=== PATIENT | male | born 1955 | race Caucasian/White ===

== ENCOUNTER 2017-05-19 08:15 | Emergency (ER) | payer MEDICARE, MEDICAID ==
[2017-05-19] MEDS ORDERED: KETOROLAC 60 MG/2 ML VIAL IVP STA (08:48)
--- NOTE | 2017-05-19 08:51 | ED Physician Documentation ---
PD HPI ABD PAIN - Stated complaint Stated Complaint: AB PX - Chief complaint Chief Complaint: Abd Pain - History obtained from History obtained from: Patient - History of Present Illness Timing - onset: How many months ago (4) Timing - duration: Months (4) Timing - details: Abrupt onset, Still present, Waxing and waning Quality: Sharp, Pain Location: LUQ Radiation: Left flank Improved by: Other (nothing) Worsened by: Other (nothing) Associated symptoms: Nausea. No: Fever, Vomiting, Diarrhea, Constipation, Chest pain, Dizzy, Weight loss Similar symptoms before: Has not had sx before Recently seen: Not recently seen - Additional information Additional information: 61-year-old homeless male has been having some pain in his left abdomen on and off for the past 4 months. This morning he awoke with severe pain and he has been unable to get comfortable from this he states the pain radiates down into his left testicle and is in the left side of his abdomen. Review of Systems Constitutional: denies: Fever, Chills, Myalgias Eyes: denies: Decreased vision Ears: denies: Ear pain Nose: denies: Rhinorrhea / runny nose, Congestion Throat: denies: Sore throat Cardiac: denies: Chest pain / pressure, Palpitations Respiratory: denies: Dyspnea, Cough GI: reports: Abdominal Pain, Nausea. denies: Vomiting, Constipation, Diarrhea : denies: Dysuria, Frequency, Hematuria Skin: denies: Rash Musculoskeletal: reports: Back pain. denies: Neck pain, Extremity pain Neurologic: denies: Generalized weakness, Focal weakness, Numbness PD PAST MEDICAL HISTORY - Past Medical History Past Medical History: No Cardiovascular: Hypertension, [place] Neuro: TIA Psych: Depression Musculoskeletal: Osteoporosis - Past Surgical History Past Surgical History: Yes General: Appendectomy HEENT: Tonsil/Adenoidectomy - Present Medications Home Medications: Ambulatory Orders Medication Instructions Recorded Confirmed Tamsulosin [Flomax] 0.4 mg PO DAILY #20 capsule 05/19/17 - Allergies Allergies/Adverse Reactions: Allergies Allergy/AdvReac Type Severity Reaction Status Date / Time No Known Drug Allergies Allergy Verified 04/29/15 11:02 - Social History Does the pt smoke?: Yes Smoking Status: Current every day smoker Does the pt drink ETOH?: No Substance Use and Type: Marijuana - Immunizations Immunizations are current?: No - POLST Patient has POLST: No PD ED PE NORMAL - Vitals Vital signs reviewed: Yes (Hypertensive and tachycardic) - General General: Alert and oriented X 3, Well developed/nourished, Other (61-year-old male writhing in pain clutching his left lower abdomen.) - HEENT HEENT: Atraumatic, PERRL, EOMI - Neck Neck: Supple, no meningeal sign, No bony TTP - Cardiac Cardiac: No murmur, Other (Tachycardic to 120) - Respiratory Respiratory: No respiratory distress, Clear bilaterally - Abdomen Abdomen: Soft, Other (clutching the left side and this area is " maybe" tender. He is not able to acknowledge tenderness) - Back Back: No CVA TTP, No spinal TTP - Derm Derm: Normal color, Warm and dry, No rash - Extremities Extremities: No deformity, No edema - Neuro Neuro: No motor deficit, No sensory deficit Eye Opening: Spontaneous Motor: Obeys Commands Verbal: Oriented GCS Score: 15 - Psych Psych: Normal mood, Normal affect Results - Vitals Vitals: Vital Signs - 24 hr 05/19/17 05/19/17 05/19/17 08:18 11:34 12:19 Temperature 36.2 C L 36.5 C Heart Rate 121 H 108 H 106 H Respiratory 22 18 16 Rate Blood Pressure 199/136 H 192/105 H 189/135 H O2 Saturation 95 94 96 Oxygen O2 Source Room air - Labs Labs: Laboratory Tests 05/19/17 05/19/17 05/19/17 08:26 08:26 10:19 WBC 12.5 H RBC 4.65 L Hgb 13.2 L Hct 40.1 L MCV 86.3 MCH 28.4 MCHC 33.0 RDW 14.8 Plt Count 311 MPV 8.2 Neut # 10.1 H Lymph # 1.1 L [place] # 0.9 Eos # 0.2 Baso # 0.1 Absolute Nucleated RBC 0.00 Nucleated RBC % 0.0 Sodium 136 Potassium 4.6 Chloride 101 Carbon Dioxide 26 Anion Gap 9.0 BUN 39 H Creatinine 2.3 H Estimated GFR (MDRD) 29 L Glucose 144 H Calcium 8.9 Total Bilirubin 0.6 AST 52 H ALT 43 Alkaline Phosphatase 88 Total Protein 7.2 Albumin 3.9 Globulin 3.3 Albumin/Globulin Ratio 1.2 Lipase 16 L Urine Color YELLOW Urine Clarity CLEAR Urine pH 7.0 Ur Specific [place] <=1.005 Urine Protein NEGATIVE Urine Glucose (UA) NEGATIVE Urine Ketones NEGATIVE Urine Occult Blood TRACE-LYSE Urine Nitrite NEGATIVE Urine Bilirubin NEGATIVE Urine Urobilinogen 0.2 (NORMAL) Ur Leukocyte Esterase NEGATIVE Ur Microscopic Review NOT INDICATED Urine Culture Comments NOT INDICATED - Rads (name of study) CT abdomen and pelvis without Radiology: Prelim report reviewed (Impression: 1. Bilateral moderate hydronephrosis with no distal stone, mass or stricture identified. The bladder is markedly distended. Question bladder outlet obstruction. No bowel obstruction or inflammatory process associated with the bowel. No free air or fluid in the abdomen or pelvis.), EMP read indepedently, See rad report Procedures - Bedside sono Bedside sono by EMP: With use of bedside ultrasound the left kidney is imaged and there is obvious hydronephrosis present the kidney is sonographically nontender. PD MEDICAL DECISION MAKING - ED course Complexity details: reviewed old records, reviewed results, re-evaluated patient , considered differential, d/w patient ED course: 61-year-old male with intermittent left-sided abdominal pain for 4 months has developed acute pain this morning comes into the emergency department writhing in pain and appears by exam to have some tenderness to his lower abdomen that is not reproducible. He has hydro-on bedside exam and kidney stone is the primary working diagnosis. CT scan of the abdomen and pelvis reveals a distended bladder and no evidence of renal lithiasis. He does have bilateral hydronephrosis. A zuñiga is placed. A total of over 2 L is drained. Zuñiga catheter is left in place the patient does have evidence of renal failure with his creatinine over 2.3. We expect this to resolve completely and we have referred him to urology for follow up and we will place him on some tamsulosin. Departure - Departure Disposition: 01 Home, Self Care Clinical Impression: Urinary retention Condition: Stable Instructions: ED Retention Urinary Male Follow-Up: Cherelle Cheney MD [Physician No Access] - Prescriptions: Tamsulosin [Flomax] 0.4 mg PO DAILY #20 capsule
[2017-05-19 08:56] LABS: BASOPHILS # (AUTO) 0.1 10^3/uL (0.0-0.1); BASOPHILS % (AUTO) 0.8 %; EOSINOPHILS # (AUTO) 0.2 10^3/uL (0.0-0.7); EOSINOPHILS % (AUTO) 1.8 %; HGB - HEMOGLOBIN 13.2 g/dL (14.0-18.0); LYMPHOCYTES # (AUTO) 1.1 10^3/uL (1.5-3.5); LYMPHOCYTES % (AUTO) 9.2 %; MEAN CORPUSCULAR HEMOGLOBIN 28.4 pg (27.0-31.0); MEAN CORPUSCULAR VOLUME 86.3 fL (80.0-94.0); MEAN PLATELET VOLUME 8.2 fL (7.4-11.4); MONOCYTES # (AUTO) 0.9 10^3/uL (0.0-1.0); MONOCYTES % (AUTO) 7.5 %; NEUTROPHILS # (AUTO) 10.1 10^3/uL (1.5-6.6); NEUTROPHILS % (AUTO) 80.7 %; PLT - PLATELET COUNT 311 10^3/uL (130-450); RED BLOOD COUNT 4.65 10^6/uL (4.70-6.10); RED CELL DISTRIBUTION WIDTH 14.8 % (12.0-15.0); WHITE BLOOD COUNT 12.5 x10^3/uL (4.8-10.8)
[2017-05-19] MEDS ORDERED: ONDANSETRON 4 MG/2 ML VIAL IVP STA (09:01)
[2017-05-19] MEDS ORDERED: HYDROmorphone 1 MG/ML CARPUJECT IVP STA (09:01)
[2017-05-19 09:06] LABS: ALBUMIN 3.9 g/dL (3.2-5.5); ALBUMIN/GLOBULIN RATIO 1.2 (1.0-2.2); BILIRUBIN,TOTAL 0.6 mg/dL (0.2-1.0); CALCIUM 8.9 mg/dL (8.5-10.3); CREATININE 2.3 mg/dL (0.6-1.2); TOTAL PROTEIN 7.2 g/dL (6.7-8.2)
--- NOTE | 2017-05-19 09:53 | CT Report ---
EXAM: CT ABDOMEN AND PELVIS EXAM DATE: 05/19/2017 09:24 AM. CLINICAL HISTORY: Left flank pain hydro on bedside. COMPARISONS: None. TECHNIQUE: Routine helical CT imaging was performed through the abdomen and pelvis. IV contrast: None . Enteric contrast: No. Reconstructions: Coronal and sagittal. In accordance with CT protocol optimization, one or more of the following dose reduction techniques w ere utilized for this exam: automated exposure control, adjustment of mA and/or KV based on patient s ize, or use of iterative reconstructive technique. FINDINGS: Lung Bases: Moderate emphysematous changes in the lung bases with no focal consolidation. Liver: Normal. No masses. Gallbladder/Bile Ducts: Unremarkable. Spleen: Normal. Pancreas: Normal. Adrenal Glands: Normal. Kidneys: Bilateral moderate hydronephrosis with no stone, mass or stricture identified. Peritoneal Cavity/Bowel: Normal. No free fluid, free air or adenopathy. No masses or acute inflammato ry process. The appendix is not visualized. Pelvic Organs: The bladder is distended. The bladder wall appears smooth and symmetric circumferentia lly. There are 2 bladder diverticula is generally measuring 4.0 x 5.1 cm and 3.0 x 3.2 cm the Vasculature: No aneurysms or other significant abnormality. Bones: No significant abnormality. Other: None. IMPRESSION: 1. Bilateral moderate hydronephrosis with no distal stone, mass or stricture identified. The bladder is markedly distended. Question bladder outlet obstruction. 2. No bowel obstruction or inflammatory process associated with the bowel. 3. No free air-fluid in the abdomen or pelvis. [facility] Referring Provider Line: [phone] SITE ID: [id number]
[2017-05-19 10:29] LABS: BILIRUBIN,URINE NEGATIVE (NEGATIVE); GLUCOSE, URINE (UA) NEGATIVE (NEGATIVE); KETONES,URINE (UA) NEGATIVE (NEGATIVE); LEUKOCYTE ESTERASE, URINE NEGATIVE (NEGATIVE); NITRITE,URINE NEGATIVE (NEGATIVE); OCCULT BLOOD,URINE TRACE-LYSE (NEGATIVE); PROTEIN,URINE NEGATIVE (NEGATIVE); UROBILINOGEN,URINE 0.2 (NORMAL) E.U./dL (NORMAL)
[2017-05-19 10:33] LABS: CLARITY,URINE CLEAR (CLEAR)
[2017-05-19] MEDS ORDERED: TAMSULOSIN 0.4 MG CAPSULE PO STA (12:18)
[2017-05-19 12:20] VITALS: BP 189/135
== END 2017-05-19 12:40 | disposition home or self-care (01) ==
LOC: ED 08:15
DX: R33.9 Retention of urine, unspecified (principal); I10 Essential (primary) hypertension; I25.2 Old myocardial infarction; Z86.73 Personal history of transient ischemic attack (TIA), and cerebral infarction without residual deficits; F17.200 Nicotine dependence, unspecified, uncomplicated
CPT/HCPCS: 36415; 51702; 74176; 80053; 81003; 83690; 85025; 96374; 96375; 99283; 99284; A9270; J1170; 81001; 87086

== ENCOUNTER 2017-05-26 08:00 | Inpatient (IN) | payer MEDICARE, MEDICAID ==
--- NOTE | 2017-05-26 08:17 | ED Physician Documentation ---
History of Present Illness - Stated complaint Stated Complaint: MALE - Chief complaint Chief Complaint: Abd Pain - Additonal information Additional information: hx from pt 61 male seen 05/19 for LLQ to pain had extensive wup including labs UA and CT AP which showed that he had urinary retention with subsequent bilaterl hydro but no stones were seen, no infection, renal insuff, had zuñiga placed and was referred to urology his zuñiga snagged and pulled partway out and was painful with bleeding so he pulled his zuñiga the rest of the out 30 hr ago and now cannot urinate again crampy abd pain nausea and a BLAIR no fever no back pain Review of Systems Constitutional: denies: Fever, Chills Cardiac: denies: Chest pain / pressure Respiratory: denies: Dyspnea GI: reports: Abdominal Pain, Nausea Musculoskeletal: denies: Back pain Endocrine: denies: Easy bruising / bleeding Immunocompromised: denies: Immunocompromised PD PAST MEDICAL HISTORY - Past Medical History Cardiovascular: Hypertension, [place] Neuro: TIA Psych: Depression Musculoskeletal: Osteoporosis - Past Surgical History Past Surgical History: Yes General: Appendectomy HEENT: Tonsil/Adenoidectomy - Present Medications Home Medications: Ambulatory Orders Medication Instructions Recorded Confirmed No Known Home Medications [No 05/26/17 05/26/17 Known Home Medications] - Allergies Allergies/Adverse Reactions: Allergies Allergy/AdvReac Type Severity Reaction Status Date / Time No Known Drug Allergies Allergy Verified 05/26/17 08:05 - Social History Does the pt smoke?: Yes Smoking Status: Current every day smoker Does the pt drink ETOH?: No - Immunizations Immunizations are current?: No - POLST Patient has POLST: No PD ED PE NORMAL - Vitals Vital signs reviewed: Yes - Neck Neck: Supple, no meningeal sign - Cardiac Cardiac: RRR - Respiratory Respiratory: No respiratory distress, Clear bilaterally - Abdomen Abdomen: Soft, Other (TTP lower abd with palpable distended bladder) - Back Back: No CVA TTP - Derm Derm: Normal color Results - Vitals Vitals: Vital Signs - 24 hr 05/26/17 05/26/17 05/26/17 08:01 09:40 11:26 Temperature 37.6 C H 37.2 C Heart Rate 127 H 122 H 117 H Respiratory 22 20 20 Rate Blood Pressure 191/111 H 183/116 H 161/117 H O2 Saturation 98 100 97 05/26/17 12:15 Temperature 37.1 C Heart Rate 118 H Respiratory 20 Rate Blood Pressure 171/112 H O2 Saturation 97 Oxygen O2 Source Room air - EKG (time done) 1019 Rate: Rate (enter#) (118) Rhythm: Sinus tachycardia [place]: Normal Intervals: Normal VT, Prolonged QT QRS: LVH Ischemia: Other (ST elev ant leads could be repol LVH or ischemia - added on trop - pts prsentation is not concerning for ACS) - Labs Labs: Laboratory Tests 05/26/17 05/26/17 05/26/17 08:34 10:10 10:10 WBC 21.9 H RBC 5.15 Hgb 14.7 Hct 43.9 MCV 85.2 MCH 28.6 MCHC 33.5 RDW 14.5 Plt Count 393 MPV 7.8 Neut # 19.3 H Lymph # 0.9 L [place] # 1.5 H Eos # 0.1 Baso # 0.0 Absolute Nucleated RBC 0.01 Nucleated RBC % 0.0 Manual Slide Review Indicated RBC Morph Micro Appear 2+ ANISOCYTOSIS Sodium 135 Potassium 4.8 Chloride 97 L Carbon Dioxide 28 Anion Gap 10.0 BUN 19 Creatinine 1.3 H Estimated GFR (MDRD) 56 L Glucose 113 H Lactic Acid Calcium 9.3 Troponin I Urine Color LIGHT YELLOW Urine Clarity HAZY Urine pH 6.0 Ur Specific [place] <=1.005 Urine Protein TRACE Urine Glucose (UA) NEGATIVE Urine Ketones NEGATIVE Urine Occult Blood LARGE H Urine Nitrite POSITIVE H Urine Bilirubin NEGATIVE Urine Urobilinogen 0.2 (NORMAL) Ur Leukocyte Esterase LARGE H Urine RBC 6-10 H Urine WBC >25 H Ur Squamous Epith Cells NONE SEEN Urine Bacteria Moderate H Ur Microscopic Review INDICATED Urine Culture Comments INDICATED 05/26/17 05/26/17 05/26/17 10:10 11:09 12:50 WBC RBC Hgb Hct MCV MCH MCHC RDW Plt Count MPV Neut # Lymph # [place] # Eos # Baso # Absolute Nucleated RBC Nucleated RBC % Manual Slide Review RBC Morph Micro Appear Sodium Potassium Chloride Carbon Dioxide Anion Gap BUN Creatinine Estimated GFR (MDRD) Glucose Lactic Acid 1.4 Calcium Troponin I 0.07 0.04 Urine Color Urine Clarity Urine pH Ur Specific [place] Urine Protein Urine Glucose (UA) Urine Ketones Urine Occult Blood Urine Nitrite Urine Bilirubin Urine Urobilinogen Ur Leukocyte Esterase Urine RBC Urine WBC Ur Squamous Epith Cells Urine Bacteria Ur Microscopic Review Urine Culture Comments PD MEDICAL DECISION MAKING - ED course ED course: zuñiga replaced large amt urine drained pt feels better no abd pain etc still has a BLAIR - no trauma no CO no numbness or weakness PERRL globes soft no TA TTP A&O X 3 nl motor and sensory - pt attributes to being up all night - gave apap pt now has a UTI likely cath related not prostate as he did not have it before the cath was placed so will give rocpehin IM and dc on keflex pending sensitivities pt has urology fup scheduled already planned to dc but at dc VS pt is still HTN and very tachy so cancelled dc and ordered labs lactate blood cx and IVF EKG was done per protocol by nursing - was not having CP etc - abn - so got trop X 2 which were neg still tachy after IVF and IM ab creat better after zuñiga already had CT s stones will admit spoke to hospitalist at 1330 and she rec obs Departure - Departure Disposition: 66 [facility] DC/Xfer Clinical Impression: Urinary retention, SIRS (systemic inflammatory response syndrome) Urinary tract infection Qualifiers: Urinary tract infection type: site unspecified Hematuria presence: with hematuria Qualified Code(s): N39.0 - Urinary tract infection, site not specified Condition: Good Discharge Date/Time: 05/26/17 14:34
[2017-05-26] MEDS ORDERED: LIDOCAINE 2% URO-JET 5 ML SYRINGE UR STA (08:20)
[2017-05-26 08:49] LABS: BILIRUBIN,URINE NEGATIVE (NEGATIVE); GLUCOSE, URINE (UA) NEGATIVE (NEGATIVE); KETONES,URINE (UA) NEGATIVE (NEGATIVE); LEUKOCYTE ESTERASE, URINE LARGE (NEGATIVE); NITRITE,URINE POSITIVE (NEGATIVE); OCCULT BLOOD,URINE LARGE (NEGATIVE); PROTEIN,URINE TRACE mg/dL (NEGATIVE); UROBILINOGEN,URINE 0.2 (NORMAL) E.U./dL (NORMAL)
[2017-05-26 08:50] LABS: CLARITY,URINE HAZY (CLEAR)
[2017-05-26 09:04] LABS: BACTERIA,URINE Moderate /HPF (None Seen); SQUAMOUS EPITHELIAL CELL,UR NONE SEEN (<= Few)
[2017-05-26] MEDS ORDERED: LIDOCAINE 1% 2 ML VIAL SUBQ ONE (09:08)
[2017-05-26] MEDS ORDERED: cefTRIAXone 1 GM VIAL IM STA (09:08)
[2017-05-26] MEDS ORDERED: ACETAMINOPHEN 500 MG TABLET PO STA (09:41)
[2017-05-26] MEDS ORDERED: SODIUM CHLORIDE 0.9% 1,000 ML IV ONE (09:52)
[2017-05-26 10:42] LABS: CALCIUM 9.3 mg/dL (8.5-10.3); CREATININE 1.3 mg/dL (0.6-1.2)
[2017-05-26 10:47] LABS: BASOPHILS % (AUTO) 0.1 %; EOSINOPHILS # (AUTO) 0.1 10^3/uL (0.0-0.7); EOSINOPHILS % (AUTO) 0.3 %; HGB - HEMOGLOBIN 14.7 g/dL (14.0-18.0); LYMPHOCYTES # (AUTO) 0.9 10^3/uL (1.5-3.5); LYMPHOCYTES % (AUTO) 4.2 %; MEAN CORPUSCULAR HEMOGLOBIN 28.6 pg (27.0-31.0); MEAN CORPUSCULAR HGB CONC 33.5 g/dL (32.0-36.0); MEAN CORPUSCULAR VOLUME 85.2 fL (80.0-94.0); MEAN PLATELET VOLUME 7.8 fL (7.4-11.4); MONOCYTES # (AUTO) 1.5 10^3/uL (0.0-1.0); NEUTROPHILS # (AUTO) 19.3 10^3/uL (1.5-6.6); NEUTROPHILS % (AUTO) 88.4 %; PLT - PLATELET COUNT 393 10^3/uL (130-450); RED BLOOD COUNT 5.15 10^6/uL (4.70-6.10); RED CELL DISTRIBUTION WIDTH 14.5 % (12.0-15.0); WHITE BLOOD COUNT 21.9 x10^3/uL (4.8-10.8)
[2017-05-26 11:12] LABS: RBC MORPHOLOGY (MULTIPLE) 2+ ANISOCYTOSIS (NORMAL)
[2017-05-26] MEDS ORDERED: MORPHINE 2 MG/ML SYRINGE IVP STA (11:36)
[2017-05-26] MEDS ORDERED: SODIUM CHLORIDE 0.9% 2,000 ML IV ONE (13:30)
[2017-05-26] MEDS ORDERED: ZOLPIDEM 5 MG TABLET PO PRN (14:05)
[2017-05-26] MEDS ORDERED: SODIUM CHLORIDE FLUSH 0.9% 10 ML SYRINGE IVP PRN (14:05)
[2017-05-26] MEDS ORDERED: ONDANSETRON 4 MG/2 ML VIAL IVP PRN (14:05)
--- NOTE | 2017-05-26 14:27 | HISTORY & PHYSICAL EXAMINATION ---
Chief Complaint - Chief Complaint Chief Complaint: urinary retention History of Present Illness - Admitted From Admitted From:: ER - History Obtained From History obtained from: pt - History of Present Illness HPI Comment/Other: Mr. Robb is a 61-year-old male with a PMH significant for HTN, PR, TIA, Depression, Osteoporosis, urinary retention for six months, who present ER for a chief complaints of urinary retention, unable to urinate after the urinary catheter was incident removed, and dysuria. Pt report since last night his Zuñiga was incident removed by himself, he can not urinate. He felt full in the bladder, can not urinate by himself and very painful when he tried to urinate. He denies fever, chill, hematouria. Pt report he had this difficulty urination issue for about 6 months. He had a urologist appointment on this month . pt had extensive workup including CT of abdomen on 05/19/17, which showed that he had urinary retention with bilateral moderate hydronephrosis with no distal stone, mass or stricture identified, Then pt had zuñiga placed and was referred to urology. Pt is homeless and is living at car. Pt also complaint of headache. he report he had a quit long time he did not have headache. pt denies neck stiffness, fever, focal neurological deficits. Pt denies chest pain, shortness of breathing, fever, chill, cough. In ER, pt is afbile, tachycardia with HR 118 , and HTN 171/112. Lab test reveals today WBC 21.9, creatinine 1.3, UA reveals UTI. History - Past Medical History Cardiovascular: reports: Hypertension, [place] Neuro: reports: TIA Psych: reports: Depression Musculoskeletal: reports: Osteoporosis MRSA Hx?: Yes - Past Surgical History General: reports: Appendectomy HEENT: reports: Tonsil/Adenoidectomy - Family & Social History Family History: Mother: (father from stroke. Mother from Lung cancer), Father: , Other family: Alive and Well (pt state he left his parents when he was very young. He did not know much about his sibles.) Family History Comment/Other: Pt state he is born at [place], and until he finished his high school. Then He moved to [place]. His at 1998 and from cancer. he had four children, but all his children were removed from his by government after his , then He became very depressioned. Social History Notes: pt denies cigarette smoking, alcohol and drug abuse - Substance History Use: Uses substance without health or social issues: NONE Abuse: Recurrent use of substance despite neg consequences: NONE Dependence: Experiences withdrawal or developed tolerances: NONE - POLST Patient has POLST: No POLST Status: DNR Meds/Allgy - Home Medications Home Medications: Ambulatory Orders Medication Instructions Recorded Confirmed No Known Home Medications [No 05/26/17 05/26/17 Known Home Medications] - Allergies Allergies/Adverse Reactions: Allergies Allergy/AdvReac Type Severity Reaction Status Date / Time No Known Drug Allergies Allergy Verified 05/26/17 08:05 Review of Systems - Constitutional Constitutional: denies: Fatigue, Fever, Chills, Malaise, Weakness, Poor appetite , Diaphoresis, Night sweats - Eyes Eyes: denies: Pain, Irritation, Amaurosis, Blurred vision, Spots in vision, Field loss, Vision loss, Dipolpia - Ears, Nose & Throat Ears, Nose & Throat: denies: Ear pain, Hearing loss, Hearing aids, Tinnitus, Vertigo, Nasal pain, Nasal discharge, Nosebleeds, Nasal congestion, Sore throat , Mouth lesions, Bleeding gums - Cardiovascular Cariovascular: denies: Irregular heart rate, Palpitations, Chest pain, Edema, Lightheadedness, Syncope, Exertional dyspnea, Decr. exercise tolerance - Respiratory Respiratory: denies: Cough, Sputum production, Wheezing, Snoring, Hemoptysis, Orthopnea, SOB at rest, SOB with exertion - Gastrointestinal Gastrointestinal: denies: Abdominal pain, Abdominal distention, Constipation, Diarrhea, Rectal bleeding, Black stools, Bloody stools, Nausea, Vomiting, Vargas blood emesis, Coffee grounds emesis, Reflux/heartburn - Genitourinary Genitourinary: reports: Dysuria, Urgency. denies: Frequency, Hematuria, Incontinence, Flank pain, Nocturia, Urethral discharge - Musculoskeletal Musculoskeletal: denies: Muscle pain, Back pain, Muscle aches, Stiffness, Limited range of motion, Muscle weakness, Gout, Joint pain - Integumentary Integumentary: denies: Rash, Pruritis, Lesions, Dryness, Lumps, Acne, Pigment changes, Nail changes - Neurological Neurological: denies: General weakness, Focal weakness, Headache, Dizziness, Numbness, Pre-existing deficit, Abnormal gait, Seizures, Incoordination, Slurred speech - Psychiatric Psychiatric: denies: Depression, Anxiety, Suicidal, Delusions, Hallucinations, Homicidal - Endocrine Endocrine: denies: Polyuria, Polydypsia, Polyphagia, Intolerance to cold - Hematologic/Lymphatic Hematologic/Lymphatic: denies: Anemia, Bruising, Petechiae, Blood clots, Lymphadenopathy, Bleeding tendencies Exam - Vital Signs Reviewed Vital Signs: Yes Vital Signs: Vital Signs x48h Temp Pulse Resp BP Pulse Ox 05/26/17 14:22 36.6 C 107 H 22 167/103 H 97 - Physical Exam General Appearance: positive: No acute distress, Alert. negative: Lethargic Eyes Bilateral: positive: Normal inspection, PERRL, No lid inflammation, Conjunctivae nml ENT: positive: ENT inspection nml, Pharynx nml, No signs of dehydration. negative: Purulent nasal drainage, Pharyngeal erythema, Oral lesions, Dry mucous membranes Neck: positive: Nml inspection, Thyroid nml, No JVD, Trachea midline. negative : Thyromegaly, Lymphadenopathy (R), Lymphadenopathy (L), Stiff neck, Carotid bruit, Swelling/bruising, Tracheal deviation Respiratory: positive: Chest non-tender, No respiratory distress, Breath sounds nml. negative: Wheezes, Rales, Rhonchi Cardiovascular: positive: Regular rate & rhythm, No murmur, No gallop. negative : Irregularly irregular, Extrasystoles, Tachycardia, Bradycardia, Systolic murmur, Diastolic murmur Peripheral Pulses: positive: 2+ Abdomen: positive: Non-tender, No organomegaly, Nml bowel sounds, No distention. negative: Tenderness, Guarding, Rebound Back: positive: Nml inspection. negative: CVA tenderness (R), CVA tenderness (L ) Skin: positive: Color nml, No rash, Warm, Dry. negative: Cyanosis, Diaphoresis , Pallor Extremities: positive: Non-tender, Full ROM, Nml appearance. negative: Calf tenderness, Joint swelling, Jasmine's sign/cords Neurologic/Psychiatric: positive: Oriented x3, Motor nml, Sensation nml. negative: Weakness, Sensory loss, Facial droop, Slurred/abnml speech, Depressed mood/affect Conclusion/Plan - Problem List (1) Urinary tract infection Conclusion/Plan: UA positive UTI, it appears from Zuñiga Cath treat with Rocephin follow up UA culture Qualifiers: Urinary tract infection type: site unspecified Hematuria presence: with hematuria Qualified Code(s): N39.0 - Urinary tract infection, site not specified; R31.9 - Hematuria, unspecified; R31.9 - Hematuria, unspecified (2) Urinary retention Conclusion/Plan: pt has this problem for about 6 months. Pt had appointment with Urologist in . recent CT of abdomen reveals unremarkable add Flomax insertion of new Zuñiga, follow Zuñiga protocol, pt may need Zuñiga on D/C follow up out-pt appointment with urologist. (3) HTN (hypertension) Conclusion/Plan: pt did not take his HTN meds. Pt is hx of HTN and PR Add Metoprolol, since pt had both tachycardia and HTN, without asthma hx add PRN Clonidine vital monitor (4) Tachycardia Conclusion/Plan: EKG reveals sinus tachycardia on ER. Metoprolol, vital/tele monitor (5) Chronic renal insufficiency Conclusion/Plan: Creatinine on last admission is 2.3, today his creatinine 1.3, is better mild hydration with NS IVF daily lab monitor (6) Illicit drug use Conclusion/Plan: pt denies illicit drug when I assessed pt. But UDS reveals pt is positive for Methamphetamine, then pt state his friend may give him something. advise pt quit. (7) Headache Conclusion/Plan: pt state he had severe headache, but denies focal neurological deficit. CT of head is unremarkable. It may drive from pt's illicit drug withdrawal. Tylenol PRN. neur check vital monitor IVF (8) Medical non-compliance Conclusion/Plan: pt did not take his BP meds. Pt is advised for medical compliance (9) Homelessness Conclusion/Plan: pt is with disability insurance, also homeless, currently he is living at a car consult with social work (10) DVT prophylaxis Conclusion/Plan: SCD and Lovenox (11) Do not intubate, cardiopulmonary resuscitation (CPR)-only code status Conclusion/Plan: pt clearly request DNR - Lab Results Fish Bones: 05/26/17 10:10 05/26/17 10:10 Core Measures - Anticipated LOS I expect patient to be DC'd or transferred within 96 hours.: Yes - DVT/VTE - Prophylaxis VTE/DVT Device ordered at admit?: Yes VTE/DVT Prophylaxis med ordered at admit?: Yes
--- NOTE | 2017-05-26 14:35 | CT Report ---
EXAM: CT HEAD EXAM DATE: 05/26/2017 02:21 PM. CLINICAL HISTORY: Headache, severe. COMPARISON: 09/16/2007. TECHNIQUE: Multiaxial CT images were obtained from the foramen magnum to the vertex. Reformats: Coron al. IV contrast: None. In accordance with CT protocol optimization, one or more of the following dose reduction techniques w ere utilized for this exam: automated exposure control, adjustment of mA and/or KV based on patient s ize, or use of iterative reconstructive technique. FINDINGS: Parenchyma: No intraparenchymal hemorrhage. No evidence of mass, midline shift, or CT findings of inf arction. Mackey-white differentiation is distinct. Extraaxial Spaces: Normal for age. No subdural or epidural collections identified. Ventricles: Normal in size and position. Sinuses and Orbits: Imaged paranasal sinuses, orbits, and mastoids show no significant abnormality. Bones: No evidence of fracture or calvarial defect. Other: None. IMPRESSION: No acute intracranial abnormality or mass. [facility] Referring Provider Line: [phone] SITE ID: [id number]
[2017-05-26] MEDS: METOPROLOL SUCCINATE 25 MG TABLET PO SCH (14:55)
[2017-05-26] MEDS: ACETAMINOPHEN 325 MG TABLET PO PRN (15:08)
[2017-05-26] MEDS ORDERED: SODIUM CHLORIDE 0.9% 1,000 ML IV SCH (15:30)
[2017-05-26 15:45] LABS: MUDS CUTOFF CONCENTRATIONS CUTOFF CONC BELOW:
[2017-05-26] MEDS: cloNIDine 0.1 MG TABLET PO PRN (15:56)
[2017-05-26] MEDS: HYDROcod/ACETAM 5/325 MG TABLET PO PRN (15:56)
[2017-05-26] MEDS: NICOTINE 14 MG PATCH TOP SCH (15:57)
[2017-05-26 15:59] LABS: AMPHETAMINE SCREEN,URINE NEGATIVE (NEGATIVE); BENZODIAZEPINES SCREEN, URINE NEGATIVE (NEGATIVE); COCAINE SCREEN URINE NEGATIVE (NEGATIVE); METHADONE SCREEN, URINE NEGATIVE (NEGATIVE); METHAMPHETAMINES SCREEN, URINE POSITIVE (NEGATIVE); OPIATE SCREEN, URINE POSITIVE (NEGATIVE); OXYCODONE SCREEN, URINE NEGATIVE (NEGATIVE); PROPOXYPHENE SCREEN, URINE NEGATIVE (NEGATIVE); TRICYCLIC ANTIDEPRESSANT,URINE NEGATIVE (NEGATIVE)
[2017-05-26] MEDS: SODIUM CHLORIDE FLUSH 0.9% 10 ML SYRINGE IVP SCH (15:59)
[2017-05-26] MEDS: TAMSULOSIN 0.4 MG CAPSULE PO SCH (17:49)
[2017-05-26] MEDS: SODIUM CHLORIDE 0.9% 1,000 ML IV SCH ×2 (20:02→23:00)
[2017-05-27] MEDS: ACETAMINOPHEN 325 MG TABLET PO PRN ×2 (00:17→07:34)
[2017-05-27] MEDS: SODIUM CHLORIDE FLUSH 0.9% 10 ML SYRINGE IVP SCH ×3 (02:27→18:09)
[2017-05-27] MEDS: HYDROcod/ACETAM 5/325 MG TABLET PO PRN ×2 (05:34→20:08)
[2017-05-27 05:44] LABS: BASOPHILS # (AUTO) 0.1 10^3/uL (0.0-0.1); EOSINOPHILS # (AUTO) 0.4 10^3/uL (0.0-0.7); EOSINOPHILS % (AUTO) 2.6 %; LYMPHOCYTES # (AUTO) 1.8 10^3/uL (1.5-3.5); LYMPHOCYTES % (AUTO) 12.2 %; MEAN CORPUSCULAR HEMOGLOBIN 27.6 pg (27.0-31.0); MEAN CORPUSCULAR VOLUME 86.3 fL (80.0-94.0); MEAN PLATELET VOLUME 7.5 fL (7.4-11.4); MONOCYTES # (AUTO) 1.1 10^3/uL (0.0-1.0); MONOCYTES % (AUTO) 7.4 %; NEUTROPHILS # (AUTO) 11.1 10^3/uL (1.5-6.6); NEUTROPHILS % (AUTO) 76.8 %; PLT - PLATELET COUNT 343 10^3/uL (130-450); RED BLOOD COUNT 4.73 10^6/uL (4.70-6.10); RED CELL DISTRIBUTION WIDTH 14.5 % (12.0-15.0); WHITE BLOOD COUNT 14.5 x10^3/uL (4.8-10.8)
[2017-05-27 05:53] LABS: ALBUMIN 2.9 g/dL (3.2-5.5); ALBUMIN/GLOBULIN RATIO 0.8 (1.0-2.2); BILIRUBIN,TOTAL 0.5 mg/dL (0.2-1.0); CALCIUM 8.7 mg/dL (8.5-10.3); CREATININE 1.2 mg/dL (0.6-1.2); MAGNESIUM 1.7 mg/dL (1.7-2.8); TOTAL PROTEIN 6.4 g/dL (6.7-8.2)
[2017-05-27] MEDS: cefTRIAXone 1 GM in SODIUM CHLORIDE 0.9% MINIBAG 100 ML IV SCH (08:27)
[2017-05-27] MEDS: ENOXAPARIN 40 MG/0.4 ML SYRINGE SUBQ SCH (08:27)
[2017-05-27] MEDS: NICOTINE 14 MG PATCH TOP SCH (08:28)
[2017-05-27] MEDS: METOPROLOL SUCCINATE 25 MG TABLET PO SCH (08:28)
[2017-05-27] MEDS: TAMSULOSIN 0.4 MG CAPSULE PO SCH (08:28)
[2017-05-27] MEDS: FAMOTIDINE 20 MG TABLET PO SCH (08:28)
[2017-05-27] MEDS: POLYETHYLENE GLYCOL 3350 17 GM PACKET PO SCH (08:31)
[2017-05-27] MEDS ORDERED: cefTRIAXone 1 GM VIAL IVP SCH (09:00)
--- NOTE | 2017-05-27 13:24 | PROVIDER PROGRESS NOTE ---
Subjective - Prog Note Date Prog Note Date: 05/27/17 - Subjective Pt reports feeling: Improved Subjective: pt report he feel much better. No complaints. Current Medications - Current Medications Current Medications: Active Medications Acetaminophen (Tylenol) 650 mg PO Q4HR PRN PRN Reason: Pain 1 to 4 Last Admin: 05/27/17 07:34 Dose: 650 mg Acetaminophen/Hydrocodone Bitart ([place] 5/325) 1 tab PO Q4HR PRN PRN Reason: PAIN Last Admin: 05/27/17 05:34 Dose: 1 tab Clonidine HCl (Catapres) 0.1 mg PO BID PRN PRN Reason: Hypertensive Emergency Last Admin: 05/26/17 15:56 Dose: 0.1 mg Enoxaparin Sodium (Lovenox) 40 mg SUBQ DAILY [facility] Last Admin: 05/27/17 08:27 Dose: 40 mg Famotidine (Pepcid) 20 mg PO DAILY [facility] Last Admin: 05/27/17 08:28 Dose: 20 mg Ceftriaxone Sodium 1 gm/ (Sodium Chloride) 100 mls @ 200 mls/hr IV DAILY [facility] Last Infusion: 05/27/17 09:59 Dose: Infused Metoprolol Succinate (Toprol Xl) 25 mg PO DAILY [facility] Last Admin: 05/27/17 08:28 Dose: 25 mg Nicotine (Nicoderm) 1 patch TOP DAILY [facility] Last Admin: 05/27/17 08:28 Dose: 1 patch Ondansetron HCl (Zofran Inj) 4 mg IVP Q6HR PRN PRN Reason: Nausea / Vomiting Polyethylene Glycol (Miralax) 17 gm PO DAILY [facility] Last Admin: 05/27/17 08:31 Dose: Not Given Sodium Chloride (Normal Saline Flush 0.9%) 10 ml IVP PRN PRN PRN Reason: NEEDED PER PROVIDER ORDERS Sodium Chloride (Normal Saline Flush 0.9%) 10 ml IVP 0100,0900,1700 [facility] Last Admin: 05/27/17 08:28 Dose: 10 ml Tamsulosin HCl (Flomax) 0.4 mg PO DAILY [facility] Last Admin: 05/27/17 08:28 Dose: 0.4 mg Zolpidem Tartrate (Ambien) 5 mg PO QPM PRN PRN Reason: Insomnia No Known Home Medications [No Known Home Medications] 04/07/18 Objective - Vital Signs/Intake & Output Reviewed Vital Signs: Yes Vital Signs: Vital Signs x48h Temp Pulse Resp BP Pulse Ox 05/27/17 12:50 36.4 C L 92 98 H 156/95 H 05/27/17 08:00 36.3 C L 97 16 144/95 H 98 05/27/17 05:32 36.6 C 91 16 152/108 H 97 Intake & Output: Intake & Output 05/24/17 05/25/17 05/26/17 05/27/17 23:59 23:59 23:59 23:59 Intake Total 2600 2172.50 Output Total 2800 1400 Balance -200 772.50 - Objective General Appearance: positive: No acute distress, Alert. negative: Lethargic Eyes Bilateral: positive: Normal inspection, PERRL, No lid inflammation, Conjunctivae nml ENT: positive: ENT inspection nml, Pharynx nml, No signs of dehydration. negative: Purulent nasal drainage, Pharyngeal erythema, Oral lesions Neck: positive: Nml inspection, Thyroid nml, No JVD, Trachea midline. negative : Thyromegaly, Lymphadenopathy (R), Lymphadenopathy (L), Stiff neck, Carotid bruit, Swelling/bruising, Tracheal deviation Respiratory: positive: Chest non-tender, No respiratory distress, Breath sounds nml. negative: Wheezes, Rales, Rhonchi Cardiovascular: positive: Regular rate & rhythm, No murmur, No gallop. negative : Irregularly irregular, Extrasystoles, Tachycardia, Bradycardia, Systolic murmur, Diastolic murmur Peripheral Pulses: 2+ Radial (R), 2+ Radial (L), 2+ Dorsalis pedis (R), 2+ Dorsalis pedis (L) Abdomen: positive: Non-tender, No organomegaly, Nml bowel sounds, No distention. negative: Tenderness, Guarding, Rebound, Abnml bowel sounds Back: positive: Nml inspection. negative: CVA tenderness (R), CVA tenderness (L ) Skin: positive: Color nml, No rash, Warm, Dry. negative: Cyanosis, Diaphoresis , Pallor Extremities: positive: Non-tender, Full ROM, Nml appearance. negative: Calf tenderness, Joint swelling, Jasmine's sign/cords Neurologic/Psychiatric: positive: Oriented x3, Sensation nml. negative: Weakness, Sensory loss, Facial droop, Slurred/abnml speech, Depressed mood/ affect - Lab Results Fish Bones: 05/27/17 05:25 05/27/17 05:25 Other Labs: Lab Results x24hrs 05/27/17 05/27/17 05/26/17 Range/Units 05:25 05:25 15:25 WBC 14.5 H (4.8-10.8) x10^3/uL RBC 4.73 (4.70-6.10) 10^6/uL Hgb 13.0 L (14.0-18.0) g/dL Hct 40.8 L (42.0-52.0) % MCV 86.3 (80.0-94.0) fL MCH 27.6 (27.0-31.0) pg MCHC 32.0 (32.0-36.0) g/dL RDW 14.5 (12.0-15.0) % Plt Count 343 (130-450) 10^3/uL MPV 7.5 (7.4-11.4) fL Neut # 11.1 H (1.5-6.6) 10^3/uL Lymph # 1.8 (1.5-3.5) 10^3/uL [place] # 1.1 H (0.0-1.0) 10^3/uL Eos # 0.4 (0.0-0.7) 10^3/uL Baso # 0.1 (0.0-0.1) 10^3/uL Absolute Nucleated RBC 0.01 x10^3/uL Nucleated RBC % 0.1 /100WBC Sodium 138 (135-145) mmol/L Potassium 4.3 (3.5-5.0) mmol/L Chloride 104 (101-111) mmol/L Carbon Dioxide 28 (21-32) mmol/L Anion Gap 6.0 (6-13) BUN 16 (6-20) mg/dL Creatinine 1.2 (0.6-1.2) mg/dL Estimated GFR (MDRD) 62 L (>89) Glucose 110 H (70-100) mg/dL Calcium 8.7 (8.5-10.3) mg/dL Magnesium 1.7 (1.7-2.8) mg/dL Total Bilirubin 0.5 (0.2-1.0) mg/dL AST 21 (10-42) IU/L ALT 25 (10-60) IU/L Alkaline Phosphatase 70 (42-121) IU/L Total Protein 6.4 L (6.7-8.2) g/dL Albumin 2.9 L (3.2-5.5) g/dL Globulin 3.5 (2.1-4.2) g/dL Albumin/Globulin Ratio 0.8 L (1.0-2.2) Urine Opiates Screen POSITIVE H (NEGATIVE) Ur Oxycodone Screen NEGATIVE (NEGATIVE) Urine Methadone Screen NEGATIVE (NEGATIVE) Ur Propoxyphene Screen NEGATIVE (NEGATIVE) Ur Barbiturates Screen NEGATIVE (NEGATIVE) Ur Tricyclics Screen NEGATIVE (NEGATIVE) Ur Phencyclidine Scrn NEGATIVE (NEGATIVE) Ur Amphetamine Screen NEGATIVE (NEGATIVE) U Methamphetamines Scrn POSITIVE H (NEGATIVE) U Benzodiazepines Scrn NEGATIVE (NEGATIVE) Urine Cocaine Screen NEGATIVE (NEGATIVE) U Cannabinoids Screen NEGATIVE (NEGATIVE) Assessment/Plan - Problem List (1) Urinary tract infection Impression: (1) Urinary tract infection Conclusion/Plan: pt report he feel much better, denies any pain. WBC 14.5 from previous 21.9 continue antibiotics, preliminary blood culture is negative follow UA culture and sensitivity study UA positive UTI, it appears from [place] Cath treat with Rocephin follow up UA culture (2) Urinary retention Conclusion/Plan: most likely pt with [place] in discharge. education pt for the [place] care. follow up out-pt appointment with urologist on 06/14/17 pt has this problem for about 6 months. Pt had appointment with Urologist in . recent CT of abdomen reveals unremarkable add Flomax insertion of new [place], follow Marin protocol, pt may need Marin on D/C follow up out-pt appointment with urologist. (3) HTN (hypertension) Conclusion/Plan: stable, continue meds pt did not take his HTN meds. Pt is hx of HTN and [place] Add Metoprolol, since pt had both tachycardia and HTN, without asthma hx add PRN Clonidine vital monitor (4) Tachycardia Conclusion/Plan: controlled around 90 EKG reveals sinus tachycardia on ER. Metoprolol, vital/tele monitor (5) Chronic renal insufficiency Conclusion/Plan: improved with creatinine 1.2, GFR 62. continue hydration hold nephrotoxical agents Creatinine on last admission is 2.3, today his creatinine 1.3, is better mild hydration with NS IVF daily lab monitor (6) Illicit drug use Conclusion/Plan: pt denies illicit drug when I assessed pt. But UDS reveals pt is positive for Methamphetamine, then pt state his friend may give him something. advise pt quit. (7) Headache Conclusion/Plan: resolved, no more complaints pt state he had severe headache, but denies focal neurological deficit. CT of head is unremarkable. It may drive from pt's illicit drug withdrawal. Tylenol PRN. neur check vital monitor IVF (8) Medical non-compliance Conclusion/Plan: pt did not take his BP meds. Pt is advised for medical compliance (9) Homelessness Conclusion/Plan: planning d/c pt on tomorrow if continue stable, with [place] and leg bag to pt. pt is with disability insurance, also homeless, currently he is living at a car consult with social work Qualifiers: Urinary tract infection type: site unspecified Hematuria presence: with hematuria Qualified Code(s): N39.0 - Urinary tract infection, site not specified; R31.9 - Hematuria, unspecified; R31.9 - Hematuria, unspecified
[2017-05-27] MEDS: cloNIDine 0.1 MG TABLET PO PRN (20:08)
[2017-05-28] MEDS: SODIUM CHLORIDE FLUSH 0.9% 10 ML SYRINGE IVP SCH ×3 (00:11→23:23)
[2017-05-28 05:02] LABS: BASOPHILS % (AUTO) 0.3 %; EOSINOPHILS # (AUTO) 0.5 10^3/uL (0.0-0.7); EOSINOPHILS % (AUTO) 3.7 %; LYMPHOCYTES # (AUTO) 1.9 10^3/uL (1.5-3.5); LYMPHOCYTES % (AUTO) 14.7 %; MEAN CORPUSCULAR HEMOGLOBIN 27.5 pg (27.0-31.0); MEAN CORPUSCULAR HGB CONC 32.2 g/dL (32.0-36.0); MEAN CORPUSCULAR VOLUME 85.4 fL (80.0-94.0); MEAN PLATELET VOLUME 7.5 fL (7.4-11.4); NEUTROPHILS # (AUTO) 9.4 10^3/uL (1.5-6.6); NEUTROPHILS % (AUTO) 73.3 %; PLT - PLATELET COUNT 387 10^3/uL (130-450); RED CELL DISTRIBUTION WIDTH 14.2 % (12.0-15.0); WHITE BLOOD COUNT 12.9 x10^3/uL (4.8-10.8)
[2017-05-28 05:14] LABS: ALBUMIN 2.8 g/dL (3.2-5.5); ALBUMIN/GLOBULIN RATIO 0.8 (1.0-2.2); BILIRUBIN,TOTAL 0.3 mg/dL (0.2-1.0); CALCIUM 8.6 mg/dL (8.5-10.3); CREATININE 1.3 mg/dL (0.6-1.2); TOTAL PROTEIN 6.5 g/dL (6.7-8.2)
[2017-05-28] MEDS: NICOTINE 14 MG PATCH TOP SCH (08:12)
[2017-05-28] MEDS: cefTRIAXone 1 GM in SODIUM CHLORIDE 0.9% MINIBAG 100 ML IV SCH (08:12)
[2017-05-28] MEDS: ENOXAPARIN 40 MG/0.4 ML SYRINGE SUBQ SCH (08:12)
[2017-05-28] MEDS: cloNIDine 0.1 MG TABLET PO PRN (08:13)
[2017-05-28] MEDS: FAMOTIDINE 20 MG TABLET PO SCH (08:13)
[2017-05-28] MEDS: METOPROLOL SUCCINATE 50 MG TABLET PO SCH (08:13)
[2017-05-28] MEDS: POLYETHYLENE GLYCOL 3350 17 GM PACKET PO SCH (08:13)
[2017-05-28] MEDS: TAMSULOSIN 0.4 MG CAPSULE PO SCH (08:13)
[2017-05-28] MEDS: ACETAMINOPHEN 325 MG TABLET PO PRN (08:13)
[2017-05-28] MEDS: SODIUM CHLORIDE 0.9% 1,000 ML IV SCH ×2 (08:17→19:36)
--- NOTE | 2017-05-28 08:49 | PROVIDER PROGRESS NOTE ---
Subjective - Prog Note Date Prog Note Date: 05/28/17 - Subjective Pt reports feeling: No change Subjective: pt report some headache but better than his previous headache. Pt's CT of brain is unremarkable. pt is positive for methamphetamine. Pt denies CP, SOB. No seizure. Current Medications - Current Medications Current Medications: Active Medications Acetaminophen (Tylenol) 650 mg PO Q4HR PRN PRN Reason: Pain 1 to 4 Last Admin: 05/28/17 08:13 Dose: 650 mg Acetaminophen/Hydrocodone Bitart ([place] 5/325) 1 tab PO Q4HR PRN PRN Reason: PAIN Last Admin: 05/27/17 20:08 Dose: 1 tab Clonidine HCl (Catapres) 0.1 mg PO BID PRN PRN Reason: Hypertensive Emergency Last Admin: 05/28/17 08:13 Dose: 0.1 mg Enoxaparin Sodium (Lovenox) 40 mg SUBQ DAILY [facility] Last Admin: 05/28/17 08:12 Dose: 40 mg Famotidine (Pepcid) 20 mg PO DAILY [facility] Last Admin: 05/28/17 08:13 Dose: 20 mg Ceftriaxone Sodium 1 gm/ (Sodium Chloride) 100 mls @ 200 mls/hr IV DAILY [facility] Last Admin: 05/28/17 08:12 Dose: 200 mls/hr Sodium Chloride (Normal Saline 0.9%) 1,000 mls @ 83.333 mls/hr IV .Q12H [facility] Last Admin: 05/28/17 08:17 Dose: 83.333 mls/hr Metoprolol Succinate (Toprol Xl) 50 mg PO DAILY [facility] Last Admin: 05/28/17 08:13 Dose: 50 mg Nicotine (Nicoderm) 1 patch TOP DAILY [facility] Last Admin: 05/28/17 08:12 Dose: 1 patch Ondansetron HCl (Zofran Inj) 4 mg IVP Q6HR PRN PRN Reason: Nausea / Vomiting Polyethylene Glycol (Miralax) 17 gm PO DAILY [facility] Last Admin: 05/28/17 08:13 Dose: 17 gm Sodium Chloride (Normal Saline Flush 0.9%) 10 ml IVP PRN PRN PRN Reason: NEEDED PER PROVIDER ORDERS Sodium Chloride (Normal Saline Flush 0.9%) 10 ml IVP 0100,0900,1700 [facility] Last Admin: 05/28/17 08:14 Dose: Not Given Tamsulosin HCl (Flomax) 0.4 mg PO DAILY [facility] Last Admin: 05/28/17 08:13 Dose: 0.4 mg Zolpidem Tartrate (Ambien) 5 mg PO QPM PRN PRN Reason: Insomnia No Known Home Medications [No Known Home Medications] 05/26/17 Objective - Vital Signs/Intake & Output Reviewed Vital Signs: Yes Vital Signs: Vital Signs x48h Temp Pulse Resp BP Pulse Ox 05/28/17 08:00 36.9 C 99 20 171/121 H 97 Intake & Output: Intake & Output 05/25/17 05/26/17 05/27/17 05/28/17 23:59 23:59 23:59 23:59 Intake Total 2600 2752.50 Output Total 2800 3950 2175 Balance -200 -1197.50 -2175 - Objective General Appearance: positive: No acute distress, Alert. negative: Lethargic Eyes Bilateral: positive: Normal inspection, PERRL, No lid inflammation, Conjunctivae nml ENT: positive: ENT inspection nml, Pharynx nml, No signs of dehydration. negative: Purulent nasal drainage, Pharyngeal erythema, Oral lesions Neck: positive: Nml inspection, Thyroid nml, No JVD, Trachea midline. negative : Thyromegaly, Lymphadenopathy (R), Lymphadenopathy (L), Stiff neck, Carotid bruit, Swelling/bruising, Tracheal deviation Respiratory: positive: Chest non-tender, No respiratory distress, Breath sounds nml. negative: Wheezes, Rales, Rhonchi Cardiovascular: positive: Regular rate & rhythm, No murmur, No gallop. negative : Irregularly irregular, Extrasystoles, Tachycardia, Bradycardia, Systolic murmur, Diastolic murmur Peripheral Pulses: 2+ Radial (R), 2+ Radial (L), 2+ Dorsalis pedis (R), 2+ Dorsalis pedis (L) Abdomen: positive: Non-tender, No organomegaly, Nml bowel sounds, No distention. negative: Tenderness, Guarding, Rebound Back: positive: Nml inspection. negative: CVA tenderness (R), CVA tenderness (L ) Skin: positive: Color nml, No rash, Warm, Dry. negative: Cyanosis, Diaphoresis , Pallor Extremities: positive: Non-tender, Full ROM, Nml appearance. negative: Calf tenderness, Joint swelling, Jasmine's sign/cords Neurologic/Psychiatric: positive: Oriented x3, Sensation nml. negative: Weakness, Sensory loss, Facial droop, Slurred/abnml speech, Depressed mood/ affect - Lab Results Fish Bones: 05/28/17 04:21 05/28/17 04:21 Other Labs: Lab Results x24hrs 05/28/17 05/28/17 Range/Units 04:21 04:21 WBC 12.9 H (4.8-10.8) x10^3/uL RBC 4.70 (4.70-6.10) 10^6/uL Hgb 13.0 L (14.0-18.0) g/dL Hct 40.2 L (42.0-52.0) % MCV 85.4 (80.0-94.0) fL MCH 27.5 (27.0-31.0) pg MCHC 32.2 (32.0-36.0) g/dL RDW 14.2 (12.0-15.0) % Plt Count 387 (130-450) 10^3/uL MPV 7.5 (7.4-11.4) fL Neut # 9.4 H (1.5-6.6) 10^3/uL Lymph # 1.9 (1.5-3.5) 10^3/uL [place] # 1.0 (0.0-1.0) 10^3/uL Eos # 0.5 (0.0-0.7) 10^3/uL Baso # 0.0 (0.0-0.1) 10^3/uL Absolute Nucleated RBC 0.00 x10^3/uL Nucleated RBC % 0.0 /100WBC Sodium 132 L (135-145) mmol/L Potassium 3.7 (3.5-5.0) mmol/L Chloride 100 L (101-111) mmol/L Carbon Dioxide 24 (21-32) mmol/L Anion Gap 8.0 (6-13) BUN 22 H (6-20) mg/dL Creatinine 1.3 H (0.6-1.2) mg/dL Estimated GFR (MDRD) 56 L (>89) Glucose 108 H (70-100) mg/dL Calcium 8.6 (8.5-10.3) mg/dL Total Bilirubin 0.3 (0.2-1.0) mg/dL AST 24 (10-42) IU/L ALT 27 (10-60) IU/L Alkaline Phosphatase 75 (42-121) IU/L Total Protein 6.5 L (6.7-8.2) g/dL Albumin 2.8 L (3.2-5.5) g/dL Globulin 3.7 (2.1-4.2) g/dL Albumin/Globulin Ratio 0.8 L (1.0-2.2) Assessment/Plan - Problem List (1) Urinary tract infection Impression: Impression: (1) Urinary tract infection Conclusion/Plan: WBC 12.5, down from 21.9 to 14.5, plan d/c tomorrow with zuñiga and leg bag pt report he feel much better, denies any pain. WBC 14.5 from previous 21.9 continue antibiotics, preliminary blood culture is negative follow UA culture and sensitivity study UA positive UTI, it appears from [place] Cath treat with Rocephin follow up UA culture (2) Urinary retention Conclusion/Plan: most likely pt with Z[place] in discharge. education pt for the Zuñiga care. follow up out-pt appointment with urologist on 06/14/17 pt has this problem for about 6 months. Pt had appointment with Urologist in . recent CT of abdomen reveals unremarkable add Flomax insertion of new [place], follow Zuñiga protocol, pt may need Zuñ[place] on D/C follow up out-pt appointment with urologist. (3) HTN (hypertension) Conclusion/Plan: dosage to 50 mg daily of Metoprolol vital monitor stable, continue meds pt did not take his HTN meds. Pt is hx of HTN and [place] Add Metoprolol, since pt had both tachycardia and HTN, without asthma hx add PRN Clonidine vital monitor (4) Tachycardia Conclusion/Plan: controlled around 90 EKG reveals sinus tachycardia on ER. Metoprolol, vital/tele monitor (5) Chronic renal insufficiency Conclusion/Plan: little worse than yesterday. nurse request NS lock. pt need more hydration continue IVF daily lab monitor improved with creatinine 1.2, GFR 62. continue hydration hold nephrotoxical agents Creatinine on last admission is 2.3, today his creatinine 1.3, is better mild hydration with NS IVF daily lab monitor (6) Illicit drug use Conclusion/Plan: advise pt quit, it may cause his headache and withdrawal pt denies illicit drug when I assessed pt. But UDS reveals pt is positive for Methamphetamine, then pt state his friend may give him something. advise pt quit. (7) Headache Conclusion/Plan: headache again, but not severe as before, may be caused by methamphetamine withdrawal. No seizure. CT of brain unremarkable Tylenol PRN resolved, no more complaints pt state he had severe headache, but denies focal neurological deficit. CT of head is unremarkable. It may drive from pt's illicit drug withdrawal. Tylenol PRN. neur check vital monitor IVF (8) Medical non-compliance Conclusion/Plan: advise pt medical compliance pt did not take his BP meds. Pt is advised for medical compliance (9) Homelessness Conclusion/Plan: discuss with social work associate, plan d/c tomorrow planning d/c pt on tomorrow if continue stable, with Zuñiga and leg bag to pt. pt is with disability insurance, also homeless, currently he is living at a car consult with social work Qualifiers: Urinary tract infection type: site unspecified Hematuria presence: with hematuria Qualified Code(s): N39.0 - Urinary tract infection, site not specified; R31.9 - Hematuria, unspecified; R31.9 - Hematuria, unspecified
[2017-05-28] MEDS: HYDROcod/ACETAM 5/325 MG TABLET PO PRN (15:52)
[2017-05-29] MEDS: SODIUM CHLORIDE FLUSH 0.9% 10 ML SYRINGE IVP SCH ×2 (03:10→08:19)
[2017-05-29 04:32] LABS: BASOPHILS # (AUTO) 0.1 10^3/uL (0.0-0.1); BASOPHILS % (AUTO) 1.2 %; EOSINOPHILS # (AUTO) 0.5 10^3/uL (0.0-0.7); EOSINOPHILS % (AUTO) 4.7 %; HGB - HEMOGLOBIN 12.9 g/dL (14.0-18.0); LYMPHOCYTES # (AUTO) 1.7 10^3/uL (1.5-3.5); LYMPHOCYTES % (AUTO) 15.8 %; MEAN CORPUSCULAR HEMOGLOBIN 27.7 pg (27.0-31.0); MEAN CORPUSCULAR HGB CONC 32.7 g/dL (32.0-36.0); MEAN CORPUSCULAR VOLUME 84.7 fL (80.0-94.0); MONOCYTES # (AUTO) 0.9 10^3/uL (0.0-1.0); MONOCYTES % (AUTO) 8.5 %; NEUTROPHILS # (AUTO) 7.5 10^3/uL (1.5-6.6); NEUTROPHILS % (AUTO) 69.8 %; PLT - PLATELET COUNT 399 10^3/uL (130-450); RED BLOOD COUNT 4.68 10^6/uL (4.70-6.10); RED CELL DISTRIBUTION WIDTH 14.3 % (12.0-15.0); WHITE BLOOD COUNT 10.7 x10^3/uL (4.8-10.8)
[2017-05-29 04:44] LABS: ALBUMIN 2.9 g/dL (3.2-5.5); ALBUMIN/GLOBULIN RATIO 0.8 (1.0-2.2); BILIRUBIN,TOTAL 0.5 mg/dL (0.2-1.0); CALCIUM 8.3 mg/dL (8.5-10.3); TOTAL PROTEIN 6.4 g/dL (6.7-8.2)
[2017-05-29] MEDS: cloNIDine 0.1 MG TABLET PO PRN (06:44)
[2017-05-29] MEDS: ACETAMINOPHEN 325 MG TABLET PO PRN (06:45)
[2017-05-29] MEDS: SODIUM CHLORIDE 0.9% 1,000 ML IV SCH (06:55)
[2017-05-29] MEDS ORDERED: CIPROFLOXACIN 400 MG/200 ML 200 ML IV SCH (07:00)
[2017-05-29 07:57] VITALS: BP 160/98
[2017-05-29] MEDS: NICOTINE 14 MG PATCH TOP SCH (08:17)
[2017-05-29] MEDS: TAMSULOSIN 0.4 MG CAPSULE PO SCH (08:18)
[2017-05-29] MEDS: POLYETHYLENE GLYCOL 3350 17 GM PACKET PO SCH (08:18)
[2017-05-29] MEDS: HYDROcod/ACETAM 5/325 MG TABLET PO PRN (08:18)
[2017-05-29] MEDS: ENOXAPARIN 40 MG/0.4 ML SYRINGE SUBQ SCH (08:19)
[2017-05-29] MEDS: METOPROLOL SUCCINATE 50 MG TABLET PO SCH (08:19)
[2017-05-29] MEDS: FAMOTIDINE 20 MG TABLET PO SCH (08:19)
[2017-05-29] MEDS ORDERED: METOPROLOL SUCCINATE 50 MG TABLET PO ONE (09:00)
--- NOTE | 2017-05-29 11:32 | Discharge Plan ---
Discharge Plan Disposition: Home, Self Care Condition: Good Prescriptions: Catheter Accessories,External [Cath-Secure Tube [place]] 1 each QID #120 each Metoprolol Succinate 100 mg PO DAILY #30 tab.er.24h Nicotine 14 mg Patch [Nicoderm] 1 patch TOP DAILY #14 patch Sulfamethox/Trimeth 800/160 [Bactrim Ds] 1 each PO BID 14 Days #28 tablet Tamsulosin [Flomax] 0.4 mg PO DAILY #30 capsule Diet: Regular Activity Restrictions: Activity as Tolerated Shower Restrictions: No Driving Restrictions: No Weight Bearing: Full Weight Instruction Topics: ED Catheter Care Zuñiga, ED Retention Urinary Male, ED UTI Cystitis Male Additional Instructions or Follow Up instructions: You were found to have a urinary tract infection. You were given antibiotics and the catheter was re-inserted due to your urinary retention. You should set up a primary care provider and attend your upcoming Urology appointment. You were found to have high blood pressure and a fast heart rate, so please take a medication called metoprolol. I have sent nicotine patches to the pharmacy to help with your tobacco use. Please take all medications as prescribed. Eat well and get enough rest. Your nurse will kindly send a few urinary leg bags and zuñiga collection devices. No Smoking: If you smoke, Please STOP! Call for help.
--- NOTE | 2017-05-29 13:01 | DISCHARGE SUMMARY ---
Discharge Summary Admit Date: 05/26/17 Discharge Date: 05/29/17 Discharging Provider: GANGA Henley Primary Care Provider: none Code Status: Do Not Attempt Resuscitation Condition at Discharge: Good Discharge Disposition: 01 Home, Self Care - DIAGNOSES Admission Diagnoses: UTI (urinary tract infection) (N39.0) Urinary retention (R33.9) HTN (hypertension) (I10) Tachycardia (R00.0) Chronic renal insufficiency (N18.9) Illicit drug use (F19.90) Headache (R51) Discharge Diagnoses with Status of Each Condition: UTI (urinary tract infection) (N39.0) -new on this admission, treatment to continue. Urinary retention (R33.9)- chronic, patient plans to follow up with Urology. HTN (hypertension) (I10)- chronic, stable. Tachycardia (R00.0)- resolved. Chronic renal insufficiency (N18.9)- chronic, stable. Illicit drug use (F19.90)- chronic, continues to deny use and refused community resources. Headache (R51)- resolved. - HPI History of Present Illness: Clarence Robb is a 61-year-old male with a past medical history of HTN, NH, TIA , Depression, Osteoporosis, and urinary retention for the past six months. He presented to the ER with a chief complaint of urinary retention. He has been unable to urinate since taking out his urinary catheter at home due to profound pain after it was accidentally tugged on. Patient reports that since last night he has not been able urinate. He complains of bladder fullness, an inability to urinate by himself and noted it to be very painful when he tried to urinate. He denies fevers, chills, or hematouria. Patient reports that he has had urinary problems that began ~6 months ago. pt had extensive workup including CT of abdomen on 05/19/17, which showed that he had urinary retention with bilateral moderate hydronephrosis with no distal stone, mass or stricture identified, Then pt had zuñiga placed and was referred to urology. Pt is homeless and is living at car. Pt also complaint of headache. he report he had a quit long time he did not have headache. pt denies neck stiffness, fever, focal neurological deficits. Pt denies chest pain, shortness of breathing, fever , chill, cough. In ER, pt is afbile, tachycardia with HR 118, and HTN 171/112. Lab test reveals today WBC 21.9, creatinine 1.3, UA reveals UTI. - HOSPITAL COURSE Hospital Course: The following diagnoses were prevalent during this hospital stay: (1) Urinary tract infection- Upon presentation to the ED the patient was found to have an acute UTI based on a urine sample collected. This was initially treated with Rocephin for broad coverage, that was changed to TMP sulfa based on urine culture & blood culture results with sensitivities. WBC counts were improved from 21.9 on admit to 10.7 on the day of discharge home. The patient continues to require an indwelling zuñiga catheter, so supplies were arranged by nursing and social work. The patient's condition slowly improved throughout his stay. (2) Urinary retention- The patient states that this has been a problem for greater than 1 year, but it has become worse in the last few months. He had seen urology, and they recommended a chronic indwelling zuñiga as the medications take some time to become therapeutic. The patient states that his zuñiga tube accidentally got pulled on. He noticed bloody urine in the tubing, and it was very painful since that time. He somehow figured out how to deflate the balloon and remove it the night before presenting to the ED. He was not able to urinate since pulling it out, so a new zuñiga was placed at the time of admission. He is now motivated to be more compliant with medications, and follow up with a uologist on 06/14/17. He has been able to appropriately demonstrate self-care techniques on the day of discharge and was continued on Flomax while in the hospital. (3) HTN (hypertension)- The patient has a known history of this, in addition to suffering a NH, and admits to non-compliance in taking prescribed medications. The patient was put back on his metoprolol at 50 mg daily, monitored and this dose was changed to a long acting for and the dose was doubled due to continued HTN. Clonidine was added as needed, but not prescribed at the time of discharged due to B/P being stable and the indication to keep things simple due to patient's non-compliance. The patient complained of headaches upon admission that resolved by the time of discharge, but he denies blurred vision as possible side-effects of HTN. (4) Tachycardia- The patient was monitored on telemetry which revealed sinus tachycardia with heart rates from 80-110, so the patient was put on Metoprolol immediate release that was increased and changed to long acting succinate. The patient's vital signs were monitored and his pain was managed. (5) Chronic renal insufficiency- liThe patient likely had this condition as a consequence of post renal obstruction d/t urinary retention. Creatinine upon admission was elevated at 1.3, previous admission 2.3 and GFR was 56. On the day of discharge labs are improved with a creatinine that is now normal at 1.0 with a GFR of 76. The patient was given IVFs, labs were monitored and nephrotoxins were avoided. (6) Illicit drug use- The patient tested + for Methamphetamine as per drug tox screen that was completed at the time of admission. He, at one time, gave an explanation of "his friend may given him something". The patient was counseled regarding drug use and the potential skilled nursing consequences. He was offered drug rehab resources at the time of discharge, but refused. (7) Headache- A brain CT was obtained at the time of admission due to complaints of sever headache and results show no acute intracranial abnormalities or mass. The patient's symptoms steadily improved and the patient was comfortable at the time of discharge. The possible cause of the headache may have been from methamphetamine withdrawal or acute infection. He was offered tylenol as needed, given IVFs and monitored throughout his stay. The patient denied focal neurological deficits. (8) Medical non-compliance- The patient has a known history of this and has, in the past, been known to be non-compliant with medical advise. The patient admits to not taking his antihypertensive medications and states "I have trouble remembering and sometimes I forget". (9) Homelessness- The patient's living situation was discussed with our social service coordinator to assist with discharge plans and to ensure medical compliance given the most complicating factor of the patient needed a chronic indwelling Zuñiga catheter and leg bag/zuñiga supplies. Disposition: The patient was in stable condition at the time of discharge and was agreeable to staying with a friend who allows him to park his camper in the driveway and take the patient to necessary appointment, including follow ups and to obtain medications from the pharmacy. - ALLERGIES Allergies/Adverse Reactions: Allergies Allergy/AdvReac Type Severity Reaction Status Date / Time No Known Drug Allergies Allergy Verified 05/26/17 08:05 - MEDICATIONS Home Medications: Ambulatory Orders Medication Instructions Recorded Confirmed Catheter Accessories,External 1 each MC QID #120 each 05/29/17 [Cath-Secure Tube Aldridge] Metoprolol Succinate 100 mg PO DAILY #30 tab.er.24h 05/29/17 Nicotine 14 mg Patch [Nicoderm] 1 patch TOP DAILY #14 patch 05/29/17 Sulfamethox/Trimeth 800/160 1 each PO BID 14 Days #28 tablet 05/29/17 [Bactrim Ds] Tamsulosin [Flomax] 0.4 mg PO DAILY #30 capsule 05/29/17 - PHYSICAL EXAM AT DISCHARGE General Appearance: positive: No acute distress, Alert Eyes Bilateral: positive: Normal inspection, PERRL ENT: positive: ENT inspection nml, Pharynx nml, No signs of dehydration Neck: positive: Nml inspection, Thyroid nml, No JVD, Trachea midline Respiratory: positive: Chest non-tender, No respiratory distress, Breath sounds nml Cardiovascular: positive: Regular rate & rhythm, No gallop Peripheral Pulses: positive: 2+ Abdomen: positive: Non-tender, No organomegaly, Nml bowel sounds Back: positive: Nml inspection Skin: positive: Color nml, No rash, Warm, Dry Extremities: positive: Non-tender, Full ROM, Nml appearance, No pedal edema Neurologic/Psychiatric: positive: Oriented x3, CN's nml (2-12), Motor nml, Sensation nml, Depressed mood/affect Reflexes: Bicep (R): 4+, Bicep (L): 4+, Ankle (R): 4+, Ankle (L): 4+ - LABS Result Diagrams: 05/29/17 04:20 05/29/17 04:20 - DIAGNOSTIC IMAGING Diagnostic Imaging Results: Final report reviewed Diagnostic Imaging Results Comments: EXAM: CT HEAD EXAM DATE: 05/26/2017 02:21 PM. CLINICAL HISTORY: Headache, severe. COMPARISON: 09/16/2007. TECHNIQUE: Multiaxial CT images were obtained from the foramen magnum to the vertex. Reformats: Coronal. IV contrast: None. In accordance with CT protocol optimization, one or more of the following dose reduction techniques were utilized for this exam: automated exposure control, adjustment of mA and/or KV based on patient size, or use of iterative reconstructive technique. FINDINGS: Parenchyma: No intraparenchymal hemorrhage. No evidence of mass, midline shift, or CT findings of infarction. Mackey-white differentiation is distinct. Extraaxial Spaces: Normal for age. No subdural or epidural collections identified. Ventricles: Normal in size and position. Sinuses and Orbits: Imaged paranasal sinuses, orbits, and mastoids show no significant abnormality. Bones: No evidence of fracture or calvarial defect. Other: None. IMPRESSION: No acute intracranial abnormality or mass. - FOLLOW UP Follow Up: Disposition: Home, Self Care Condition: Good Prescriptions: Catheter Accessories,External [Cath-Secure Tube Aldridge] 1 each MC QID #120 each Metoprolol Succinate 100 mg PO DAILY #30 tab.er.24h Nicotine 14 mg Patch [Nicoderm] 1 patch TOP DAILY #14 patch Sulfamethox/Trimeth 800/160 [Bactrim Ds] 1 each PO BID 14 Days #28 tablet Tamsulosin [Flomax] 0.4 mg PO DAILY #30 capsule Diet: Regular Activity Restrictions: Activity as Tolerated Shower Restrictions: No Driving Restrictions: No Weight Bearing: Full Weight Instruction Topics: ED Catheter Care Zuñiga, ED Retention Urinary Male, ED UTI Cystitis Male Additional Instructions or Follow Up instructions: You were found to have a urinary tract infection. You were given antibiotics and the catheter was re-inserted due to your urinary retention. You should set up a primary care provider and attend your upcoming Urology appointment. You were found to have high blood pressure and a fast heart rate, so please take a medication called metoprolol. I have sent nicotine patches to the pharmacy to help with your tobacco use. Please take all medications as prescribed. Eat well and get enough rest. Your nurse will kindly send a few urinary leg bags and zuñiga collection devices. - TIME SPENT Time Spent in Discharge (Minutes): 45
[2017-05-30] MEDS ORDERED: METOPROLOL SUCCINATE 50 MG TABLET PO SCH (09:00)
== END 2017-05-29 12:34 | disposition home or self-care (01) | DRG 699 ==
LOC: ED 08:00 → MS2 14:05 → ICU 05-29 09:10 → MS2 05-29 09:10
PROVIDERS: ADMIT Nurse Practitioner Gerontology; ATTEND Nurse Practitioner
DX: T83.511A Infection and inflammatory reaction due to indwelling urethral catheter, initial encounter (principal); N13.30 Unspecified hydronephrosis; Y84.6 Urinary catheterization as the cause of abnormal reaction of the patient, or of later complication, without mention of misadventure at the time of the procedure; Y92.810 Car as the place of occurrence of the external cause; N28.9 Disorder of kidney and ureter, unspecified; I10 Essential (primary) hypertension; F17.200 Nicotine dependence, unspecified, uncomplicated; N39.0 Urinary tract infection, site not specified; R33.9 Retention of urine, unspecified; R31.0 Gross hematuria; I12.9 Hypertensive chronic kidney disease with stage 1 through stage 4 chronic kidney disease, or unspecified chronic kidney disease; N18.9 Chronic kidney disease, unspecified; T44.7X6A Underdosing of beta-adrenoreceptor antagonists, initial encounter; R51 Headache; I25.2 Old myocardial infarction; Z66 Do not resuscitate; Z91.138 Patient's unintentional underdosing of medication regimen for other reason; Z86.73 Personal history of transient ischemic attack (TIA), and cerebral infarction without residual deficits; Z59.0 Homelessness; Z86.14 Personal history of Methicillin resistant Staphylococcus aureus infection
CPT/HCPCS: 36415; 51702; 70450; 80048; 80053; 80306; 81001; 81003; 83605; 83735; 84484; 85025; 87040; 87086; 87640; 93005; 96361; 96372; 96374; 99283; 99284; 99406

== ENCOUNTER 2017-06-05 23:13 | Outpatient (CLI) | payer MEDICARE, MEDICAID | END 2017-06-05 23:14 | disposition EMS.NT | LOC: EMS 23:13 | PROVIDERS: ATTEND Surgery | DX: Z03.89 Encounter for observation for other suspected diseases and conditions ruled out (principal) ==

== ENCOUNTER 2021-01-06 22:44 | Outpatient (CLI) | payer MEDICARE, MEDICAID | END 2021-01-06 22:45 | disposition critical access hospital (66) | LOC: EMS 22:44 | DX: R06.02 Shortness of breath (principal); F41.9 Anxiety disorder, unspecified | CPT/HCPCS: A0425; A0427 ==

== ENCOUNTER 2021-01-06 22:57 | Emergency (ER) | payer MEDICARE, MEDICAID ==
[2021-01-06] MEDS ORDERED: IPRATROPIUM/ALBUTEROL 3 ML NEB INH STA (23:06)
[2021-01-06] MEDS ORDERED: DEXAMETHASONE 10 MG/ML VIAL IV STA (23:06)
[2021-01-06] MEDS ORDERED: LORazepam 2 MG/ML VIAL IVP STA (23:06)
--- NOTE | 2021-01-06 23:13 | ED Physician Documentation ---
PD HPI DYSPNEA - Stated complaint Stated Complaint: SOA - Chief complaint Chief Complaint: Resp - History obtained from History obtained from: Patient, EMS - Additional information Additional information: Patient is brought to the emergency department by EMS for chief complaint of shortness of breath. The medics state they picked the patient up in an abandoned house where they found him crawling around in the mud. The patient does not admit to any drug use. He states he smokes "once in a while". He denies any chest pain. He states he cannot take a deep breath. Medics state when they picked him up they got an O2 saturation of 70%, though the patient's fingers were quite cold and muddy, so they are not sure if this was really accurate. They state by the end of the ambulance ride, after nebulizer treatment, they were getting an oxygen saturation of 95% with a nonrebreather mask on. The patient states that he has a history of dysrhythmia and that he also has had CHF previously. Review of his records reveals he has a history of hypertension and [place] as well, in addition to methamphetamine abuse. Patient reports he has not seen a doctor in several years and that he has had a number of these episodes previously. He does have an inhaler but denies any formal diagnosis of asthma or COPD. The patient states he has been short of breath "all day". He is not aware of any triggers. No other complaints at this time. Review of Systems Ten Systems: 10 systems reviewed and negative Constitutional: reports: Reviewed and negative Eyes: reports: Reviewed and negative Ears: reports: Reviewed and negative Nose: reports: Reviewed and negative Throat: reports: Reviewed and negative Cardiac: reports: Reviewed and negative Respiratory: reports: Dyspnea GI: reports: Reviewed and negative : reports: Reviewed and negative Skin: reports: Reviewed and negative Musculoskeletal: reports: Reviewed and negative Neurologic: reports: Reviewed and negative Psychiatric: reports: Reviewed and negative Endocrine: reports: Reviewed and negative Immunocompromised: reports: Reviewed and negative PD PAST MEDICAL HISTORY - Past Medical History Cardiovascular: Hypertension, [place] Respiratory: None Endocrine/Autoimmune: None GI: None : Other HEENT: Other Psych: Depression Musculoskeletal: Osteoporosis Derm: Psoriasis - Past Surgical History Past Surgical History: Yes General: Appendectomy HEENT: Tonsil/Adenoidectomy - Present Medications Home Medications: Ambulatory Orders Medication Instructions Recorded Confirmed Catheter Accessories,External 1 each QID #120 each 05/29/17 [Cath-Secure Tube Aldridge] Metoprolol Succinate 100 mg PO DAILY #30 tab.er.24h 05/29/17 Nicotine 14 mg Patch [Nicoderm] 1 patch TOP DAILY #14 patch 05/29/17 Sulfamethox/Trimeth 800/160 1 each PO BID 14 Days #28 tablet 05/29/17 [Bactrim Ds] Tamsulosin [Flomax] 0.4 mg PO DAILY #30 capsule 05/29/17 Azithromycin [Zithromax] 0 mg PO DAILY #6 tablet 01/07/21 Furosemide [Lasix] 20 mg PO DAILY #30 tablet 01/07/21 Nitroglycerin [Nitrostat] 0.4 mg SL Q5MIN PRN #21 tablet 01/07/21 - Allergies Allergies/Adverse Reactions: Allergies Allergy/AdvReac Type Severity Reaction Status Date / Time No Known Drug Allergies Allergy Verified 01/06/21 23:08 - Social History Does the pt smoke?: Yes Smoking Status: Current every day smoker Does the pt drink ETOH?: No - Immunizations Immunizations are current?: No - POLST Patient has POLST: No POLST Status: DNR PD ED PE NORMAL - Vitals Vital signs reviewed: Yes - General General: Alert and oriented X 3, Well developed/nourished, Other (The patient is extremely anxious, but speaking in full sentences. He is disheveled and quite dirty.) - HEENT HEENT: Atraumatic, PERRL, EOMI, Moist mucous membranes - Neck Neck: Supple, no meningeal sign - Cardiac Cardiac: No murmur, Other (Tachycardic rate, regular rhythm) - Respiratory Respiratory: Clear bilaterally, Other (Patient is hyperventilating and appears extremely anxious, but talking continuously without difficulty. He has mildly tight sounding respirations with fine wheezes, but with nearly full air movement throughout lung donald.) - Abdomen Abdomen: Soft, Non tender, Non distended - Derm Derm: Warm and dry, Other (No gross abnormalities. Patient skin is quite dirty.) - Extremities Extremities: No deformity, Other (Trace pitting edema bilateral ankles and feet. Fingers are cold.) - Neuro Neuro: Alert and oriented X 3, Other (Grossly intact.) - Psych Psych: Normal affect, Other (Anxious, hyper animated.) Results - Vitals Vitals: Vital Signs - 24 hr 01/06/21 01/06/21 01/06/21 23:08 23:22 23:48 Temperature 35.9 C L Heart Rate 123 H 96 111 H Respiratory 27 H 18 23 Rate Blood Pressure 205/132 H 165/121 H O2 Saturation 99 98 01/07/21 01/07/21 00:30 01:29 Temperature Heart Rate 100 89 Respiratory 20 18 Rate Blood Pressure 142/87 H 128/87 H O2 Saturation 94 98 Oxygen O2 Source Room air Oxygen Flow Rate 2 - Labs Labs: Laboratory Tests 01/06/21 01/06/21 01/06/21 23:10 23:10 23:10 WBC 15.3 H RBC 5.58 Hgb 15.5 Hct 48.8 MCV 87.5 MCH 27.8 MCHC 31.8 L RDW 14.6 Plt Count 358 MPV 10.6 Neut # (Auto) 12.6 H Lymph # (Auto) 1.0 L Crisp # (Auto) 1.4 H Eos # (Auto) 0.2 Baso # (Auto) 0.1 Absolute Nucleated RBC 0.00 Nucleated RBC % 0.0 Sodium 135 Potassium 4.2 Chloride 99 L Carbon Dioxide 27 Anion Gap 9.0 BUN 30 H Creatinine 1.1 Estimated GFR (MDRD) 67 L Glucose 151 H Calcium 9.1 Total Bilirubin 1.0 AST 33 ALT 30 Alkaline Phosphatase 95 B-Natriuretic Peptide 1456 H Total Protein 8.0 Albumin 4.0 Globulin 4.0 Albumin/Globulin Ratio 1.0 Lipase 27 Urine Opiates Screen Ur Oxycodone Screen Urine Methadone Screen Ur Propoxyphene Screen Ur Barbiturates Screen Ur Tricyclics Screen Ur Phencyclidine Scrn Ur Amphetamine Screen U Methamphetamines Scrn U Benzodiazepines Scrn Urine Cocaine Screen U Cannabinoids Screen 01/07/21 00:26 WBC RBC Hgb Hct MCV MCH MCHC RDW Plt Count MPV Neut # (Auto) Lymph # (Auto) Crisp # (Auto) Eos # (Auto) Baso # (Auto) Absolute Nucleated RBC Nucleated RBC % Sodium Potassium Chloride Carbon Dioxide Anion Gap BUN Creatinine Estimated GFR (MDRD) Glucose Calcium Total Bilirubin AST ALT Alkaline Phosphatase B-Natriuretic Peptide Total Protein Albumin Globulin Albumin/Globulin Ratio Lipase Urine Opiates Screen NEGATIVE Ur Oxycodone Screen NEGATIVE Urine Methadone Screen NEGATIVE Ur Propoxyphene Screen NEGATIVE Ur Barbiturates Screen NEGATIVE Ur Tricyclics Screen NEGATIVE Ur Phencyclidine Scrn NEGATIVE Ur Amphetamine Screen POSITIVE H U Methamphetamines Scrn POSITIVE H U Benzodiazepines Scrn NEGATIVE Urine Cocaine Screen NEGATIVE U Cannabinoids Screen NEGATIVE - Rads (name of study) chest XR Radiology: Final report received, EMP read indepedently, See rad report (bilat. LL infiltrates, likely pulmonary edema, but can't r/o pneumonia. Bilat. effusions suspected.) PD MEDICAL DECISION MAKING - ED course Complexity details: reviewed results, re-evaluated patient, considered differential, d/w patient ED course: The patient was extremely anxious on arrival, and between this and his cold, dirty fingers, it was initially hard to get a good reading, saturation matias, on the patient. I did ask respiratory to come to the emergency department and ordered a DuoNeb and IV steroids, as well as a dose of Ativan. In the meantime, patient was placed on oxygen 2 L per nasal cannula until we could get a more reliable oxygen saturation, based on his level of anxiety and sense of dyspnea. We were finally able to get a reasonably good reading from a forehead probe, though it took much redirecting to get the patient to sit still and take calm breaths, so as to avoid excessive artifact. With a good waveform, patient was found to be ranging between 98 to 100%. IV was placed and chest x-ray and EKG were obtained. Chest x-ray showed what appeared to be some pulmonary edema versus infiltrates symmetrically on both lower lung donald, superimposed upon pleural effusions. The patient's BNP was 1456 and his blood pressure was quite high on arrival. The patient's drug screen was found to be positive for methamphetamines. The patient still would not admit to taking methamphetamines. He had previously been known to have CHF, though I suspected that he had an acute exacerbation, likely secondary to his elevated blood pressure. An inch and a half of nitroglycerin plate paste was placed on the patient's chest wall. He had already had an improvement in blood pressure with the Ativan and the Nitropaste got him down into the 140s over 80s. The DuoNeb Prior to the chest x-ray had helped somewhat, and on reevaluation, patient was found to be resting comfortably in bed with oxygen saturations between 98 and 100 on room air. Patient was given Lasix 40 mg IV, and did urinate a few times after this. Given that his white blood cell count was 15.3 and radiologist had read the Chest x- ray as being unable to rule out infiltrates, and also based on the patient's questionable lifestyle in home situation, I felt he should have a initial doses of antibiotics here. Rocephin and Zithromax were administered. After observation in the emergency department, it became clear that patient was stable and without further respiratory complaints. As such, I felt he was stable for discharge home. I have given him a prescription for Lasix and Zithromax, as well as nitroglycerin tablets. We have discussed the usual indications for return and the importance of follow-up. Departure - Departure Disposition: Home, Self Care Clinical Impression: Methamphetamine abuse, Anxiety CHF (congestive heart failure) Qualifiers: Heart failure type: unspecified Heart failure chronicity: acute on chronic Qualified Code(s): I50.9 - Heart failure, unspecified HTN (hypertension) Qualifiers: Hypertension type: unspecified Qualified Code(s): I10 - Essential (primary) hypertension Condition: Stable Instructions: Abuse Meth Abuse and Addiction, ED CHF General Prescriptions: Nitroglycerin [Nitrostat] 0.4 mg SL Q5MIN PRN #21 tablet PRN Reason: Dyspnea Furosemide [Lasix] 20 mg PO DAILY #30 tablet Azithromycin [Zithromax] 0 mg PO DAILY #6 tablet Discharge Date/Time: 01/07/21 01:41
[2021-01-06] MEDS ORDERED: NITROGLYCERIN 2% PASTE TOP STA (23:34)
[2021-01-06] MEDS ORDERED: FUROSEMIDE 40 MG/4 ML VIAL IVP STA (23:35)
[2021-01-06 23:39] LABS: BASOPHILS # (AUTO) 0.1 10^3/uL (0.0-0.1); BASOPHILS % (AUTO) 0.4 %; EOSINOPHILS # (AUTO) 0.2 10^3/uL (0.0-0.7); EOSINOPHILS % (AUTO) 1.5 %; HCT - HEMATOCRIT 48.8 % (42.0-52.0); HGB - HEMOGLOBIN 15.5 g/dL (14.0-18.0); LYMPHOCYTES % (AUTO) 6.3 %; MEAN CORPUSCULAR HEMOGLOBIN 27.8 pg (27.0-31.0); MEAN CORPUSCULAR HGB CONC 31.8 g/dL (32.0-36.0); MEAN CORPUSCULAR VOLUME 87.5 fL (80.0-94.0); MEAN PLATELET VOLUME 10.6 fL (7.4-11.4); MONOCYTES # (AUTO) 1.4 10^3/uL (0.0-1.0); MONOCYTES % (AUTO) 9.1 %; NEUTROPHILS # (AUTO) 12.6 10^3/uL (1.5-6.6); NEUTROPHILS % (AUTO) 82.3 %; PLT - PLATELET COUNT 358 10^3/uL (130-450); RED BLOOD COUNT 5.58 10^6/uL (4.70-6.10); RED CELL DISTRIBUTION WIDTH 14.6 % (12.0-15.0); WHITE BLOOD COUNT 15.3 x10^3/uL (4.8-10.8)
[2021-01-06 23:50] LABS: CALCIUM 9.1 mg/dL (8.5-10.3); CREATININE 1.1 mg/dL (0.6-1.2); POTASSIUM 4.2 mmol/L (3.5-5.0)
--- NOTE | 2021-01-06 23:53 | XRAY Report ---
PROCEDURE: Chest 1 View X-Ray INDICATIONS: chest pain TECHNIQUE: One view of the chest was acquired. COMPARISON: Not available. FINDINGS: Surgical changes and devices: None. Lungs and pleura: Bilateral interstitial and airspace infiltrates. Small pleural effusions are likel y present. No pneumothorax. Mediastinum: Mediastinal contours appear normal. Heart size is moderately increased. Bones and chest wall: No suspicious bony lesions. Overlying soft tissues appear unremarkable. IMPRESSION: 1. Bilateral interstitial and airspace infiltrates may be secondary to pulmonary edema. Superimposed pneumonia cannot be excluded. 2. Mild cardiomegaly. Reviewed by: Maribell Tenorio MD on 01/06/2021 11:52 PM PST Approved by: Maribell Tenorio MD on 01/06/2021 11:52 PM [facility] Station ID: [id number]
[2021-01-07 00:32] LABS: MUDS CUTOFF CONCENTRATIONS CUTOFF CONC BELOW:
[2021-01-07 00:41] LABS: AMPHETAMINE SCREEN,URINE POSITIVE (NEGATIVE); BARBITURATE SCREEN,UR NEGATIVE (NEGATIVE); BENZODIAZEPINES SCREEN, URINE NEGATIVE (NEGATIVE); COCAINE SCREEN URINE NEGATIVE (NEGATIVE); METHADONE SCREEN, URINE NEGATIVE (NEGATIVE); METHAMPHETAMINES SCREEN, URINE POSITIVE (NEGATIVE); OPIATE SCREEN, URINE NEGATIVE (NEGATIVE); OXYCODONE SCREEN, URINE NEGATIVE (NEGATIVE); PROPOXYPHENE SCREEN, URINE NEGATIVE (NEGATIVE); THC CANNABINOID SCREEN, URINE NEGATIVE (NEGATIVE); TRICYCLIC ANTIDEPRESSANT,URINE NEGATIVE (NEGATIVE)
[2021-01-07] MEDS ORDERED: cefTRIAXone 1 GM VIAL IM STA (00:49)
[2021-01-07] MEDS ORDERED: AZITHROMYCIN 250 MG TABLET PO STA (00:50)
[2021-01-07 01:29] VITALS: BP 128/87
== END 2021-01-07 01:41 | disposition home or self-care (01) ==
LOC: EDUNIT# → ED 22:57
DX: F15.10 Other stimulant abuse, uncomplicated (principal); F41.9 Anxiety disorder, unspecified; I50.9 Heart failure, unspecified; I11.0 Hypertensive heart disease with heart failure; F17.200 Nicotine dependence, unspecified, uncomplicated; Z66 Do not resuscitate
CPT/HCPCS: 36415; 71045; 80053; 80306; 83690; 83880; 85025; 94640; 96372; 96374; 96375; 99283; 99284; A9270; J2060

== ENCOUNTER 2021-01-10 08:29 | Inpatient (IN) | payer MEDICARE, MEDICAID ==
[2021-01-10] MEDS ORDERED: NITROGLYCERIN 2% PASTE TOP STA (08:42)
--- NOTE | 2021-01-10 08:45 | ED Physician Documentation ---
PD HPI DYSPNEA - Stated complaint Stated Complaint: SOA - Chief complaint Chief Complaint: Resp - History obtained from History obtained from: Patient - Additional information Additional information: Is a 65-year-old male presenting to the emergency department with shortness of breath. Reports progressively worsening shortness of breath since yesterday evening. Lives in his car. Reports was seen here previously approximately 1 week ago and diagnosed with congestive heart failure. Reports taking nitroglycerin without relief and states that he is compliant with his other "2 prescriptions" but is unable to tell me what they are. Does endorse for some intermittent episodes of chest pain and left-sided arm pain. Reports a history of smoking and a history of polysubstance abuse including methamphetamine use however states that it has been 3 or 4 days since his last use. Review of Systems Ten Systems: 10 systems reviewed and negative Constitutional: denies: Fever, Chills Eyes: denies: Loss of vision Ears: denies: Loss of hearing Nose: denies: Rhinorrhea / runny nose Cardiac: reports: Chest pain / pressure Respiratory: reports: Dyspnea GI: denies: Abdominal Pain, Nausea, Vomiting : denies: Dysuria Skin: denies: Rash PD PAST MEDICAL HISTORY - Past Medical History Cardiovascular: Hypertension, [place] Respiratory: None Endocrine/Autoimmune: None GI: None : Other HEENT: Other Psych: Depression Musculoskeletal: Osteoporosis Derm: Psoriasis - Past Surgical History Past Surgical History: Yes General: Appendectomy HEENT: Tonsil/Adenoidectomy - Present Medications Home Medications: Ambulatory Orders Medication Instructions Recorded Confirmed Catheter Accessories,External 1 each QID #120 each 05/29/17 [Cath-Secure Tube [place]] Metoprolol Succinate 100 mg PO DAILY #30 tab.er.24h 05/29/17 Nicotine 14 mg Patch [Nicoderm] 1 patch TOP DAILY #14 patch 05/29/17 Sulfamethox/Trimeth 800/160 1 each PO BID 14 Days #28 tablet 05/29/17 [Bactrim Ds] Tamsulosin [Flomax] 0.4 mg PO DAILY #30 capsule 05/29/17 Azithromycin [Zithromax] 0 mg PO DAILY #6 tablet 01/07/21 Furosemide [Lasix] 20 mg PO DAILY #30 tablet 01/07/21 Nitroglycerin [Nitrostat] 0.4 mg SL Q5MIN PRN #21 tablet 01/07/21 - Allergies Allergies/Adverse Reactions: Allergies Allergy/AdvReac Type Severity Reaction Status Date / Time No Known Drug Allergies Allergy Verified 01/06/21 23:08 - Social History Does the pt smoke?: Yes Smoking Status: Current every day smoker Does the pt drink ETOH?: No - Immunizations Immunizations are current?: No - POLST Patient has POLST: No POLST Status: DNR PD ED PE NORMAL - Vitals Vital signs reviewed: Yes (Patient hypoxic on arrival) - General General: Alert and oriented X 3 - HEENT HEENT: Atraumatic - Neck Neck: Supple, no meningeal sign - Abdomen Abdomen: Normal bowel sounds, Soft - Male Male : Deferred - Rectal Rectal: Deferred PD ED PE EXPANDED - Cardiac Cardiac: Regular Rate, Normal pulses - Respiratory Respiratory: Distress, Labored, Accessory mm use. No: Stridor, Gasping, Retractions, Wheezing, Rhonchi, Rales, Decreased breath sounds, Absent Breath Sounds Results - Vitals Vitals: Vital Signs - 24 hr 01/10/21 01/10/21 01/10/21 08:37 08:48 09:11 Temperature 35.9 C L 36.8 C Heart Rate 117 H 101 H 99 Respiratory 28 H 26 H 24 Rate Blood Pressure 190/138 H 190/138 H 172/117 H O2 Saturation 98 99 98 01/10/21 01/10/21 01/10/21 09:30 10:00 10:30 Temperature Heart Rate 99 97 102 H Respiratory 22 24 24 Rate Blood Pressure 171/135 H 165/119 H 186/128 H O2 Saturation 96 98 96 Oxygen O2 Source Nasal cannula Oxygen Flow Rate 4 - EKG (time done) 0842 Rate: Rate (enter#) (100), Tachy Rhythm: NSR [place]: Normal Intervals: Normal GA, QRS normal QRS: Normal, LVH (Sinus rhythm with rate 100 bpm. Normal axis. Normal GA, QRS, QTc intervals. No ST segment elevations. Nonspecific ST and T wave abnormali ties dominantly throughout the precordial leads. This is a new finding in comparison to previous 05/26/2017.) Ischemia: Normal ST segments, T wave inversion Compare to prior EKG: Changed from prior EKG - Labs Labs: Laboratory Tests 01/10/21 01/10/21 01/10/21 08:54 08:54 08:54 WBC 10.2 RBC 5.55 Hgb 15.7 Hct 48.6 MCV 87.6 MCH 28.3 MCHC 32.3 RDW 14.3 Plt Count 379 MPV 9.9 Neut # (Auto) 8.1 H Lymph # (Auto) 0.8 L Porter # (Auto) 1.0 Eos # (Auto) 0.2 Baso # (Auto) 0.1 Absolute Nucleated RBC 0.00 Nucleated RBC % 0.0 PT 12.3 INR 1.1 D-Dimer 434.6 H VBG pH VBG pCO2 VBG pO2 VBG HCO3 VBG Total CO2 VBG O2 Saturation VBG Base Excess Sodium 134 L Potassium 4.6 Chloride 96 L Carbon Dioxide 30 Anion Gap 8.0 BUN 24 H Creatinine 1.0 Estimated GFR (MDRD) 75 L Glucose 106 H Lactic Acid Calcium 9.0 Magnesium 2.3 Total Bilirubin 0.4 AST 43 H ALT 51 Alkaline Phosphatase 84 Troponin I High Sens B-Natriuretic Peptide Total Protein 7.2 Albumin 3.6 Globulin 3.6 Albumin/Globulin Ratio 1.0 Lipase 31 Urine Color Urine Clarity Urine pH Ur Specific [place] Urine Protein Urine Glucose (UA) Urine Ketones Urine Occult Blood Urine Nitrite Urine Bilirubin Urine Urobilinogen Ur Leukocyte Esterase Ur Microscopic Review Urine Culture Comments Nasal Adenovirus (PCR) Nasal B. parapertussis DNA (PCR) Nasal Coronavir 229E PCR Nasal Coronavir HKU1 PCR Nasal Coronavir NL63 PCR Nasal Coronavir OC43 PCR Nasal Enterovir/Rhinovir PCR Nasal Influenza B PCR Nasal Influenza A PCR Nasal Parainfluen 1 PCR Nasal Parainfluen 2 PCR Nasal Parainfluen 3 PCR Nasal Parainfluen 4 PCR Nasal RSV (PCR) Nasal B.pertussis DNA PCR Nasal C.pneumoniae (PCR) Luis Human Metapneumo PCR Nasal M.pneumoniae (PCR) Nasal SARS-CoV-2 (PCR) Ethyl Alcohol < 5.0 01/10/21 01/10/21 01/10/21 08:54 08:54 08:54 WBC RBC Hgb Hct MCV MCH MCHC RDW Plt Count MPV Neut # (Auto) Lymph # (Auto) Porter # (Auto) Eos # (Auto) Baso # (Auto) Absolute Nucleated RBC Nucleated RBC % PT INR D-Dimer VBG pH VBG pCO2 VBG pO2 VBG HCO3 VBG Total CO2 VBG O2 Saturation VBG Base Excess Sodium Potassium Chloride Carbon Dioxide Anion Gap BUN Creatinine Estimated GFR (MDRD) Glucose Lactic Acid 1.3 Calcium Magnesium Total Bilirubin AST ALT Alkaline Phosphatase Troponin I High Sens 42.2 H* B-Natriuretic Peptide 1082 H Total Protein Albumin Globulin Albumin/Globulin Ratio Lipase Urine Color Urine Clarity Urine pH Ur Specific [place] Urine Protein Urine Glucose (UA) Urine Ketones Urine Occult Blood Urine Nitrite Urine Bilirubin Urine Urobilinogen Ur Leukocyte Esterase Ur Microscopic Review Urine Culture Comments Nasal Adenovirus (PCR) Nasal B. parapertussis DNA (PCR) Nasal Coronavir 229E PCR Nasal Coronavir HKU1 PCR Nasal Coronavir NL63 PCR Nasal Coronavir OC43 PCR Nasal Enterovir/Rhinovir PCR Nasal Influenza B PCR Nasal Influenza A PCR Nasal Parainfluen 1 PCR Nasal Parainfluen 2 PCR Nasal Parainfluen 3 PCR Nasal Parainfluen 4 PCR Nasal RSV (PCR) Nasal B.pertussis DNA PCR Nasal C.pneumoniae (PCR) Luis Human Metapneumo PCR Nasal M.pneumoniae (PCR) Nasal SARS-CoV-2 (PCR) Ethyl Alcohol 01/10/21 01/10/21 01/10/21 08:54 08:54 10:46 WBC RBC Hgb Hct MCV MCH MCHC RDW Plt Count MPV Neut # (Auto) Lymph # (Auto) Porter # (Auto) Eos # (Auto) Baso # (Auto) Absolute Nucleated RBC Nucleated RBC % PT INR D-Dimer VBG pH 7.367 VBG pCO2 56.0 H VBG pO2 20.6 L VBG HCO3 31.4 H VBG Total CO2 33.1 H VBG O2 Saturation 32.8 L VBG Base Excess 4.3 H Sodium Potassium Chloride Carbon Dioxide Anion Gap BUN Creatinine Estimated GFR (MDRD) Glucose Lactic Acid Calcium Magnesium Total Bilirubin AST ALT Alkaline Phosphatase Troponin I High Sens B-Natriuretic Peptide Total Protein Albumin Globulin Albumin/Globulin Ratio Lipase Urine Color YELLOW Urine Clarity CLEAR Urine pH 7.0 Ur Specific [place] 1.010 Urine Protein NEGATIVE Urine Glucose (UA) NEGATIVE Urine Ketones NEGATIVE Urine Occult Blood NEGATIVE Urine Nitrite NEGATIVE Urine Bilirubin NEGATIVE Urine Urobilinogen 0.2 (NORMAL) Ur Leukocyte Esterase NEGATIVE Ur Microscopic Review NOT INDICATED Urine Culture Comments NOT INDICATED Nasal Adenovirus (PCR) NOT DETECTED Nasal B. parapertussis DNA (PCR) NOT DETECTED Nasal Coronavir 229E PCR NOT DETECTED Nasal Coronavir HKU1 PCR NOT DETECTED Nasal Coronavir NL63 PCR NOT DETECTED Nasal Coronavir OC43 PCR NOT DETECTED Nasal Enterovir/Rhinovir PCR NOT DETECTED Nasal Influenza B PCR NOT DETECTED Nasal Influenza A PCR NOT DETECTED Nasal Parainfluen 1 PCR NOT DETECTED Nasal Parainfluen 2 PCR NOT DETECTED Nasal Parainfluen 3 PCR NOT DETECTED Nasal Parainfluen 4 PCR NOT DETECTED Nasal RSV (PCR) NOT DETECTED Nasal B.pertussis DNA PCR NOT DETECTED Nasal C.pneumoniae (PCR) NOT DETECTED Luis Human Metapneumo PCR NOT DETECTED Nasal M.pneumoniae (PCR) NOT DETECTED Nasal SARS-CoV-2 (PCR) NOT DETECTED Ethyl Alcohol Departure - Departure Disposition: 66 [facility] DC/Xfer Clinical Impression: CHF (congestive heart failure), NSTEMI (non-ST elevated myocardial infarction), Asthma, Homeless, Methamphetamine abuse, Moderate COPD (chronic obstructive pulmonary disease)
[2021-01-10 09:02] LABS: VBG BASE EXCESS 4.3 mmol/L (-2 - +2); VBG HCO3 31.4 mmol/L (23-28); VBG OXYGEN SATURATION 32.8 % (60-80); VBG PH 7.367 (7.31-7.41); VBG PO2 20.6 mmHg (25-47); VBG TOTAL CO2 33.1 mmol/L (24-29)
--- NOTE | 2021-01-10 09:04 | XRAY Report ---
PROCEDURE: Chest 1 View X-Ray INDICATIONS: chest pain COMMENTS: CHEST PAIN/ PT STATES SOA PRIORS: 01/06/21 TECHNIQUE: One view of the chest was acquired. COMPARISON: 01/07/2020 FINDINGS: Surgical changes and devices: None. Lungs and pleura: No pleural effusions or pneumothorax. Increased airspace opacities in the lung bases bilaterally are similar to the prior x-ray of 01/06/2021. Mediastinum: Mediastinal contours appear normal. Heart size is mildly enlarged. Bones and chest wall: No suspicious bony lesions. Overlying soft tissues appear unremarkable. IMPRESSION: 1. Bilateral interstitial and airspace infiltrates appear similar to the prior x-ray on 01/06/2021 co nsistent with pulmonary edema or bilateral lower lobe pneumonia/atelectasis. 2. Mild cardiomegaly. Reviewed by: Jesús May on 01/10/2021 9:03 AM PST Approved by: Jesús May on 01/10/2021 9:03 AM [facility] Station ID: [id number]
[2021-01-10 09:05] LABS: BASOPHILS # (AUTO) 0.1 10^3/uL (0.0-0.1); BASOPHILS % (AUTO) 0.6 %; EOSINOPHILS # (AUTO) 0.2 10^3/uL (0.0-0.7); EOSINOPHILS % (AUTO) 2.3 %; HCT - HEMATOCRIT 48.6 % (42.0-52.0); HGB - HEMOGLOBIN 15.7 g/dL (14.0-18.0); LYMPHOCYTES # (AUTO) 0.8 10^3/uL (1.5-3.5); LYMPHOCYTES % (AUTO) 7.4 %; MEAN CORPUSCULAR HEMOGLOBIN 28.3 pg (27.0-31.0); MEAN CORPUSCULAR HGB CONC 32.3 g/dL (32.0-36.0); MEAN CORPUSCULAR VOLUME 87.6 fL (80.0-94.0); MEAN PLATELET VOLUME 9.9 fL (7.4-11.4); MONOCYTES % (AUTO) 9.5 %; NEUTROPHILS # (AUTO) 8.1 10^3/uL (1.5-6.6); NEUTROPHILS % (AUTO) 79.9 %; PLT - PLATELET COUNT 379 10^3/uL (130-450); RED BLOOD COUNT 5.55 10^6/uL (4.70-6.10); RED CELL DISTRIBUTION WIDTH 14.3 % (12.0-15.0); WHITE BLOOD COUNT 10.2 x10^3/uL (4.8-10.8)
[2021-01-10 09:13] LABS: INR 1.1 (0.8-1.2); PT - PROTHROMBIN TIME 12.3 secs (9.9-12.6)
[2021-01-10 09:18] LABS: ALBUMIN 3.6 g/dL (3.2-5.5); ALKALINE PHOSPHATASE 84 IU/L (42-121); ALT ALANINE AMINOTRANSFERASE 51 IU/L (10-60); AST ASPARTATE AMINOTRANSFERASE 43 IU/L (10-42); BILIRUBIN,TOTAL 0.4 mg/dL (0.2-1.0); BUN - BLOOD UREA NITROGEN 24 mg/dL (6-20); CARBON DIOXIDE - CO2 30 mmol/L (21-32); CHLORIDE 96 mmol/L (101-111); ETOH - ETHANOL < 5.0 mg/dL; GFR - MDRD 75 (>89); GLUCOSE 106 mg/dL (70-100); LIPASE 31 U/L (22-51); MAGNESIUM 2.3 mg/dL (1.7-2.8); POTASSIUM 4.6 mmol/L (3.5-5.0); SODIUM 134 mmol/L (135-145); TOTAL PROTEIN 7.2 g/dL (6.7-8.2)
[2021-01-10 09:40] LABS: D-DIMER 434.6 ng/mL (200.0-255.0)
[2021-01-10] MEDS ORDERED: IOVERSOL 320 100 ML VIAL IVP ONE ×2 (10:10→21:37)
[2021-01-10 10:35] LABS: B. PARAPERTUSSIS- RESP PCR PAN NOT DETECTED; B. PERTUSSIS- RESP PCR PANEL NOT DETECTED; C. PNEUMONIAE- RESP PCR PANEL NOT DETECTED; CORONAVIRUS 229E-RESP PCR NOT DETECTED; CORONAVIRUS HKU1-RESP PCR NOT DETECTED; CORONAVIRUS NL63-RESP PCR NOT DETECTED; CORONAVIRUS OC43-RESP PCR NOT DETECTED; HUMAN METAPNEUMOVIRUS NOT DETECTED; INFLUENZA A- RESP PCR PANEL NOT DETECTED; INFLUENZA B - RESP PCR PANEL NOT DETECTED; M. PNEUMONIAE- RESP PCR PANEL NOT DETECTED; PARAINFLUENZA VIRUS 1 NOT DETECTED; PARAINFLUENZA VIRUS 2 NOT DETECTED; PARAINFLUENZA VIRUS 3 NOT DETECTED; PARAINFLUENZA VIRUS 4 NOT DETECTED; RHINOVIRUS/ENTEROVIRUS NOT DETECTED; RSV- RESP PCR PANEL NOT DETECTED; SARS-CoV-2 -RESP PCR PANEL NOT DETECTED
--- NOTE | 2021-01-10 10:47 | CT Report ---
PROCEDURE: ANGIO CHEST W/WO INDICATIONS: Rule out PE CONTRAST: IV CONTRAST: Optiray 320 ml: 80 PO CONTRAST: *NO PO CONTRAST TECHNIQUE: After the administration of intravenous contrast, 5 mm thick sections acquired from the pulmonary api ivan to the posterior costophrenic angles. 7 mm thick coronal MIP reformats were acquired. For radia tion dose reduction, the following was used: automated exposure control, adjustment of mA and/or kV according to patient size. COMPARISON: Chest radiograph dated same day FINDINGS: CHEST: Lungs: Severe diffuse upper lobe predominant centrilobular emphysema is present. Diffuse peribronchia l cuffing suggestive of nonspecific bronchitis and/or reactive airways disease. Bilateral dependent c onsolidations and groundglass opacities are present. Patchy subpleural reticular opacities also noted suggestive of interlobular septal thickening. Pleura: No pneumothorax. Small bilateral pleural effusions. Heart: Mildly enlarged. No pericardial effusion. Lymph nodes: Prominent right hilar lymph node seen on image 74, mildly enlarged measuring 1.4 cm. The re is also mildly enlarged subcarinal lymphadenopathy measuring 1.3 cm short axis. Thyroid: Unremarkable Aorta: Normal in size. Scattered atheromatous calcifications seen in the aorta. Pulmonary arteries: No intraluminal filling defects are identified. Esophagus: Normal. Bones: Diffuse spondolytic changes and facet arthropathy. No compression fracture. Upper abdomen: Normal. IMPRESSION: No evidence of pulmonary embolism. No aortic dissection. Small bilateral pleural effusions with adjacent atelectasis. Ill-defined bibasilar patchy groundglass and reticular opacities suggestive of pulmonary edema. Additional areas of focal consolidation in freddie th lung bases are suspicious for superimposed pneumonia. Please correlate clinically. If there is per sistent clinical diagnostic uncertainty, recommend short interval radiographic follow-up after treatm ent for further assessment. Borderline enlarged right hilar and subcarinal lymph nodes, technically nonspecific finding. Severe diffuse peribronchial cuffing suggestive of nonspecific bronchitis and/or reactive airways di sease. CLINICAL RECOMMENDATION STATEMENTS: In patients <35 years with an ITN detected on CT, MRI, or extrathyroidal ultrasound, the Committee re commends further evaluation with dedicated thyroid ultrasound if the nodule is "e1 cm and has no susp icious imaging features, and if the patient has normal life expectancy. In patients "e35 years with an ITN detected on CT, MRI, or extrathyroidal ultrasound, the Committee r ecommends further evaluation with dedicated thyroid ultrasound if the nodule is "e1.5 cm and has no s uspicious imaging features, and if the patient has normal life expectancy. (ACR, 2014) Reviewed by: Raymundo Dewitt MD on 01/10/2021 10:46 AM PST Approved by: Raymundo Dewitt MD on 01/10/2021 10:46 AM PST Station ID: [id number]
[2021-01-10] MEDS ORDERED: FUROSEMIDE 20 MG/2 ML VIAL IVP STA ×2 (10:50→10:57)
[2021-01-10] MEDS ORDERED: AZITHROMYCIN INJ 500 MG in SODIUM CHLORIDE 0.9% 250 ML IV STA (10:50)
[2021-01-10 10:52] LABS: MUDS CUTOFF CONCENTRATIONS CUTOFF CONC BELOW:
[2021-01-10 10:56] LABS: BILIRUBIN,URINE NEGATIVE (NEGATIVE); GLUCOSE, URINE (UA) NEGATIVE (NEGATIVE); KETONES,URINE (UA) NEGATIVE (NEGATIVE); LEUKOCYTE ESTERASE, URINE NEGATIVE (NEGATIVE); NITRITE,URINE NEGATIVE (NEGATIVE); OCCULT BLOOD,URINE NEGATIVE (NEGATIVE); PROTEIN,URINE NEGATIVE (NEGATIVE); UROBILINOGEN,URINE 0.2 (NORMAL) E.U./dL (NORMAL)
[2021-01-10 10:57] LABS: CLARITY,URINE CLEAR (CLEAR)
[2021-01-10] MEDS ORDERED: ONDANSETRON 4 MG/2 ML VIAL IVP PRN (10:57)
[2021-01-10 11:05] LABS: AMPHETAMINE SCREEN,URINE NEGATIVE (NEGATIVE); BARBITURATE SCREEN,UR NEGATIVE (NEGATIVE); BENZODIAZEPINES SCREEN, URINE NEGATIVE (NEGATIVE); COCAINE SCREEN URINE NEGATIVE (NEGATIVE); METHADONE SCREEN, URINE NEGATIVE (NEGATIVE); METHAMPHETAMINES SCREEN, URINE NEGATIVE (NEGATIVE); OPIATE SCREEN, URINE NEGATIVE (NEGATIVE); OXYCODONE SCREEN, URINE NEGATIVE (NEGATIVE); PROPOXYPHENE SCREEN, URINE NEGATIVE (NEGATIVE); THC CANNABINOID SCREEN, URINE POSITIVE (NEGATIVE); TRICYCLIC ANTIDEPRESSANT,URINE NEGATIVE (NEGATIVE)
[2021-01-10] MEDS ORDERED: hydrALAZINE INJ 20 MG/ML VIAL IVP PRN (11:08)
--- NOTE | 2021-01-10 11:09 | HISTORY & PHYSICAL EXAMINATION ---
Chief Complaint - Chief Complaint Chief Complaint: dyspnea and hypoxia History of Present Illness - Admitted From Admitted From:: [facility] ED - History Obtained From Records Reviewed: yes History obtained from: patient - History of Present Illness HPI Comment/Other: Patient is a 65-year-old male with previous history of hypertension, coronary disease, TIA, depression and osteoporosis who presented to the ED with dyspnea and hypoxia. It was reported that his oxygen saturation was in the 80s when EMS picked him up. He was using accessory muscles for respiration at the time. His dyspnea was about a week ago. However it has progressively worsened over the past few days. Currently he denies chest pain but reported having left-sided no nradiating pain before. It is intermittent and sharp in nature. He denied nausea, vomiting, fever or chills. He denied abdominal pain. He has not seen a physician in a long time. He is homeless and lives out of his van in [place]. In the ED he was tachycardic with heart rate as high as 117. His systolic blood pressure was in the 190s. He was on 4L of Oxygen with oxygen saturation in the 90s. BNP was 1082. Troponin was 42.2. The chest was negative for pulmonary embolism or aortic dissection. It showed patchy groundglass and reticular opacities suggestive of pulmonary edema. History - Past Medical History Cardiovascular: reports: Hypertension, Coronary artery disease, CT Respiratory: reports: None Neuro: reports: TIA Endocrine/Autoimmune: reports: None GI: reports: None : reports: Other HEENT: reports: Other Psych: reports: Depression Musculoskeletal: reports: Osteoporosis Derm: reports: Psoriasis MRSA Hx?: Yes - Past Surgical History General: reports: Appendectomy HEENT: reports: Tonsil/Adenoidectomy - Family & Social History Family History: Mother: (father from stroke. Mother from Lung cancer), Father: , Other family: Alive and Well (pt state he left his parents when he was very young. He did not know much about his sibles.) Family History Comment/Other: Pt state he is born at [place], and until he finished his high school. Then He moved to [place]. His at 1998 and from cancer. he had four children, but all his children were removed from him by government after his , then he became very depressed. Social History Notes: He reports occasional cigarette smoking, denies alcohol. He reports trying various drugs in the past. - POLST Patient has POLST: No POLST Status: DNR Meds/Allgy - Home Medications Home Medications: Ambulatory Orders Medication Instructions Recorded Confirmed Furosemide [Lasix] 20 mg PO DAILY #30 tablet 01/07/21 01/10/21 Nitroglycerin [Nitrostat] 0.4 mg SL Q5MIN PRN #21 tablet 01/07/21 01/10/21 Azithromycin [Zithromax] 250 mg PO DAILY 01/10/21 01/10/21 Metoprolol Succinate 50 mg PO DAILY 01/10/21 01/10/21 - Allergies Allergies/Adverse Reactions: Allergies Allergy/AdvReac Type Severity Reaction Status Date / Time No Known Drug Allergies Allergy Verified 01/06/21 23:08 Review of Systems - Constitutional Constitutional: denies: Fatigue, Fever, Chills - Eyes Eyes: denies: Pain - Ears, Nose & Throat Ears, Nose & Throat: denies: Ear pain - Cardiovascular Cariovascular: reports: Chest pain. denies: Irregular heart rate - Respiratory Respiratory: reports: SOB at rest, SOB with exertion. denies: Cough, Sputum production, Wheezing - Gastrointestinal Gastrointestinal: denies: Abdominal pain, Abdominal distention, Constipation, Nausea, Vomiting - Genitourinary Genitourinary: denies: Dysuria, Frequency, Urgency - Musculoskeletal Musculoskeletal: denies: Muscle pain, Back pain, Muscle aches, Stiffness - Integumentary Integumentary: denies: Rash, Pruritis, Lesions - Neurological Neurological: denies: General weakness, Focal weakness, Headache, Dizziness - Psychiatric Psychiatric: reports: Depression. denies: Anxiety - Endocrine Endocrine: denies: Polyuria, Polydypsia - Hematologic/Lymphatic Hematologic/Lymphatic: denies: Anemia, Bruising Prior Level of Functionality: Of activities of daily living. He is homeless and lives in his van in [facility] Exam - Vital Signs Vital Signs: Vital Signs x48h Temp Pulse Resp BP Pulse Ox 01/10/21 11:02 100 23 168/123 H 100 01/10/21 10:30 102 H 24 186/128 H 96 01/10/21 10:00 97 24 165/119 H 98 01/10/21 09:30 99 22 171/135 H 96 01/10/21 09:11 99 24 172/117 H 98 11/22/21 08:48 36.8 C 101 H 26 H 190/138 H 99 01/10/21 08:37 35.9 C L 117 H 28 H 190/138 H 98 - Physical Exam General Appearance: positive: No acute distress, Alert Eyes Bilateral: positive: PERRL, EOMI ENT: positive: No signs of dehydration Neck: positive: No JVD, Trachea midline Respiratory: positive: Chest non-tender, No respiratory distress, Breath sounds nml, Wheezes (mild) Cardiovascular: positive: Regular rate & rhythm, No murmur Abdomen: positive: Non-tender, No organomegaly, Nml bowel sounds. negative: Guarding, Rebound Back: positive: Nml inspection Skin: positive: Color nml, No rash, Warm, Dry Extremities: positive: Non-tender, Full ROM, Nml appearance, No pedal edema Neurologic/Psychiatric: positive: Oriented x3, Mood/affect nml Conclusion/Plan - Problem List (1) CHF exacerbation Conclusion/Plan: Patient given Lasix 40 mg IV in the ED. We will continue Lasix 40 mg IV twice daily. Nitropaste was applied to patient's chest. Will discontinue. Metoprolol succinate 50 mg p.o. twice daily ordered. 2D echocardiogram ordered for the morning. (2) Acute respiratory failure with hypoxia Conclusion/Plan: 102 CHF exacerbation. Patient is being actively diuresed. Supplemental oxygen via nasal cannula applied. (3) History of coronary artery disease Conclusion/Plan: Metoprolol succinate 50 mg p.o. twice daily ordered. Baby aspirin daily. Troponin trend has been 42 and 41. 2D echocardiogram pending. Has not seen primary care physician in a long time. (4) HTN (hypertension) Conclusion/Plan: Metoprolol succinate 50 mg p.o. bid Hydralazine 10 mg IV every 4 hours as needed. Qualifiers: Hypertension type: unspecified Qualified Code(s): I10 - Essential (primary) hypertension - Lab Results Fish Bones: 01/10/21 08:54 01/10/21 08:54 Core Measures - Anticipated LOS I expect patient to be DC'd or transferred within 96 hours.: Yes - DVT/VTE - Prophylaxis VTE/DVT Device ordered at admit?: Yes VTE/DVT Prophylaxis med ordered at admit?: Yes
[2021-01-10] MEDS: HEPARIN 5,000 UNIT/ML VIAL SUBQ SCH ×2 (12:31→20:33)
[2021-01-10] MEDS: METOPROLOL SUCCINATE 50 MG TABLET PO SCH ×2 (12:33→20:33)
[2021-01-10] MEDS: SODIUM CHLORIDE FLUSH 0.9% 10 ML SYRINGE IVP PRN (12:35)
--- NOTE | 2021-01-10 12:40 | PHARMACY PROGRESS NOTE ---
- Best Possible Medication History Admit Date and Time: 01/10/21 1057 Processed by: Pharmacy Medication History completed: Yes Patient Interview: Completed As the person ultimately responsible for medication therapy, providers are able to order a medication from an existing home medication list in [facility] via the "Reconcile Routine" prior to Confirmation of that medication by legal support specialist. Such practice is discouraged except when the physician, in their clinical jamshid gment, deems that a medical need exists for a medication without regard to previous use.
[2021-01-10] MEDS: ethyl alcohoL 62% SWAB AMPULE NAS SCH ×2 (14:59→20:33)
[2021-01-10] MEDS: ACETAMINOPHEN 325 MG TABLET PO PRN ×2 (14:59→20:32)
[2021-01-10] MEDS ORDERED: FUROSEMIDE 40 MG/4 ML VIAL IVP SCH (18:00)
[2021-01-10] MEDS: SODIUM CHLORIDE FLUSH 0.9% 10 ML SYRINGE IVP SCH (18:56)
[2021-01-11] MEDS: SODIUM CHLORIDE FLUSH 0.9% 10 ML SYRINGE IVP SCH ×3 (01:15→20:22)
[2021-01-11] MEDS ORDERED: FUROSEMIDE 40 MG/4 ML VIAL IVP SCH (06:00)
[2021-01-11 06:04] LABS: BASOPHILS # (AUTO) 0.1 10^3/uL (0.0-0.1); BASOPHILS % (AUTO) 0.6 %; EOSINOPHILS # (AUTO) 0.5 10^3/uL (0.0-0.7); EOSINOPHILS % (AUTO) 5.9 %; HCT - HEMATOCRIT 47.9 % (42.0-52.0); HGB - HEMOGLOBIN 15.4 g/dL (14.0-18.0); LYMPHOCYTES # (AUTO) 1.1 10^3/uL (1.5-3.5); LYMPHOCYTES % (AUTO) 13.3 %; MEAN CORPUSCULAR HEMOGLOBIN 27.9 pg (27.0-31.0); MEAN CORPUSCULAR HGB CONC 32.2 g/dL (32.0-36.0); MEAN CORPUSCULAR VOLUME 86.8 fL (80.0-94.0); MEAN PLATELET VOLUME 9.5 fL (7.4-11.4); MONOCYTES # (AUTO) 0.7 10^3/uL (0.0-1.0); MONOCYTES % (AUTO) 8.2 %; NEUTROPHILS # (AUTO) 5.9 10^3/uL (1.5-6.6); NEUTROPHILS % (AUTO) 71.8 %; PLT - PLATELET COUNT 340 10^3/uL (130-450); RED BLOOD COUNT 5.52 10^6/uL (4.70-6.10); RED CELL DISTRIBUTION WIDTH 14.3 % (12.0-15.0); WHITE BLOOD COUNT 8.3 x10^3/uL (4.8-10.8)
[2021-01-11 06:14] LABS: CALCIUM 8.3 mg/dL (8.5-10.3); CREATININE 1.2 mg/dL (0.6-1.2); POTASSIUM 3.9 mmol/L (3.5-5.0)
[2021-01-11] MEDS ORDERED: NITROGLYCERIN SL 0.4 MG TABLET SL PRN (07:51)
--- NOTE | 2021-01-11 09:15 | PROVIDER PROGRESS NOTE ---
Assessment/Plan - Problem List (1) Acute respiratory failure with hypoxia Assessment/Plan: improved. pt had 91% sats on 2 liter of O2 without acute respiratory distress. it It is likely caused by significant pulmonary edema from acute CHF exacerbation and bronchitis, new ECHO reveal pt has 25-30% of EF. We will continue with intravenous Lasix, fluid restriction, daily weight, Continue home azithromycin for his bronchitis. Continue supplemental oxygen as needed. (2)systolic heart failure NYHA class3/4 new ECHO reveal pt has 25-30% of EF. he report he feel shortness of breath as regular basis for couple of years. he did not see color mixer. we will continue home Metoprolol, add low dosage of lisinopril, check lipid panel, add lower dosage of lipitor, continue baby aspirin. unfortunately he is homeless situation. he know his heart problem for couple years. he had SOB as his baseline. pt report he hope to focus comfortable, keep current treatment to see if improve, no further referral or treatment to him, "let it natural happen, even ." he want to keep DNR (3)nonsustained ventricular tachycardia nurse report pt had nonsustained VT 13 beats. pt denies chest pain, but he do feel shortness of breath as his baseline. he report he did not have good sleep on last night. order new EKG, check troponin and Electrolytes. continue tele and vital monitor, continue metoprolol (4) CHF exacerbation Conclusion/Plan: slightly improved, 91% on 2 liter of O2. will continue intravenous Lasix, Continue home medication metoprolol, Continue tele and laboratory and vital signs monitor, fluid restriction, and daily weight, I&Os. (5) History of coronary artery disease Conclusion/Plan: stable, pt denies chest pain. Troponin trend has been 42 and 41. continue Meto prolol succinate 50 mg p.o. twice daily ordered, and Baby aspirin daily. consult social organization professor for primary care physician setting. (6) HTN (hypertension) Conclusion/Plan: stable, continue Metoprolol succinate 50 mg p.o. bid, add low dosage of Lisinopril Hydralazine 10 mg IV every 4 hours as needed. - Current Meds Current Meds: Current Medications Generic Name Dose Route Start Last Admin Trade Name Freq PRN Reason Stop Dose Admin Acetaminophen 650 mg 01/10/21 10:57 01/10/21 20:32 Acetaminophen 325 Mg Tablet PO 650 mg Q4HR PRN Administration Pain 1 to 4 Alcohol 1 amp 01/10/21 14:00 01/10/21 20:33 Ethyl Alcohol 62% Swab Ampule KAMRYN 1 amp BID GEORGES Administration Furosemide 40 mg 01/11/21 06:00 01/11/21 05:49 Furosemide 40 Mg/4 Ml Vial IVP 40 mg BIDDIURETIC GEORGES Administration Heparin Sodium (Porcine) 5,000 unit 01/10/21 11:00 01/10/21 20:33 Heparin 5,000 Unit/Ml Vial SUBQ 5,000 unit BID GEORGES Administration Metoprolol Succinate 50 mg 01/10/21 12:00 01/10/21 20:33 Metoprolol Succinate 50 Mg Tablet PO 50 mg BID GEORGES Administration Sodium Chloride 10 ml 01/10/21 10:57 01/10/21 12:35 Sodium Chloride Flush 0.9% 10 Ml Syringe IVP 10 ml PRN PRN Administration NEEDED PER PROVIDER ORDERS Sodium Chloride 10 ml 01/10/21 17:00 01/11/21 05:49 Sodium Chloride Flush 0.9% 10 Ml Syringe IVP 10 ml 0100,0900,1700 GEORGES Administration - Lab Result Fish Bone Diagrams: 01/11/21 05:56 01/11/21 05:56 - Additional Planning My Orders: My Active Orders 01/11/21 07:51 Nitroglycerin [Nitrostat] 0.4 mg SL Q5MIN PRN 01/11/21 09:00 Azithromycin [Zithromax] 250 mg PO DAILY Subjective - Subjective Patient Reports: Feeling Better, Resting Comfortably Objective Vital Signs: Vital Signs - 24 hr 01/10/21 01/10/21 01/10/21 09:30 10:00 10:30 Temperature Heart Rate 99 97 102 H Heart Rate [ Brachial] Heart Rate [ Monitoring electrodes] Respiratory 22 24 24 Rate Blood Pressure 171/135 H 165/119 H 186/128 H Blood Pressure [Left Brachial artery] Blood Pressure [RIGHT ARM] O2 Saturation 96 98 96 01/10/21 01/10/21 01/10/21 11:02 11:30 11:49 Temperature 37.1 C Heart Rate 100 99 Heart Rate [ Brachial] Heart Rate [ 98 Monitoring electrodes] Respiratory 23 22 22 Rate Blood Pressure 168/123 H 155/116 H Blood Pressure 149/119 H [Left Brachial artery] Blood Pressure [RIGHT ARM] O2 Saturation 100 98 98 01/10/21 01/10/21 01/10/21 15:06 16:00 19:06 Temperature 36.4 C L Heart Rate Heart Rate [ 90 Brachial] Heart Rate [ 90 85 Monitoring electrodes] Respiratory 17 Rate Blood Pressure Blood Pressure 141/87 H 142/89 H 137/90 H [Left Brachial artery] Blood Pressure [RIGHT ARM] O2 Saturation 98 97 01/10/21 01/11/21 01/11/21 20:38 01:15 06:17 Temperature 36.9 C 36.5 C 36.8 C Heart Rate Heart Rate [ 87 79 76 Brachial] Heart Rate [ Monitoring electrodes] Respiratory 20 16 17 Rate Blood Pressure Blood Pressure 127/89 H 125/98 H [Left Brachial artery] Blood Pressure 133/90 H [RIGHT ARM] O2 Saturation 95 97 91 L 01/11/21 08:24 Temperature 37.0 C Heart Rate Heart Rate [ 84 Brachial] Heart Rate [ Monitoring electrodes] Respiratory 16 Rate Blood Pressure Blood Pressure [Left Brachial artery] Blood Pressure 109/75 [RIGHT ARM] O2 Saturation 91 L Oxygen O2 Source Nasal cannula Oxygen Flow Rate 4 I&O (Last 24 Hrs): Intake and Output Totals x24h 01/09/21 01/10/21 01/11/21 23:59 23:59 23:59 Intake Total 1210 50 Output Total 2575 1025 Balance -1365 -975 General: Alert, Oriented x3, Cooperative, No acute distress HEENT: Atraumatic Neck: Supple Lymphatic: no adenopathy Neuro: Alert, Non Focal, Oriented Times 3 Cardiovascular: Regular rate, Normal S1, Normal S2 Respiratory: Chest non-tender, No respiratory distress Abdomen: Normal bowel sounds, Soft, No tenderness Extremities: Normal pulses - Results Results: Laboratory Results WBC 8.3 x10^3/uL (4.8-10.8) 01/11/21 05:56 RBC 5.52 10^6/uL (4.70-6.10) 01/11/21 05:56 Hgb 15.4 g/dL (14.0-18.0) 01/11/21 05:56 Hct 47.9 % (42.0-52.0) 01/11/21 05:56 MCV 86.8 fL (80.0-94.0) 01/11/21 05:56 MCH 27.9 pg (27.0-31.0) 01/11/21 05:56 MCHC 32.2 g/dL (32.0-36.0) 01/11/21 05:56 RDW 14.3 % (12.0-15.0) 01/11/21 05:56 Plt Count 340 10^3/uL (130-450) 01/11/21 05:56 MPV 9.5 fL (7.4-11.4) 01/11/21 05:56 Neut # (Auto) 5.9 10^3/uL (1.5-6.6) 01/11/21 05:56 Lymph # (Auto) 1.1 10^3/uL (1.5-3.5) L 01/11/21 05:56 Preble # (Auto) 0.7 10^3/uL (0.0-1.0) 01/11/21 05:56 Eos # (Auto) 0.5 10^3/uL (0.0-0.7) 01/11/21 05:56 Baso # (Auto) 0.1 10^3/uL (0.0-0.1) 01/11/21 05:56 Absolute Nucleated RBC 0.00 x10^3/uL 01/11/21 05:56 Nucleated RBC % 0.0 /100WBC 01/11/21 05:56 PT 12.3 secs (9.9-12.6) 01/10/21 08:54 INR 1.1 (0.8-1.2) 01/10/21 08:54 D-Dimer 434.6 ng/mL (200.0-255.0) H 01/10/21 08:54 VBG pH 7.367 (7.31-7.41) 01/10/21 08:54 VBG pCO2 56.0 mmHg (41-51) H 01/10/21 08:54 VBG pO2 20.6 mmHg (25-47) L 01/10/21 08:54 VBG HCO3 31.4 mmol/L (23-28) H 01/10/21 08:54 VBG Total CO2 33.1 mmol/L (24-29) H 01/10/21 08:54 VBG O2 Saturation 32.8 % (60-80) L 01/10/21 08:54 VBG Base Excess 4.3 mmol/L (-2 - +2) H 01/10/21 08:54 Sodium 137 mmol/L (135-145) 01/11/21 05:56 Potassium 3.9 mmol/L (3.5-5.0) 01/11/21 05:56 Chloride 97 mmol/L (101-111) L 01/11/21 05:56 Carbon Dioxide 31 mmol/L (21-32) 01/11/21 05:56 Anion Gap 9.0 (6-13) 01/11/21 05:56 BUN 25 mg/dL (6-20) H 01/11/21 05:56 Creatinine 1.2 mg/dL (0.6-1.2) 01/11/21 05:56 Estimated GFR (MDRD) 61 (>89) L 01/11/21 05:56 Glucose 161 mg/dL (70-100) H 01/11/21 05:56 Lactic Acid 1.3 mmol/L (0.5-2.2) 01/10/21 08:54 Calcium 8.3 mg/dL (8.5-10.3) L 01/11/21 05:56 Magnesium 2.3 mg/dL (1.7-2.8) 01/10/21 08:54 Total Bilirubin 0.4 mg/dL (0.2-1.0) 01/10/21 08:54 AST 43 IU/L (10-42) H 01/10/21 08:54 ALT 51 IU/L (10-60) 01/10/21 08:54 Alkaline Phosphatase 84 IU/L (42-121) 01/10/21 08:54 Troponin I High Sens 47.0 ng/L (2.3-19.7) H* 01/10/21 21:02 B-Natriuretic Peptide 941 pg/mL (5-100) H 01/11/21 05:56 Total Protein 7.2 g/dL (6.7-8.2) 01/10/21 08:54 Albumin 3.6 g/dL (3.2-5.5) 01/10/21 08:54 Globulin 3.6 g/dL (2.1-4.2) 01/10/21 08:54 Albumin/Globulin Ratio 1.0 (1.0-2.2) 01/10/21 08:54 Lipase 31 U/L (22-51) 01/10/21 08:54 Urine Color YELLOW 01/10/21 10:46 Urine Clarity CLEAR (CLEAR) 01/10/21 10:46 Urine pH 7.0 PH (5.0-7.5) 01/10/21 10:46 Ur Specific [place] 1.010 (1.002-1.030) 01/10/21 10:46 Urine Protein NEGATIVE mg/dL (NEGATIVE) 01/10/21 10:46 Urine Glucose (UA) NEGATIVE mg/dL (NEGATIVE) 01/10/21 10:46 Urine Ketones NEGATIVE mg/dL (NEGATIVE) 01/10/21 10:46 Urine Occult Blood NEGATIVE (NEGATIVE) 01/10/21 10:46 Urine Nitrite NEGATIVE (NEGATIVE) 01/10/21 10:46 Urine Bilirubin NEGATIVE (NEGATIVE) 01/10/21 10:46 Urine Urobilinogen 0.2 (NORMAL) E.U./dL (NORMAL) 01/10/21 10:46 Ur Leukocyte Esterase NEGATIVE (NEGATIVE) 01/10/21 10:46 Ur Microscopic Review NOT INDICATED 01/10/21 10:46 Urine Culture Comments NOT INDICATED 01/10/21 10:46 Nasal Adenovirus (PCR) NOT DETECTED 01/10/21 08:54 Nasal B. parapertussis DNA (PCR) NOT DETECTED 01/10/21 08:54 Nasal Coronavir 229E PCR NOT DETECTED 01/10/21 08:54 Nasal Coronavir HKU1 PCR NOT DETECTED 01/10/21 08:54 Nasal Coronavir NL63 PCR NOT DETECTED 01/10/21 08:54 Nasal Coronavir OC43 PCR NOT DETECTED 01/10/21 08:54 Nasal Enterovir/Rhinovir PCR NOT DETECTED 01/10/21 08:54 Nasal Influenza B PCR NOT DETECTED 01/10/21 08:54 Nasal Influenza A PCR NOT DETECTED 01/10/21 08:54 Nasal Parainfluen 1 PCR NOT DETECTED 01/10/21 08:54 Nasal Parainfluen 2 PCR NOT DETECTED 01/10/21 08:54 Nasal Parainfluen 3 PCR NOT DETECTED 01/10/21 08:54 Nasal Parainfluen 4 PCR NOT DETECTED 01/10/21 08:54 Nasal RSV (PCR) NOT DETECTED 01/10/21 08:54 Nasal B.pertussis DNA PCR NOT DETECTED 01/10/21 08:54 Nasal C.pneumoniae (PCR) NOT DETECTED 01/10/21 08:54 Kamryn Human Metapneumo PCR NOT DETECTED 01/10/21 08:54 Nasal M.pneumoniae (PCR) NOT DETECTED 01/10/21 08:54 Nasal SARS-CoV-2 (PCR) NOT DETECTED 01/10/21 08:54 Urine Opiates Screen NEGATIVE (NEGATIVE) 01/10/21 10:46 Ur Oxycodone Screen NEGATIVE (NEGATIVE) 01/10/21 10:46 Urine Methadone Screen NEGATIVE (NEGATIVE) 01/10/21 10:46 Ur Propoxyphene Screen NEGATIVE (NEGATIVE) 01/10/21 10:46 Ur Barbiturates Screen NEGATIVE (NEGATIVE) 01/10/21 10:46 Ur Tricyclics Screen NEGATIVE (NEGATIVE) 01/10/21 10:46 Ur Phencyclidine Scrn NEGATIVE (NEGATIVE) 01/10/21 10:46 Ur Amphetamine Screen NEGATIVE (NEGATIVE) 01/10/21 10:46 U Methamphetamines Scrn NEGATIVE (NEGATIVE) 01/10/21 10:46 U Benzodiazepines Scrn NEGATIVE (NEGATIVE) 01/10/21 10:46 Urine Cocaine Screen NEGATIVE (NEGATIVE) 01/10/21 10:46 U Cannabinoids Screen POSITIVE (NEGATIVE) H 01/10/21 10:46 Ethyl Alcohol < 5.0 mg/dL 01/10/21 08:54 ABX Reporting Has patient been on IV antibiotics over the past 48 hours?: No Current Medications - Current Medications Current Medications: Active Medications Acetaminophen (Acetaminophen 325 Mg Tablet) 650 mg PO Q4HR PRN PRN Reason: Pain 1 to 4 Last Admin: 01/10/21 20:32 Dose: 650 mg Documented by: Alcohol (Ethyl Alcohol 62% Swab Ampule) 1 amp KAMRYN BID GEORGES Last Admin: 01/10/21 20:33 Dose: 1 amp Documented by: Aspirin (Aspirin Chew 81 Mg Tablet) 81 mg PO DAILY GEORGES Azithromycin (Azithromycin 250 Mg Tablet) 250 mg PO DAILY GEORGES Furosemide (Furosemide 40 Mg/4 Ml Vial) 40 mg IVP BIDDIURETIC GEORGES Last Admin: 01/11/21 05:49 Dose: 40 mg Documented by: Heparin Sodium (Porcine) (Heparin 5,000 Unit/Ml Vial) 5,000 unit SUBQ BID GEORGES Last Admin: 01/10/21 20:33 Dose: 5,000 unit Documented by: Hydralazine HCl (Hydralazine Inj 20 Mg/Ml Vial) 10 mg IVP Q6H PRN PRN Reason: PER PHYSICIAN ORDER Metoprolol Succinate (Metoprolol Succinate 50 Mg Tablet) 50 mg PO BID [facility] Last Admin: 01/10/21 20:33 Dose: 50 mg Documented by: Nitroglycerin (Nitroglycerin Sl 0.4 Mg Tablet) 0.4 mg SL Q5MIN PRN PRN Reason: Dyspnea Ondansetron HCl (Ondansetron 4 Mg/2 Ml Vial) 4 mg IVP Q6HR PRN PRN Reason: Nausea / Vomiting Sodium Chloride (Sodium Chloride Flush 0.9% 10 Ml Syringe) 10 ml IVP PRN PRN PRN Reason: NEEDED PER PROVIDER ORDERS Last Admin: 01/10/21 12:35 Dose: 10 ml Documented by: Sodium Chloride (Sodium Chloride Flush 0.9% 10 Ml Syringe) 10 ml IVP 0100,0900,1700 [facility] Last Admin: 01/11/21 05:49 Dose: 10 ml Documented by: Azithromycin [Zithromax] 250 mg PO DAILY 01/10/21 Metoprolol Succinate 50 mg PO DAILY 01/10/21
[2021-01-11] MEDS: ASPIRIN CHEW 81 MG TABLET PO SCH (09:30)
[2021-01-11] MEDS: METOPROLOL SUCCINATE 50 MG TABLET PO SCH ×2 (09:31→20:21)
[2021-01-11] MEDS: ethyl alcohoL 62% SWAB AMPULE NAS SCH ×2 (09:31→20:23)
[2021-01-11] MEDS: AZITHROMYCIN 250 MG TABLET PO SCH (09:32)
[2021-01-11] MEDS: SODIUM CHLORIDE FLUSH 0.9% 10 ML SYRINGE IVP PRN ×3 (09:34→14:56)
[2021-01-11] MEDS: HEPARIN 5,000 UNIT/ML VIAL SUBQ SCH ×2 (09:38→20:24)
[2021-01-11 10:58] LABS: MAGNESIUM 2.3 mg/dL (1.7-2.8); PHOSPHORUS 3.3 mg/dL (2.5-4.6)
[2021-01-11] MEDS ORDERED: MORPHINE 2 MG/ML CARPUJECT IVP PRN (11:30)
[2021-01-11] MEDS: ACETAMINOPHEN 325 MG TABLET PO PRN ×2 (11:55→19:13)
[2021-01-11] MEDS: FUROSEMIDE 40 MG/4 ML VIAL IVP SCH (14:55)
[2021-01-11] MEDS: ATORVASTATIN 40 MG TABLET PO SCH (20:21)
[2021-01-12] MEDS: SODIUM CHLORIDE FLUSH 0.9% 10 ML SYRINGE IVP SCH ×3 (01:44→16:53)
[2021-01-12] MEDS: FUROSEMIDE 40 MG/4 ML VIAL IVP SCH ×2 (06:23→13:52)
[2021-01-12 06:27] LABS: BASOPHILS # (AUTO) 0.1 10^3/uL (0.0-0.1); BASOPHILS % (AUTO) 0.5 %; EOSINOPHILS # (AUTO) 0.7 10^3/uL (0.0-0.7); EOSINOPHILS % (AUTO) 6.8 %; HCT - HEMATOCRIT 49.4 % (42.0-52.0); HGB - HEMOGLOBIN 15.9 g/dL (14.0-18.0); LYMPHOCYTES # (AUTO) 1.3 10^3/uL (1.5-3.5); LYMPHOCYTES % (AUTO) 12.2 %; MEAN CORPUSCULAR HEMOGLOBIN 27.7 pg (27.0-31.0); MEAN CORPUSCULAR HGB CONC 32.2 g/dL (32.0-36.0); MEAN CORPUSCULAR VOLUME 85.9 fL (80.0-94.0); MEAN PLATELET VOLUME 10.6 fL (7.4-11.4); MONOCYTES # (AUTO) 0.9 10^3/uL (0.0-1.0); MONOCYTES % (AUTO) 8.4 %; NEUTROPHILS # (AUTO) 7.5 10^3/uL (1.5-6.6); NEUTROPHILS % (AUTO) 71.7 %; PLT - PLATELET COUNT 362 10^3/uL (130-450); RED BLOOD COUNT 5.75 10^6/uL (4.70-6.10); RED CELL DISTRIBUTION WIDTH 14.4 % (12.0-15.0); WHITE BLOOD COUNT 10.4 x10^3/uL (4.8-10.8)
[2021-01-12 06:37] LABS: CALCIUM 8.4 mg/dL (8.5-10.3); CREATININE 1.1 mg/dL (0.6-1.2); POTASSIUM 3.9 mmol/L (3.5-5.0)
[2021-01-12 06:44] LABS: CHOL/HDL RATIO 4.3 (<5.0); CHOLESTEROL 192 mg/dL; HDL CHOLESTEROL 45 mg/dL; LDL CHOLESTEROL,CALCULATED 116 mg/dL; LDL/HDL RATIO 2.6 (<3.6); TRIGLYCERIDES 157 mg/dL; VLDL CHOLESTEROL 31 mg/dL
[2021-01-12] MEDS: ethyl alcohoL 62% SWAB AMPULE NAS SCH ×2 (08:47→21:08)
[2021-01-12] MEDS: AZITHROMYCIN 250 MG TABLET PO SCH (08:47)
[2021-01-12] MEDS: METOPROLOL SUCCINATE 50 MG TABLET PO SCH (08:47)
[2021-01-12] MEDS: ASPIRIN CHEW 81 MG TABLET PO SCH (08:47)
[2021-01-12] MEDS: HEPARIN 5,000 UNIT/ML VIAL SUBQ SCH ×2 (08:56→21:08)
[2021-01-12] MEDS ORDERED: lisinopriL 5 MG TABLET PO SCH ×2 (09:00)
--- NOTE | 2021-01-12 12:06 | PROVIDER PROGRESS NOTE ---
Assessment/Plan - Problem List (1) Acute respiratory failure with hypoxia Assessment/Plan: 01/12 Patient report he feel better, patient has no acute respiratory distress On room air. We will continue intravenous Lasix on today, we may switch to p.o. Lasix on tomorrow. improved. pt had 91% sats on 2 liter of O2 without acute respiratory distress. it It is likely caused by significant pulmonary edema from acute CHF exacerbation and bronchitis, new ECHO reveal pt has 25-30% of EF. We will continue with intravenous Lasix, fluid restriction, daily weight, Continue home azithromycin for his bronchitis. Continue supplemental oxygen as needed. (2)systolic heart failure NYHA class3/4 1124, BNP treated down to 459 from 940 On yesterday, Patient feels better, patient has no acute respiratory distress on room air. We will continue intravenous Lasix on today, continue metoprolol, and lisinopril, Baby aspirin and Lipitor new ECHO reveal pt has 25-30% of EF. he report he feel shortness of breath as regular basis for couple of years. he did not see sheet catcher. we will continue home Metoprolol, add low dosage of lisinopril, check lipid panel, add lower dosage of lipitor, continue baby aspirin. unfortunately he is homeless situation. he know his heart problem for couple years. he had SOB as his baseline. pt report he hope to focus comfortable, keep current treatment to see if improve, no further referral or treatment to him, "let it natural happen, even ." he want to keep DNR (3)nonsustained ventricular tachycardia 1124, resolved, Continue nuclear monitoring technician nurse report pt had nonsustained VT 13 beats. pt denies chest pain, but he do feel shortness of breath as his baseline. he report he did not have good sleep on last night. order new EKG, check troponin and Electrolytes. continue tele and vital monitor, continue metoprolol (4) CHF exacerbation Conclusion/Plan: 1124, significantly improved. Patient has no acute respiratory distress on room air, BNP continue to be treaded down, pt feel better. continue intravenous Lasix, Continue home medication metoprolol, Continue tele and laboratory and vital signs monitor, fluid restriction, and daily weight, I&Os. slightly improved, 91% on 2 liter of O2. will continue intravenous Lasix, Continue home medication metoprolol, Continue tele and laboratory and vital signs monitor, fluid restriction, and daily weight, I&Os. (5) History of coronary artery disease Conclusion/Plan: stable, pt denies chest pain. Troponin trend has been 42 and 41. continue Metoprolol succinate 50 mg p.o. twice daily ordered, and Baby aspirin daily. consult social media strategist for primary care physician setting. (6) HTN (hypertension) Conclusion/Plan: stable, continue Metoprolol succinate 50 mg p.o. bid, add low dosage of Lisinopril Hydralazine 10 mg IV every 4 hours as needed. - Current Meds Current Meds: Current Medications Generic Name Dose Route Start Last Admin Trade Name Freq PRN Reason Stop Dose Admin Acetaminophen 650 mg 01/10/21 10:57 01/11/21 19:13 Acetaminophen 325 Mg Tablet PO 650 mg Q4HR PRN Administration Pain 1 to 4 Alcohol 1 amp 01/10/21 14:00 01/12/21 08:47 Ethyl Alcohol 62% Swab Ampule KAMRYN 1 amp BID GEORGES Administration Aspirin 81 mg 01/11/21 09:00 01/12/21 08:47 Aspirin Chew 81 Mg Tablet PO 81 mg DAILY GEORGES Administration Atorvastatin Calcium 20 mg 01/11/21 21:00 01/11/21 20:21 Atorvastatin 40 Mg Tablet PO 20 mg QPM GEORGES Administration Azithromycin 250 mg 01/11/21 09:00 01/12/21 08:47 Azithromycin 250 Mg Tablet PO 250 mg DAILY GEORGES Administration Furosemide 40 mg 01/11/21 10:47 01/12/21 06:23 Furosemide 40 Mg/4 Ml Vial IVP 40 mg BIDDIURETIC GEORGES Administration Heparin Sodium (Porcine) 5,000 unit 01/10/21 11:00 01/12/21 08:56 Heparin 5,000 Unit/Ml Vial SUBQ 5,000 unit BID GEORGES Administration Lisinopril 5 mg 01/12/21 09:00 01/12/21 08:47 Lisinopril 5 Mg Tablet PO 5 mg DAILY GEORGES Administration Metoprolol Succinate 50 mg 01/10/21 12:00 01/12/21 08:47 Metoprolol Succinate 50 Mg Tablet PO 50 mg BID GEORGES Administration Morphine Sulfate 1 mg 01/11/21 11:30 01/11/21 12:04 Morphine 2 Mg/Ml Carpuject IVP 1 mg Q3HR PRN Administration PAIN Sodium Chloride 10 ml 01/10/21 10:57 01/11/21 14:56 Sodium Chloride Flush 0.9% 10 Ml Syringe IVP 10 ml PRN PRN Administration NEEDED PER PROVIDER ORDERS Sodium Chloride 10 ml 01/10/21 17:00 01/12/21 06:23 Sodium Chloride Flush 0.9% 10 Ml Syringe IVP 10 ml 0100,0900,1700 GEORGES Administration - Lab Result Fish Bone Diagrams: 01/12/21 05:20 01/12/21 05:20 - Additional Planning My Orders: My Active Orders 01/11/21 11:30 Morphine Inj (Carpuject) [Morphine (Carpuject)] 1 mg IVP Q3HR PRN 01/11/21 21:00 Atorvastatin [Lipitor] 20 mg PO QPM 01/12/21 09:00 lisinopriL [Zestril] 5 mg PO DAILY 01/13/21 05:00 BNP - B-NATRIURETIC PEPTIDE [IAI] DAILYLAB 01/14/21 05:00 BNP - B-NATRIURETIC PEPTIDE [IAI] DAILYLAB 01/15/21 05:00 BNP - B-NATRIURETIC PEPTIDE [IAI] DAILYLAB 01/16/21 05:00 BNP - B-NATRIURETIC PEPTIDE [IAI] DAILYLAB 01/17/21 05:00 BNP - B-NATRIURETIC PEPTIDE [IAI] DAILYLAB Subjective - Subjective Patient Reports: Feeling Better, Resting Comfortably Objective Vital Signs: Vital Signs - 24 hr 01/11/21 01/11/21 01/11/21 12:05 13:32 16:54 Temperature 36.9 C Heart Rate [ 81 Brachial] Respiratory 20 Rate Blood Pressure 113/89 H [Left Brachial artery] Blood Pressure [Right Brachial artery] O2 Saturation 95 97 97 01/11/21 01/12/21 01/12/21 20:17 02:39 05:49 Temperature 36.5 C 36.6 C 36.9 C Heart Rate [ 84 77 82 Brachial] Respiratory 18 19 20 Rate Blood Pressure 130/76 137/71 H 136/96 H [Left Brachial artery] Blood Pressure [Right Brachial artery] O2 Saturation 97 95 99 01/12/21 01/12/21 01/12/21 07:49 08:45 11:40 Temperature 36.5 C 36.7 C Heart Rate [ 84 88 80 Brachial] Respiratory 22 20 Rate Blood Pressure 138/82 H [Left Brachial artery] Blood Pressure 152/109 H 127/87 H [Right Brachial artery] O2 Saturation 97 99 Oxygen O2 Source Nasal cannula Oxygen Flow Rate 4 I&O (Last 24 Hrs): Intake and Output Totals x24h 01/10/21 01/11/21 01/12/21 23:59 23:59 23:59 Intake Total 1210 1680 620 Output Total 2578 5560 1800 Balance -1365 -2020 -1180 General: Alert, Oriented x3, Cooperative, No acute distress HEENT: Atraumatic Neck: Supple Lymphatic: no adenopathy Neuro: Alert, Non Focal, Oriented Times 3 Cardiovascular: Regular rate, Normal S1, Normal S2 Respiratory: Chest non-tender, No respiratory distress Abdomen: Normal bowel sounds, Soft Extremities: Normal pulses - Results Results: Laboratory Results WBC 10.4 x10^3/uL (4.8-10.8) 01/12/21 05:20 RBC 5.75 10^6/uL (4.70-6.10) 01/12/21 05:20 Hgb 15.9 g/dL (14.0-18.0) 01/12/21 05:20 Hct 49.4 % (42.0-52.0) 01/12/21 05:20 MCV 85.9 fL (80.0-94.0) 01/12/21 05:20 MCH 27.7 pg (27.0-31.0) 01/12/21 05:20 MCHC 32.2 g/dL (32.0-36.0) 01/12/21 05:20 RDW 14.4 % (12.0-15.0) 01/12/21 05:20 Plt Count 362 10^3/uL (130-450) 01/12/21 05:20 MPV 10.6 fL (7.4-11.4) 01/12/21 05:20 Neut # (Auto) 7.5 10^3/uL (1.5-6.6) H 01/12/21 05:20 Lymph # (Auto) 1.3 10^3/uL (1.5-3.5) L 01/12/21 05:20 Cloud # (Auto) 0.9 10^3/uL (0.0-1.0) 01/12/21 05:20 Eos # (Auto) 0.7 10^3/uL (0.0-0.7) 01/12/21 05:20 Baso # (Auto) 0.1 10^3/uL (0.0-0.1) 01/12/21 05:20 Absolute Nucleated RBC 0.00 x10^3/uL 01/12/21 05:20 Nucleated RBC % 0.0 /100WBC 01/12/21 05:20 PT 12.3 secs (9.9-12.6) 01/10/21 08:54 INR 1.1 (0.8-1.2) 01/10/21 08:54 D-Dimer 434.6 ng/mL (200.0-255.0) H 01/10/21 08:54 VBG pH 7.367 (7.31-7.41) 01/10/21 08:54 VBG pCO2 56.0 mmHg (41-51) H 01/10/21 08:54 VBG pO2 20.6 mmHg (25-47) L 01/10/21 08:54 VBG HCO3 31.4 mmol/L (23-28) H 01/10/21 08:54 VBG Total CO2 33.1 mmol/L (24-29) H 01/10/21 08:54 VBG O2 Saturation 32.8 % (60-80) L 01/10/21 08:54 VBG Base Excess 4.3 mmol/L (-2 - +2) H 01/10/21 08:54 Sodium 137 mmol/L (135-145) 01/12/21 05:20 Potassium 3.9 mmol/L (3.5-5.0) 01/12/21 05:20 Chloride 98 mmol/L (101-111) L 01/12/21 05:20 Carbon Dioxide 28 mmol/L (21-32) 01/12/21 05:20 Anion Gap 11.0 (6-13) 01/12/21 05:20 BUN 34 mg/dL (6-20) H 01/12/21 05:20 Creatinine 1.1 mg/dL (0.6-1.2) 01/12/21 05:20 Estimated GFR (MDRD) 67 (>89) L 01/12/21 05:20 Glucose 90 mg/dL (70-100) 01/12/21 05:20 Lactic Acid 1.3 mmol/L (0.5-2.2) 01/10/21 08:54 Calcium 8.4 mg/dL (8.5-10.3) L 01/12/21 05:20 Phosphorus 3.3 mg/dL (2.5-4.6) 01/11/21 05:56 Magnesium 2.3 mg/dL (1.7-2.8) 01/11/21 05:56 Total Bilirubin 0.4 mg/dL (0.2-1.0) 01/10/21 08:54 AST 43 IU/L (10-42) H 01/10/21 08:54 ALT 51 IU/L (10-60) 01/10/21 08:54 Alkaline Phosphatase 84 IU/L (42-121) 01/10/21 08:54 Troponin I High Sens 35.1 ng/L (2.3-19.7) H* 01/11/21 10:53 B-Natriuretic Peptide 559 pg/mL (5-100) H 01/12/21 05:20 Total Protein 7.2 g/dL (6.7-8.2) 01/10/21 08:54 Albumin 3.6 g/dL (3.2-5.5) 01/10/21 08:54 Globulin 3.6 g/dL (2.1-4.2) 01/10/21 08:54 Albumin/Globulin Ratio 1.0 (1.0-2.2) 01/10/21 08:54 Triglycerides 157 mg/dL (-149) H 01/12/21 05:20 Cholesterol 192 mg/dL (-199) 01/12/21 05:20 LDL Cholesterol, Calc 116 mg/dL (-129) 01/12/21 05:20 VLDL Cholesterol 31 mg/dL 01/12/21 05:20 HDL Cholesterol 45 mg/dL (60-) L 01/12/21 05:20 LDL/HDL Ratio 2.6 (<3.6) 01/12/21 05:20 Cholesterol/HDL Ratio 4.3 (<5.0) 01/12/21 05:20 Lipase 31 U/L (22-51) 01/10/21 08:54 Urine Color YELLOW 01/10/21 10:46 Urine Clarity CLEAR (CLEAR) 01/10/21 10:46 Urine pH 7.0 PH (5.0-7.5) 01/10/21 10:46 Ur Specific [place] 1.010 (1.002-1.030) 01/10/21 10:46 Urine Protein NEGATIVE mg/dL (NEGATIVE) 01/10/21 10:46 Urine Glucose (UA) NEGATIVE mg/dL (NEGATIVE) 01/10/21 10:46 Urine Ketones NEGATIVE mg/dL (NEGATIVE) 01/10/21 10:46 Urine Occult Blood NEGATIVE (NEGATIVE) 01/10/21 10:46 Urine Nitrite NEGATIVE (NEGATIVE) 01/10/21 10:46 Urine Bilirubin NEGATIVE (NEGATIVE) 01/10/21 10:46 Urine Urobilinogen 0.2 (NORMAL) E.U./dL (NORMAL) 01/10/21 10:46 Ur Leukocyte Esterase NEGATIVE (NEGATIVE) 01/10/21 10:46 Ur Microscopic Review NOT INDICATED 01/10/21 10:46 Urine Culture Comments NOT INDICATED 01/10/21 10:46 Nasal Adenovirus (PCR) NOT DETECTED 01/10/21 08:54 Nasal B. parapertussis DNA (PCR) NOT DETECTED 01/10/21 08:54 Nasal Coronavir 229E PCR NOT DETECTED 01/10/21 08:54 Nasal Coronavir HKU1 PCR NOT DETECTED 01/10/21 08:54 Nasal Coronavir NL63 PCR NOT DETECTED 01/10/21 08:54 Nasal Coronavir OC43 PCR NOT DETECTED 01/10/21 08:54 Nasal Enterovir/Rhinovir PCR NOT DETECTED 01/10/21 08:54 Nasal Influenza B PCR NOT DETECTED 01/10/21 08:54 Nasal Influenza A PCR NOT DETECTED 01/10/21 08:54 Nasal Parainfluen 1 PCR NOT DETECTED 01/10/21 08:54 Nasal Parainfluen 2 PCR NOT DETECTED 01/10/21 08:54 Nasal Parainfluen 3 PCR NOT DETECTED 01/10/21 08:54 Nasal Parainfluen 4 PCR NOT DETECTED 01/10/21 08:54 Nasal RSV (PCR) NOT DETECTED 01/10/21 08:54 Nasal B.pertussis DNA PCR NOT DETECTED 01/10/21 08:54 Nasal C.pneumoniae (PCR) NOT DETECTED 01/10/21 08:54 [place] Human Metapneumo PCR NOT DETECTED 01/10/21 08:54 Nasal M.pneumoniae (PCR) NOT DETECTED 01/10/21 08:54 Nasal SARS-CoV-2 (PCR) NOT DETECTED 01/10/21 08:54 Urine Opiates Screen NEGATIVE (NEGATIVE) 01/10/21 10:46 Ur Oxycodone Screen NEGATIVE (NEGATIVE) 01/10/21 10:46 Urine Methadone Screen NEGATIVE (NEGATIVE) 01/10/21 10:46 Ur Propoxyphene Screen NEGATIVE (NEGATIVE) 01/10/21 10:46 Ur Barbiturates Screen NEGATIVE (NEGATIVE) 01/10/21 10:46 Ur Tricyclics Screen NEGATIVE (NEGATIVE) 01/10/21 10:46 Ur Phencyclidine Scrn NEGATIVE (NEGATIVE) 01/10/21 10:46 Ur Amphetamine Screen NEGATIVE (NEGATIVE) 01/10/21 10:46 U Methamphetamines Scrn NEGATIVE (NEGATIVE) 01/10/21 10:46 U Benzodiazepines Scrn NEGATIVE (NEGATIVE) 01/10/21 10:46 Urine Cocaine Screen NEGATIVE (NEGATIVE) 01/10/21 10:46 U Cannabinoids Screen POSITIVE (NEGATIVE) H 01/10/21 10:46 Ethyl Alcohol < 5.0 mg/dL 01/10/21 08:54 ABX Reporting Has patient been on IV antibiotics over the past 48 hours?: No Current Medications - Current Medications Current Medications: Active Medications Acetaminophen (Acetaminophen 325 Mg Tablet) 650 mg PO Q4HR PRN PRN Reason: Pain 1 to 4 Last Admin: 01/11/21 19:13 Dose: 650 mg Documented by: Alcohol (Ethyl Alcohol 62% Swab Ampule) 1 amp KAMRYN BID [facility] Last Admin: 01/12/21 08:47 Dose: 1 amp Documented by: Aspirin (Aspirin Chew 81 Mg Tablet) 81 mg PO DAILY [facility] Last Admin: 01/12/21 08:47 Dose: 81 mg Documented by: Atorvastatin Calcium (Atorvastatin 40 Mg Tablet) 20 mg PO QPM [facility] Last Admin: 01/11/21 20:21 Dose: 20 mg Documented by: Azithromycin (Azithromycin 250 Mg Tablet) 250 mg PO DAILY [facility] Last Admin: 01/12/21 08:47 Dose: 250 mg Documented by: Furosemide (Furosemide 40 Mg/4 Ml Vial) 40 mg IVP BIDDIURETIC [facility] Last Admin: 01/12/21 06:23 Dose: 40 mg Documented by: Heparin Sodium (Porcine) (Heparin 5,000 Unit/Ml Vial) 5,000 unit SUBQ BID [facility] Last Admin: 01/12/21 08:56 Dose: 5,000 unit Documented by: Hydralazine HCl (Hydralazine Inj 20 Mg/Ml Vial) 10 mg IVP Q6H PRN PRN Reason: PER PHYSICIAN ORDER Lisinopril (Lisinopril 5 Mg Tablet) 5 mg PO DAILY [facility] Last Admin: 01/12/21 08:47 Dose: 5 mg Documented by: Metoprolol Succinate (Metoprolol Succinate 50 Mg Tablet) 50 mg PO BID [facility] Last Admin: 01/12/21 08:47 Dose: 50 mg Documented by: Morphine Sulfate (Morphine 2 Mg/Ml Carpuject) 1 mg IVP Q3HR PRN PRN Reason: PAIN Last Admin: 01/11/21 12:04 Dose: 1 mg Documented by: Nitroglycerin (Nitroglycerin Sl 0.4 Mg Tablet) 0.4 mg SL Q5MIN PRN PRN Reason: Dyspnea Ondansetron HCl (Ondansetron 4 Mg/2 Ml Vial) 4 mg IVP Q6HR PRN PRN Reason: Nausea / Vomiting Sodium Chloride (Sodium Chloride Flush 0.9% 10 Ml Syringe) 10 ml IVP PRN PRN PRN Reason: NEEDED PER PROVIDER ORDERS Last Admin: 01/11/21 14:56 Dose: 10 ml Documented by: Sodium Chloride (Sodium Chloride Flush 0.9% 10 Ml Syringe) 10 ml IVP 0100,0900,1700 [facility] Last Admin: 01/12/21 06:23 Dose: 10 ml Documented by: Azithromycin [Zithromax] 250 mg PO DAILY 01/10/21 Metoprolol Succinate 50 mg PO DAILY 01/10/21
[2021-01-12] MEDS: SODIUM CHLORIDE FLUSH 0.9% 10 ML SYRINGE IVP PRN (13:52)
[2021-01-12] MEDS: ATORVASTATIN 40 MG TABLET PO SCH (21:04)
[2021-01-12] MEDS: ACETAMINOPHEN 325 MG TABLET PO PRN (21:08)
[2021-01-13] MEDS: SODIUM CHLORIDE FLUSH 0.9% 10 ML SYRINGE IVP SCH ×2 (00:01→08:59)
[2021-01-13] MEDS: ACETAMINOPHEN 325 MG TABLET PO PRN (04:57)
[2021-01-13] MEDS: FUROSEMIDE 40 MG TABLET PO SCH ×2 (05:00→13:35)
[2021-01-13 05:31] LABS: BASOPHILS # (AUTO) 0.1 10^3/uL (0.0-0.1); BASOPHILS % (AUTO) 0.6 %; EOSINOPHILS # (AUTO) 0.6 10^3/uL (0.0-0.7); EOSINOPHILS % (AUTO) 5.8 %; HCT - HEMATOCRIT 50.8 % (42.0-52.0); HGB - HEMOGLOBIN 16.5 g/dL (14.0-18.0); LYMPHOCYTES # (AUTO) 1.3 10^3/uL (1.5-3.5); LYMPHOCYTES % (AUTO) 12.3 %; MEAN CORPUSCULAR HEMOGLOBIN 28.1 pg (27.0-31.0); MEAN CORPUSCULAR HGB CONC 32.5 g/dL (32.0-36.0); MEAN CORPUSCULAR VOLUME 86.4 fL (80.0-94.0); MEAN PLATELET VOLUME 9.9 fL (7.4-11.4); MONOCYTES % (AUTO) 9.6 %; NEUTROPHILS # (AUTO) 7.4 10^3/uL (1.5-6.6); NEUTROPHILS % (AUTO) 71.4 %; PLT - PLATELET COUNT 375 10^3/uL (130-450); RED BLOOD COUNT 5.88 10^6/uL (4.70-6.10); RED CELL DISTRIBUTION WIDTH 14.2 % (12.0-15.0); WHITE BLOOD COUNT 10.4 x10^3/uL (4.8-10.8)
[2021-01-13] MEDS ORDERED: FUROSEMIDE 40 MG TABLET PO SCH (06:00)
[2021-01-13 06:01] LABS: CALCIUM 8.7 mg/dL (8.5-10.3); CREATININE 1.2 mg/dL (0.6-1.2); POTASSIUM 3.9 mmol/L (3.5-5.0)
[2021-01-13] MEDS: ASPIRIN CHEW 81 MG TABLET PO SCH (08:54)
[2021-01-13] MEDS: HEPARIN 5,000 UNIT/ML VIAL SUBQ SCH (08:55)
[2021-01-13] MEDS: AZITHROMYCIN 250 MG TABLET PO SCH (08:55)
[2021-01-13] MEDS: ethyl alcohoL 62% SWAB AMPULE NAS SCH (08:55)
[2021-01-13] MEDS ORDERED: lisinopriL 5 MG TABLET PO SCH (09:00)
[2021-01-13] MEDS ORDERED: METOPROLOL SUCCINATE 50 MG TABLET PO SCH (09:00)
[2021-01-13 13:21] VITALS: BP 104/72
--- NOTE | 2021-01-13 13:30 | Discharge Plan ---
Discharge Plan Problem Reviewed?: Yes Disposition: Home, Self Care Condition: Stable Prescriptions: Furosemide [Lasix] 20 mg PO BID #60 tablet Atorvastatin [Lipitor] 20 mg PO QPM #30 tablet lisinopriL [Zestril] 2.5 mg PO DAILY #30 tablet Diet: Cardiac Activity Restrictions: Activity as Tolerated Shower Restrictions: No (fall precaution) Instruction Topics: Heart Failure, Heart Failure Meds Control, Heart Failure Being Active, Heart Failure Coping, Heart Failure Diet Changes, Atorvastatin tablets Health Concerns: systolic heart failure Plan of Treatment: you are found to have significant heart failure. After treatment, your breathing has much improved. You have 95% O2 sats on room air without respiratory di stress. you can walk without distress as well. you are prescribed new medication Lisinopril And Lipitor, your home Lasix dosage increased to twice daily, resume your home medications as well. You may followup with your PCP in one week, and followup with intern brand in 2 weeks or early possible to manage your heart failure. You may reduce your salt and fluid intake, and prevention of fluid overloaded. You may followup with cardiac wellbeing program at [facility] to help management of your heart failure as well. Care Goals: Stabilization and improvement of your heart failure Assessment: Discussed the care plan with you, answered your question, you understood and agreed. Additional Instructions or Follow Up instructions: You may follow-up with your PCP in 1 week, follow-up with intern brand to manage your heart failure as outpatient. Should your symptoms return or worse, you may present to ER or call 911 for help Follow-Up Care: [facility], [facility] No Smoking: If you smoke, Please STOP! Call for help.
--- NOTE | 2021-01-13 13:49 | DISCHARGE SUMMARY ---
Discharge Summary Admit Date: 01/10/21 Discharge Date: 01/13/21 Discharging Provider: Thiago Roberto Condition at Discharge: Stable Discharge Disposition: 01 Home, Self Care Discharge Facility Name: home - DIAGNOSES Discharge Diagnoses with Status of Each Condition: (1) Acute respiratory failure with hypoxia resolved. pt Has 95% to 96% on room air without respiratory distress at rest and exertion. I saw pt walk without respiratory distress. pt has good appetite as well, and he is happy to be discharge on today. (2)systolic heart failure significantly improved. his BNP is down to 250 from 1100 at the admission. pt had no more respiratory distress at rest and exertion. pt is prescribed new meds Lisinopril, increased his home Lasix dosage, Aspirin and lipitor, resume home meds including Metoprolol. In his ECHO, He was found to have 25% to 30% of EF, no Aortic stenosis. Advised patient follow-up with director e learning closely to m anage his heart failure, possible ICD implant, Reduce salt intake, prevention of fluid overloaded, Follow-up [facility] cardiac wellness program, pt verbally state he understood. (3)nonsustained ventricular tachycardia resolved. Repeat EKG reveal sinus rhythm. Advised patient to reduce caffeine intake. pt continue to ask caffeine at hospital. educate pt taking large amounts of caffeine can lead to dangerous arrhythmia at his current heart conditions. pt verbally understood. (4) CHF exacerbation resolved of his acute CHF exacerbation. pt Has 95% to 96% on room air without respiratory distress at rest and exertion. his BNP is down to 250 from 1100 at the admission. pt's home Lasix dosage is increased to 20 bid. advised pt Reduce salt intake, prevention of fluid overloaded, Follow-up [facility] cardiac wellness program, and followup with director e learning closely for management his heart failure. (5) History of coronary artery disease stable, pt denies chest pain. Troponin trend has been 42 and 41, 47, then 35. c ontinue home Metoprolol succinate, nitrostate PRN, and prescribed new medications: Baby aspirin, Lisinopril and Lipitor. consulted social services designee for primary care physician setting, follow-up with card iologist closely to manage his heart failure (6) HTN (hypertension) stable. - HPI History of Present Illness: refer from Dr. Wallace's HPI on 01/10/21 Patient is a 65-year-old male with previous history of hypertension, coronary disease, TIA, depression and osteoporosis who presented to the ED with dyspnea and hypoxia. It was reported that his oxygen saturation was in the 80s when EMS picked him up. He was using accessory muscles for respiration at the time. His dyspnea was about a week ago. However it has progressively worsened over the past few days. Currently he denies chest pain but reported having left-sided nonradiating pain before. It is intermittent and sharp in nature. He denied nausea, vomiting, fever or chills. He denied abdominal pain. He has not seen a physician in a long time. He is homeless and lives out of his van in [place]. In the ED he was tachycardic with heart rate as high as 117. His systolic blood pressure was in the 190s. He was on 4L of Oxygen with oxygen saturation in the 90s. BNP was 1082. Troponin was 42.2. The chest was negative for pulmonary embolism or aortic dissection. It showed patchy groundglass and reticular opacities suggestive of pulmonary edema. - ALLERGIES Allergies/Adverse Reactions: Allergies Allergy/AdvReac Type Severity Reaction Status Date / Time No Known Drug Allergies Allergy Verified 01/06/21 23:08 - MEDICATIONS Home Medications: Ambulatory Orders Medication Instructions Recorded Confirmed Nitroglycerin [Nitrostat] 0.4 mg SL Q5MIN PRN #21 tablet 01/07/21 01/10/21 Azithromycin [Zithromax] 250 mg PO DAILY 01/10/21 01/10/21 Metoprolol Succinate 50 mg PO DAILY 01/10/21 01/10/21 Aspirin Chewable [[facility] [place] 81 mg PO DAILY #30 tablet 01/13/21 Aspirin] Atorvastatin [Lipitor] 20 mg PO QPM #30 tablet 01/13/21 Furosemide [Lasix] 20 mg PO BID #60 tablet 01/13/21 lisinopriL [Zestril] 2.5 mg PO DAILY #30 tablet 01/13/21 - PHYSICAL EXAM AT DISCHARGE General Appearance: positive: No acute distress, Alert. negative: Lethargic Eyes Bilateral: positive: Normal inspection, PERRL, No lid inflammation ENT: positive: ENT inspection nml, No signs of dehydration. negative: Purulent nasal drainage Neck: positive: Nml inspection, Trachea midline. negative: Tracheal deviation Respiratory: positive: Chest non-tender, No respiratory distress. negative: Wheezes, Rales Cardiovascular: positive: Regular rate & rhythm. negative: Tachycardia, Bradycardia, Systolic murmur Peripheral Pulses: positive: 2+ Abdomen: positive: Non-tender, Nml bowel sounds, No distention. negative: Tenderness Back: positive: Nml inspection Skin: positive: Color nml, Warm, Dry. negative: Cyanosis Extremities: positive: Non-tender, Full ROM, Nml appearance. negative: Calf tenderness Neurologic/Psychiatric: positive: Oriented x3, Motor nml, Sensation nml, Mood/affect nml. negative: Weakness, Sensory loss, Facial droop, Slurred/abnml speech, Depressed mood/affect - LABS Result Diagrams: 01/13/21 04:53 01/13/21 04:53 - FOLLOW UP Follow Up: you are found to have significant heart failure with EF 25-30%. After treatment, your breathing has much improved. You have 95% O2 sats on room air without respiratory distress. you can walk without distress as well. you are prescribed new medication Lisinopril, aspirin And Lipitor, your home Lasix dosage increased to twice daily, resume your home medications as well. You may followup with your PCP in one week, and followup with director e learning in 2 weeks or early possible to manage your heart failure. You may reduce your salt and fluid intake and caffeine intake, and prevention of fluid overloaded. You may followup with cardiac wellbeing program at [facility] to help management of your heart failure as well. You may follow-up with your PCP in 1 week, follow-up with director e learning to manage your heart failure. Should your symptoms return or worse, you may present to ER or call 911 for help - TIME SPENT Time Spent in Discharge (Minutes): 30
== END 2021-01-13 15:06 | disposition home or self-care (01) | DRG 291 ==
LOC: ED 08:29 → MS2 10:57
PROVIDERS: ADMIT Internal Medicine; ATTEND Nurse Practitioner Gerontology
DX: I11.0 Hypertensive heart disease with heart failure (principal); I50.9 Heart failure, unspecified; I21.4 Non-ST elevation (NSTEMI) myocardial infarction; F15.10 Other stimulant abuse, uncomplicated; J44.9 Chronic obstructive pulmonary disease, unspecified; F17.200 Nicotine dependence, unspecified, uncomplicated; J96.01 Acute respiratory failure with hypoxia; Z20.822 Contact with and (suspected) exposure to COVID-19; Z66 Do not resuscitate; I25.2 Old myocardial infarction; I50.23 Acute on chronic systolic (congestive) heart failure; I47.2 Ventricular tachycardia; M81.0 Age-related osteoporosis without current pathological fracture; Z59.02 Unsheltered homelessness; I25.10 Atherosclerotic heart disease of native coronary artery without angina pectoris; Z79.899 Other long term (current) drug therapy; Z86.73 Personal history of transient ischemic attack (TIA), and cerebral infarction without residual deficits
CPT/HCPCS: 36415; 71045; 71275; 80048; 80053; 80061; 80306; 81003; 82803; 83605; 83690; 83735; 83880; 84100; 84484; 85025; 85379; 85610; 87631; 93005; 93306; 99284; 99285; A9270; G0480; Q9967; 0202U; 80320; 81001; 83721; 87086

== ENCOUNTER 2021-04-05 13:03 | Emergency (ER) | payer MEDICARE, MEDICAID ==
[2021-04-05] MEDS ORDERED: LIDOCAINE 2% URO-JET 5 ML SYRINGE UR STA (13:13)
--- NOTE | 2021-04-05 13:33 | ED Physician Documentation ---
PD HPI MALE - Stated complaint Stated Complaint: MALE - Chief complaint Chief Complaint: Abd Pain - History obtained from History obtained from: Patient - Additional information Additional information: 65 yo with complicated medical hx with increasing urgency and frequency x 2 weeks and now unable to urinate since last night. With suprapubic pain. Had similar episode in 2019 and had zuñiga which he self-discontinued. Review of Systems Ten Systems: 10 systems reviewed and negative Constitutional: denies: Fever, Chills Cardiac: reports: Reviewed and negative Respiratory: reports: Reviewed and negative : reports: Dysuria, Frequency, Hesitancy PD PAST MEDICAL HISTORY - Past Medical History Cardiovascular: Hypertension, Coronary artery disease, [place] Respiratory: None Neuro: TIA Endocrine/Autoimmune: None GI: None : Other HEENT: Other Psych: Depression Musculoskeletal: Osteoporosis Derm: Psoriasis - Past Surgical History Past Surgical History: Yes General: Appendectomy HEENT: Tonsil/Adenoidectomy - Present Medications Home Medications: Ambulatory Orders Medication Instructions Recorded Confirmed Nitroglycerin [Nitrostat] 0.4 mg SL Q5MIN PRN #21 tablet 01/07/21 01/10/21 Azithromycin [Zithromax] 250 mg PO DAILY 01/10/21 01/10/21 Metoprolol Succinate 50 mg PO DAILY 01/10/21 01/10/21 Aspirin Chewable [[place] 81 mg PO DAILY #30 tablet 01/13/21 Aspirin] Atorvastatin [Lipitor] 20 mg PO QPM #30 tablet 01/13/21 Furosemide [Lasix] 20 mg PO BID #60 tablet 01/13/21 lisinopriL [Zestril] 2.5 mg PO DAILY #30 tablet 01/13/21 Ciprofloxacin HCl [Cipro] 500 mg PO BID #20 tablet 04/05/21 Phenazopyridine HCl [Pyridium] 200 mg PO TID PRN #6 tablet 04/05/21 - Allergies Allergies/Adverse Reactions: Allergies Allergy/AdvReac Type Severity Reaction Status Date / Time No Known Drug Allergies Allergy Verified 04/05/21 13:09 - Social History Does the pt smoke?: Yes Smoking Status: Current some day smoker Does the pt drink ETOH?: No - Immunizations Immunizations are current?: No - POLST Patient has POLST: No POLST Status: DNR PD ED PE NORMAL - Vitals Vital signs reviewed: Yes - General General: Alert and oriented X 3, Other (uncomfortable) - Abdomen Abdomen: Normal bowel sounds, Soft, Non tender - Back Back: No CVA TTP, No spinal TTP - Derm Derm: Normal color, Warm and dry - Extremities Extremities: No edema, No calf tenderness / cord - Neuro Neuro: Alert and oriented X 3, Normal speech - Psych Psych: Normal mood, Normal affect Results - Vitals Vitals: Vital Signs - 24 hr 04/05/21 04/05/21 13:06 15:17 Temperature 35.9 C L Heart Rate 120 H 107 H Respiratory 40 H 20 Rate Blood Pressure 168/93 H 166/119 H O2 Saturation 96 98 Oxygen O2 Source Room air - Labs Labs: Laboratory Tests 04/05/21 04/05/21 04/05/21 13:36 13:43 13:43 WBC 11.4 H RBC 5.13 Hgb 14.2 Hct 44.7 MCV 87.1 MCH 27.7 MCHC 31.8 L RDW 16.5 H Plt Count 347 MPV 9.5 Neut # (Auto) 9.0 H Lymph # (Auto) 0.9 L [place] # (Auto) 1.1 H Eos # (Auto) 0.3 Baso # (Auto) 0.1 Absolute Nucleated RBC 0.00 Nucleated RBC % 0.0 Sodium 134 L Potassium 5.3 H Chloride 98 L Carbon Dioxide 29 Anion Gap 7.0 BUN 28 H Creatinine 1.1 Estimated GFR (MDRD) 67 L Glucose 92 Calcium 8.8 Urine Color YELLOW Urine Clarity CLOUDY Urine pH 7.5 Ur Specific [place] 1.020 Urine Protein 100 H Urine Glucose (UA) NEGATIVE Urine Ketones NEGATIVE Urine Occult Blood LARGE H Urine Nitrite NEGATIVE Urine Bilirubin NEGATIVE Urine Urobilinogen 0.2 (NORMAL) Ur Leukocyte Esterase LARGE H Urine RBC TNTC H Urine WBC >25 H Ur Squamous Epith Cells FEW Squamous Urine Bacteria Few Ur Microscopic Review INDICATED Urine Culture Comments INDICATED - Rads (name of study) CT KUB Radiology: EMP read contemporaneously PD MEDICAL DECISION MAKING - ED course ED course: History most consistent with urinary retention, but on the time of my evaluation a Zuñiga had been placed with only about 200 mL of purulent urine out. As such a CT was done showing no evidence of obstruction, thickened urinary bladder and pulmonary nodule which she was so counseled about. He wanted to keep the Zuñiga in, felt more comfortable with it in. He was given IV Cipro and fluids here. Departure - Departure Disposition: 01 Home, Self Care Clinical Impression: Pyelonephritis, Pulmonary nodule 1 cm or greater in diameter Condition: Good Record reviewed to determine appropriate education?: Yes Instructions: Pyelonephritis Dc Prescriptions: Ciprofloxacin HCl [Cipro] 500 mg PO BID #20 tablet Phenazopyridine HCl [Pyridium] 200 mg PO TID PRN #6 tablet PRN Reason: dysuria Comments: Follow-up with your primary care physician in 2 to 3 days for Zuñiga removal. Return for new or worsening symptoms. Your prescription was sent electronically to [facility] in [place]. You do have a pulmonary nodule, this needs a repeat CT, preferably a PET CT within 3 months to be scheduled by your physician, talk with your physician about this and follow-up. There is a possibility that this could represent lung cancer.
[2021-04-05] MEDS ORDERED: KETOROLAC 15 MG/ML VIAL IVP STA (13:42)
[2021-04-05 13:49] LABS: BILIRUBIN,URINE NEGATIVE (NEGATIVE); GLUCOSE, URINE (UA) NEGATIVE (NEGATIVE); KETONES,URINE (UA) NEGATIVE (NEGATIVE); LEUKOCYTE ESTERASE, URINE LARGE (NEGATIVE); NITRITE,URINE NEGATIVE (NEGATIVE); OCCULT BLOOD,URINE LARGE (NEGATIVE); PH,URINE 7.5 PH (5.0-7.5); PROTEIN,URINE 100 mg/dL (NEGATIVE); UROBILINOGEN,URINE 0.2 (NORMAL) E.U./dL (NORMAL)
[2021-04-05 13:50] LABS: BASOPHILS # (AUTO) 0.1 10^3/uL (0.0-0.1); BASOPHILS % (AUTO) 0.6 %; EOSINOPHILS # (AUTO) 0.3 10^3/uL (0.0-0.7); EOSINOPHILS % (AUTO) 2.6 %; HCT - HEMATOCRIT 44.7 % (42.0-52.0); HGB - HEMOGLOBIN 14.2 g/dL (14.0-18.0); LYMPHOCYTES # (AUTO) 0.9 10^3/uL (1.5-3.5); LYMPHOCYTES % (AUTO) 7.6 %; MEAN CORPUSCULAR HEMOGLOBIN 27.7 pg (27.0-31.0); MEAN CORPUSCULAR HGB CONC 31.8 g/dL (32.0-36.0); MEAN CORPUSCULAR VOLUME 87.1 fL (80.0-94.0); MEAN PLATELET VOLUME 9.5 fL (7.4-11.4); MONOCYTES # (AUTO) 1.1 10^3/uL (0.0-1.0); MONOCYTES % (AUTO) 9.5 %; NEUTROPHILS % (AUTO) 79.3 %; PLT - PLATELET COUNT 347 10^3/uL (130-450); RED BLOOD COUNT 5.13 10^6/uL (4.70-6.10); RED CELL DISTRIBUTION WIDTH 16.5 % (12.0-15.0); WHITE BLOOD COUNT 11.4 x10^3/uL (4.8-10.8)
[2021-04-05 13:59] LABS: CALCIUM 8.8 mg/dL (8.5-10.3); CREATININE 1.1 mg/dL (0.6-1.2); POTASSIUM 5.3 mmol/L (3.5-5.0)
[2021-04-05 14:04] LABS: CLARITY,URINE CLOUDY (CLEAR)
[2021-04-05 14:06] LABS: BACTERIA,URINE Few /HPF (None Seen); RBC,URINE TNTC /HPF (0-5); SQUAMOUS EPITHELIAL CELL,UR FEW Squamous (<= Few); WBC,URINE >25 /HPF (0-3)
[2021-04-05] MEDS ORDERED: SODIUM CHLORIDE 0.9% 1,000 ML IV STA (14:27)
[2021-04-05] MEDS ORDERED: CIPROFLOXACIN 400 MG/200 ML 400 MG/200 ML BAG IV STA (14:28)
--- NOTE | 2021-04-05 15:06 | CT Report ---
PROCEDURE: CT abdomen and pelvis without contrast INDICATIONS: Flank pain TECHNIQUE: Noncontrast 5 mm thick sections acquired from the diaphragms to the symphysis. 5 mm coronal and sagi ttal reformats were then performed. For radiation dose reduction, the following was used: automated exposure control, adjustment of mA and/or kV according to patient size. COMPARISON: CT abdomen pelvis 05/19/2017 FINDINGS: Image quality: Excellent. ABDOMEN: Lung bases: There is a rounded lingular pulmonary nodule measuring 1.2 cm, previously 0.7 cm. Heart s ize within normal limits. Moderate pulmonary emphysema is present with chronic interstitial changes a s well. Solid organs: Liver and spleen are normal in size. Gallbladder unremarkable. Pancreas is normal in contours. No adrenal nodules. Kidneys are normal in size, without hydronephrosis or nephrolithiasi s. Peritoneum and bowel: Unenhanced bowel loops demonstrate normal wall thickness and caliber. No free fluid or air. Multiple diverticula arise from the sigmoid colon without evidence of diverticulitis. Moderate to fecal debris present in the right colon. Nodes and vessels: No retroperitoneal or mesenteric adenopathy by size criteria. Aorta and inferior vena cava are normal in caliber. Miscellaneous: No ventral hernias. PELVIS: Genitourinary: Bladder is decompressed with a Mairn catheter, there is probably underlying bladder wa ll thickening as well. There are bladder diverticuli however are only partially decompressed now jose manuel uring 5.3 cm. Miscellaneous: No inguinal hernias or adenopathy. Bones: No suspicious bony lesions. No vertebral body compression fractures. Lower lumbar spine deg enerative disc disease and arthropathy. IMPRESSION: 1. No evidence of renal calculi or obstructive uropathy. 2. Marin catheter decompresses the urinary bladder. Persistent urinary diverticula are similar the pr ior exam. Probable diffuse bladder wall thickening noted. 3. Incidental 1.2 cm left lower lobe pulmonary nodule background of pulmonary emphysema and small ple ural effusion. Consider 3 month follow-up and/or PET CT. Reviewed by: Ed Smith MD on 04/05/2021 2:05 PM AKST Approved by: Ed Smith MD on 04/05/2021 2:05 PM [place] Station ID: [id number]
[2021-04-05 16:18] VITALS: BP 148/107
== END 2021-04-05 16:44 | disposition home or self-care (01) ==
LOC: ED 13:03
DX: N12 Tubulo-interstitial nephritis, not specified as acute or chronic (principal); R91.1 Solitary pulmonary nodule; I10 Essential (primary) hypertension; F17.200 Nicotine dependence, unspecified, uncomplicated
CPT/HCPCS: 36415; 51702; 80048; 81001; 81003; 85025; 87086; 99282

== ENCOUNTER 2021-04-21 13:01 | Emergency (ER) | payer MEDICARE, MEDICAID ==
[2021-04-21 14:33] LABS: BASOPHILS # (AUTO) 0.1 10^3/uL (0.0-0.1); BASOPHILS % (AUTO) 0.6 %; EOSINOPHILS # (AUTO) 0.3 10^3/uL (0.0-0.7); EOSINOPHILS % (AUTO) 2.8 %; HCT - HEMATOCRIT 42.7 % (42.0-52.0); HGB - HEMOGLOBIN 13.6 g/dL (14.0-18.0); LYMPHOCYTES # (AUTO) 1.1 10^3/uL (1.5-3.5); LYMPHOCYTES % (AUTO) 10.4 %; MEAN CORPUSCULAR HEMOGLOBIN 27.9 pg (27.0-31.0); MEAN CORPUSCULAR HGB CONC 31.9 g/dL (32.0-36.0); MEAN CORPUSCULAR VOLUME 87.7 fL (80.0-94.0); MEAN PLATELET VOLUME 10.2 fL (7.4-11.4); MONOCYTES # (AUTO) 1.1 10^3/uL (0.0-1.0); MONOCYTES % (AUTO) 10.6 %; NEUTROPHILS # (AUTO) 7.7 10^3/uL (1.5-6.6); NEUTROPHILS % (AUTO) 75.3 %; PLT - PLATELET COUNT 331 10^3/uL (130-450); RED BLOOD COUNT 4.87 10^6/uL (4.70-6.10); RED CELL DISTRIBUTION WIDTH 16.8 % (12.0-15.0); WHITE BLOOD COUNT 10.2 x10^3/uL (4.8-10.8)
[2021-04-21] MEDS ORDERED: oxyCODONE 5 MG TABLET PO STA (14:35)
[2021-04-21 14:42] LABS: ALBUMIN 3.6 g/dL (3.2-5.5); ALBUMIN/GLOBULIN RATIO 1.1 (1.0-2.2); BILIRUBIN,TOTAL 0.8 mg/dL (0.2-1.0); CALCIUM 8.8 mg/dL (8.5-10.3); CREATININE 1.2 mg/dL (0.6-1.2); POTASSIUM 4.4 mmol/L (3.5-5.0); TOTAL PROTEIN 6.9 g/dL (6.7-8.2)
--- NOTE | 2021-04-21 14:49 | ED Physician Documentation ---
History of Present Illness - Stated complaint Stated Complaint: FEET PX/SWELLING/SOA - Chief complaint Chief Complaint: General - History obtained from History obtained from: Patient - History of Present Illness Timing: How many weeks ago Pain level max: 8 Pain level now: 7 - Additonal information Additional information: Patient is a 65-year-old male who presents to the emergency department complaining of bilateral foot pain. This been ongoing for the past several weeks. Nothing makes it better or worse. He states that his feet itch as well as hurt. He states that they are more swollen than usual. Also feels mildly short of breath at times. He is out of all of his medications at home. No fevers. No chills. No coughing. No myalgias. Worse with palpation and movement, worse with walking. Better with rest Review of Systems Constitutional: denies: Fever, Chills GI: denies: Nausea, Vomiting, Diarrhea Skin: denies: Rash Musculoskeletal: denies: Neck pain, Back pain Neurologic: denies: Headache PD PAST MEDICAL HISTORY - Past Medical History Past Medical History: Yes Cardiovascular: Hypertension, Coronary artery disease, [place] Respiratory: None Neuro: TIA Endocrine/Autoimmune: None GI: None : Other HEENT: Other Psych: Depression Musculoskeletal: Osteoporosis Derm: Psoriasis - Past Surgical History Past Surgical History: Yes General: Appendectomy HEENT: Tonsil/Adenoidectomy - Present Medications Home Medications: Ambulatory Orders Medication Instructions Recorded Confirmed Nitroglycerin [Nitrostat] 0.4 mg SL Q5MIN PRN #21 tablet 01/07/21 01/10/21 Azithromycin [Zithromax] 250 mg PO DAILY 01/10/21 01/10/21 Metoprolol Succinate 50 mg PO DAILY 01/10/21 01/10/21 Aspirin Chewable [St Isaiah 81 mg PO DAILY #30 tablet 01/13/21 Aspirin] Atorvastatin [Lipitor] 20 mg PO QPM #30 tablet 01/13/21 Furosemide [Lasix] 20 mg PO BID #60 tablet 01/13/21 lisinopriL [Zestril] 2.5 mg PO DAILY #30 tablet 01/13/21 Ciprofloxacin HCl [Cipro] 500 mg PO BID #20 tablet 04/05/21 Phenazopyridine HCl [Pyridium] 200 mg PO TID PRN #6 tablet 04/05/21 Furosemide [Lasix] 20 mg PO BID #30 tablet 04/21/21 HYDROcod/ACETAM 5/325 [[place] 5/325] 1 - 2 ea PO Q6H PRN #14 tablet 04/21/21 Terbinafine [Lamisil] 250 mg PO DAILY #14 tablet 04/21/21 - Allergies Allergies/Adverse Reactions: Allergies Allergy/AdvReac Type Severity Reaction Status Date / Time No Known Drug Allergies Allergy Verified 04/21/21 13:07 - Social History Does the pt smoke?: Yes Smoking Status: Current some day smoker Does the pt drink ETOH?: No - Immunizations Immunizations are current?: No - POLST Patient has POLST: No POLST Status: DNR PD ED PE NORMAL - Vitals Vital signs reviewed: Yes - General General: Alert and oriented X 3, No acute distress, Well developed/nourished - HEENT HEENT: Moist mucous membranes - Neck Neck: Supple, no meningeal sign - Cardiac Cardiac: RRR, Strong equal pulses - Respiratory Respiratory: No respiratory distress, Clear bilaterally - Abdomen Abdomen: Soft, Non tender, Non distended - Derm Derm: Warm and dry - Extremities Extremities: Other (Bilateral feet are erythematous, not warm. There are small satellite lesions going up of the anterior aspects of the olvera. Mild skin breakdown in between the toes. NVI) - Neuro Neuro: Alert and oriented X 3 - Psych Psych: Normal mood, Normal affect Results - Vitals Vitals: Vital Signs - 24 hr 04/21/21 04/21/21 13:07 16:54 Temperature 36.5 C Heart Rate 100 74 Respiratory 16 18 Rate Blood Pressure 160/100 H 163/100 H O2 Saturation 94 100 Oxygen O2 Source Room air - Labs Labs: Laboratory Tests 04/21/21 04/21/21 04/21/21 14:20 14:20 14:20 WBC 10.2 RBC 4.87 Hgb 13.6 L Hct 42.7 MCV 87.7 MCH 27.9 MCHC 31.9 L RDW 16.8 H Plt Count 331 MPV 10.2 Neut # (Auto) 7.7 H Lymph # (Auto) 1.1 L [place] # (Auto) 1.1 H Eos # (Auto) 0.3 Baso # (Auto) 0.1 Absolute Nucleated RBC 0.00 Nucleated RBC % 0.0 ESR Sodium 136 Potassium 4.4 Chloride 102 Carbon Dioxide 25 Anion Gap 9.0 BUN 37 H Creatinine 1.2 Estimated GFR (MDRD) 61 L Glucose 97 Calcium 8.8 Magnesium 2.0 Total Bilirubin 0.8 AST 32 ALT 30 Alkaline Phosphatase 85 C-Reactive Protein B-Natriuretic Peptide 2055 H Total Protein 6.9 Albumin 3.6 Globulin 3.3 Albumin/Globulin Ratio 1.1 Lipase 29 04/21/21 04/21/21 14:20 14:20 WBC RBC Hgb Hct MCV MCH MCHC RDW Plt Count MPV Neut # (Auto) Lymph # (Auto) [place] # (Auto) Eos # (Auto) Baso # (Auto) Absolute Nucleated RBC Nucleated RBC % ESR 13 Sodium Potassium Chloride Carbon Dioxide Anion Gap BUN Creatinine Estimated GFR (MDRD) Glucose Calcium Magnesium Total Bilirubin AST ALT Alkaline Phosphatase C-Reactive Protein 1.5 H B-Natriuretic Peptide Total Protein Albumin Globulin Albumin/Globulin Ratio Lipase - Rads (name of study) Chest x-ray Radiology: Final report received, EMP read contemporaneously, See rad report Bilateral foot x-ray Radiology: Final report received, EMP read contemporaneously, See rad report PD MEDICAL DECISION MAKING - ED course Complexity details: reviewed results, re-evaluated patient, considered differential, d/w patient ED course: Patient is a 65-year-old male with what appears to be tinea pedis bilaterally. Will place on oral terbinafine. He also has an elevated BNP. He has not been taking any Lasix. Will prescribe Lasix for him to help diurese him. No hypoxia or respiratory distress here. Pain well controlled. He will follow-up closely with his PCP for further care. Patient counseled regarding signs and symptoms for which I believe and urgent re-evaluation would be necessary. Patient with good understanding of and agreement to plan and is comfortable going home at this time This document was made in part using voice recognition software. While efforts are made to proofread this document, sound alike and grammatical errors may occur. No cellulitis. No evidence of osteomyelitis. No evidence of sepsis. IMPRESSION: Subtle ill-defined opacities in bilateral lung donald less pronounced compared to prior study and may represent small bilateral patchy infiltrates. No pleural effusion or pneumothorax. Departure - Departure Disposition: 01 Home, Self Care Clinical Impression: Foot pain, bilateral Heart failure Qualifiers: Heart failure type: unspecified Heart failure chronicity: chronic Qualified Code(s): I50.9 - Heart failure, unspecified Tinea pedis Qualifiers: Laterality: bilateral Qualified Code(s): B35.3 - Tinea pedis Condition: Good Instructions: ED CHF General, ED Fungal Infec Athlete Foot Follow-Up: your,doctor in 1 week [Other] Prescriptions: Terbinafine [Lamisil] 250 mg PO DAILY #14 tablet Furosemide [Lasix] 20 mg PO BID #30 tablet HYDROcod/ACETAM 5/325 [[place] 5/325] 1 - 2 ea PO Q6H PRN #14 tablet PRN Reason: Pain Comments: Please follow-up with your doctor for further care. [facility] [place]. Take all medication as prescribed. Return if you worsen. I am prescribing a short course of narcotic pain medication for you. These are potentially dangerous and addictive medications that should be used carefully. These medications may constipate you. Take an [id number] stool softener (docusate) twice daily with plenty of water while taking these medications. If you go 24 hours without a bowel movement, take [id number] miralax, per package instructions. Do not drink or drive while taking these medications. If you received narcotic or sedating medications while in the emergency department, do not drive for 24 hours. Store this medication in a safe, secure place and out of reach of children. It is a violation of federal law to give or sell this medication to another person or to use in a manner other than prescribed. The ED will not refill narcotic prescriptions, including prescriptions lost or stolen. To dispose of unwanted medications: 1. The [facility] at [address] in [place] has a medication drop box. They accept prescription medications (in pill form) Sunday through Sunday 9:00 a.m. to 5:00 p.m. 2. The [facility] [employer] accepts prescription medications (in pill form only) for disposal year round. Call for more information. 3. Contact the [facility] for the next [facility] sponsored prescription drug collection event. , [phone], or [phone]; Discharge Date/Time: 04/21/21 16:56
--- NOTE | 2021-04-21 15:12 | XRAY Report ---
PROCEDURE: Chest 1 View X-Ray INDICATIONS: dyspnea TECHNIQUE: One view of the chest was acquired. COMPARISON: 01/10/2021 FINDINGS: Surgical changes and devices: None. Lungs and pleura: No pleural effusions or pneumothorax. Ill-defined airspace opacities are again see n scattered in bilateral lung donald improved compared to 01/10/2021 study suggestive of small bilate ral patchy infiltrates. Mediastinum: Mediastinal contours appear normal. Heart size is normal. Bones and chest wall: No suspicious bony lesions. Overlying soft tissues appear unremarkable. IMPRESSION: Subtle ill-defined opacities in bilateral lung donald less pronounced compared to prior study and may represent small bilateral patchy infiltrates. No pleural effusion or pneumothorax. Reviewed by: Rangel Gonzales MD on 04/21/2021 3:11 PM PST Approved by: Rangel Gonzales MD on 04/21/2021 3:11 PM PST Station ID: [id number]
--- NOTE | 2021-04-21 15:13 | XRAY Report ---
PROCEDURE: Foot 3 View BILAT INDICATIONS: B foot pain, no known injury TECHNIQUE: 3 views of the bilateral feet were acquired. COMPARISON: None. FINDINGS: FINDINGS: RIGHT: No acute, displaced fracture or dislocation. Mild to moderate degeneration of the first metata rsophalangeal joint with joint space loss and osteophytosis. LEFT: No acute, displaced fracture or dislocation. Moderate to advanced degeneration of the first met atarsophalangeal joint with joint space loss and osteophytosis. IMPRESSION: 1.No acute osseous abnormality. Reviewed by: Marco Hi MD on 04/21/2021 3:11 PM [facility] Approved by: Marco Hi MD on 04/21/2021 3:11 PM PST Station ID: [id number]
[2021-04-21] MEDS ORDERED: FUROSEMIDE 20 MG TABLET PO STA (15:26)
[2021-04-21] MEDS ORDERED: TERBINAFINE 250 MG TABLET PO STA (15:26)
[2021-04-21 16:56] VITALS: BP 163/100
== END 2021-04-21 16:56 | disposition home or self-care (01) ==
LOC: ED 13:01
DX: M79.672 Pain in left foot (principal); M79.671 Pain in right foot; I11.0 Hypertensive heart disease with heart failure; I50.9 Heart failure, unspecified; F17.200 Nicotine dependence, unspecified, uncomplicated; B35.3 Tinea pedis
CPT/HCPCS: 36415; 71045; 73630; 80053; 83690; 83735; 83880; 85025; 85651; 86140; 99282; 99284; A9270

== ENCOUNTER 2021-05-05 12:04 | Inpatient (IN) | payer MEDICARE, MEDICAID ==
[2021-05-05] MEDS ORDERED: HYDROmorphone 1 MG/ML CARPUJECT IVP STA ×2 (12:17→13:02)
--- NOTE | 2021-05-05 12:21 | ED Physician Documentation ---
History of Present Illness - Stated complaint Stated Complaint: SOA - Additonal information Additional information: 65-year-old male presents the emergency department for evaluation of worsening left foot pain as well as reported shortness of air. Seen at this ER on 21 April. Diagnosed with tinea started on terbinafine. Also noted to have a markedly elevated BNP and was started on furosemide. He reports compliance with both of these medications but the left foot pain has become increasingly worse over the last few days. In addition he feels increasingly SOA with exertion. He now has a shallow ulcer that is formed on the top of the left second index toe. He has some generalized erythema extending from this with some serous drainage. Because of the pain he is having difficulty breathing. This gentleman is homeless. He has very poor hygiene. He smokes cigarettes daily. He denies any illicit drug use. Denies alcohol use. Currently resides in his van. Review of Systems Constitutional: denies: Fever, Chills Ears: reports: Reviewed and negative Nose: reports: Reviewed and negative Throat: reports: Reviewed and negative Cardiac: reports: Palpitations. denies: Chest pain / pressure Respiratory: reports: Dyspnea. denies: Cough, Hemoptysis, Wheezing GI: denies: Abdominal Pain, Nausea, Vomiting : reports: Reviewed and negative Skin: reports: Lesions Musculoskeletal: reports: Extremity pain (Left foot) Neurologic: reports: Reviewed and negative PD PAST MEDICAL HISTORY - Past Medical History Cardiovascular: Hypertension, Coronary artery disease, [place] Respiratory: None Neuro: TIA Endocrine/Autoimmune: None GI: None : Other HEENT: Other Psych: Depression Musculoskeletal: Osteoporosis Derm: Psoriasis - Past Surgical History Past Surgical History: Yes General: Appendectomy HEENT: Tonsil/Adenoidectomy - Present Medications Home Medications: Ambulatory Orders Medication Instructions Recorded Confirmed Furosemide [Lasix] 20 mg PO BID #30 tablet 04/21/21 05/05/21 Terbinafine [Lamisil] 250 mg PO DAILY #14 tablet 04/21/21 05/05/21 - Allergies Allergies/Adverse Reactions: Allergies Allergy/AdvReac Type Severity Reaction Status Date / Time No Known Drug Allergies Allergy Verified 05/05/21 12:19 - Social History Does the pt smoke?: Yes Smoking Status: Current some day smoker Does the pt drink ETOH?: No - Immunizations Immunizations are current?: No - POLST Patient has POLST: No POLST Status: DNR PD ED PE EXPANDED - General General: Alert, In Pain, In distress - Cardiac Cardiac: Regular Rate, Radial strong equal, Pedal strong equal, Cap refill < 2 sec. No: Murmur Present - Respiratory Respiratory: Clear to ausultation [place]. No: Distress, Labored - Abdomen Abdomen: Normal Bowel sounds. No: Tender to palpation - Derm Derm: Other (0.2 cm shallow ulceration on the dorsum of the left second toe. Left toe is erythematous. This extends to the dorsum of the foot. Very tender to touch.) - Extremities Extremities: Swelling, Left toe(s) (Swelling, erythema, ecchymosis dorsum of left foot as well as left great toe. Brisk cap refill. 0.2 cm shallow ulceration on the dorsum of the left toe with serous drainage.), Pedal Pulses Present, Cold foot - Neuro Neuro: Alert and Oriented X 3, Confused, CNII-XII intact - GCS Eye Opening: Spontaneous Motor: Obeys Commands Verbal: Oriented Total: 15 Results - Vitals Vitals: Vital Signs - 24 hr 05/05/21 05/05/21 05/05/21 12:15 12:39 13:11 Temperature 36.2 C L Heart Rate 109 H 114 H 106 H Respiratory 16 22 23 Rate Blood Pressure 169/126 H 162/152 H 174/107 H O2 Saturation 97 91 L 84 L Oxygen O2 Source Room air - EKG (time done) 1225 Rate: Rate (enter#) (101) Rhythm: Sinus tachycardia [place]: Other Intervals: Normal MA, Prolonged QT QRS: LVH Ischemia: ST elevation c/w repol - Labs Labs: Laboratory Tests 05/05/21 05/05/21 05/05/21 12:28 12:28 12:28 WBC 10.3 RBC 5.37 Hgb 14.7 Hct 46.0 MCV 85.7 MCH 27.4 MCHC 32.0 RDW 15.9 H Plt Count 272 MPV 9.7 Neut # (Auto) 8.2 H Lymph # (Auto) 1.0 L [place] # (Auto) 0.9 Eos # (Auto) 0.1 Baso # (Auto) 0.1 Absolute Nucleated RBC 0.00 Nucleated RBC % 0.0 ESR Sodium 138 Potassium 4.1 Chloride 99 L Carbon Dioxide 26 Anion Gap 13.0 BUN 35 H Creatinine 1.2 Estimated GFR (MDRD) 61 L Glucose 106 H Calcium 8.8 Total Bilirubin 1.1 H AST 36 ALT 28 Alkaline Phosphatase 75 Troponin I High Sens 74.6 H* C-Reactive Protein 2.4 H B-Natriuretic Peptide Total Protein 7.1 Albumin 3.6 Globulin 3.5 Albumin/Globulin Ratio 1.0 Lipase 25 Nasal Adenovirus (PCR) Nasal B. parapertussis DNA (PCR) Nasal Coronavir 229E PCR Nasal Coronavir HKU1 PCR Nasal Coronavir NL63 PCR Nasal Coronavir OC43 PCR Nasal Enterovir/Rhinovir PCR Nasal Influenza B PCR Nasal Influenza A PCR Nasal Parainfluen 1 PCR Nasal Parainfluen 2 PCR Nasal Parainfluen 3 PCR Nasal Parainfluen 4 PCR Nasal RSV (PCR) Nasal B.pertussis DNA PCR Nasal C.pneumoniae (PCR) Luis Human Metapneumo PCR Nasal M.pneumoniae (PCR) Nasal SARS-CoV-2 (PCR) 05/05/21 05/05/21 05/05/21 12:28 12:28 13:25 WBC RBC Hgb Hct MCV MCH MCHC RDW Plt Count MPV Neut # (Auto) Lymph # (Auto) [place] # (Auto) Eos # (Auto) Baso # (Auto) Absolute Nucleated RBC Nucleated RBC % ESR 6 Sodium Potassium Chloride Carbon Dioxide Anion Gap BUN Creatinine Estimated GFR (MDRD) Glucose Calcium Total Bilirubin AST ALT Alkaline Phosphatase Troponin I High Sens C-Reactive Protein B-Natriuretic Peptide 3683 H Total Protein Albumin Globulin Albumin/Globulin Ratio Lipase Nasal Adenovirus (PCR) NOT DETECTED Nasal B. parapertussis DNA (PCR) NOT DETECTED Nasal Coronavir 229E PCR NOT DETECTED Nasal Coronavir HKU1 PCR NOT DETECTED Nasal Coronavir NL63 PCR NOT DETECTED Nasal Coronavir OC43 PCR NOT DETECTED Nasal Enterovir/Rhinovir PCR NOT DETECTED Nasal Influenza B PCR NOT DETECTED Nasal Influenza A PCR NOT DETECTED Nasal Parainfluen 1 PCR NOT DETECTED Nasal Parainfluen 2 PCR NOT DETECTED Nasal Parainfluen 3 PCR NOT DETECTED Nasal Parainfluen 4 PCR NOT DETECTED Nasal RSV (PCR) NOT DETECTED Nasal B.pertussis DNA PCR NOT DETECTED Nasal C.pneumoniae (PCR) NOT DETECTED Luis Human Metapneumo PCR NOT DETECTED Nasal M.pneumoniae (PCR) NOT DETECTED Nasal SARS-CoV-2 (PCR) NOT DETECTED 05/05/21 14:25 WBC RBC Hgb Hct MCV MCH MCHC RDW Plt Count MPV Neut # (Auto) Lymph # (Auto) [place] # (Auto) Eos # (Auto) Baso # (Auto) Absolute Nucleated RBC Nucleated RBC % ESR Sodium Potassium Chloride Carbon Dioxide Anion Gap BUN Creatinine Estimated GFR (MDRD) Glucose Calcium Total Bilirubin AST ALT Alkaline Phosphatase Troponin I High Sens 75.3 H* C-Reactive Protein B-Natriuretic Peptide Total Protein Albumin Globulin Albumin/Globulin Ratio Lipase Nasal Adenovirus (PCR) Nasal B. parapertussis DNA (PCR) Nasal Coronavir 229E PCR Nasal Coronavir HKU1 PCR Nasal Coronavir NL63 PCR Nasal Coronavir OC43 PCR Nasal Enterovir/Rhinovir PCR Nasal Influenza B PCR Nasal Influenza A PCR Nasal Parainfluen 1 PCR Nasal Parainfluen 2 PCR Nasal Parainfluen 3 PCR Nasal Parainfluen 4 PCR Nasal RSV (PCR) Nasal B.pertussis DNA PCR Nasal C.pneumoniae (PCR) Luis Human Metapneumo PCR Nasal M.pneumoniae (PCR) Nasal SARS-CoV-2 (PCR) - Rads (name of study) cxr Radiology: Final report received (Ill-defined bilateral airspace opacity is unchanged. Could present pneumonia and/or atelectasis.) left foot Radiology: Final report received (No interval changes appreciated. No osseous erosion is identified.) PD MEDICAL DECISION MAKING - ED course Complexity details: reviewed results, re-evaluated patient, considered differential, d/w patient, d/w car sales consultant ED course: 65-year-old male who is homeless presents the emergency department for evaluation of worsening left foot pain as well as worsening dyspnea on exertion. Seen recently for similar. At that time had a BNP of just over 1000. He was started on terbinafine orally for suspicion of tinea pedis. He was also started on Lasix. He reports compliance with both of these medications but states that over the last few days his dyspnea has worsened. Last had an echo in December 2020 that showed an ejection fraction of 20 to 30%. He is homeless. He did report worsening left foot pain. There is a shallow ulceration on the dorsum of the left foot x-ray does not reveal any findings of osteomyelitis. He does not have an elevated white count or sed rate. His CRP today is 2.5. Antibiotics deferred as clinically I do not suspect that he has cellulitis. Dr. Mccabe has evaluated his feet and does not feel that they are markedly different from his evaluation on 21 April with the most recent ER visit. Today screening labs show an unchanged chest x-ray but his BNP is now over 3000. He was given IV Lasix here in the ER. While here he was noted to have oxygen levels of 72 to 76% on room air and was placed on 4 L nasal cannula with resultant rise in his oxygen level to 96%. Given worsening heart failure with hypoxia patient was presented for admission to Dr. Vazquez. Admission was delayed somewhat as he requested a repeat troponin to ensure that it was flat and static. Initial troponin was 74 and on repeat is 75. Patient is comfortable with plan for admission for further evaluation and treatment of his hypoxic respiratory failure Departure - Departure Disposition: 67 [facility] DC/Xfer Clinical Impression: CHF (congestive heart failure) Qualifiers: Heart failure type: unspecified Heart failure chronicity: acute on chronic Qualified Code(s): I50.9 - Heart failure, unspecified Respiratory failure with hypoxia Qualifiers: Chronicity: acute Qualified Code(s): J96.01 - Acute respiratory failure with hypoxia
[2021-05-05 12:35] LABS: BASOPHILS # (AUTO) 0.1 10^3/uL (0.0-0.1); BASOPHILS % (AUTO) 0.6 %; EOSINOPHILS # (AUTO) 0.1 10^3/uL (0.0-0.7); HGB - HEMOGLOBIN 14.7 g/dL (14.0-18.0); LYMPHOCYTES % (AUTO) 9.6 %; MEAN CORPUSCULAR HEMOGLOBIN 27.4 pg (27.0-31.0); MEAN CORPUSCULAR VOLUME 85.7 fL (80.0-94.0); MEAN PLATELET VOLUME 9.7 fL (7.4-11.4); MONOCYTES # (AUTO) 0.9 10^3/uL (0.0-1.0); MONOCYTES % (AUTO) 8.8 %; NEUTROPHILS # (AUTO) 8.2 10^3/uL (1.5-6.6); NEUTROPHILS % (AUTO) 79.7 %; PLT - PLATELET COUNT 272 10^3/uL (130-450); RED BLOOD COUNT 5.37 10^6/uL (4.70-6.10); RED CELL DISTRIBUTION WIDTH 15.9 % (12.0-15.0); WHITE BLOOD COUNT 10.3 x10^3/uL (4.8-10.8)
--- NOTE | 2021-05-05 12:43 | XRAY Report ---
PROCEDURE: Chest 1 View X-Ray INDICATIONS: Chest Pain TECHNIQUE: One view of the chest was acquired. COMPARISON: CXR 04/21/2021. CT pulmonary angiogram 01/10/2021. FINDINGS: Surgical changes and devices: None. Lungs and pleura: No interval change is appreciated. No pleural effusion is seen. There is ill-define d airspace opacity bilaterally. Severe emphysematous change on the prior CT. Mediastinum: Mediastinal contours appear unchanged. Heart size is normal. Bones and chest wall: No suspicious bony lesions. Overlying soft tissues appear unremarkable. IMPRESSION: Ill-defined bilateral airspace opacity is unchanged. This could represent pneumonia and/or atelectasi s. Reviewed by: Neville Lee MD on 05/05/2021 11:41 AM VEENA Approved by: Neville Lee MD on 05/05/2021 11:41 AM VEENA Station ID: [id number]
--- NOTE | 2021-05-05 12:46 | XRAY Report ---
PROCEDURE: Foot 3 View LT INDICATIONS: ulcer second toe TECHNIQUE: 3 views of the foot were acquired. COMPARISON: Bilateral foot radiographs 04/21/2021. FINDINGS: Bones: No fractures or dislocations. No periosteal reaction or erosion is identified. No change is a ppreciated in the short-term interval. There is moderate degenerative change most pronounced at the f irst MTP joint. No suspicious bony lesions. Soft tissues: No tibiotalar joint effusion. Achilles tendon appears normal. IMPRESSION: No interval change is appreciated. No osseous erosion is identified. If high suspicion for occult osteomyelitis consider MRI or three-phase bone scan. Reviewed by: Neville Lee MD on 05/05/2021 11:44 AM VEENA Approved by: Neville Lee MD on 05/05/2021 11:44 AM VEENA Station ID: [id number]
[2021-05-05] MEDS ORDERED: FUROSEMIDE 40 MG/4 ML VIAL IVP STA (13:17)
[2021-05-05 13:22] LABS: ALBUMIN 3.6 g/dL (3.2-5.5); BILIRUBIN,TOTAL 1.1 mg/dL (0.2-1.0); CALCIUM 8.8 mg/dL (8.5-10.3); CREATININE 1.2 mg/dL (0.6-1.2); CRP - C-REACTIVE PROTEIN 2.4 mg/dL (0-1.0); POTASSIUM 4.1 mmol/L (3.5-5.0); TOTAL PROTEIN 7.1 g/dL (6.7-8.2)
[2021-05-05 14:55] LABS: B. PARAPERTUSSIS- RESP PCR PAN NOT DETECTED; B. PERTUSSIS- RESP PCR PANEL NOT DETECTED; C. PNEUMONIAE- RESP PCR PANEL NOT DETECTED; CORONAVIRUS 229E-RESP PCR NOT DETECTED; CORONAVIRUS HKU1-RESP PCR NOT DETECTED; CORONAVIRUS NL63-RESP PCR NOT DETECTED; CORONAVIRUS OC43-RESP PCR NOT DETECTED; HUMAN METAPNEUMOVIRUS NOT DETECTED; INFLUENZA A- RESP PCR PANEL NOT DETECTED; INFLUENZA B - RESP PCR PANEL NOT DETECTED; M. PNEUMONIAE- RESP PCR PANEL NOT DETECTED; PARAINFLUENZA VIRUS 1 NOT DETECTED; PARAINFLUENZA VIRUS 2 NOT DETECTED; PARAINFLUENZA VIRUS 3 NOT DETECTED; PARAINFLUENZA VIRUS 4 NOT DETECTED; RHINOVIRUS/ENTEROVIRUS NOT DETECTED; RSV- RESP PCR PANEL NOT DETECTED; SARS-CoV-2 -RESP PCR PANEL NOT DETECTED
[2021-05-05] MEDS ORDERED: ACETAMINOPHEN 325 MG TABLET PO PRN (15:03)
--- NOTE | 2021-05-05 15:14 | HISTORY & PHYSICAL EXAMINATION ---
Chief Complaint - Chief Complaint Chief Complaint: left foot pain and SOB History of Present Illness - Admitted From Admitted From:: medical floor - History Obtained From Records Reviewed: [facility], ER notes History obtained from: pt Exam Limitations: no - History of Present Illness HPI Comment/Other: Mr. Robb is a 65-year-old male with a PMH significant for systolic heart failure, HTN, PR, TIA, Depression, Osteoporosis, urinary retention, who present ER for a chief complaints of left foot pain and shortness of breath. unfortunately pt is homeless living status, and he Currently resides in his van. Pt was seen at this ER two weeks ago. pt was found to have tinea and he started with terbinafine. Also pt was found to have significantly elevated BNP. Pt was prescribed with PO furosemide. Pt was seen at hospital around 4 months ago. Pt was found to have EF 25% at his ECHO study. pt was prescribed metoprolol, Lis inopril, Lasix, aspirin, Lipitor, And social work to help him to set up a PCP. But now these meds does show on his home medication list. Pt reports he take both terbinafine and Lasix after he was seen at ER, but his left foot pain has become increasingly over the last few days, and he feels increasingly shortness of breath special with exertion. Pt report he can not walk a few steps because his left foot's pain and he feel very shortness of breath. He denies chest pain, fever. chill. Chest x-ray show ill-defined bilateral airspace opacity is unchanged. Xray of left foot show no interval change is appreciated, no osseous erosion is identified. Route lab in ER show pt had significant elevated BNP 3700, elevated troponin and repeated troponin show flat. In ER, Patient is afebrile, patient had 84% oxygen saturation on room air, mild tachycardia and elevated blood pressure. Given above medical conditions, medical team was consulted for admission. Discussed the care goal with patient, patient clearly hope to have DNR. He state if his time come in, let him naturally pass away. History - Past Medical History Cardiovascular: reports: Hypertension, Coronary artery disease, PR Respiratory: reports: None Neuro: reports: TIA Endocrine/Autoimmune: reports: None GI: reports: None : reports: Other HEENT: reports: Other Psych: reports: Depression Musculoskeletal: reports: Osteoporosis Derm: reports: Psoriasis MRSA Hx?: Yes - Past Surgical History General: reports: Appendectomy HEENT: reports: Tonsil/Adenoidectomy - Family & Social History Family History: Mother: (father from stroke. Mother from Lung cancer), Father: , Other family: Alive and Well (pt state he left his parents when he was very young. He did not know much about his sibles.) Family History Comment/Other: Pt state he is born at [place], and until he finished his high school. Then He moved to [place]. His at 1998 and from cancer. he had four children, but all his children were removed from him by government after his , then he became very depressed. Social History Notes: He reports occasional cigarette smoking, denies alcohol. He reports trying various drugs in the past. - Substance History Use: Uses substance without health or social issues: NONE - POLST Patient has POLST: No POLST Status: DNR Meds/Allgy - Home Medications Home Medications: Ambulatory Orders Medication Instructions Recorded Confirmed Furosemide [Lasix] 20 mg PO BID #30 tablet 04/21/21 05/05/21 Terbinafine [Lamisil] 250 mg PO DAILY #14 tablet 04/21/21 05/05/21 - Allergies Allergies/Adverse Reactions: Allergies Allergy/AdvReac Type Severity Reaction Status Date / Time No Known Drug Allergies Allergy Verified 05/05/21 12:19 Review of Systems - Constitutional Constitutional: denies: Fever, Chills - Eyes Eyes: denies: Pain - Ears, Nose & Throat Ears, Nose & Throat: denies: Ear pain - Cardiovascular Cariovascular: reports: Exertional dyspnea, Decr. exercise tolerance. denies: Chest pain, Syncope - Respiratory Respiratory: reports: SOB with exertion. denies: Cough, Sputum production - Gastrointestinal Gastrointestinal: denies: Abdominal pain, Diarrhea, Nausea, Vomiting - Neurological Neurological: denies: Focal weakness, Dizziness, Numbness, Abnormal gait, Seizures, Incoordination, Slurred speech Exam - Vital Signs Vital Signs: Vital Signs x48h Temp Pulse Resp BP Pulse Ox 05/05/21 13:11 106 H 23 174/107 H 84 L 05/05/21 12:39 114 H 22 162/152 H 91 L 05/05/21 12:15 36.2 C L 109 H 16 169/126 H 97 - Physical Exam General Appearance: positive: No acute distress, Alert. negative: Lethargic Eyes Bilateral: positive: Normal inspection, No lid inflammation ENT: positive: ENT inspection nml, No signs of dehydration. negative: Dry mucous membranes Neck: positive: Nml inspection, Trachea midline. negative: Tracheal deviation Respiratory: positive: Chest non-tender, No respiratory distress. negative: Wheezes Cardiovascular: positive: Regular rate & rhythm, Tachycardia. negative: Bradycardia, Systolic murmur Peripheral Pulses: positive: 2+ Abdomen: positive: Non-tender, Nml bowel sounds, No distention. negative: Tenderness Back: positive: Nml inspection Skin: positive: Color nml, Warm, Dry. negative: Cyanosis Extremities: positive: Non-tender, Full ROM, Other (swelling, warmth, and erythema at dosrum of left foot and five toes. there is a ulcer at second toe without drainage.). negative: Pedal edema Neurologic/Psychiatric: positive: Oriented x3, Motor nml, Sensation nml. negative: Weakness, Sensory loss, Facial droop, Slurred/abnml speech, Depressed mood/affect Sepsis Event Note (H) - Evaluation Current Stage of Sepsis: Ruled out Conclusion/Plan - Problem List (1) Respiratory failure with hypoxia Conclusion/Plan: Patient had 84% oxygen saturation on room air with mild tachycardia. Patient has history of systolic heart failure, COPD, current smoker. Patient had BNP over 3600, Significantly elevated comparing with the previous. Patient report he can only ambulate few steps and he feel very shortness of breathing.Chest x-ray show ill-defined bilateral airspace opacity is unchanged. Patient had echo study report 4 months ago which show EF 25%. ER already started with Lasix, we will continue intravenous Lasix, supplemental oxygen as needed, albuterol and DuoNeb treated PRN. Qualifiers: Chronicity: acute Qualified Code(s): J96.01 - Acute respiratory failure with hypoxia (2) CHF exacerbation Conclusion/Plan: Patient report he can only ambulate few steps and he feel very shortness of breathing.Chest x-ray show ill-defined bilateral airspace opacity is unchanged. Patient had echo study report 4 months ago which show EF 25%. pt had significant elevated BNP. pt had 84% O2 sat on room air. ER already started with Lasix, we will continue intravenous Lasix, supplemental oxygen as needed. order ECHO study. (3) Cellulitis of left foot Conclusion/Plan: pt has swelling, warmth, and erythema at dosrum of left foot and five toes. there is a ulcer at second toe without drainage. pt report very painful when he ambulate. Xray of left foot show no interval change is appreciated, no osseous erosion is identified. There is a ulcer at second tor which likely cause pt's cellulitis infection. ER did blood culture. we will start with IV antibiotics. pt is homeless status. continue pain control. add probiotics as well. (4) COPD (chronic obstructive pulmonary disease) Conclusion/Plan: Patient has a history of COPD, currently smoke. It is unlikely COPD exacerbation at this time. We will add albuterol and DuoNeb as needed, supplemental oxygen as needed (5) History of coronary artery disease Conclusion/Plan: Patient has history of CAD. pt Was prescribed aspirin, Lipitor, metoprolol, lisinopril and Lasix in the previous admission and discharge. Patient is medical non compliant. Patient did not continue all his medications. We will start aspirin, Lipitor, metoprolol, lisinopril, Lasix for patient. Consult with social work help patient for his home medications (6) HTN (hypertension) Conclusion/Plan: Patient had elevated blood pressure, we will add metoprolol, lisinopril, Continue vital signs monitor (7) Homelessness Conclusion/Plan: Unfortunately patient is homeless status, pt has severe medical history, and pt is medical non compliance. we will consult with social work try to help pt. (8) Medical non-compliance Conclusion/Plan: Patient did not continue medications which was prescribed on the last discharge. pt has severe medical history. Discussed the importance for medical compliance for patient, Consult with social work for pt as well - Lab Results Fish Bones: 05/05/21 12:28 05/05/21 12:28 Core Measures - Anticipated LOS I expect patient to be DC'd or transferred within 96 hours.: Yes - DVT/VTE - Prophylaxis VTE/DVT Device ordered at admit?: Yes VTE/DVT Prophylaxis med ordered at admit?: Yes
[2021-05-05] MEDS ORDERED: IPRATROPIUM/ALBUTEROL 3 ML NEB INH PRN (15:34)
[2021-05-05] MEDS ORDERED: ALBUTEROL NEB 2.5 MG/3 ML INH PRN (15:34)
[2021-05-05] MEDS ORDERED: cefTRIAXone 1 GM in SODIUM CHLORIDE 0.9% MINIBAG 100 ML IV SCH (16:31)
[2021-05-05] MEDS: METOPROLOL TARTRATE 25 MG TABLET PO SCH ×2 (16:45→21:42)
[2021-05-05] MEDS: lisinopriL 5 MG TABLET PO SCH (16:45)
[2021-05-05] MEDS: ASPIRIN CHEW 81 MG TABLET PO SCH (16:55)
[2021-05-05 17:13] LABS: MUDS CUTOFF CONCENTRATIONS CUTOFF CONC BELOW:
[2021-05-05] MEDS: ceFAZolin 1 GM in SODIUM CHLORIDE 0.9% MINIBAG 100 ML IV SCH ×2 (17:15→21:42)
[2021-05-05] MEDS: SODIUM CHLORIDE FLUSH 0.9% 10 ML SYRINGE IVP SCH (17:32)
[2021-05-05] MEDS: SACCHAROMYCES BOULARDII 250 MG CAPSULE PO SCH (17:32)
[2021-05-05 17:34] LABS: COCAINE SCREEN URINE NEGATIVE (NEGATIVE); THC CANNABINOID SCREEN, URINE NEGATIVE (NEGATIVE)
[2021-05-05 17:35] LABS: AMPHETAMINE SCREEN,URINE NEGATIVE (NEGATIVE); BARBITURATE SCREEN,UR NEGATIVE (NEGATIVE); BENZODIAZEPINES SCREEN, URINE NEGATIVE (NEGATIVE); METHADONE SCREEN, URINE NEGATIVE (NEGATIVE); METHAMPHETAMINES SCREEN, URINE POSITIVE (NEGATIVE); OPIATE SCREEN, URINE POSITIVE (NEGATIVE); OXYCODONE SCREEN, URINE NEGATIVE (NEGATIVE); PROPOXYPHENE SCREEN, URINE NEGATIVE (NEGATIVE); TRICYCLIC ANTIDEPRESSANT,URINE NEGATIVE (NEGATIVE)
[2021-05-05] MEDS: ONDANSETRON 4 MG/2 ML VIAL IVP PRN (17:37)
[2021-05-05] MEDS ORDERED: hydrALAZINE INJ 20 MG/ML VIAL IVP PRN (18:13)
[2021-05-05] MEDS: HYDROcod/ACETAM 5/325 MG TABLET PO PRN (18:29)
[2021-05-05] MEDS: HYDROmorphone 1 MG/ML CARPUJECT IVP PRN (21:38)
[2021-05-05] MEDS: ATORVASTATIN 40 MG TABLET PO SCH (21:42)
[2021-05-06] MEDS: SODIUM CHLORIDE FLUSH 0.9% 10 ML SYRINGE IVP SCH ×3 (00:29→16:31)
[2021-05-06] MEDS: HYDROmorphone 1 MG/ML CARPUJECT IVP PRN ×2 (00:40→08:15)
[2021-05-06] MEDS: FUROSEMIDE 40 MG/4 ML VIAL IVP SCH ×2 (05:28→13:32)
[2021-05-06] MEDS: SODIUM CHLORIDE FLUSH 0.9% 10 ML SYRINGE IVP PRN ×2 (05:28→13:32)
[2021-05-06] MEDS: ceFAZolin 1 GM in SODIUM CHLORIDE 0.9% MINIBAG 100 ML IV SCH ×2 (05:31→13:31)
[2021-05-06 06:27] LABS: BASOPHILS # (AUTO) 0.1 10^3/uL (0.0-0.1); EOSINOPHILS # (AUTO) 0.5 10^3/uL (0.0-0.7); EOSINOPHILS % (AUTO) 6.4 %; HCT - HEMATOCRIT 44.6 % (42.0-52.0); HGB - HEMOGLOBIN 13.8 g/dL (14.0-18.0); LYMPHOCYTES # (AUTO) 1.5 10^3/uL (1.5-3.5); LYMPHOCYTES % (AUTO) 17.5 %; MEAN CORPUSCULAR HEMOGLOBIN 27.4 pg (27.0-31.0); MEAN CORPUSCULAR HGB CONC 30.9 g/dL (32.0-36.0); MEAN CORPUSCULAR VOLUME 88.7 fL (80.0-94.0); MEAN PLATELET VOLUME 10.2 fL (7.4-11.4); MONOCYTES # (AUTO) 1.1 10^3/uL (0.0-1.0); MONOCYTES % (AUTO) 12.9 %; NEUTROPHILS # (AUTO) 5.1 10^3/uL (1.5-6.6); PLT - PLATELET COUNT 228 10^3/uL (130-450); RED BLOOD COUNT 5.03 10^6/uL (4.70-6.10); RED CELL DISTRIBUTION WIDTH 15.9 % (12.0-15.0); WHITE BLOOD COUNT 8.3 x10^3/uL (4.8-10.8)
[2021-05-06 06:38] LABS: CALCIUM 8.1 mg/dL (8.5-10.3); CREATININE 1.7 mg/dL (0.6-1.2)
[2021-05-06 06:47] LABS: CHOL/HDL RATIO 5.3 (<5.0); CHOLESTEROL 174 mg/dL; HDL CHOLESTEROL 33 mg/dL; LDL CHOLESTEROL,CALCULATED 120 mg/dL; LDL/HDL RATIO 3.6 (<3.6); TRIGLYCERIDES 104 mg/dL; VLDL CHOLESTEROL 21 mg/dL
[2021-05-06] MEDS: SACCHAROMYCES BOULARDII 250 MG CAPSULE PO SCH ×2 (08:14→16:31)
[2021-05-06] MEDS: ASPIRIN CHEW 81 MG TABLET PO SCH (08:14)
[2021-05-06] MEDS: lisinopriL 5 MG TABLET PO SCH (08:14)
[2021-05-06] MEDS: METOPROLOL TARTRATE 25 MG TABLET PO SCH ×2 (08:14→20:35)
[2021-05-06] MEDS: ENOXAPARIN 40 MG/0.4 ML SYRINGE SUBQ SCH (08:15)
[2021-05-06] MEDS: TERBINAFINE 250 MG TABLET PO SCH (10:03)
--- NOTE | 2021-05-06 10:12 | PROVIDER PROGRESS NOTE ---
Assessment/Plan - Problem List (1) Respiratory failure with hypoxia Qualifiers: Chronicity: acute Qualified Code(s): J96.01 - Acute respiratory failure with hypoxia Assessment/Plan: 05/06 improved. Patient had 96% oxygen saturation on 1 L oxygen. Patient's shortness of breathing is better. BNP is reduced. Continue diuretics intravenous, continue oxygen supplement as needed. Patient had 84% oxygen saturation on room air with mild tachycardia. Patient has history of systolic heart failure, COPD, current smoker. Patient had BNP over 3600, Significantly elevated comparing with the previous. Patient report he can only ambulate few steps and he feel very shortness of breathing.Chest x-ray show ill-defined bilateral airspace opacity is unchanged. Patient had echo study report 4 months ago which show EF 25%. ER already started with Lasix, we will continue intravenous Lasix, supplemental oxygen as needed, albuterol and DuoNeb treated PRN. (2) CHF exacerbation Conclusion/Plan: 05/06, Improved, BNP is reduced, Patient's respiratory status is improved. We will continue metoprolol, lisinopril, aspirin, Lipitor. Continue intravenous diuretics Lasix. Continue vital signs, telemetry, laboratory scientist. Patient report he can only ambulate few steps and he feel very shortness of breathing.Chest x-ray show ill-defined bilateral airspace opacity is unchanged. Patient had echo study report 4 months ago which show EF 25%. pt had significant elevated BNP. pt had 84% O2 sat on room air. ER already started with Lasix, we will continue intravenous Lasix, supplemental oxygen as needed. order ECHO study . (3) Cellulitis of left foot Conclusion/Plan: 05/06 Slightly improved, slightly reduced swelling but still erythema and warmth. pt report he is still cigarette smoker, he complain of toe pain but skin is warm. Add gabapentin, continue pain control with pain medications, continue antibiotic ancef, and probiotics pt has swelling, warmth, and erythema at dosrum of left foot and five toes. there is a ulcer at second toe without drainage. pt report very painful when he ambulate. Xray of left foot show no interval change is appreciated, no osseous erosion is identified. There is a ulcer at second tor which likely cause pt's cellulitis infection. ER did blood culture. we will start with IV antibiotics. pt is homeless status. continue pain control. add probiotics as well. (4) COPD (chronic obstructive pulmonary disease) Conclusion/Plan: Patient has a history of COPD, currently smoke. It is unlikely COPD exacerbation at this time. We will add albuterol and DuoNeb as needed, supplemental oxygen as needed (5) History of coronary artery disease Conclusion/Plan: Patient has history of CAD. pt Was prescribed aspirin, Lipitor, metoprolol, lisinopril and Lasix in the previous admission and discharge. Patient is medical non compliant. Patient did not continue all his medications. We will start aspirin, Lipitor, metoprolol, lisinopril, Lasix for patient. Consult with social work help patient for his home medications (6) HTN (hypertension) Conclusion/Plan: Patient had elevated blood pressure, we will add metoprolol, lisinopril, Continue vital signs monitor (7) Homelessness Conclusion/Plan: Unfortunately patient is homeless status, pt has severe medical history, and pt is medical non compliance. we will consult with social work try to help pt. (8) Medical non-compliance Conclusion/Plan: Patient did not continue medications which was prescribed on the last discharge. pt has severe medical history. Discussed the importance for medical compliance for patient, Consult with social work for pt as well (9)LÓPEZ creatinine is increased to 1.7. Patient is on diuretics for patient's fluid overloaded from her CHF exacerbation. we will hold fluid restrict but continue Lasix dosage on today for fluid overloaded from her CHF exacerbation, avoid nephrotoxic agents, Continue laboratory scientist - Current Meds Current Meds: Current Medications Generic Name Dose Route Start Last Admin Trade Name Freq PRN Reason Stop Dose Admin Hydrocodone Bitart/Acetaminophen 1 tab 05/05/21 15:03 05/05/21 18:29 Hydrocod/Acetam 5/325 Mg Tablet PO 1 tab Q4HR PRN Administration Pain 5 to 7 Aspirin 81 mg 05/05/21 15:22 05/06/21 08:14 Aspirin Chew 81 Mg Tablet PO 81 mg DAILY GEORGES Administration Atorvastatin Calcium 20 mg 05/05/21 21:00 05/05/21 21:42 Atorvastatin 40 Mg Tablet PO 20 mg QPM GEORGES Administration Enoxaparin Sodium 40 mg 05/06/21 09:00 05/06/21 08:15 Enoxaparin 40 Mg/0.4 Ml Syringe SUBQ 40 mg DAILY GEORGES Administration Furosemide 40 mg 05/06/21 06:00 05/06/21 05:28 Furosemide 40 Mg/4 Ml Vial IVP 40 mg BIDDIURETIC GEORGES Administration Hydromorphone HCl 1 mg 05/05/21 16:32 05/06/21 08:15 Hydromorphone 1 Mg/Ml Carpuject IVP 1 mg Q2HR PRN Administration PAIN Cefazolin Sodium 1 gm/ Sodium 100 mls @ 200 mls/hr 05/05/21 06:00 05/06/21 0 6:03 Chloride IV Infused Q8H GEORGES Infusion Lisinopril 5 mg 05/05/21 15:11 05/06/21 08:14 Lisinopril 5 Mg Tablet PO 5 mg DAILY GEORGES Administration Metoprolol Tartrate 25 mg 05/05/21 15:10 05/06/21 08:14 Metoprolol Tartrate 25 Mg Tablet PO 25 mg BID GE[facility]GES Administration Ondansetron HCl 4 mg 05/05/21 15:03 05/05/21 17:37 Ondansetron 4 Mg/2 Ml Vial IVP 4 mg Q6HR PRN Administration Nausea / Vomiting Saccharomyces Boulardii 250 mg 05/05/21 17:00 05/06/21 08:14 Saccharomyces Boulardii 250 Mg Capsule PO 250 mg BIDWM GEORGES Administration Sodium Chloride 10 ml 05/05/21 15:03 05/06/21 05:28 Sodium Chloride Flush 0.9% 10 Ml Syringe IVP 10 ml PRN PRN Administration NEEDED PER PROVIDER ORDERS Sodium Chloride 10 ml 05/05/21 17:00 05/06/21 08:15 Sodium Chloride Flush 0.9% 10 Ml Syringe IVP 10 ml 0100,0900,1700 GEORGES Administration Terbinafine HCl 250 mg 05/06/21 09:00 05/06/21 10:03 Terbinafine 250 Mg Tablet PO 250 mg DAILY GEORGES Administration - Lab Result Fish Bone Diagrams: 05/06/21 06:10 05/06/21 06:10 - Additional Planning My Orders: My Active Orders 05/05/21 15:03 Activity Orders [RC] Q2HR IO [RC] IOSHIFT Initiate Bowel Care Protocol [RC] .protocol Initiate Line Care Protocol [RC] QSHIFT Initiate Personal Care Protoco [RC] .protocol Telemetry- [RC] Q4HR Vital Signs [RC] 0800,1600,0000 Acetaminophen [Tylenol] 650 mg PO Q4HR PRN HYDROcod/ACETAM 5/325 [[place] 5/325] 1 tab PO Q4HR PRN Ondansetron Inj [Zofran Inj] 4 mg IVP Q6HR PRN Sodium Chloride Flush 0.9% [Normal Saline Flush 0.9%] 10 ml IVP PRN PRN Code Status [OTHERS] Routine Condition of Patient [OTHERS] Routine DVT Prophylaxis [OTHERS] Routine 05/05/21 15:04 IV Insert [RC] .ONCE 05/05/21 15:06 Social Work Consult [CONS] Routine 05/05/21 15:07 Echo Transthoracic Complete [ECHO] Stat 05/05/21 15:10 Metoprolol Tartrate [Lopressor] 25 mg PO BID 05/05/21 15:11 lisinopriL [Zestril] 5 mg PO DAILY 05/05/21 15:12 Daily Weight [RC] 0600 05/05/21 15:13 Fluid Restriction [RC] ONCE 05/05/21 15:22 Aspirin Chewable [[place] Aspirin] 81 mg PO DAILY 05/05/21 15:34 Albuterol 2.5 mg INH RTQ4H PRN Ipratropium/Albuterol [Duoneb] 3 ml INH RTQID PRN 05/05/21 Dinner Cardiac Diet [DIET] 05/05/21 16:30 Code Status [OTHERS] Routine 05/05/21 16:32 HYDROmorphone 1MG CARP [Dilaudid 1Mg Carp] 1 mg IVP Q2HR PRN 05/05/21 17:00 Saccharomyces Boulardii [Florastor] 250 mg PO BIDWM Sodium Chloride Flush 0.9% [Normal Saline Flush 0.9%] 10 ml IVP 0100,0900,1700 05/05/21 18:13 hydrALAZINE INJ [Apresoline Inj] 10 mg IVP QID PRN 05/05/21 20:23 RT [Oxygen Therapy] [RC] .PRN 05/05/21 21:00 Atorvastatin [Lipitor] 20 mg PO QPM 05/06/21 06:00 FUROSEMIDE INJ 40mg VIAL [LASIX INJ 40 mg VIAL] 40 mg IVP BIDDIURETIC 05/06/21 07:38 Fluid Restriction Discontinuat [RC] .ONCE 05/06/21 09:00 Enoxaparin [Lovenox] 40 mg SUBQ DAILY Terbinafine [LamISIL] 250 mg PO DAILY 05/06/21 10:09 Gabapentin [Neurontin] 100 mg PO TID 05/07/21 05:00 BMP - BASIC METABOLIC PANEL [CHEM] DAILYLAB BNP - B-NATRIURETIC PEPTIDE [IAI] DAILYLAB CBC - COMP BLD CT W/AUTO DIFF [HEME] DAILYLAB 05/08/21 05:00 BMP - BASIC METABOLIC PANEL [CHEM] DAILYLAB BNP - B-NATRIURETIC PEPTIDE [IAI] DAILYLAB CBC - COMP BLD CT W/AUTO DIFF [HEME] DAILYLAB 05/09/21 05:00 BMP - BASIC METABOLIC PANEL [CHEM] DAILYLAB CBC - COMP BLD CT W/AUTO DIFF [HEME] DAILYLAB 05/10/21 05:00 BMP - BASIC METABOLIC PANEL [CHEM] DAILYLAB CBC - COMP BLD CT W/AUTO DIFF [HEME] DAILYLAB Subjective - Subjective Patient Reports: Resting Comfortably Objective Vital Signs: Vital Signs - 24 hr 05/05/21 05/05/21 05/05/21 12:15 12:39 13:11 Temperature 36.2 C L Heart Rate 109 H 114 H 106 H Heart Rate [ Brachial] Heart Rate [ Monitoring electrodes] Respiratory 16 22 23 Rate Blood Pressure 169/126 H 162/152 H 174/107 H Blood Pressure [Left Brachial artery] Blood Pressure [Right Brachial artery] O2 Saturation 97 91 L 84 L 05/05/21 05/05/21 05/05/21 15:30 16:00 16:45 Temperature 36.6 C Heart Rate 108 H Heart Rate [ Brachial] Heart Rate [ 123 H Monitoring electrodes] Respiratory 19 20 Rate Blood Pressure 153/111 H 162/113 H Blood Pressure 162/113 H [Left Brachial artery] Blood Pressure [Right Brachial artery] O2 Saturation 97 98 05/05/21 05/06/21 05/06/21 21:33 00:34 05:31 Temperature 36.8 C 36.9 C 36.3 C L Heart Rate Heart Rate [ 84 70 Brachial] Heart Rate [ 82 Monitoring electrodes] Respiratory 20 16 16 Rate Blood Pressure Blood Pressure 109/76 122/73 [Left Brachial artery] Blood Pressure 128/85 H [Right Brachial artery] O2 Saturation 99 98 95 05/06/21 05/06/21 05/06/21 06:39 07:24 08:14 Temperature 36.5 C Heart Rate Heart Rate [ 71 Brachial] Heart Rate [ Monitoring electrodes] Respiratory 18 Rate Blood Pressure 123/90 H Blood Pressure [Left Brachial artery] Blood Pressure 126/89 H [Right Brachial artery] O2 Saturation 97 96 05/06/21 05/06/21 05/06/21 09:00 09:01 09:20 Temperature Heart Rate Heart Rate [ Brachial] Heart Rate [ Monitoring electrodes] Respiratory Rate Blood Pressure Blood Pressure [Left Brachial artery] Blood Pressure [Right Brachial artery] O2 Saturation 86 L 86 L 100 05/06/21 05/06/21 05/06/21 09:21 10:06 10:07 Temperature Heart Rate Heart Rate [ Brachial] Heart Rate [ Monitoring electrodes] Respiratory Rate Blood Pressure Blood Pressure [Left Brachial artery] Blood Pressure [Right Brachial artery] O2 Saturation 95 96 95 Oxygen O2 Source Nasal cannula I&O (Last 24 Hrs): Intake and Output Totals x24h 05/04/21 05/05/21 05/06/21 23:59 23:59 23:59 Intake Total 790 460 Output Total 1500 600 Balance -710 -140 General: Alert, Oriented x3, No acute distress HEENT: Atraumatic Neck: Supple Lymphatic: no adenopathy Neuro: Alert, Non Focal, Oriented Times 3 Cardiovascular: Regular rate, Normal S1, Normal S2 Respiratory: Chest non-tender, No respiratory distress Abdomen: Normal bowel sounds, Soft, No tenderness Extremities: Normal pulses, Other (warmth, Swelling and erythema at left feet and five toes.) - Results Results: Laboratory Results WBC 8.3 x10^3/uL (4.8-10.8) 05/06/21 06:10 RBC 5.03 10^6/uL (4.70-6.10) 05/06/21 06:10 Hgb 13.8 g/dL (14.0-18.0) L 05/06/21 06:10 Hct 44.6 % (42.0-52.0) 05/06/21 06:10 MCV 88.7 fL (80.0-94.0) 05/06/21 06:10 MCH 27.4 pg (27.0-31.0) 05/06/21 06:10 MCHC 30.9 g/dL (32.0-36.0) L 05/06/21 06:10 RDW 15.9 % (12.0-15.0) H 05/06/21 06:10 Plt Count 228 10^3/uL (130-450) 05/06/21 06:10 MPV 10.2 fL (7.4-11.4) 05/06/21 06:10 Neut # (Auto) 5.1 10^3/uL (1.5-6.6) 05/06/21 06:10 Lymph # (Auto) 1.5 10^3/uL (1.5-3.5) 05/06/21 06:10 [place] # (Auto) 1.1 10^3/uL (0.0-1.0) H 05/06/21 06:10 Eos # (Auto) 0.5 10^3/uL (0.0-0.7) 05/06/21 06:10 Baso # (Auto) 0.1 10^3/uL (0.0-0.1) 05/06/21 06:10 Absolute Nucleated RBC 0.00 x10^3/uL 05/06/21 06:10 Nucleated RBC % 0.0 /100WBC 05/06/21 06:10 ESR 6 mm/Hr (0-20) 05/05/21 12:28 D-Dimer 357.4 ng/mL (200.0-255.0) H 05/05/21 17:06 Sodium 136 mmol/L (135-145) 05/06/21 06:10 Potassium 4.0 mmol/L (3.5-5.0) 05/06/21 06:10 Chloride 96 mmol/L (101-111) L 05/06/21 06:10 Carbon Dioxide 30 mmol/L (21-32) 05/06/21 06:10 Anion Gap 10.0 (6-13) 05/06/21 06:10 BUN 42 mg/dL (6-20) H 05/06/21 06:10 Creatinine 1.7 mg/dL (0.6-1.2) H 05/06/21 06:10 Estimated GFR (MDRD) 41 (>89) L 05/06/21 06:10 Glucose 98 mg/dL (70-100) 05/06/21 06:10 Calcium 8.1 mg/dL (8.5-10.3) L 05/06/21 06:10 Total Bilirubin 1.1 mg/dL (0.2-1.0) H 05/05/21 12:28 AST 36 IU/L (10-42) 05/05/21 12:28 ALT 28 IU/L (10-60) 05/05/21 12:28 Alkaline Phosphatase 75 IU/L (42-121) 05/05/21 12:28 Troponin I High Sens 75.3 ng/L (2.3-19.7) H* 05/05/21 14:25 C-Reactive Protein 2.4 mg/dL (0-1.0) H 05/05/21 12:28 B-Natriuretic Peptide 3025 pg/mL (5-100) H 05/06/21 06:10 Total Protein 7.1 g/dL (6.7-8.2) 05/05/21 12:28 Albumin 3.6 g/dL (3.2-5.5) 05/05/21 12:28 Globulin 3.5 g/dL (2.1-4.2) 05/05/21 12:28 Albumin/Globulin Ratio 1.0 (1.0-2.2) 05/05/21 12:28 Triglycerides 104 mg/dL (-149) 05/06/21 06:10 Cholesterol 174 mg/dL (-199) 05/06/21 06:10 LDL Cholesterol, Calc 120 mg/dL (-129) 05/06/21 06:10 VLDL Cholesterol 21 mg/dL 05/06/21 06:10 HDL Cholesterol 33 mg/dL (60-) L 05/06/21 06:10 LDL/HDL Ratio 3.6 (<3.6) 05/06/21 06:10 Cholesterol/HDL Ratio 5.3 (<5.0) 05/06/21 06:10 Lipase 25 U/L (22-51) 05/05/21 12:28 Nasal Adenovirus (PCR) NOT DETECTED 05/05/21 13:25 Nasal B. parapertussis DNA (PCR) NOT DETECTED 05/05/21 13:25 Nasal Coronavir 229E PCR NOT DETECTED 05/05/21 13:25 Nasal Coronavir HKU1 PCR NOT DETECTED 05/05/21 13:25 Nasal Coronavir NL63 PCR NOT DETECTED 05/05/21 13:25 Nasal Coronavir OC43 PCR NOT DETECTED 05/05/21 13:25 Nasal Enterovir/Rhinovir PCR NOT DETECTED 05/05/21 13:25 Nasal Influenza B PCR NOT DETECTED 05/05/21 13:25 Nasal Influenza A PCR NOT DETECTED 05/05/21 13:25 Nasal Parainfluen 1 PCR NOT DETECTED 05/05/21 13:25 Nasal Parainfluen 2 PCR NOT DETECTED 05/05/21 13:25 Nasal Parainfluen 3 PCR NOT DETECTED 05/05/21 13:25 Nasal Parainfluen 4 PCR NOT DETECTED 05/05/21 13:25 Nasal RSV (PCR) NOT DETECTED 05/05/21 13:25 Nasal B.pertussis DNA PCR NOT DETECTED 05/05/21 13:25 Nasal C.pneumoniae (PCR) NOT DETECTED 05/05/21 13:25 Luis Human Metapneumo PCR NOT DETECTED 05/05/21 13:25 Nasal M.pneumoniae (PCR) NOT DETECTED 05/05/21 13:25 Nasal SARS-CoV-2 (PCR) NOT DETECTED 05/05/21 13:25 Urine Opiates Screen POSITIVE (NEGATIVE) H 05/05/21 17:00 Ur Oxycodone Screen NEGATIVE (NEGATIVE) 05/05/21 17:00 Urine Methadone Screen NEGATIVE (NEGATIVE) 05/05/21 17:00 Ur Propoxyphene Screen NEGATIVE (NEGATIVE) 05/05/21 17:00 Ur Barbiturates Screen NEGATIVE (NEGATIVE) 05/05/21 17:00 Ur Tricyclics Screen NEGATIVE (NEGATIVE) 05/05/21 17:00 Ur Phencyclidine Scrn NEGATIVE (NEGATIVE) 05/05/21 17:00 Ur Amphetamine Screen NEGATIVE (NEGATIVE) 05/05/21 17:00 U Methamphetamines Scrn POSITIVE (NEGATIVE) H 05/05/21 17:00 U Benzodiazepines Scrn NEGATIVE (NEGATIVE) 05/05/21 17:00 Urine Cocaine Screen NEGATIVE (NEGATIVE) 05/05/21 17:00 U Cannabinoids Screen NEGATIVE (NEGATIVE) 05/05/21 17:00 Sepsis Event Note (H) - Evaluation Current Stage of Sepsis: Ruled out ABX Reporting Has patient been on IV antibiotics over the past 48 hours?: Yes Current Medications - Current Medications Current Medications: Active Medications Acetaminophen (Acetaminophen 325 Mg Tablet) 650 mg PO Q4HR PRN PRN Reason: Pain 1 to 4 Hydrocodone Bitart/Acetaminophen (Hydrocod/Acetam 5/325 Mg Tablet) 1 tab PO Q4HR PRN PRN Reason: Pain 5 to 7 Last Admin: 05/05/21 18:29 Dose: 1 tab Albuterol (Albuterol Neb 2.5 Mg/3 Ml) 2.5 mg INH RTQ4H PRN PRN Reason: Wheezing Albuterol/Ipratropium (Ipratropium/Albuterol 3 Ml Neb) 3 ml INH RTQID PRN PRN Reason: Shortness of Air/Wheezing Aspirin (Aspirin Chew 81 Mg Tablet) 81 mg PO DAILY [facility] Last Admin: 05/06/21 08:14 Dose: 81 mg Atorvastatin Calcium (Atorvastatin 40 Mg Tablet) 20 mg PO QPM [facility] Last Admin: 05/05/21 21:42 Dose: 20 mg Enoxaparin Sodium (Enoxaparin 40 Mg/0.4 Ml Syringe) 40 mg SUBQ DAILY [facility] Last Admin: 05/06/21 08:15 Dose: 40 mg Furosemide (Furosemide 40 Mg/4 Ml Vial) 40 mg IVP BIDDIURETIC [facility] Last Admin: 05/06/21 05:28 Dose: 40 mg Gabapentin (Gabapentin 100 Mg Capsule) 100 mg PO TID [facility] Hydralazine HCl (Hydralazine Inj 20 Mg/Ml Vial) 10 mg IVP QID PRN PRN Reason: Hypertensive Emergency Hydromorphone HCl (Hydromorphone 1 Mg/Ml Carpuject) 1 mg IVP Q2HR PRN PRN Reason: PAIN Last Admin: 05/06/21 08:15 Dose: 1 mg Cefazolin Sodium 1 gm/ Sodium (Chloride) 100 mls @ 200 mls/hr IV Q8H [facility] Last Infusion: 05/06/21 06:03 Dose: Infused Lisinopril (Lisinopril 5 Mg Tablet) 5 mg PO DAILY [facility] Last Admin: 05/06/21 08:14 Dose: 5 mg Metoprolol Tartrate (Metoprolol Tartrate 25 Mg Tablet) 25 mg PO BID [facility] Last Admin: 05/06/21 08:14 Dose: 25 mg Ondansetron HCl (Ondansetron 4 Mg/2 Ml Vial) 4 mg IVP Q6HR PRN PRN Reason: Nausea / Vomiting Last Admin: 05/05/21 17:37 Dose: 4 mg Saccharomyces Boulardii (Saccharomyces Boulardii 250 Mg Capsule) 250 mg PO BIDWM [facility] Last Admin: 05/06/21 08:14 Dose: 250 mg Sodium Chloride (Sodium Chloride Flush 0.9% 10 Ml Syringe) 10 ml IVP PRN PRN PRN Reason: NEEDED PER PROVIDER ORDERS Last Admin: 05/06/21 05:28 Dose: 10 ml Sodium Chloride (Sodium Chloride Flush 0.9% 10 Ml Syringe) 10 ml IVP 0100,0900,1700 [facility] Last Admin: 05/06/21 08:15 Dose: 10 ml Terbinafine HCl (Terbinafine 250 Mg Tablet) 250 mg PO DAILY [facility] Last Admin: 05/06/21 10:03 Dose: 250 mg
[2021-05-06] MEDS: GABAPENTIN 100 MG CAPSULE PO SCH ×2 (11:25→14:06)
[2021-05-06] MEDS: HYDROcod/ACETAM 5/325 MG TABLET PO PRN (11:35)
[2021-05-06] MEDS: ATORVASTATIN 40 MG TABLET PO SCH (20:35)
[2021-05-07] MEDS: ceFAZolin 1 GM in SODIUM CHLORIDE 0.9% MINIBAG 100 ML IV SCH ×3 (02:21→13:27)
[2021-05-07] MEDS: SODIUM CHLORIDE FLUSH 0.9% 10 ML SYRINGE IVP SCH ×3 (02:22→15:41)
[2021-05-07] MEDS: GABAPENTIN 100 MG CAPSULE PO SCH ×4 (02:22→20:05)
[2021-05-07 05:01] LABS: BASOPHILS # (AUTO) 0.1 10^3/uL (0.0-0.1); EOSINOPHILS # (AUTO) 0.3 10^3/uL (0.0-0.7); EOSINOPHILS % (AUTO) 3.3 %; HCT - HEMATOCRIT 43.5 % (42.0-52.0); HGB - HEMOGLOBIN 13.6 g/dL (14.0-18.0); LYMPHOCYTES # (AUTO) 1.4 10^3/uL (1.5-3.5); LYMPHOCYTES % (AUTO) 16.7 %; MEAN CORPUSCULAR HEMOGLOBIN 27.3 pg (27.0-31.0); MEAN CORPUSCULAR HGB CONC 31.3 g/dL (32.0-36.0); MEAN CORPUSCULAR VOLUME 87.3 fL (80.0-94.0); MEAN PLATELET VOLUME 10.2 fL (7.4-11.4); MONOCYTES # (AUTO) 0.8 10^3/uL (0.0-1.0); MONOCYTES % (AUTO) 10.2 %; NEUTROPHILS # (AUTO) 5.6 10^3/uL (1.5-6.6); NEUTROPHILS % (AUTO) 68.6 %; PLT - PLATELET COUNT 250 10^3/uL (130-450); RED BLOOD COUNT 4.98 10^6/uL (4.70-6.10); RED CELL DISTRIBUTION WIDTH 15.9 % (12.0-15.0); WHITE BLOOD COUNT 8.2 x10^3/uL (4.8-10.8)
[2021-05-07 05:13] LABS: CALCIUM 8.2 mg/dL (8.5-10.3); CREATININE 1.5 mg/dL (0.6-1.2); POTASSIUM 3.9 mmol/L (3.5-5.0)
[2021-05-07] MEDS: FUROSEMIDE 40 MG/4 ML VIAL IVP SCH ×2 (05:20→13:27)
[2021-05-07] MEDS: HYDROcod/ACETAM 5/325 MG TABLET PO PRN ×3 (05:20→21:59)
--- NOTE | 2021-05-07 07:28 | PROVIDER PROGRESS NOTE ---
Subjective - Prog Note Date Prog Note Date: 05/07/21 - Subjective Subjective: He still feels short of breath and feel that he cannot lay flat. Still has discomfort in his feet due to the swelling. Current Medications - Current Medications Current Medications: Active Medications Acetaminophen (Acetaminophen 325 Mg Tablet) 650 mg PO Q4HR PRN PRN Reason: Pain 1 to 4 Last Admin: 05/07/21 05:20 Dose: 650 mg Hydrocodone Bitart/Acetaminophen (Hydrocod/Acetam 5/325 Mg Tablet) 1 tab PO Q4HR PRN PRN Reason: Pain 5 to 7 Last Admin: 05/07/21 05:20 Dose: 1 tab Albuterol (Albuterol Neb 2.5 Mg/3 Ml) 2.5 mg INH RTQ4H PRN PRN Reason: Wheezing Albuterol/Ipratropium (Ipratropium/Albuterol 3 Ml Neb) 3 ml INH RTQID PRN PRN Reason: Shortness of Air/Wheezing Aspirin (Aspirin Chew 81 Mg Tablet) 81 mg PO DAILY [facility] Last Admin: 05/06/21 08:14 Dose: 81 mg Atorvastatin Calcium (Atorvastatin 40 Mg Tablet) 20 mg PO QPM [facility] Last Admin: 05/06/21 20:35 Dose: 20 mg Enoxaparin Sodium (Enoxaparin 40 Mg/0.4 Ml Syringe) 40 mg SUBQ DAILY [facility] Last Admin: 05/06/21 08:15 Dose: 40 mg Furosemide (Furosemide 40 Mg/4 Ml Vial) 40 mg IVP BIDDIURETIC [facility] Last Admin: 05/07/21 05:20 Dose: 40 mg Gabapentin (Gabapentin 100 Mg Capsule) 100 mg PO TID [facility] Last Admin: 05/07/21 05:20 Dose: 100 mg Hydralazine HCl (Hydralazine Inj 20 Mg/Ml Vial) 10 mg IVP QID PRN PRN Reason: Hypertensive Emergency Hydromorphone HCl (Hydromorphone 1 Mg/Ml Carpuject) 1 mg IVP Q2HR PRN PRN Reason: PAIN Last Admin: 05/06/21 08:15 Dose: 1 mg Cefazolin Sodium 1 gm/ Sodium (Chloride) 100 mls @ 200 mls/hr IV Q8H [facility] Last Infusion: 05/07/21 07:36 Dose: Infused Lisinopril (Lisinopril 5 Mg Tablet) 5 mg PO DAILY [facility] Last Admin: 05/06/21 08:14 Dose: 5 mg Metoprolol Tartrate (Metoprolol Tartrate 25 Mg Tablet) 25 mg PO BID [facility] Last Admin: 05/06/21 20:35 Dose: 25 mg Ondansetron HCl (Ondansetron 4 Mg/2 Ml Vial) 4 mg IVP Q6HR PRN PRN Reason: Nausea / Vomiting Last Admin: 05/05/21 17:37 Dose: 4 mg Saccharomyces Boulardii (Saccharomyces Boulardii 250 Mg Capsule) 250 mg PO BIDW M [facility] Last Admin: 05/06/21 16:31 Dose: 250 mg Sodium Chloride (Sodium Chloride Flush 0.9% 10 Ml Syringe) 10 ml IVP PRN PRN PRN Reason: NEEDED PER PROVIDER ORDERS Last Admin: 05/06/21 13:32 Dose: 10 ml Sodium Chloride (Sodium Chloride Flush 0.9% 10 Ml Syringe) 10 ml IVP 0100,0900,1700 [facility] Last Admin: 05/07/21 02:22 Dose: 10 ml Terbinafine HCl (Terbinafine 250 Mg Tablet) 250 mg PO DAILY [facility] Last Admin: 05/06/21 10:03 Dose: 250 mg Objective - Vital Signs/Intake & Output Reviewed Vital Signs: Yes Vital Signs: Vital Signs x48h Temp Pulse Resp BP BP Pulse Ox 05/07/21 06:54 36.4 C L 72 18 124/79 98 05/07/21 04:55 36.4 C L 67 20 135/94 H 100 05/07/21 00:30 36.4 C L 72 18 136/88 H 100 Intake & Output: Intake & Output 05/04/21 05/05/21 05/06/21 05/07/21 23:59 23:59 23:59 23:59 Intake Total 790 2090 340 Output Total 1500 2550 500 Balance -710 -460 -160 - Objective General Appearance: positive: No acute distress, Alert Eyes Bilateral: positive: Normal inspection, Conjunctivae nml ENT: positive: ENT inspection nml Respiratory: positive: No respiratory distress, Rales. negative: Wheezes Cardiovascular: positive: Regular rate & rhythm. negative: Tachycardia Skin: positive: Warm, Dry, Other (There is now near resolution of the erythema of the left lower extremity. There is still a 1 similar ulceration over the third toe but no surrounding erythema. Onychomycosis noted of the bilateral feet.) Extremities: positive: Pedal edema (+1 edema in bilateral lower extremities.) - Lab Results Fish Bones: 05/07/21 04:54 05/07/21 04:54 Other Labs: Lab Results x24hrs 05/07/21 05/07/21 05/07/21 Range/Units 04:54 04:54 04:54 WBC 8.2 (4.8-10.8) x10^3/uL RBC 4.98 (4.70-6.10) 10^6/uL Hgb 13.6 L (14.0-18.0) g/dL Hct 43.5 (42.0-52.0) % MCV 87.3 (80.0-94.0) fL MCH 27.3 (27.0-31.0) pg MCHC 31.3 L (32.0-36.0) g/dL RDW 15.9 H (12.0-15.0) % Plt Count 250 (130-450) 10^3/uL MPV 10.2 (7.4-11.4) fL Neut # (Auto) 5.6 (1.5-6.6) 10^3/uL Lymph # (Auto) 1.4 L (1.5-3.5) 10^3/uL [place] # (Auto) 0.8 (0.0-1.0) 10^3/uL Eos # (Auto) 0.3 (0.0-0.7) 10^3/uL Baso # (Auto) 0.1 (0.0-0.1) 10^3/uL Absolute Nucleated RBC 0.00 x10^3/uL Nucleated RBC % 0.0 /100WBC Sodium 135 (135-145) mmol/L Potassium 3.9 (3.5-5.0) mmol/L Chloride 98 L (101-111) mmol/L Carbon Dioxide 27 (21-32) mmol/L Anion Gap 10.0 (6-13) BUN 50 H (6-20) mg/dL Creatinine 1.5 H (0.6-1.2) mg/dL Estimated GFR (MDRD) 47 L (>89) Glucose 145 H (70-100) mg/dL Calcium 8.2 L (8.5-10.3) mg/dL B-Natriuretic Peptide 2242 H (5-100) pg/mL Sepsis Event Note (H) - Evaluation Current Stage of Sepsis: Ruled out Assessment/Plan - Problem List (1) Acute on chronic HFrEF (heart failure with reduced ejection fraction) Impression: He is no longer hypoxic but is still quite dyspneic. His BNP is trending down. Prior echocardiogram revealed an ejection fraction of about 25%. We unfortunately do not have echocardiogram available so we will be unable to repea t this. Given he is still quite dyspneic and edematous, we will continue IV diuresis with Lasix 40 mg IV twice daily. Continue fluid restriction and low- sodium diet. Daily weights and strict I's/O's. We will continue metoprolol and lisinopril. He ultimately will need to be compliant with medical therapy and have close outpatient follow-up as he was only previously taking just the Lasix which alone will not be of benefit for his heart failure. (2) Cellulitis of left foot Impression: The erythema is now resolved. We will switch him to oral doxycycline and discontinue the cefazolin. He does have a small ulceration over the third toe but this does not appear to be infected. X-rays showed no evidence of osseous involvement. (3) LÓPEZ (acute kidney injury) Impression: His creatinine increased on hospital day 2 but today it is improved. It peaked at 1.7 his baseline is around 1.1. Today is 1.5 and we suspect the acute kidney injury may be related to cardiorenal syndrome as well as the initiation of lis inopril. Given the improvement in his creatinine today, we will continue lisinopril and IV diuresis. If his creatinine continues to climb then we will discontinue the lisinopril. Continue to monitor his renal function and urine output closely. (4) COPD (chronic obstructive pulmonary disease) Impression: He does have a history of COPD but not on inhaler therapy. We will use duo nebs as needed and he will need appropriate inhaler therapy on discharge. This is not an exacerbation. (5) Tinea pedis Impression: We will continue terbinafine. He will need at least 12 weeks of therapy and he has already completed 2 weeks. Qualifiers: Laterality: bilateral Qualified Code(s): B35.3 - Tinea pedis (6) History of coronary artery disease Impression: Stable. His troponins were mildly elevated on admission but this is felt to be demand ischemia secondary to the heart failure. His EKG did not suggest ischemia. We have started him on aspirin and statin given his history of coronary artery disease. Continue metoprolol. (7) Homelessness Impression: He is homeless and has had issues with medical noncompliance. We have consulted social work to help assist with this.
[2021-05-07] MEDS: lisinopriL 5 MG TABLET PO SCH (09:07)
[2021-05-07] MEDS: ASPIRIN CHEW 81 MG TABLET PO SCH (09:07)
[2021-05-07] MEDS: SACCHAROMYCES BOULARDII 250 MG CAPSULE PO SCH ×2 (09:08→16:56)
[2021-05-07] MEDS: ENOXAPARIN 40 MG/0.4 ML SYRINGE SUBQ SCH (09:08)
[2021-05-07] MEDS: METOPROLOL TARTRATE 25 MG TABLET PO SCH ×2 (09:08→20:05)
[2021-05-07] MEDS: SODIUM CHLORIDE FLUSH 0.9% 10 ML SYRINGE IVP PRN (13:27)
[2021-05-07] MEDS: TERBINAFINE 250 MG TABLET PO SCH (14:22)
[2021-05-07] MEDS: DOXYCYCLINE 100 MG TABLET PO SCH (20:05)
[2021-05-07] MEDS: ATORVASTATIN 40 MG TABLET PO SCH (20:05)
[2021-05-08] MEDS: SODIUM CHLORIDE FLUSH 0.9% 10 ML SYRINGE IVP SCH ×3 (00:14→16:10)
[2021-05-08] MEDS: FUROSEMIDE 40 MG/4 ML VIAL IVP SCH ×2 (05:29→13:57)
[2021-05-08] MEDS: HYDROcod/ACETAM 5/325 MG TABLET PO PRN ×4 (05:29→20:07)
[2021-05-08] MEDS: GABAPENTIN 100 MG CAPSULE PO SCH ×3 (05:29→20:05)
[2021-05-08 05:42] LABS: BASOPHILS # (AUTO) 0.1 10^3/uL (0.0-0.1); BASOPHILS % (AUTO) 0.9 %; EOSINOPHILS # (AUTO) 0.4 10^3/uL (0.0-0.7); HCT - HEMATOCRIT 45.8 % (42.0-52.0); HGB - HEMOGLOBIN 14.4 g/dL (14.0-18.0); LYMPHOCYTES # (AUTO) 1.4 10^3/uL (1.5-3.5); LYMPHOCYTES % (AUTO) 16.5 %; MEAN CORPUSCULAR HEMOGLOBIN 27.4 pg (27.0-31.0); MEAN CORPUSCULAR HGB CONC 31.4 g/dL (32.0-36.0); MEAN CORPUSCULAR VOLUME 87.2 fL (80.0-94.0); MEAN PLATELET VOLUME 10.9 fL (7.4-11.4); MONOCYTES % (AUTO) 12.2 %; NEUTROPHILS # (AUTO) 5.4 10^3/uL (1.5-6.6); NEUTROPHILS % (AUTO) 65.2 %; PLT - PLATELET COUNT 286 10^3/uL (130-450); RED BLOOD COUNT 5.25 10^6/uL (4.70-6.10); RED CELL DISTRIBUTION WIDTH 15.9 % (12.0-15.0); WHITE BLOOD COUNT 8.2 x10^3/uL (4.8-10.8)
[2021-05-08 05:48] LABS: CALCIUM 8.1 mg/dL (8.5-10.3); CREATININE 1.2 mg/dL (0.6-1.2); POTASSIUM 3.6 mmol/L (3.5-5.0)
--- NOTE | 2021-05-08 07:25 | PROVIDER PROGRESS NOTE ---
Subjective - Prog Note Date Prog Note Date: 05/08/21 - Subjective Subjective: He still feels short of breath. Feels it is slightly improved compared to yesterday but still dyspneic with minimal activity. Feels like his lower extremity edema slightly improved. Current Medications - Current Medications Current Medications: Active Medications Acetaminophen (Acetaminophen 325 Mg Tablet) 650 mg PO Q4HR PRN PRN Reason: Pain 1 to 4 Last Admin: 05/07/21 05:20 Dose: 650 mg Hydrocodone Bitart/Acetaminophen (Hydrocod/Acetam 5/325 Mg Tablet) 1 tab PO Q4HR PRN PRN Reason: Pain 5 to 7 Last Admin: 05/08/21 16:10 Dose: 1 tab Albuterol (Albuterol Neb 2.5 Mg/3 Ml) 2.5 mg INH RTQ4H PRN PRN Reason: Wheezing Albuterol/Ipratropium (Ipratropium/Albuterol 3 Ml Neb) 3 ml INH RTQID PRN PRN Reason: Shortness of Air/Wheezing Aspirin (Aspirin Chew 81 Mg Tablet) 81 mg PO DAILY [facility] Last Admin: 05/08/21 08:16 Dose: 81 mg Atorvastatin Calcium (Atorvastatin 40 Mg Tablet) 20 mg PO QPM [facility] Last Admin: 05/07/21 20:05 Dose: 20 mg Doxycycline Hyclate (Doxycycline 100 Mg Tablet) 100 mg PO BID [facility] Last Admin: 05/08/21 08:16 Dose: 100 mg Enoxaparin Sodium (Enoxaparin 40 Mg/0.4 Ml Syringe) 40 mg SUBQ DAILY [facility] Last Admin: 05/08/21 08:16 Dose: 40 mg Furosemide (Furosemide 40 Mg/4 Ml Vial) 60 mg IVP BIDDIURETIC [facility] Last Admin: 05/08/21 13:57 Dose: 60 mg Gabapentin (Gabapentin 100 Mg Capsule) 100 mg PO TID [facility] Last Admin: 05/08/21 13:56 Dose: 100 mg Hydralazine HCl (Hydralazine Inj 20 Mg/Ml Vial) 10 mg IVP QID PRN PRN Reason: Hypertensive Emergency Lisinopril (Lisinopril 5 Mg Tablet) 5 mg PO DAILY [facility] Last Admin: 05/08/21 08:16 Dose: 5 mg Metoprolol Tartrate (Metoprolol Tartrate 25 Mg Tablet) 25 mg PO BID [facility] Last Admin: 05/08/21 08:16 Dose: 25 mg Ondansetron HCl (Ondansetron 4 Mg/2 Ml Vial) 4 mg IVP Q6HR PRN PRN Reason: Nausea / Vomiting Last Admin: 05/05/21 17:37 Dose: 4 mg Polyethylene Glycol (Polyethylene Glycol 3350 17 Gm Packet) 17 gm PO DAILY [facility] Last Admin: 05/08/21 08:17 Dose: 17 gm Saccharomyces Boulardii (Saccharomyces Boulardii 250 Mg Capsule) 250 mg PO BIDWM [facility] Last Admin: 05/08/21 16:09 Dose: 250 mg Sodium Chloride (Sodium Chloride Flush 0.9% 10 Ml Syringe) 10 ml IVP PRN PRN PRN Reason: NEEDED PER PROVIDER ORDERS Last Admin: 05/07/21 13:27 Dose: 10 ml Sodium Chloride (Sodium Chloride Flush 0.9% 10 Ml Syringe) 10 ml IVP 0100,0900,1700 [facility] Last Admin: 05/08/21 16:10 Dose: 10 ml Terbinafine HCl (Terbinafine 250 Mg Tablet) 250 mg PO DAILY [facility] Last Admin: 05/08/21 10:53 Dose: 250 mg Objective - Vital Signs/Intake & Output Reviewed Vital Signs: Yes Vital Signs: Vital Signs x48h Temp Pulse Resp BP Pulse Ox 05/08/21 04:40 36.4 C L 69 18 145/96 H 94 Intake & Output: Intake & Output 05/05/21 05/06/21 05/07/21 05/08/21 23:59 23:59 23:59 23:59 Intake Total 790 2090 2040 500 Output Total 1500 2550 3575 1225 [employer] [facility] [employer] [facility] -[phone] - Objective General Appearance: positive: No acute distress, Alert Eyes Bilateral: positive: Normal inspection, Conjunctivae nml ENT: positive: ENT inspection nml Neck: positive: Nml inspection Respiratory: positive: No respiratory distress, Rales. negative: Wheezes Cardiovascular: positive: Regular rate & rhythm. negative: Tachycardia Skin: positive: Warm, Dry, Other (Erythema over the left foot is resolved. There is a small 1 cm ulceration of the left toe without surrounding erythema. Onychomycosis noted.) Extremities: positive: Pedal edema (+1 edema in bilateral lower extremities predominantly feet. This is improved.) - Lab Results Fish Bones: 05/08/21 04:42 05/08/21 04:42 Other Labs: Lab Results x24hrs 05/08/21 05/08/21 05/08/21 Range/Units 04:42 04:42 04:42 WBC 8.2 (4.8-10.8) x10^3/uL RBC 5.25 (4.70-6.10) 10^6/uL Hgb 14.4 (14.0-18.0) g/dL Hct 45.8 (42.0-52.0) % MCV 87.2 (80.0-94.0) fL MCH 27.4 (27.0-31.0) pg MCHC 31.4 L (32.0-36.0) g/dL RDW 15.9 H (12.0-15.0) % Plt Count 286 (130-450) 10^3/uL MPV 10.9 (7.4-11.4) fL Neut # (Auto) 5.4 (1.5-6.6) 10^3/uL Lymph # (Auto) 1.4 L (1.5-3.5) 10^3/uL [place] # (Auto) 1.0 (0.0-1.0) 10^3/uL Eos # (Auto) 0.4 (0.0-0.7) 10^3/uL Baso # (Auto) 0.1 (0.0-0.1) 10^3/uL Absolute Nucleated RBC 0.00 x10^3/uL Nucleated RBC % 0.0 /100WBC Sodium 138 (135-145) mmol/L Potassium 3.6 (3.5-5.0) mmol/L Chloride 97 L (101-111) mmol/L Carbon Dioxide 30 (21-32) mmol/L Anion Gap 11.0 (6-13) BUN 45 H (6-20) mg/dL Creatinine 1.2 (0.6-1.2) mg/dL Estimated GFR (MDRD) 61 L (>89) Glucose 99 (70-100) mg/dL Calcium 8.1 L (8.5-10.3) mg/dL B-Natriuretic Peptide 2296 H (5-100) pg/mL Sepsis Event Note (H) - Evaluation Current Stage of Sepsis: Ruled out Assessment/Plan - Problem List (1) Acute on chronic HFrEF (heart failure with reduced ejection fraction) Impression: He has improved since admission but he still desaturates to the low 90s and high 80s. He still feels dyspneic. BNP initially decreased but has been stable since yesterday. He has had a negative fluid balance each day. Given he still appears an acute on chronic heart failure, we will keep him hospitalized. We will increase his Lasix to 60 mg IV twice daily. We will continue the metoprolol and lisinopril.. Continue with low-sodium diet and strict I's and O's. Daily weights. (2) Cellulitis of left foot Impression: This is improved. We switched him to oral doxycycline yesterday and we will treat him for a total of 5 days. He does have a small ulceration over the third toe but does not appear to be infected and x-ray shows no evidence of osseous involvement. (3) LÓPEZ (acute kidney injury) Impression: His creatinine is back to his baseline of 1.2. Suspect initial acute kidney injury was likely due to cardiorenal syndrome. We will continue to diurese him and will increase Lasix as mentioned above. We will continue to monitor his renal function closely. We will look to add spironolactone prior to discharge. (4) COPD (chronic obstructive pulmonary disease) Impression: This does not appear to be in exacerbation. We will continue duo nebs as needed and he will need appropriate inhaler therapy on discharge. (5) Tinea pedis Impression: We will continue terbinafine for a total of 12 weeks. He has already completed a little over 2 weeks of therapy. Qualifiers: Laterality: bilateral Qualified Code(s): B35.3 - Tinea pedis (6) History of coronary artery disease Impression: Stable. His troponins were mildly elevated on admission but this is felt to be demand ischemia secondary to the heart failure. His EKG did not suggest ischemia. We have started him on aspirin and statin given his history of coronary artery disease. Continue metoprolol. (7) Homelessness Impression: He is homeless and has had issues with medical noncompliance. We have consulted social work to help assist with this.
[2021-05-08] MEDS: METOPROLOL TARTRATE 25 MG TABLET PO SCH ×2 (08:16→20:06)
[2021-05-08] MEDS: SACCHAROMYCES BOULARDII 250 MG CAPSULE PO SCH ×2 (08:16→16:09)
[2021-05-08] MEDS: ASPIRIN CHEW 81 MG TABLET PO SCH (08:16)
[2021-05-08] MEDS: lisinopriL 5 MG TABLET PO SCH (08:16)
[2021-05-08] MEDS: DOXYCYCLINE 100 MG TABLET PO SCH ×2 (08:16→20:05)
[2021-05-08] MEDS: ENOXAPARIN 40 MG/0.4 ML SYRINGE SUBQ SCH (08:16)
[2021-05-08] MEDS: polyethylene glycoL 3350 17 GM PACKET PO SCH (08:17)
[2021-05-08] MEDS: TERBINAFINE 250 MG TABLET PO SCH (10:53)
[2021-05-08] MEDS ORDERED: POTASSIUM CHLORIDE 20 MEQ TABLET PO ONE (17:03)
[2021-05-08] MEDS: ATORVASTATIN 40 MG TABLET PO SCH (20:05)
[2021-05-08] MEDS: ONDANSETRON 4 MG/2 ML VIAL IVP PRN (21:40)
[2021-05-08] MEDS: SODIUM CHLORIDE FLUSH 0.9% 10 ML SYRINGE IVP PRN (21:40)
[2021-05-09] MEDS: HYDROcod/ACETAM 5/325 MG TABLET PO PRN ×5 (00:06→21:16)
[2021-05-09] MEDS: SODIUM CHLORIDE FLUSH 0.9% 10 ML SYRINGE IVP SCH ×3 (00:06→16:42)
[2021-05-09] MEDS: GABAPENTIN 100 MG CAPSULE PO SCH ×3 (04:46→21:16)
[2021-05-09 05:10] LABS: BASOPHILS # (AUTO) 0.1 10^3/uL (0.0-0.1); BASOPHILS % (AUTO) 0.8 %; EOSINOPHILS # (AUTO) 0.4 10^3/uL (0.0-0.7); EOSINOPHILS % (AUTO) 4.2 %; HCT - HEMATOCRIT 47.2 % (42.0-52.0); HGB - HEMOGLOBIN 14.7 g/dL (14.0-18.0); LYMPHOCYTES # (AUTO) 1.6 10^3/uL (1.5-3.5); LYMPHOCYTES % (AUTO) 16.1 %; MEAN CORPUSCULAR HEMOGLOBIN 27.4 pg (27.0-31.0); MEAN CORPUSCULAR HGB CONC 31.1 g/dL (32.0-36.0); MEAN CORPUSCULAR VOLUME 87.9 fL (80.0-94.0); MEAN PLATELET VOLUME 10.9 fL (7.4-11.4); MONOCYTES # (AUTO) 1.3 10^3/uL (0.0-1.0); NEUTROPHILS # (AUTO) 6.5 10^3/uL (1.5-6.6); NEUTROPHILS % (AUTO) 65.7 %; PLT - PLATELET COUNT 312 10^3/uL (130-450); RED BLOOD COUNT 5.37 10^6/uL (4.70-6.10); RED CELL DISTRIBUTION WIDTH 15.7 % (12.0-15.0); WHITE BLOOD COUNT 9.9 x10^3/uL (4.8-10.8)
[2021-05-09 05:20] LABS: CALCIUM 8.4 mg/dL (8.5-10.3); CREATININE 1.5 mg/dL (0.6-1.2); POTASSIUM 4.1 mmol/L (3.5-5.0)
[2021-05-09] MEDS: FUROSEMIDE 40 MG/4 ML VIAL IVP SCH (06:36)
[2021-05-09] MEDS: TERBINAFINE 250 MG TABLET PO SCH (09:16)
[2021-05-09] MEDS: SACCHAROMYCES BOULARDII 250 MG CAPSULE PO SCH ×2 (09:16→16:41)
[2021-05-09] MEDS: ASPIRIN CHEW 81 MG TABLET PO SCH (09:18)
[2021-05-09] MEDS: ENOXAPARIN 40 MG/0.4 ML SYRINGE SUBQ SCH (09:18)
[2021-05-09] MEDS: lisinopriL 5 MG TABLET PO SCH (09:18)
[2021-05-09] MEDS: DOXYCYCLINE 100 MG TABLET PO SCH ×2 (09:18→20:06)
[2021-05-09] MEDS: METOPROLOL TARTRATE 25 MG TABLET PO SCH ×2 (09:18→20:06)
[2021-05-09] MEDS: polyethylene glycoL 3350 17 GM PACKET PO SCH (09:19)
--- NOTE | 2021-05-09 10:57 | PROVIDER PROGRESS NOTE ---
Subjective - Prog Note Date Prog Note Date: 05/09/21 - Subjective Subjective: He feels much better today. Feels less short of breath and his lower extremity edema is much improved. He is able to have better sensation in his toes and the pain is resolved. Current Medications - Current Medications Current Medications: Active Medications Acetaminophen (Acetaminophen 325 Mg Tablet) 650 mg PO Q4HR PRN PRN Reason: Pain 1 to 4 Last Admin: 05/07/21 05:20 Dose: 650 mg Hydrocodone Bitart/Acetaminophen (Hydrocod/Acetam 5/325 Mg Tablet) 1 tab PO Q4HR PRN PRN Reason: Pain 5 to 7 Last Admin: 05/09/21 09:32 Dose: 1 tab Albuterol (Albuterol Neb 2.5 Mg/3 Ml) 2.5 mg INH RTQ4H PRN PRN Reason: Wheezing Albuterol/Ipratropium (Ipratropium/Albuterol 3 Ml Neb) 3 ml INH RTQID PRN PRN Reason: Shortness of Air/Wheezing Aspirin (Aspirin Chew 81 Mg Tablet) 81 mg PO DAILY [facility] Last Admin: 05/09/21 09:18 Dose: 81 mg Atorvastatin Calcium (Atorvastatin 40 Mg Tablet) 20 mg PO QPM [facility] Last Admin: 05/08/21 20:05 Dose: 20 mg Doxycycline Hyclate (Doxycycline 100 Mg Tablet) 100 mg PO BID [facility] Last Admin: 05/09/21 09:18 Dose: 100 mg Enoxaparin Sodium (Enoxaparin 40 Mg/0.4 Ml Syringe) 40 mg SUBQ DAILY [facility] Last Admin: 05/09/21 09:18 Dose: 40 mg Furosemide (Furosemide 40 Mg/4 Ml Vial) 60 mg IVP BIDDIURETIC [facility] Last Admin: 05/09/21 06:36 Dose: 60 mg Gabapentin (Gabapentin 100 Mg Capsule) 100 mg PO TID [facility] Last Admin: 05/09/21 04:46 Dose: 100 mg Hydralazine HCl (Hydralazine Inj 20 Mg/Ml Vial) 10 mg IVP QID PRN PRN Reason: Hypertensive Emergency Lisinopril (Lisinopril 5 Mg Tablet) 5 mg PO DAILY [facility] Last Admin: 05/09/21 09:18 Dose: 5 mg Metoprolol Tartrate (Metoprolol Tartrate 25 Mg Tablet) 25 mg PO BID [facility] Last Admin: 05/09/21 09:18 Dose: 25 mg Ondansetron HCl (Ondansetron 4 Mg/2 Ml Vial) 4 mg IVP Q6HR PRN PRN Reason: Nausea / Vomiting Last Admin: 05/08/21 21:40 Dose: 4 mg Polyethylene Glycol (Polyethylene Glycol 3350 17 Gm Packet) 17 gm PO DAILY [facility] Last Admin: 05/09/21 09:19 Dose: 17 gm Saccharomyces Boulardii (Saccharomyces Boulardii 250 Mg Capsule) 250 mg PO BIDWM [facility] Last Admin: 05/09/21 09:16 Dose: 250 mg Sodium Chloride (Sodium Chloride Flush 0.9% 10 Ml Syringe) 10 ml IVP PRN PRN PRN Reason: NEEDED PER PROVIDER ORDERS Last Admin: 05/08/21 21:40 Dose: 10 ml Sodium Chloride (Sodium Chloride Flush 0.9% 10 Ml Syringe) 10 ml IVP 0100,0900,1700 [facility] Last Admin: 05/09/21 09:32 Dose: 10 ml Terbinafine HCl (Terbinafine 250 Mg Tablet) 250 mg PO DAILY [facility] Last Admin: 05/09/21 09:16 Dose: 250 mg Objective - Vital Signs/Intake & Output Reviewed Vital Signs: Yes Vital Signs: Vital Signs x48h Temp Pulse Pulse Pulse Resp BP BP 05/09/21 09:18 147/93 H 05/09/21 08:29 36.5 C 65 18 05/09/21 07:38 64 18 05/09/21 05:00 36.6 C 64 18 146/96 H 05/09/21 04:39 36.9 C 66 20 BP Pulse Ox 05/09/21 09:18 05/09/21 08:29 147/102 H 96 05/09/21 07:38 98 05/09/21 05:00 96 05/09/21 04:39 93 Intake & Output: Intake & Output 05/06/21 05/07/21 05/08/21 05/09/21 23:59 23:59 23:59 23:59 Intake Total 2089 2039 1909 710 Output Total 4760 4273 0277 3513 [facility] -[phone] - Objective General Appearance: positive: No acute distress Eyes Bilateral: positive: Normal inspection ENT: positive: ENT inspection nml Neck: positive: Nml inspection Respiratory: positive: No respiratory distress. negative: Rales Cardiovascular: positive: Regular rate & rhythm. negative: Tachycardia Abdomen: positive: Non-tender, No distention. negative: Tenderness Skin: positive: Warm, Dry, Other (Left foot erythema is resolved. There is 1 cm ulceration over third toe without erythema or drainage.) Extremities: positive: Pedal edema (Trace edema in the feet.) Neurologic/Psychiatric: negative: Disoriented to person, Disoriented to place - Lab Results Fish Bones: 05/09/21 04:15 05/09/21 04:15 Other Labs: Lab Results x24hrs 05/09/21 05/09/21 05/09/21 Range/Units 04:15 04:15 04:15 WBC 9.9 (4.8-10.8) x10^3/uL RBC 5.37 (4.70-6.10) 10^6/uL Hgb 14.7 (14.0-18.0) g/dL Hct 47.2 (42.0-52.0) % MCV 87.9 (80.0-94.0) fL MCH 27.4 (27.0-31.0) pg MCHC 31.1 L (32.0-36.0) g/dL RDW 15.7 H (12.0-15.0) % Plt Count 312 (130-450) 10^3/uL MPV 10.9 (7.4-11.4) fL Neut # (Auto) 6.5 (1.5-6.6) 10^3/uL Lymph # (Auto) 1.6 (1.5-3.5) 10^3/uL [place] # (Auto) 1.3 H (0.0-1.0) 10^3/uL Eos # (Auto) 0.4 (0.0-0.7) 10^3/uL Baso # (Auto) 0.1 (0.0-0.1) 10^3/uL Absolute Nucleated RBC 0.00 x10^3/uL Nucleated RBC % 0.0 /100WBC Sodium 136 (135-145) mmol/L Potassium 4.1 (3.5-5.0) mmol/L Chloride 95 L (101-111) mmol/L Carbon Dioxide 32 (21-32) mmol/L Anion Gap 9.0 (6-13) BUN 40 H (6-20) mg/dL Creatinine 1.5 H (0.6-1.2) mg/dL Estimated GFR (MDRD) 47 L (>89) Glucose 101 H (70-100) mg/dL Calcium 8.4 L (8.5-10.3) mg/dL B-Natriuretic Peptide 2669 H (5-100) pg/mL Sepsis Event Note (H) - Evaluation Current Stage of Sepsis: Ruled out Assessment/Plan - Problem List (1) Acute on chronic HFrEF (heart failure with reduced ejection fraction) Impression: He is much improved from a heart failure standpoint today. His BNP is increased but clinically he is doing much better with less lower extremity edema and less dyspnea. We will switch him to oral Lasix this afternoon. We will add spironolactone and continue lisinopril. If he continues to do well then he may be discharged tomorrow. (2) Cellulitis of left foot Impression: This is resolved. We have him now on doxycycline and we will complete a total of 5 days of therapy. (3) LÓPEZ (acute kidney injury) Impression: His creatinine is increased today to 1.5. He may be close to his dry weight and this is why there was an increase in his creatinine today. We also have him on lisinopril. Overall his renal function is stable. We will switch his Lasix to oral diuretics this afternoon. Continue lisinopril and we will add spironolactone. We will monitor his renal function closely as we add spironolactone and will adjust these medications as needed. (4) COPD (chronic obstructive pulmonary disease) Impression: This is stable and not in exacerbation. Continue albuterol as needed. We will discharge him on appropriate inhaler therapy. (5) Tinea pedis Impression: Continue terbinafine for another 10 weeks. Qualifiers: Laterality: bilateral Qualified Code(s): B35.3 - Tinea pedis (6) History of coronary artery disease Impression: Stable. Continue aspirin, Lipitor, Toprol. The elevated troponin on admission was due to demand ischemia from the heart failure. (7) Homelessness Impression: He has been provided resources and was seen by social work. We will need to make sure he is on appropriate reverse heart failure therapy prior to discharge as I am concerned he will not follow-up.
[2021-05-09] MEDS: FUROSEMIDE 40 MG TABLET PO SCH (13:41)
[2021-05-09] MEDS: SPIRONOLACTONE 25 MG TABLET PO SCH (13:41)
[2021-05-09] MEDS: DOCUSATE SODIUM 250 MG CAPSULE PO SCH (13:42)
[2021-05-09] MEDS: SENNA 8.6 MG TABLET PO SCH (13:42)
[2021-05-09] MEDS: ATORVASTATIN 40 MG TABLET PO SCH (20:06)
[2021-05-10] MEDS: SODIUM CHLORIDE FLUSH 0.9% 10 ML SYRINGE IVP SCH ×2 (00:57→10:32)
[2021-05-10 05:02] LABS: BASOPHILS # (AUTO) 0.1 10^3/uL (0.0-0.1); BASOPHILS % (AUTO) 0.8 %; EOSINOPHILS # (AUTO) 0.4 10^3/uL (0.0-0.7); EOSINOPHILS % (AUTO) 4.5 %; HCT - HEMATOCRIT 48.2 % (42.0-52.0); HGB - HEMOGLOBIN 15.2 g/dL (14.0-18.0); LYMPHOCYTES # (AUTO) 1.5 10^3/uL (1.5-3.5); LYMPHOCYTES % (AUTO) 15.3 %; MEAN CORPUSCULAR HEMOGLOBIN 27.1 pg (27.0-31.0); MEAN CORPUSCULAR HGB CONC 31.5 g/dL (32.0-36.0); MEAN CORPUSCULAR VOLUME 86.1 fL (80.0-94.0); MEAN PLATELET VOLUME 10.9 fL (7.4-11.4); MONOCYTES # (AUTO) 1.1 10^3/uL (0.0-1.0); MONOCYTES % (AUTO) 11.2 %; NEUTROPHILS # (AUTO) 6.6 10^3/uL (1.5-6.6); NEUTROPHILS % (AUTO) 67.9 %; PLT - PLATELET COUNT 295 10^3/uL (130-450); RED CELL DISTRIBUTION WIDTH 15.7 % (12.0-15.0); WHITE BLOOD COUNT 9.8 x10^3/uL (4.8-10.8)
[2021-05-10 05:14] LABS: CALCIUM 8.8 mg/dL (8.5-10.3); CREATININE 1.4 mg/dL (0.6-1.2); POTASSIUM 4.2 mmol/L (3.5-5.0)
[2021-05-10] MEDS: FUROSEMIDE 40 MG TABLET PO SCH (06:10)
[2021-05-10] MEDS: GABAPENTIN 100 MG CAPSULE PO SCH (06:10)
[2021-05-10] MEDS: HYDROcod/ACETAM 5/325 MG TABLET PO PRN (06:10)
--- NOTE | 2021-05-10 09:10 | Discharge Plan ---
Discharge Plan Problem Reviewed?: Yes Disposition: Home, Self Care Condition: Stable Prescriptions: Spironolactone [Aldactone] 25 mg PO DAILY #30 tablet Gabapentin [Neurontin] 100 mg PO TID #90 cap Metoprolol Succinate [Toprol Xl] 50 mg PO DAILY #30 tablet lisinopriL [Zestril] 5 mg PO DAILY #30 tablet Diet: Low Sodium Activity Restrictions: Activity as Tolerated Shower Restrictions: No Instruction Topics: Heart Failure Warning Signs, Heart Failure Tracking Weight, Heart Failure Diet Changes Health Concerns: You were hospitalized because of fluid retention and an infection of your leg. You have finished antibiotics for the infection and you have been started on medicines to prevent the fluid retention, and help your weak heart muscle. Please take these medicines as prescribed. Our Tailings Worker has given you resources to [employer], to get refunded for the costs of your prescription medicines. You must call that phone number so that you can get this assistance. If you do not picker machine operator your prescriptions, you will keep getting fluid retention and you will again feel badly and may need hospitalization. Also, you should take a baby dose aspirin a day (81 mg). Please buy this on your own, from [email or web address]. Plan of Treatment: As above. You should go see a provider in the next 1-2 weeks, at the [facility], for a hospital follow-up visit. After that, an appointment with a new Primary Care Provider has been set up for you: on July 25, with Dr Soo Gonzalez. Care Goals: Improvement in symptoms and stabilization are the goals. Assessment: The patient was given these written instructions as a reminder. Additional Instructions or Follow Up instructions: You qualify for attending Congestive Heart Failure rehab exercise classes here as an outpatient. Your primary care provider, Dr Gonzalez, would need to refer you to the [facility] here, for you to start. Follow-Up Care: [facility] - CHF Classes No Smoking: If you smoke, Please STOP! Call for help. Follow-up with: Soo Gonzalez MD [Provider Admit Priv/Credential] -
[2021-05-10] MEDS: polyethylene glycoL 3350 17 GM PACKET PO SCH (10:28)
[2021-05-10] MEDS: DOCUSATE SODIUM 250 MG CAPSULE PO SCH (10:29)
[2021-05-10] MEDS: DOXYCYCLINE 100 MG TABLET PO SCH (10:29)
[2021-05-10] MEDS: TERBINAFINE 250 MG TABLET PO SCH (10:29)
[2021-05-10] MEDS: ASPIRIN CHEW 81 MG TABLET PO SCH (10:30)
[2021-05-10] MEDS: SPIRONOLACTONE 25 MG TABLET PO SCH (10:30)
[2021-05-10] MEDS: SACCHAROMYCES BOULARDII 250 MG CAPSULE PO SCH (10:30)
[2021-05-10] MEDS: METOPROLOL TARTRATE 25 MG TABLET PO SCH (10:30)
[2021-05-10] MEDS: ENOXAPARIN 40 MG/0.4 ML SYRINGE SUBQ SCH (10:31)
[2021-05-10] MEDS: SENNA 8.6 MG TABLET PO SCH (10:31)
[2021-05-10] MEDS: lisinopriL 5 MG TABLET PO SCH (10:35)
--- NOTE | 2021-05-10 11:28 | DISCHARGE SUMMARY ---
Discharge Summary Admit Date: 05/05/21 Discharge Date: 05/10/21 Discharging Provider: Dr Peralta Primary Care Provider: Dr Gonzalez Code Status: Do Not Attempt Resuscitation Condition at Discharge: Stable Discharge Disposition: 01 Home, Self Care - HPI History of Present Illness: From the admission H&P of Thiago Roberto RESISTOR WINDER: Mr. Robb is a 65-year-old white male with a PMH significant for systolic heart failure, HTN, [place], TIA, Depression, Osteoporosis, urinary retention, who presented to ER for a chief complaints of left foot pain and shortness of grady th. Unfortunately pt has homeless living status, and he currently resides in his van. Pt was seen at this ER two weeks ago and was found to have bilateral tinea pedis and he started with terbinafine. Also pt was found to have significantly elevated BNP. Pt was prescribed PO furosemide. Pt was previously seen at hospital 4 months ago and was found to have EF 25% on his Echocardiogram study. He was prescribed metoprolol, Lisinopril, Lasix, aspirin, Lipitor, and had social work to help him to set up with a PCP. But now these meds do not show up on his home medication list. Pt reports he took both Terbinafine and Lasix after he was seen at ER, but his left foot pain has become increased over the last few days, and he feels increasingly shortness of breath, especially with exertion. Pt reports he can not walk a few steps because his left foot's pain and he feels very short of breath. He denies chest pain, fever or chills. Chest x-ray show ill-defined bilateral airspace opacity that is unchanged. Xray of left foot shows no interval change, no osseous erosion is identified. Route labs from ER shows pt had significant elevated BNP 3700, elevated troponin and repeated troponin is flat. In ER, patient is afebrile, patient had 84% oxygen saturation on room air, mild tachycardia and elevated blood pressure. Given above medical conditions, medical team was consulted for admission. Discussed the care goal with patient, patient clearly wants to have DNR. He states if his time comes, wants to naturally pass away. - HOSPITAL COURSE Hospital Course: (1) Acute on chronic HFrEF (heart failure with reduced ejection fraction) We did not have Echo service to repeat an Echo, but 4 mos previously, his EF was 25%. He was started here on supplemental oxygen, iv b.i.d. Lasix and also he was put on B-rene, DANN-I, Spironolactone and empirically on aspirin and a statin. He had less lower extremity edema and less dyspnea, was able to be weaned off supplemental oxygen onto room air. He was discharged on these meds and is a ca ndidate for CHF rehab at the [facility] here. (2) Cellulitis of left foot This resolved with doxycycline; he completed a total of 5 days of therapy. (3) LÓPEZ (acute kidney injury) His creatinine increased briefly, while he was on lisinopril, Spironolactone and Lasix. At discharge his creat was (4) COPD (chronic obstructive pulmonary disease) This was stable and he was not in exacerbation. We ordered albuterol as needed. (5) Tinea pedis He was kept him on the med that was started before this admission. He should continue Terbinafine for another 10 weeks for his bilateral Tinea pedis. (6) History of coronary artery disease The elevated but flat troponin on admission was due to demand ischemia from the heart failure. Plan is to continue daily aspirin, Lipitor, and Toprol. (7) Homelessness He has been provided resources and was seen by social work. He was reminded to be compliant with taking his meds, and was given information about a service for medicaid recipients that reimburse him for his meds. - ALLERGIES Allergies/Adverse Reactions: Allergies Allergy/AdvReac Type Severity Reaction Status Date / Time No Known Drug Allergies Allergy Verified 05/05/21 12:19 - MEDICATIONS Home Medications: Ambulatory Orders Medication Instructions Recorded Confirmed Furosemide [Lasix] 20 mg PO BID #30 tablet 04/21/21 05/05/21 Terbinafine [Lamisil] 250 mg PO DAILY #14 tablet 04/21/21 05/05/21 Gabapentin [Neurontin] 100 mg PO TID #90 cap 05/10/21 Metoprolol Succinate [Toprol Xl] 50 mg PO DAILY #30 tablet 05/10/21 Spironolactone [Aldactone] 25 mg PO DAILY #30 tablet 05/10/21 lisinopriL [Zestril] 5 mg PO DAILY #30 tablet 05/10/21 - PHYSICAL EXAM AT DISCHARGE General Appearance: positive: No acute distress, Alert Eyes Bilateral: positive: Normal inspection, EOMI ENT: positive: ENT inspection nml, No signs of dehydration, Other (Loose fitting dentures in place) Neck: positive: Nml inspection, No JVD Respiratory: positive: No respiratory distress, Breath sounds nml Cardiovascular: positive: Regular rate & rhythm, No murmur Abdomen: positive: No distention Skin: positive: Warm, Dry Extremities: positive: Non-tender, No pedal edema Neurologic/Psychiatric: positive: Oriented x3 (Grossly intact motor.) - LABS Result Diagrams: 05/10/21 04:22 05/10/21 04:22 - DIAGNOSTIC IMAGING Diagnostic Imaging Results: Final report reviewed - SEPSIS Current Stage of Sepsis: Ruled out - FOLLOW UP Follow Up: See [facility] provider in 1-2 weeks for a hospital follow-up visit. Then a new PCP visit was arranged for him with Dr Gonzalez on July 25, 2021. - TIME SPENT Time Spent in Discharge (Minutes): 45
[2021-05-10 12:34] VITALS: BP 142/93
== END 2021-05-10 12:45 | disposition home or self-care (01) | DRG 189 ==
LOC: ED 12:04 → MS2 15:03
PROVIDERS: ADMIT Nurse Practitioner Gerontology; ATTEND Internal Medicine
DX: J96.01 Acute respiratory failure with hypoxia (principal); I50.23 Acute on chronic systolic (congestive) heart failure; I50.9 Heart failure, unspecified; Z20.822 Contact with and (suspected) exposure to COVID-19; L03.116 Cellulitis of left lower limb; N17.9 Acute kidney failure, unspecified; I24.8 Other forms of acute ischemic heart disease; F17.210 Nicotine dependence, cigarettes, uncomplicated; I11.0 Hypertensive heart disease with heart failure; L97.529 Non-pressure chronic ulcer of other part of left foot with unspecified severity; J44.9 Chronic obstructive pulmonary disease, unspecified; B35.3 Tinea pedis; I25.10 Atherosclerotic heart disease of native coronary artery without angina pectoris; Z59.02 Unsheltered homelessness; I25.2 Old myocardial infarction; Z86.73 Personal history of transient ischemic attack (TIA), and cerebral infarction without residual deficits; F32.A Depression, unspecified; Z66 Do not resuscitate; T50.916A Underdosing of multiple unspecified drugs, medicaments and biological substances, initial encounter; Z91.128 Patient's intentional underdosing of medication regimen for other reason
CPT/HCPCS: 36415; 71045; 73630; 80048; 80053; 80061; 80306; 83690; 83880; 84484; 85025; 85379; 85651; 86140; 87040; 87631; 93005; 96374; 96375; 96376; 99284; 99285; A9270; J1170; J1650; 0202U; 83721

== ENCOUNTER 2021-06-09 20:56 | Outpatient (CLI) | payer MEDICARE, MEDICAID | END 2021-06-09 20:57 | disposition EMS.NT | LOC: EMS 20:56 | DX: R06.09 Other forms of dyspnea (principal) ==

== ENCOUNTER 2021-07-08 12:47 | Emergency (ER) | payer MEDICARE, MEDICAID ==
[2021-07-08] MEDS ORDERED: ACETAMINOPHEN 325 MG TABLET PO STA (13:24)
[2021-07-08] MEDS ORDERED: GABAPENTIN 100 MG CAPSULE PO STA (13:24)
--- NOTE | 2021-07-08 13:25 | ED Physician Documentation ---
History of Present Illness - Stated complaint Stated Complaint: SWOLLEN FEET - Chief complaint Chief Complaint: General - History obtained from History obtained from: Patient - History of Present Illness Timing: Chronic Pain level max: 8 Pain level now: 8 - Additonal information Additional information: 65-year-old male with a longstanding history of congestive heart failure, chronic pain, neuropathy and methamphetamine abuse. Presents to the emergency department complaint of bilateral foot pain ongoing for the past several months. Worse with walking, better with rest. States that they have had increased swelling. He also complains of left hip pain. He states it has been hurting since a fall 1 month ago. Worse with walking, better with rest. Also states that he feels mildly short of breath at times. Currently is not short of breath. Review of Systems Constitutional: denies: Fever, Chills Nose: denies: Rhinorrhea / runny nose, Congestion Throat: denies: Sore throat GI: denies: Nausea, Vomiting, Diarrhea Musculoskeletal: denies: Neck pain, Back pain Neurologic: denies: Headache PD PAST MEDICAL HISTORY - Past Medical History Cardiovascular: Hypertension, Coronary artery disease, [place] Respiratory: None Neuro: TIA Endocrine/Autoimmune: None GI: None : Other HEENT: Other Psych: Depression Musculoskeletal: Osteoporosis Derm: Psoriasis - Past Surgical History Past Surgical History: Yes General: Appendectomy HEENT: Tonsil/Adenoidectomy - Present Medications Home Medications: Ambulatory Orders Medication Instructions Recorded Confirmed Furosemide [Lasix] 20 mg PO BID #30 tablet 04/21/21 05/05/21 Terbinafine [Lamisil] 250 mg PO DAILY #14 tablet 04/21/21 05/05/21 Gabapentin [Neurontin] 100 mg PO TID #90 cap 05/10/21 Metoprolol Succinate [Toprol Xl] 50 mg PO DAILY #30 tablet 05/10/21 Spironolactone [Aldactone] 25 mg PO DAILY #30 tablet 05/10/21 lisinopriL [Zestril] 5 mg PO DAILY #30 tablet 05/10/21 Gabapentin [Neurontin] 300 mg PO TID #90 cap 07/08/21 Ibuprofen [Motrin] 800 mg PO Q8H PRN #30 tablet 07/08/21 cephALEXin [Keflex] 500 mg PO Q6H #28 cap 07/08/21 - Allergies Allergies/Adverse Reactions: Allergies Allergy/AdvReac Type Severity Reaction Status Date / Time No Known Drug Allergies Allergy Verified 07/08/21 13:06 - Social History Does the pt smoke?: Yes Smoking Status: Current every day smoker Does the pt drink ETOH?: No - Immunizations Immunizations are current?: No - POLST Patient has POLST: No POLST Status: DNR PD ED PE NORMAL - Vitals Vital signs reviewed: Yes - General General: Alert and oriented X 3, No acute distress, Well developed/nourished - HEENT HEENT: PERRL, Moist mucous membranes - Neck Neck: Supple, no meningeal sign - Cardiac Cardiac: RRR, Strong equal pulses - Respiratory Respiratory: No respiratory distress, Clear bilaterally - Abdomen Abdomen: Soft, Non tender, Non distended - Derm Derm: Warm and dry - Extremities Extremities: No edema (No edema over the calves.), Other (Ruddiness to the bilateral hands and feet. Small sores to the left foot. No drainage. Mild edema. Neurovascular intact. No tenderness over the left hip. Full range of motion.) - Neuro Neuro: Alert and oriented X 3 - Psych Psych: Normal mood, Normal affect Results - Vitals Vitals: Vital Signs - 24 hr 07/08/21 07/08/21 13:01 15:04 Temperature 37.3 C Heart Rate 113 H 99 Respiratory 16 17 Rate Blood Pressure 180/140 H 145/89 H O2 Saturation 99 97 Oxygen O2 Source Room air - EKG (time done) 1301 Rate: Rate (enter#) (102) Rhythm: Sinus tachycardia [place]: Normal Intervals: Normal VA QRS: LVH Ischemia: ST elevation c/w repol - Labs Labs: Laboratory Tests 07/08/21 07/08/21 07/08/21 13:30 13:30 13:30 WBC 6.5 RBC 5.89 Hgb 15.9 Hct 48.9 MCV 83.0 MCH 27.0 MCHC 32.5 RDW 17.9 H Plt Count 281 MPV 9.9 Neut # (Auto) 4.5 Lymph # (Auto) 0.8 L [place] # (Auto) 0.7 Eos # (Auto) 0.4 Baso # (Auto) 0.1 Absolute Nucleated RBC 0.00 Nucleated RBC % 0.0 ESR 9 Sodium 137 Potassium 4.0 Chloride 104 Carbon Dioxide 24 Anion Gap 9.0 BUN 18 Creatinine 1.0 Estimated GFR (MDRD) 75 L Glucose 95 Calcium 8.7 Total Bilirubin 0.3 AST 20 ALT 16 Alkaline Phosphatase 100 C-Reactive Protein 1.0 B-Natriuretic Peptide Total Protein 6.9 Albumin 3.7 Globulin 3.2 Albumin/Globulin Ratio 1.2 Lipase 32 07/08/21 13:30 WBC RBC Hgb Hct MCV MCH MCHC RDW Plt Count MPV Neut # (Auto) Lymph # (Auto) [place] # (Auto) Eos # (Auto) Baso # (Auto) Absolute Nucleated RBC Nucleated RBC % ESR Sodium Potassium Chloride Carbon Dioxide Anion Gap BUN Creatinine Estimated GFR (MDRD) Glucose Calcium Total Bilirubin AST ALT Alkaline Phosphatase C-Reactive Protein B-Natriuretic Peptide 1453 H Total Protein Albumin Globulin Albumin/Globulin Ratio Lipase - Rads (name of study) Bilateral foot x-ray Radiology: Final report received, EMP read contemporaneously, See rad report Left hip x-ray Radiology: Final report received, EMP read contemporaneously, See rad report PD MEDICAL DECISION MAKING - ED course Complexity details: reviewed results, re-evaluated patient, considered differential, d/w patient ED course: No significant findings on laboratory testing, x-ray of the hip or feet. Ambulating well. Feels better after gabapentin and Tylenol. Will prescribe Motrin and gabapentin for home. We will also add a small amount of Keflex for potential cellulitis of the left foot. We will have him follow-up with his PCP for further care. The patient's chronic pain is likely neuropathy from medical noncompliance. Patient counseled regarding signs and symptoms for which I believe and urgent re-evaluation would be necessary. Patient with good understanding of and agreement to plan and is comfortable going home at this time This document was made in part using voice recognition software. While efforts are made to proofread this document, sound alike and grammatical errors may occur. Patient was also encouraged to stop using methamphetamines and other illegal becky gs. Departure - Departure Disposition: 01 Home, Self Care Clinical Impression: Foot pain, bilateral, Cellulitis of foot Condition: Good Instructions: ED Infec Skin Cellulitis, ED Chronic Pain Management Follow-Up: [facility] [place] [Provider Group] Primary/Walk In [place] [Provider Group] [facility] [Provider Group] Prescriptions: cephALEXin [Keflex] 500 mg PO Q6H #28 cap Ibuprofen [Motrin] 800 mg PO Q8H PRN #30 tablet PRN Reason: PAIN &/OR FEVER Gabapentin [Neurontin] 300 mg PO TID #90 cap Comments: Please follow up with one of the walk in clinics for further care. Pain medications and antibiotics were sent to the [facility] in [place] for you. Discharge Date/Time: 07/08/21 15:10
[2021-07-08 13:38] LABS: BASOPHILS # (AUTO) 0.1 10^3/uL (0.0-0.1); BASOPHILS % (AUTO) 0.9 %; EOSINOPHILS # (AUTO) 0.4 10^3/uL (0.0-0.7); EOSINOPHILS % (AUTO) 6.6 %; HCT - HEMATOCRIT 48.9 % (42.0-52.0); HGB - HEMOGLOBIN 15.9 g/dL (14.0-18.0); LYMPHOCYTES # (AUTO) 0.8 10^3/uL (1.5-3.5); LYMPHOCYTES % (AUTO) 12.2 %; MEAN CORPUSCULAR HGB CONC 32.5 g/dL (32.0-36.0); MEAN PLATELET VOLUME 9.9 fL (7.4-11.4); MONOCYTES # (AUTO) 0.7 10^3/uL (0.0-1.0); MONOCYTES % (AUTO) 10.9 %; NEUTROPHILS # (AUTO) 4.5 10^3/uL (1.5-6.6); NEUTROPHILS % (AUTO) 69.1 %; PLT - PLATELET COUNT 281 10^3/uL (130-450); RED BLOOD COUNT 5.89 10^6/uL (4.70-6.10); RED CELL DISTRIBUTION WIDTH 17.9 % (12.0-15.0); WHITE BLOOD COUNT 6.5 x10^3/uL (4.8-10.8)
--- NOTE | 2021-07-08 13:52 | XRAY Report ---
PROCEDURE: Hip w/Pelvis 2-3V LT INDICATIONS: fall 1 month ago, continued pain TECHNIQUE: AP pelvis with lateral view(s) of the left hip(s). COMPARISON: None. FINDINGS: Bones: No fractures or dislocations. Pelvic ring appears intact. No suspicious bony lesions. Soft tissues: The visualized bowel gas pattern is normal. No suspicious soft tissue calcifications. IMPRESSION: . No visualized acute fracture or dislocation. However, occult injury cannot be excluded . Recommend short interval imaging follow-up in 7-10 days as clinically indicated for additional eval uation. Reviewed by: Liss Perry MD on 07/08/2021 1:51 PM PDT Approved by: Liss Perry MD on 07/08/2021 1:51 PM PDT Station ID: [id number]
[2021-07-08 13:54] LABS: ALBUMIN 3.7 g/dL (3.2-5.5); ALBUMIN/GLOBULIN RATIO 1.2 (1.0-2.2); BILIRUBIN,TOTAL 0.3 mg/dL (0.2-1.0); CALCIUM 8.7 mg/dL (8.5-10.3); TOTAL PROTEIN 6.9 g/dL (6.7-8.2)
--- NOTE | 2021-07-08 13:58 | XRAY Report ---
PROCEDURE: Foot 2 View BILAT INDICATIONS: B foot pain x months TECHNIQUE: 3 views of the foot were acquired. COMPARISON: Xray foot 04/21/21, 05/05/21 FINDINGS: Bones: No fractures or dislocations. No suspicious bony lesions. Moderate to severe first MTP dege nerative narrowing subchondral sclerosis and osteophytes. No visualized cysts. There is a slight tirado llux valgus deformity. Similar although less severe appearance at the right first MTP joint. Minimal scattered IP degenerative narrowing is present bilaterally. Soft tissues: No tibiotalar joint effusion. Achilles tendon appears normal. IMPRESSION: Degenerative changes most severe at the first MTP joints bilaterally stable compared to prior exam. Reviewed by: Liss Perry MD on 07/08/2021 1:56 PM PDT Approved by: Liss Perry MD on 07/08/2021 1:56 PM PDT Station ID: [id number]
[2021-07-08 15:05] VITALS: BP 145/89
== END 2021-07-08 15:10 | disposition home or self-care (01) ==
LOC: ED 12:47
DX: L03.116 Cellulitis of left lower limb (principal); L03.115 Cellulitis of right lower limb; M25.552 Pain in left hip; I10 Essential (primary) hypertension; F17.200 Nicotine dependence, unspecified, uncomplicated
CPT/HCPCS: 36415; 73502; 73620; 80053; 83690; 83880; 85025; 85651; 86140; 93005; 99284; A9270

== ENCOUNTER 2022-01-13 13:13 | Outpatient (CLI) | payer MEDICARE, MEDICAID | END 2022-01-13 13:14 | disposition short-term general hospital (02) | LOC: EMS 13:13 | DX: R06.09 Other forms of dyspnea (principal); R06.2 Wheezing; R00.0 Tachycardia, unspecified | CPT/HCPCS: A0425; A0427 ==

== ENCOUNTER 2022-02-21 20:58 | Inpatient (IN) | payer MEDICARE, MEDICAID ==
[2022-02-21 21:34] LABS: BASOPHILS # (AUTO) 0.1 10^3/uL (0.0-0.1); BASOPHILS % (AUTO) 0.5 %; EOSINOPHILS # (AUTO) 0.4 10^3/uL (0.0-0.7); EOSINOPHILS % (AUTO) 3.3 %; HCT - HEMATOCRIT 49.7 % (42.0-52.0); HGB - HEMOGLOBIN 15.7 g/dL (14.0-18.0); LYMPHOCYTES # (AUTO) 1.3 10^3/uL (1.5-3.5); LYMPHOCYTES % (AUTO) 10.1 %; MEAN CORPUSCULAR HEMOGLOBIN 27.8 pg (27.0-31.0); MEAN CORPUSCULAR HGB CONC 31.6 g/dL (32.0-36.0); MEAN CORPUSCULAR VOLUME 88.1 fL (80.0-94.0); MEAN PLATELET VOLUME 10.1 fL (7.4-11.4); MONOCYTES # (AUTO) 1.2 10^3/uL (0.0-1.0); MONOCYTES % (AUTO) 9.4 %; NEUTROPHILS % (AUTO) 76.5 %; PLT - PLATELET COUNT 321 10^3/uL (130-450); RED BLOOD COUNT 5.64 10^6/uL (4.70-6.10); RED CELL DISTRIBUTION WIDTH 13.9 % (12.0-15.0)
[2022-02-21 21:47] LABS: VBG PH 7.349 (7.31-7.41)
[2022-02-21 21:48] LABS: VBG BASE EXCESS 2.3 mmol/L (-2 - +2); VBG HCO3 29.2 mmol/L (23-28); VBG OXYGEN SATURATION 51.1 % (60-80); VBG PCO2 54.3 mmHg (41-51); VBG PO2 28.1 mmHg (25-47); VBG TOTAL CO2 30.9 mmol/L (24-29)
[2022-02-21 21:49] LABS: ALBUMIN 3.7 g/dL (3.2-5.5); ALBUMIN/GLOBULIN RATIO 0.9 (1.0-2.2); BILIRUBIN,TOTAL 0.6 mg/dL (0.2-1.0); CALCIUM 8.9 mg/dL (8.5-10.3); CREATININE 1.1 mg/dL (0.6-1.2); POTASSIUM 4.5 mmol/L (3.5-5.0)
[2022-02-21] MEDS ORDERED: FUROSEMIDE 40 MG/4 ML VIAL IVP STA (21:49)
--- NOTE | 2022-02-21 21:58 | ED Physician Documentation ---
History of Present Illness - Stated complaint Stated Complaint: SOA - Chief complaint Chief Complaint: Cardiac - History obtained from History obtained from: Patient - Additonal information Additional information: 66-year-old man with history of CHF, occasional meth and alcohol abuse, homeless, presents with shortness of breath for the past couple of weeks with pillow orthopnea for the past 2 to 3 days and acute dyspnea this Evening. Patient also expresses flulike symptoms for the past week of headache, myalgias, and chills. Of note, patient was in [facility] 3 weeks ago with similar symptoms and states he thinks he may have been on antibiotics for pneumonia. Review of Systems Constitutional: reports: Chills, Myalgias, Fatigue Cardiac: denies: Chest pain / pressure Respiratory: reports: Dyspnea, Cough, Wheezing. denies: Hemoptysis PD PAST MEDICAL HISTORY - Past Medical History Cardiovascular: Hypertension, Coronary artery disease, [place] Respiratory: None Neuro: TIA Endocrine/Autoimmune: None GI: None : Other HEENT: Other Psych: Depression Musculoskeletal: Osteoporosis Derm: Psoriasis - Past Surgical History Past Surgical History: Yes General: Appendectomy HEENT: Tonsil/Adenoidectomy - Present Medications Home Medications: Ambulatory Orders Medication Instructions Recorded Confirmed Furosemide [Lasix] 20 mg PO BID #30 tablet 04/21/21 02/21/22 Terbinafine [Lamisil] 250 mg PO DAILY #14 tablet 04/21/21 02/21/22 Gabapentin [Neurontin] 100 mg PO TID #90 cap 05/10/21 02/21/22 Metoprolol Succinate [Toprol Xl] 50 mg PO DAILY #30 tablet 05/10/21 02/21/22 Spironolactone [Aldactone] 25 mg PO DAILY #30 tablet 05/10/21 02/21/22 lisinopriL [Zestril] 5 mg PO DAILY #30 tablet 05/10/21 02/21/22 Gabapentin [Neurontin] 300 mg PO TID #90 cap 07/08/21 02/21/22 Ibuprofen [Motrin] 800 mg PO Q8H PRN #30 tablet 07/08/21 02/21/22 cephALEXin [Keflex] 500 mg PO Q6H #28 cap 07/08/21 02/21/22 - Allergies Allergies/Adverse Reactions: Allergies Allergy/AdvReac Type Severity Reaction Status Date / Time No Known Drug Allergies Allergy Verified 02/21/22 21:16 - Social History Does the pt smoke?: Yes Smoking Status: Current every day smoker Does the pt drink ETOH?: No - Immunizations Immunizations are current?: No - POLST Patient has POLST: No POLST Status: DNR PD ED PE NORMAL - Vitals Vital signs reviewed: Yes - General General: Alert and oriented X 3, Well developed/nourished, Other (mild to moderate respiratory distress) - HEENT HEENT: Atraumatic, PERRL, EOMI, Moist mucous membranes, Pharynx benign - Neck Neck: Supple, no meningeal sign - Cardiac Cardiac: Other (Tachycardic rate, regular rhythm) - Respiratory Respiratory: Other (Bilateral crackles) - Abdomen Abdomen: Non tender, Non distended - Derm Derm: Normal color, Warm and dry - Extremities Extremities: Other (Bilateral 2+ LE edema) - Neuro Neuro: Alert and oriented X 3, No motor deficit, No sensory deficit - Psych Psych: Normal mood, Normal affect Results - Vitals Vitals: Vital Signs - 24 hr 02/21/22 02/21/22 02/21/22 21:17 22:15 22:48 Temperature 36.4 C L Heart Rate 122 H 97 77 Respiratory 28 H 16 Rate Blood Pressure 187/123 H 142/72 H O2 Saturation 87 L 95 If not protocol 2 : Oxygen Flow, liters/minute Oxygen O2 Source BIPAP - EKG (time done) 2104 Rate: Rate (enter#) (121) Rhythm: Sinus tachycardia [place]: RAD QRS: LVH Ischemia: Non specific changes - Labs Labs: Laboratory Tests 02/21/22 02/21/22 02/21/22 21:05 21:20 21:20 WBC 13.0 H RBC 5.64 Hgb 15.7 Hct 49.7 MCV 88.1 MCH 27.8 MCHC 31.6 L RDW 13.9 Plt Count 321 MPV 10.1 Neut # (Auto) 10.0 H Lymph # (Auto) 1.3 L [place] # (Auto) 1.2 H Eos # (Auto) 0.4 Baso # (Auto) 0.1 Absolute Nucleated RBC 0.00 Nucleated RBC % 0.0 VBG pH VBG pCO2 VBG pO2 VBG HCO3 VBG Total CO2 VBG O2 Saturation VBG Base Excess Sodium 132 L Potassium 4.5 Chloride 94 L Carbon Dioxide 29 Anion Gap 9.0 BUN 28 H Creatinine 1.1 Estimated GFR (MDRD) 67 L Glucose 117 H Calcium 8.9 Total Bilirubin 0.6 AST 23 ALT 23 Alkaline Phosphatase 102 Troponin I High Sens B-Natriuretic Peptide Total Protein 8.0 Albumin 3.7 Globulin 4.3 H Albumin/Globulin Ratio 0.9 L Lipase 27 Nasal Adenovirus (PCR) NOT DETECTED Nasal B. parapertussis DNA (PCR) NOT DETECTED Nasal Coronavir 229E PCR NOT DETECTED Nasal Coronavir HKU1 PCR NOT DETECTED Nasal Coronavir NL63 PCR NOT DETECTED Nasal Coronavir OC43 PCR NOT DETECTED Nasal Enterovir/Rhinovir PCR NOT DETECTED Nasal Influenza B PCR NOT DETECTED Nasal Influenza A PCR NOT DETECTED Nasal Parainfluen 1 PCR NOT DETECTED Nasal Parainfluen 2 PCR NOT DETECTED Nasal Parainfluen 3 PCR NOT DETECTED Nasal Parainfluen 4 PCR NOT DETECTED Nasal RSV (PCR) NOT DETECTED Nasal B.pertussis DNA PCR NOT DETECTED Nasal C.pneumoniae (PCR) NOT DETECTED Luis Human Metapneumo PCR NOT DETECTED Nasal M.pneumoniae (PCR) NOT DETECTED Nasal SARS-CoV-2 (PCR) DETECTED A 02/21/22 02/21/22 02/21/22 21:20 21:20 21:41 WBC RBC Hgb Hct MCV MCH MCHC RDW Plt Count MPV Neut # (Auto) Lymph # (Auto) [place] # (Auto) Eos # (Auto) Baso # (Auto) Absolute Nucleated RBC Nucleated RBC % VBG pH 7.349 VBG pCO2 54.3 H VBG pO2 28.1 VBG HCO3 29.2 H VBG Total CO2 30.9 H VBG O2 Saturation 51.1 L VBG Base Excess 2.3 H Sodium Potassium Chloride Carbon Dioxide Anion Gap BUN Creatinine Estimated GFR (MDRD) Glucose Calcium Total Bilirubin AST ALT Alkaline Phosphatase Troponin I High Sens 47.1 H* B-Natriuretic Peptide 2938 H Total Protein Albumin Globulin Albumin/Globulin Ratio Lipase Nasal Adenovirus (PCR) Nasal B. parapertussis DNA (PCR) Nasal Coronavir 229E PCR Nasal Coronavir HKU1 PCR Nasal Coronavir NL63 PCR Nasal Coronavir OC43 PCR Nasal Enterovir/Rhinovir PCR Nasal Influenza B PCR Nasal Influenza A PCR Nasal Parainfluen 1 PCR Nasal Parainfluen 2 PCR Nasal Parainfluen 3 PCR Nasal Parainfluen 4 PCR Nasal RSV (PCR) Nasal B.pertussis DNA PCR Nasal C.pneumoniae (PCR) Luis Human Metapneumo PCR Nasal M.pneumoniae (PCR) Nasal SARS-CoV-2 (PCR) 02/21/22 23:21 WBC RBC Hgb Hct MCV MCH MCHC RDW Plt Count MPV Neut # (Auto) Lymph # (Auto) [place] # (Auto) Eos # (Auto) Baso # (Auto) Absolute Nucleated RBC Nucleated RBC % VBG pH VBG pCO2 VBG pO2 VBG HCO3 VBG Total CO2 VBG O2 Saturation VBG Base Excess Sodium Potassium Chloride Carbon Dioxide Anion Gap BUN Creatinine Estimated GFR (MDRD) Glucose Calcium Total Bilirubin AST ALT Alkaline Phosphatase Troponin I High Sens 41.0 H* B-Natriuretic Peptide Total Protein Albumin Globulin Albumin/Globulin Ratio Lipase Nasal Adenovirus (PCR) Nasal B. parapertussis DNA (PCR) Nasal Coronavir 229E PCR Nasal Coronavir HKU1 PCR Nasal Coronavir NL63 PCR Nasal Coronavir OC43 PCR Nasal Enterovir/Rhinovir PCR Nasal Influenza B PCR Nasal Influenza A PCR Nasal Parainfluen 1 PCR Nasal Parainfluen 2 PCR Nasal Parainfluen 3 PCR Nasal Parainfluen 4 PCR Nasal RSV (PCR) Nasal B.pertussis DNA PCR Nasal C.pneumoniae (PCR) Luis Human Metapneumo PCR Nasal M.pneumoniae (PCR) Nasal SARS-CoV-2 (PCR) PD Medical Decision Making - ED course ED course: 66-year-old man presents with acute dyspnea, likely cardiac in nature. Doubt PE given lack of hemoptysis, more likely CHF exacerbation. will treat and admit Departure - Departure Clinical Impression: Dyspnea, CHF exacerbation, COVID-19 Condition: Fair
--- NOTE | 2022-02-21 22:03 | XRAY Report ---
PROCEDURE: Chest 1 View X-Ray INDICATIONS: Chest pain TECHNIQUE: One view of the chest was acquired. COMPARISON: Chest x-ray 07/05/2021. FINDINGS: Surgical changes and devices: None. Lungs and pleura: There are new confluent opacities medially within the right lung base compatible w ith consolidation. No pleural effusions or pneumothorax. Mediastinum: Mediastinal contours appear normal. Heart size is normal. Bones and chest wall: No suspicious bony lesions. Overlying soft tissues appear unremarkable. IMPRESSION: 1. New confluent right basilar medial opacities consistent with consolidation likely due to pneumonia . Reviewed by: Dax Persaud MD on 02/21/2022 10:01 PM PST Approved by: Dax Persaud MD on 02/21/2022 10:01 PM PST Station ID: [id number]
[2022-02-21 22:24] LABS: B. PARAPERTUSSIS- RESP PCR PAN NOT DETECTED; B. PERTUSSIS- RESP PCR PANEL NOT DETECTED; C. PNEUMONIAE- RESP PCR PANEL NOT DETECTED; CORONAVIRUS 229E-RESP PCR NOT DETECTED; CORONAVIRUS HKU1-RESP PCR NOT DETECTED; CORONAVIRUS NL63-RESP PCR NOT DETECTED; CORONAVIRUS OC43-RESP PCR NOT DETECTED; HUMAN METAPNEUMOVIRUS NOT DETECTED; INFLUENZA A- RESP PCR PANEL NOT DETECTED; INFLUENZA B - RESP PCR PANEL NOT DETECTED; M. PNEUMONIAE- RESP PCR PANEL NOT DETECTED; PARAINFLUENZA VIRUS 1 NOT DETECTED; PARAINFLUENZA VIRUS 2 NOT DETECTED; PARAINFLUENZA VIRUS 3 NOT DETECTED; PARAINFLUENZA VIRUS 4 NOT DETECTED; RHINOVIRUS/ENTEROVIRUS NOT DETECTED; RSV- RESP PCR PANEL NOT DETECTED; SARS-CoV-2 -RESP PCR PANEL DETECTED
[2022-02-22] MEDS ORDERED: DEXAMETHASONE 10 MG/ML VIAL IVP STA (01:36)
[2022-02-22] MEDS ORDERED: SODIUM CHLORIDE FLUSH 0.9% 10 ML SYRINGE IVP PRN (01:57)
[2022-02-22] MEDS ORDERED: ONDANSETRON 4 MG/2 ML VIAL IVP PRN (01:57)
[2022-02-22] MEDS: HEPARIN 5,000 UNIT/ML VIAL SUBQ SCH ×3 (03:18→21:12)
[2022-02-22] MEDS: ACETAMINOPHEN 325 MG TABLET PO PRN ×4 (03:34→21:11)
[2022-02-22] MEDS ORDERED: carvediloL 3.125 MG TABLET PO STA (04:05)
[2022-02-22] MEDS ORDERED: iohexoL-300 100 ML VIAL ONE (04:12)
--- NOTE | 2022-02-22 04:28 | HISTORY & PHYSICAL EXAMINATION ---
History and Physical - History and Physical Chief complaint Shortness of breath History of present illness This is 66-year-old male who presented to emergency room with complaint of shortness of breath. Patient has history of congestive heart failure but he is noncompliant with his medications. Patient has orthopnea since last few days. He also had flulike symptoms with fever chills abdominal pain headache myalgia etc. Patient was positive for COVID-19. Chest x-ray showed right basilar opacities consistent with consolidation. He received 80 mg of IV Lasix as well as 10 mg of IV Decadron in the emergency room. Initially was placed on BiPAP with 30% FiO2. I saw patient using telemedicine audiovisual cart. Patient is alert and oriented at this time. He denies having any nausea vomiting. His breathing is improved. He has almost 1.3 L of urine output since IV Lasix. He denies any chest pain. Complaining of some abdominal pain. Denies any lower extremity swelling or calf tenderness. Past medical history Cardiomyopathy Hypertension Homelessness COPD Coronary artery disease Depression Osteoporosis Psoriasis TIA Past surgical history appendectomy and tonsillectomy Family history Mother had lung cancer and father had stroke Social history Patient does not use any alcohol illicit drugs or tobacco products Review of system Troponin of system was done. It was negative except as per history of present illness Physical examination Vital signs Blood pressure 160/110, heart rate 95, respiration 18, temperature 36.6 C axillary Head is atraumatic normocephalic Pupils are reactive to light CVS tachycardic Respiration tachypnea Abdomen mild lower abdominal tenderness Extremities no clubbing cyanosis edema Psych normal mood and BAND TIER no focal deficits Skin no ulcers or rashes Musculoskeletal no calf tenderness Allergies Reviewed Home medications Reviewed Assessment 1. Acute respiratory failure with hypoxia 2. COVID-19 pneumonia 3. Suspected CHF exacerbation, systolic 4. Hypertension 5. Hyponatremia 6. Elevated D-dimer 7. Elevated troponin 8. COPD 9. Elevated troponin. Patient has baseline elevated troponin. NSTEMI versus supply demand ischemia versus other etiologies 10. Homelessness Plan Admit patient in ICU We will try to wean him off from BiPAP Continue dexamethasone COVID-19 isolation protocol Consider remdesivir IV Decrease the dose of IV Lasix to 20 mg twice a day starting tomorrow Get CT chest PE protocol to further rule out pulmonary embolism as well as to evaluate pneumonia/pulmonary edema Check CRP, procalcitonin, LDH Follow-up troponin Get repeat echocardiogram Oxygen breathing treatments Continue spironolactone lisinopril. We will switch him to Coreg from Toprol-XL Continue aspirin and statin Check daily input and output Check daily weight CODE STATUS Full code Total time taken for this was 70 minutes. This was telemedicine evaluation using bedside telemedicine audiovisual cart with the help of bedside nursing staff
[2022-02-22 04:54] LABS: BASOPHILS % (AUTO) 0.3 %; EOSINOPHILS # (AUTO) 0.1 10^3/uL (0.0-0.7); EOSINOPHILS % (AUTO) 0.7 %; HCT - HEMATOCRIT 48.1 % (42.0-52.0); HGB - HEMOGLOBIN 15.6 g/dL (14.0-18.0); LYMPHOCYTES # (AUTO) 0.7 10^3/uL (1.5-3.5); LYMPHOCYTES % (AUTO) 5.7 %; MEAN CORPUSCULAR HEMOGLOBIN 28.3 pg (27.0-31.0); MEAN CORPUSCULAR HGB CONC 32.4 g/dL (32.0-36.0); MEAN CORPUSCULAR VOLUME 87.1 fL (80.0-94.0); MEAN PLATELET VOLUME 10.4 fL (7.4-11.4); MONOCYTES # (AUTO) 0.4 10^3/uL (0.0-1.0); NEUTROPHILS # (AUTO) 10.9 10^3/uL (1.5-6.6); NEUTROPHILS % (AUTO) 89.9 %; PLT - PLATELET COUNT 296 10^3/uL (130-450); RED BLOOD COUNT 5.52 10^6/uL (4.70-6.10); WHITE BLOOD COUNT 12.1 x10^3/uL (4.8-10.8)
[2022-02-22 05:28] LABS: ALBUMIN 3.4 g/dL (3.2-5.5); ALBUMIN/GLOBULIN RATIO 0.9 (1.0-2.2); BILIRUBIN,TOTAL 0.7 mg/dL (0.2-1.0); CALCIUM 8.9 mg/dL (8.5-10.3); POTASSIUM 4.3 mmol/L (3.5-5.0); TOTAL PROTEIN 7.3 g/dL (6.7-8.2)
[2022-02-22 06:19] LABS: CALCIUM, IONIZED 1.07 mmol/L (1.15-1.33); VBG PH 7.439 (7.31-7.41)
[2022-02-22 06:29] LABS: MAGNESIUM 1.8 mg/dL (1.7-2.8); PHOSPHORUS 2.5 mg/dL (2.5-4.6)
[2022-02-22] MEDS ORDERED: PANTOPRAZOLE 40 MG VIAL IVP SCH (07:00)
[2022-02-22] MEDS ORDERED: iohexoL-300 100 ML VIAL IVP ONE (07:09)
[2022-02-22] MEDS: NEUTRA-PHOS 250 MG TABLET PO SCH ×2 (08:27→12:51)
[2022-02-22] MEDS: SPIRONOLACTONE 25 MG TABLET PO SCH (08:27)
[2022-02-22] MEDS: MAGNESIUM OXIDE 400 MG TABLET PO SCH ×2 (08:27→14:36)
[2022-02-22] MEDS: CALCIUM CARBONATE CHEW 500 MG TABLET PO SCH ×2 (08:31→12:52)
[2022-02-22] MEDS: polyethylene glycoL 3350 17 GM PACKET PO SCH (08:33)
[2022-02-22] MEDS: SODIUM CHLORIDE FLUSH 0.9% 10 ML SYRINGE IVP SCH ×2 (08:40→21:13)
[2022-02-22] MEDS ORDERED: lisinopriL 5 MG TABLET PO SCH (09:00)
--- NOTE | 2022-02-22 09:41 | CT Report ---
PROCEDURE: ANGIO CHEST W/WO INDICATIONS: rule out PE; evaluate for pneumonia/ pulm edema CONTRAST: Omni 300 80ml TECHNIQUE: After the administration of intravenous contrast, 2 mm axial images were acquired from the pulmonary apices to the posterior costophrenic angles during the arterial phase. In addition, 1 mm lung kernel and 5 mm soft tissue kernel reconstructions were performed. 3-dimensional coronal oblique maximum int ensity projection (MIP) reformats, 8 mm axial MIP, and 5 mm coronal and sagittal MPR reformats were t hen performed through the thorax. For radiation dose reduction, the following was used: automated exp osure control, adjustment of mA and/or kV according to patient size. COMPARISON: CT angiogram of chest dated 01/10/2021 FINDINGS: Image quality: Excellent. Pulmonary arteries: Pulmonary arteries are normal in size, and demonstrate no intraluminal filling d efects to suggest central pulmonary embolism. Lungs and pleura: And there is centrilobular emphysema is seen. 8 mm solid nodule is noted in posteri or right apex series 6 image 63. Ill-defined airspace opacities are noted scattered in right lower lo be and in left lingula segment. Scattered atelectasis is improved free of bilateral lung bases are al so seen. No pleural effusions or pneumothorax. Central and peripheral airways are patent. Mediastinum: Left ventricular hypertrophy is noted without pericardial effusion. Prominent mediastina l and hilar lymph nodes are seen suggestive of reactive inflammatory nodes. Thoracic aorta is normal in caliber and enhancement. Esophagus is normal in caliber, without hiatal hernia. Bones and chest wall: No suspicious bony lesions. No acute vertebral body compression fracture. Dege nerative disc disease throughout thoracic spine is seen. No axillary or supraclavicular adenopathy. The thyroid is normal in size and there are no incidental findings. Abdomen: Visualized upper abdominal solid organs appear normal in the early arterial phase of enhanc ement. IMPRESSION: 1. No evidence of pulmonary emboli. 2. Left ventricular hypertrophy. No pericardial effusion. 3. Patchy airspace opacities involving right lower lobe and left lingula segment concerning for bilat eral multilobar infiltrates. No pleural effusion or pneumothorax. 4. Incidentally noted of 8 mm solid nodule in right apex which was also seen on previous study in 202 1 and is unchanged suggestive of benign process. Continue CT chest follow-up in 12 months can be done to further establish stability. 5. Advanced centrilobular emphysema. 6. Mediastinal and hilar lymphadenopathy likely represent reactive inflammatory nodes. CLINICAL RECOMMENDATION STATEMENTS: In patients <35 years with an ITN detected on CT, MRI, or extrathyroidal ultrasound, the Committee re commends further evaluation with dedicated thyroid ultrasound if the nodule is "e1 cm and has no susp icious imaging features, and if the patient has normal life expectancy. In patients "e35 years with an ITN detected on CT, MRI, or extrathyroidal ultrasound, the Committee r ecommends further evaluation with dedicated thyroid ultrasound if the nodule is "e1.5 cm and has no s uspicious imaging features, and if the patient has normal life expectancy. (ACR, 2014) Reviewed by: Rangel Gonzales MD on 02/22/2022 9:40 AM PST Approved by: Rangel Gonzales MD on 02/22/2022 9:40 AM PST Station ID: [id number]
--- NOTE | 2022-02-22 12:52 | PHARMACY PROGRESS NOTE ---
- Best Possible Medication History Admit Date and Time: 02/22/22 0157 Processed by: Pharmacy Medication History completed: Yes Patient Interview: Completed Secondary Source(s): Pharmacy records (pt didn't know his meds. Called [facility] spoke to Renetta) As the person ultimately responsible for medication therapy, providers are able to order a medication from an existing home medication list in [facility] via the "Reconcile Routine" prior to Confirmation of that medication by marketing support coordinator. Such practice is discouraged except when the physician, in their clinical judgment, deems that a medical need exists for a medication without regard to previous use.
[2022-02-23] MEDS: SODIUM CHLORIDE FLUSH 0.9% 10 ML SYRINGE IVP SCH ×3 (01:15→22:00)
[2022-02-23] MEDS: ACETAMINOPHEN 325 MG TABLET PO PRN ×3 (01:15→13:57)
[2022-02-23] MEDS ORDERED: traMADol 50 MG TABLET PO PRN (02:35)
[2022-02-23 05:04] LABS: CALCIUM, IONIZED 1.06 mmol/L (1.15-1.33); VBG PH 7.509 (7.31-7.41)
[2022-02-23 05:18] LABS: PHOSPHORUS 3.3 mg/dL (2.5-4.6)
[2022-02-23] MEDS: FUROSEMIDE 20 MG/2 ML VIAL IVP SCH ×2 (05:18→13:56)
[2022-02-23 07:51] LABS: BASOPHILS % (AUTO) 0.2 %; EOSINOPHILS % (AUTO) 0.2 %; HCT - HEMATOCRIT 43.5 % (42.0-52.0); HGB - HEMOGLOBIN 14.2 g/dL (14.0-18.0); LYMPHOCYTES # (AUTO) 1.2 10^3/uL (1.5-3.5); LYMPHOCYTES % (AUTO) 7.9 %; MEAN CORPUSCULAR HEMOGLOBIN 28.2 pg (27.0-31.0); MEAN CORPUSCULAR HGB CONC 32.6 g/dL (32.0-36.0); MEAN CORPUSCULAR VOLUME 86.3 fL (80.0-94.0); MEAN PLATELET VOLUME 12.7 fL (7.4-11.4); MONOCYTES # (AUTO) 1.1 10^3/uL (0.0-1.0); MONOCYTES % (AUTO) 7.2 %; NEUTROPHILS # (AUTO) 12.9 10^3/uL (1.5-6.6); NEUTROPHILS % (AUTO) 84.2 %; PLT - PLATELET COUNT 328 10^3/uL (130-450); RED BLOOD COUNT 5.04 10^6/uL (4.70-6.10); RED CELL DISTRIBUTION WIDTH 13.9 % (12.0-15.0); WHITE BLOOD COUNT 15.3 x10^3/uL (4.8-10.8)
[2022-02-23 08:18] LABS: CALCIUM 8.6 mg/dL (8.5-10.3); CREATININE 1.1 mg/dL (0.6-1.2); POTASSIUM 4.2 mmol/L (3.5-5.0)
[2022-02-23] MEDS: lisinopriL 20 MG TABLET PO SCH (08:33)
[2022-02-23] MEDS: SPIRONOLACTONE 25 MG TABLET PO SCH (08:33)
[2022-02-23] MEDS: HEPARIN 5,000 UNIT/ML VIAL SUBQ SCH ×2 (08:35→21:59)
[2022-02-23] MEDS: polyethylene glycoL 3350 17 GM PACKET PO SCH (08:35)
[2022-02-23] MEDS: DEXAMETHASONE 4 MG/ML VIAL IVP SCH (08:40)
--- NOTE | 2022-02-23 18:48 | PROVIDER PROGRESS NOTE ---
Progress Note February 23, 2022 6:45 PM He is sitting up in bed. Watching TV. Says that today is the best day he has had. For the first time he is has hunger pangs and is eating a full meal. The thing that brought him in was the shortness of breath. He says that is improved as well. He can go from supine to sitting, sitting to standing and use the beds mk urinal without losing his breath. He is even managed to get to the sink in the bathroom to wash his hands and wash his face without gasping for air. Active Medications Acetaminophen (Acetaminophen 325 Mg Tablet) 650 mg PO Q4HR PRN PRN Reason: Pain 1 to 4, or Fever Last Admin: 02/23/22 13:57 Dose: 650 mg Dexamethasone (Dexamethasone 4 Mg/Ml Vial) 6 mg IVP DAILY [facility] Last Admin: 02/23/22 08:40 Dose: 6 mg Furosemide (Furosemide 20 Mg/2 Ml Vial) 20 mg IVP BIDDIURETIC [facility] Last Admin: 02/23/22 13:56 Dose: 20 mg Heparin Sodium (Porcine) (Heparin 5,000 Unit/Ml Vial) 5,000 unit SUBQ BID [facility] Last Admin: 02/23/22 08:35 Dose: 5,000 unit Lisinopril (Lisinopril 20 Mg Tablet) 20 mg PO DAILY [facility] Last Admin: 02/23/22 08:33 Dose: 20 mg Ondansetron HCl (Ondansetron 4 Mg/2 Ml Vial) 4 mg IVP Q6HR PRN PRN Reason: Nausea / Vomiting Polyethylene Glycol (Polyethylene Glycol 3350 17 Gm Packet) 17 gm PO DAILY [facility] Last Admin: 02/23/22 08:35 Dose: 17 gm Sodium Chloride (Sodium Chloride Flush 0.9% 10 Ml Syringe) 10 ml IVP 0100,0900,1700 [facility] Last Admin: 02/23/22 05:18 Dose: 10 ml Sodium Chloride (Sodium Chloride Flush 0.9% 10 Ml Syringe) 10 ml IVP PRN PRN PRN Reason: NEEDED PER PROVIDER ORDERS Last Admin: 02/22/22 06:38 Dose: 10 ml Spironolactone (Spironolactone 25 Mg Tablet) 25 mg PO DAILY [facility] Last Admin: 02/23/22 08:33 Dose: 25 mg Exam: Temperature is 36.8. Heart rate 97. Blood pressure 142/114. His diastolic has been running high today. Yesterday was 98 or 93. Respirations are 20. 97% on room air. And alert, oriented disheveled white male who looks stated age. Long unkempt hair, untended cerrato. Shotty neck adenopathy but his neck is supple, no bruits Coarse upper airway sounds. He had 1 cough during my exam when he swallowed the wrong way. But there is no crackles or rhonchi. No wheezing. No use of accessory muscles and he is not in any distress Regular rate and rhythm Abdomen soft, nontender, normal bowel sounds Extremities are without edema He sits up without any assist, puts his feet on the ground and stands up for me Sodium 133. Potassium 4.2. BUN 30. Creatinine 1.1. Troponin yesterday was 38.5. Troponin today is 34.6. Assessment 1. Acute respiratory failure with hypoxia resolved. No new managment. He has been out of the ICU since yesterday morning. 2. COVID-19 pneumonia. No remdesivir. Patient on steroid only. Seems to be supporting him well as he is recovering. Today's a good day with watching him eat, and be less air hungry 3. Suspected CHF exacerbation, systolic. No CHF on exam. Not on diuretic. Will consider doing an echo if he continues to have shortness of breath that is alarming 4. Hypertension. He usually takes lisinopril 5 mg a day. I increase his lisinopril to 20 mg. This may take a couple of days to take effect. 5. Hyponatremia Is improving with p.o. intake, and IV fluids. Continue to hydrate, and continue to monitor 6. Elevated D-dimerWill be anticipated with the patient who has an inflammatory pneumonia. At this time with hypoxia resolving, no change in management 7. Elevated troponinBut repeat shows stable levels. Most likely due to hypoxemia and not RI 8. COPD Stable. No exacerbation at this time. 9. Homelessness. He lives out of his car. During the day he will go to the [facility] to access showers, heat, food. He also has a puppy. The puppy is at his friend's house. When he leaves the hospital he plans on driving his car, which is in our parking lot, to his friend's house in [place]. He will stay with his friends a couple of days. He may even camped out in the backyard for a couple of days so he can have access to running water. He says usually does not want to sleep in a [facility] because the [facility]p does not allow pets. He does have a plan for when he leaves here.
[2022-02-24] MEDS: SODIUM CHLORIDE FLUSH 0.9% 10 ML SYRINGE IVP SCH ×2 (01:00→08:59)
[2022-02-24 05:24] LABS: CALCIUM, IONIZED 1.08 mmol/L (1.15-1.33); VBG PH 7.492 (7.31-7.41)
[2022-02-24 05:25] LABS: BASOPHILS % (AUTO) 0.2 %; EOSINOPHILS % (AUTO) 0.1 %; HCT - HEMATOCRIT 44.3 % (42.0-52.0); LYMPHOCYTES # (AUTO) 1.3 10^3/uL (1.5-3.5); LYMPHOCYTES % (AUTO) 8.8 %; MEAN CORPUSCULAR HEMOGLOBIN 28.9 pg (27.0-31.0); MEAN CORPUSCULAR HGB CONC 33.9 g/dL (32.0-36.0); MEAN CORPUSCULAR VOLUME 85.4 fL (80.0-94.0); MEAN PLATELET VOLUME 11.4 fL (7.4-11.4); MONOCYTES # (AUTO) 1.3 10^3/uL (0.0-1.0); MONOCYTES % (AUTO) 8.5 %; NEUTROPHILS # (AUTO) 12.1 10^3/uL (1.5-6.6); NEUTROPHILS % (AUTO) 81.9 %; PLT - PLATELET COUNT 373 10^3/uL (130-450); RED BLOOD COUNT 5.19 10^6/uL (4.70-6.10); RED CELL DISTRIBUTION WIDTH 13.8 % (12.0-15.0); WHITE BLOOD COUNT 14.8 x10^3/uL (4.8-10.8)
[2022-02-24 05:35] LABS: CALCIUM 8.9 mg/dL (8.5-10.3); CREATININE 1.1 mg/dL (0.6-1.2); MAGNESIUM 2.1 mg/dL (1.7-2.8); PHOSPHORUS 3.8 mg/dL (2.5-4.6); POTASSIUM 4.4 mmol/L (3.5-5.0)
[2022-02-24] MEDS: FUROSEMIDE 20 MG/2 ML VIAL IVP SCH (06:08)
[2022-02-24] MEDS: DEXAMETHASONE 4 MG/ML VIAL IVP SCH (08:58)
[2022-02-24] MEDS: HEPARIN 5,000 UNIT/ML VIAL SUBQ SCH (08:58)
[2022-02-24] MEDS: lisinopriL 20 MG TABLET PO SCH (08:59)
[2022-02-24] MEDS: polyethylene glycoL 3350 17 GM PACKET PO SCH (08:59)
[2022-02-24] MEDS: SPIRONOLACTONE 25 MG TABLET PO SCH (08:59)
[2022-02-24] MEDS: ACETAMINOPHEN 325 MG TABLET PO PRN ×2 (09:02→13:06)
[2022-02-24] MEDS ORDERED: SENNA 8.6 MG TABLET PO SCH (11:00)
[2022-02-24] MEDS ORDERED: DOCUSATE SODIUM 250 MG CAPSULE PO SCH (11:00)
--- NOTE | 2022-02-24 11:50 | Discharge Plan ---
Discharge Plan Problem Reviewed?: Yes Disposition: Home, Self Care Condition: Fair Prescriptions: dexAMETHasone [Decadron] 6 mg PO 0800 #11 tablet Gabapentin [Neurontin] 100 mg PO TID #90 cap Diet: Regular Activity Restrictions: Activity as Tolerated Shower Restrictions: No Driving Restrictions: No Health Concerns: You came to the emergency room because of chest congestion and shortness of breath. You have a history of congestive heart failure. Because you are homeless, it is been difficult for you to always take your medications for congestive heart failure on a regular basis. You also had COVID-19 positivity status. We think that you had a combination of mild COVID infection and mild congestive heart failure exacerbation causing you to be short of breath with a low oxygen. Once we gave you your congestive heart failure medicines, started you on treatment for COVID, you have improved. You are no longer on oxygen. You are eating well. You are ambulating without any assistance. You are felt stable to return to the outpatient setting. Plan of Treatment: 1. Please establish yourself with a primary care provider. They will see you in follow-up to check up on you with your medications and your congestive heart failure. Social work tells me that you have an appointment [facility] [address] in [place]. 2. Please complete Decadron for COVID therapy. It is 1-1/2 tablets a day until those tablets are gone. 3. One of your congestive heart failure medicines as spironolactone. You are also on Lasix. Both of them are diuretics. Because you were are just getting over COVID, I thought it would be prudent to stop one of your diuretics for the next few days. After a week, if you feel back to normal, you can resume both spironolactone and Lasix. Right now I do not want you to take spironolactone. Care Goals: To find a stable housing situation. To get a new primary care provider and stabilize your medication use and health care. Assessment: Patient is alert, oriented, understands care plan and will follow through No Smoking: If you smoke, Please STOP! Call for help.
--- NOTE | 2022-02-24 11:57 | DISCHARGE SUMMARY ---
"Discharge Summary Admit Date: 02/22/22 Discharge Date: 02/24/22 Discharging Provider: Rosemary Peterson MD Primary Care Provider: new visit with [facility] on [address] Code Status: Attempt Resuscitation Condition at Discharge: Fair Discharge Disposition: Home, Self Care - DIAGNOSES Discharge Diagnoses with Status of Each Condition: 1. Acute respiratory failure with hypoxia 2. COVID-19 infection 3. Acute on chronic systolic heart failure, mild 4. Hypertension 5. Hyponatremia 6. Elevated troponin with type I ischemia 7. COPD, without exacerbation 8. Homeless status - HPI History of Present Illness: This is 66-year-old male who presented to emergency room with complaint of shortness of breath. Patient has history of congestive heart failure but he is noncompliant with his medications. Patient has orthopnea since last few days. He also had flulike symptoms with fever chills abdominal pain headache myalgia etc. Patient was positive for COVID-19. Chest x-ray showed right basilar opacities consistent with consolidation. He received 80 mg of IV Lasix as well as 10 mg of IV Decadron in the emergency room. Initially was placed on BiPAP with 30% FiO2. I saw patient using telemedicine audiovisual cart. Patient is alert and oriented at this time. He denies having any nausea vomiting. His breathing is improved. He has almost 1.3 L of urine output since IV Lasix. He denies any chest pain. Complaining of some abdominal pain. Denies any lower extremity swelling or calf tenderness. Past medical history Cardiomyopathy Hypertension Homelessness COPD Coronary artery disease Depression Osteoporosis Psoriasis TIA Past surgical history appendectomy and tonsillectomy - CONSULTS | PROCEDURES Procedures: Chest x-ray is with a new complaint right basilar medial opacity consistent with consolidation likely due to pneumonia CT angiogram of chest and thorax with advanced centrilobular emphysema. 8 mm nodule in the right lung, posterior apex. Ill-defined airspace opacities scattered in the right lower lobe and left lingula. No pleural effusions or pneumothorax. Central and peripheral airways patent. Left ventricular hypertrophy without pericardial effusion. Prominent mediastinal and hilar lymph nodes suggestive of reactive inflammatory process. The 8 mm nodule was seen on previous study in 2020 and is unchanged suggestive of benign process. Continue CT chest to follow-up in 12 months. Blood cultures from February 22 without growth after 2 days - HOSPITAL COURSE Hospital Course: The patient shared with me that because he is homeless, sometimes hard for him to get his medications on a regular basis and take them. He was started on Decadron, as well as diuresis and the patient improved within 48 hours. Social work has met with the patient and has set up an appointment for him at [facility] on [address] in [place]. He will be completing Decadron therapy for COVID. Because he was presenting with shortness of breath and decreased p.o. intake due to COVID and probable noncompliance with medication, I did not want him to take both diuretics at discharge. As such I just discharged him on Lasix and explained to him that he should resume his spironolactone in the next week. At discharge this gentleman is ambulating in the room. Eating 85 to 90% of his food. And is 96% on room air. As such she is felt stable to return to his usual status. He makes arrangements between the halfway and other facilities during the day. He is 5 foot 11 inches tall. 65.5 kg. Disheveled bearded longhaired male who is alert, oriented to person place and time. Low gravelly voice. Shotty neck adenopathy but supple. No JVD. Coarse upper airway sounds. Mild cough that is nonproductive. He says he actually feels pretty good considering what he felt like a few days ago. He has a regular rate and rhythm with a systolic ejection murmur. Abdomen is soft, nontender. Extremities have non-B deformities of osteoarthritis but no edema. Alert, oriented. Following two-step commands. I explained to him that his blood pressure is a little high while here. I am hoping that resuming his Coreg and losartan and Lasix will bring his blood pressure down. To make sure he goes over this with his primary care provider when he sees them in follow-up. Greater than 30 minutes was spent coordinating discharge. - ALLERGIES Allergies/Adverse Reactions: Allergies Allergy/AdvReac Type Severity Reaction Status Date / Time No Known Drug Allergies Allergy Verified 02/21/22 21:16 - MEDICATIONS Home Medications: Ambulatory Orders Medication Instructions Recorded Confirmed Aspirin [Aspirin EC] 1 tab PO DAILY 02/22/22 02/22/22 Furosemide [Lasix] 1 tab PO DAILY 02/22/22 02/22/22 Losartan [Cozaar] 1 tab PO DAILY 02/22/22 02/22/22 carvediloL [Coreg] 2 tab PO BID 02/22/22 02/22/22 Gabapentin [Neurontin] 100 mg PO TID #90 cap 02/24/22 dexAMETHasone [Decadron] 6 mg PO 0800 #11 tablet 02/24/22 - LABS Result Diagrams: 02/24/22 04:40 02/24/22 04:40"
[2022-02-24 12:23] VITALS: BP 147/86
== END 2022-02-24 13:22 | disposition home or self-care (01) | DRG 177 ==
LOC: ED 20:58 → ICU 02-22 01:57 → MS2 02-22 16:29
PROVIDERS: ADMIT Internal Medicine; ATTEND Specialist
PROC: 3E0333Z Introduction of Anti-inflammatory into Peripheral Vein, Percutaneous Approach (ICD-10-PCS; principal; 2022-02-22)
DX: U07.1 COVID-19 (principal); I50.23 Acute on chronic systolic (congestive) heart failure; I50.9 Heart failure, unspecified; J12.82 Pneumonia due to coronavirus disease 2019; J96.01 Acute respiratory failure with hypoxia; I25.2 Old myocardial infarction; Z59.00 Homelessness unspecified; F17.200 Nicotine dependence, unspecified, uncomplicated; E87.1 Hypo-osmolality and hyponatremia; I42.9 Cardiomyopathy, unspecified; I24.8 Other forms of acute ischemic heart disease; I11.0 Hypertensive heart disease with heart failure; Z59.02 Unsheltered homelessness; I25.10 Atherosclerotic heart disease of native coronary artery without angina pectoris; F32.A Depression, unspecified; J43.9 Emphysema, unspecified; R91.1 Solitary pulmonary nodule; T50.916A Underdosing of multiple unspecified drugs, medicaments and biological substances, initial encounter; Z91.128 Patient's intentional underdosing of medication regimen for other reason
CPT/HCPCS: 36415; 71045; 71275; 80048; 80053; 82330; 82803; 83615; 83690; 83735; 83880; 84100; 84145; 84484; 85025; 85379; 86140; 87040; 87150; 87633; 93005; 94660; 96374; 96375; 99284; 99285; A9270; Q9967

== ENCOUNTER 2022-03-14 16:04 | Outpatient (CLI) | payer MEDICARE, MEDICAID | END 2022-03-14 16:05 | disposition left against medical advice (07) | LOC: EMS 16:04 | DX: R56.9 Unspecified convulsions (principal); R55 Syncope and collapse ==

== ENCOUNTER 2022-12-01 01:51 | Outpatient (CLI) | payer MEDICARE, MEDICAID | END 2022-12-01 23:59 | disposition critical access hospital (66) | LOC: EMS 01:51 | DX: R06.00 Dyspnea, unspecified (principal); R00.0 Tachycardia, unspecified | CPT/HCPCS: A0425; A0427 ==

== ENCOUNTER 2022-12-01 02:03 | Inpatient (IN) | payer MEDICARE, MEDICAID ==
--- NOTE | 2022-12-01 02:17 | ED Physician Documentation ---
History of Present Illness - Stated complaint Stated Complaint: DIFF BREATHING - History obtained from History obtained from: Patient, EMS - Additonal information Additional information: 67yM with pmh chf, possible lung cancer, homeless, not on any meds and unable to consistently engage with healthcare, p/w soa X 2 weeks, worsening acutely tonight so he called ems. patient had o2 sat 99% while transferring to the stretcher on facemask oxygen per ems, but they were unable to take a room air pulse ox, then received 1 duoneb with subjective improvement in breathing. on arrival to the ED patient is speaking in full sentences stating he feels much better. denies fever, cough, leg swelling. he does state he has trouble breathing with lying flat and has had issues in the past of fluid on the lungs. daily smoker. Review of Systems Constitutional: denies: Fever, Chills Cardiac: reports: Palpitations. denies: Chest pain / pressure Respiratory: reports: Dyspnea. denies: Cough GI: denies: Nausea, Vomiting Musculoskeletal: denies: Back pain PD PAST MEDICAL HISTORY - Past Medical History Cardiovascular: Hypertension, Coronary artery disease, ID Respiratory: None Neuro: TIA Endocrine/Autoimmune: None GI: None : Other HEENT: Other Psych: Depression Musculoskeletal: Osteoporosis Derm: Psoriasis - Past Surgical History Past Surgical History: Yes General: Appendectomy HEENT: Tonsil/Adenoidectomy - Present Medications Home Medications: Ambulatory Orders Medication Instructions Recorded Confirmed No Known Home Medications 12/01/22 12/01/22 - Allergies Allergies/Adverse Reactions: Allergies Allergy/AdvReac Type Severity Reaction Status Date / Time No Known Drug Allergies Allergy Verified 12/01/22 02:23 - Social History Does the pt smoke?: Yes Smoking Status: Current every day smoker Does the pt drink ETOH?: No - Immunizations Immunizations are current?: No - POLST Patient has POLST: No POLST Status: DNR PD ED PE NORMAL - Vitals Vital signs reviewed: Yes - General General: Alert and oriented X 3, No acute distress, Well developed/nourished, Other (disheveled appearing) - HEENT HEENT: Atraumatic, PERRL, EOMI, Moist mucous membranes, Pharynx benign - Neck Neck: Supple, no meningeal sign - Cardiac Cardiac: Other (tachycardic rate, regular rhythm) - Respiratory Respiratory: Other (BL expiratory wheezing. speaking in full sentences with no accessory respiratory muscle use) - Abdomen Abdomen: Non tender, Non distended - Derm Derm: Normal color, Warm and dry - Extremities Extremities: Other (minimal BL lower extremity edema. 2+ BL DP pulses) - Neuro Neuro: Alert and oriented X 3 - Psych Psych: Normal mood, Normal affect Results - Vitals Vitals: Vital Signs - 24 hr 12/01/22 12/01/22 12/01/22 02:03 02:26 02:48 Temperature 37 C Heart Rate 117 H 101 H 99 Respiratory 22 27 H 22 Rate Blood Pressure 195/136 H 186/141 H 113/92 H O2 Saturation 100 93 92 If not protocol : Oxygen Flow, liters/minute 12/01/22 12/01/22 12/01/22 03:21 03:30 03:42 Temperature Heart Rate 98 98 97 Respiratory 33 H 22 23 Rate Blood Pressure 161/126 H 173/127 H O2 Saturation 94 98 If not protocol 2 : Oxygen Flow, liters/minute 12/01/22 12/01/22 12/01/22 04:01 04:41 05:13 Temperature 36.2 C L 36.8 C Heart Rate 100 96 101 H Respiratory 28 H 27 H 17 Rate Blood Pressure 169/124 H 176/123 H 182/121 H O2 Saturation 99 97 94 If not protocol 2 3 3 : Oxygen Flow, liters/minute 12/01/22 05:30 Temperature Heart Rate 105 H Respiratory 22 Rate Blood Pressure 179/112 H O2 Saturation 95 If not protocol 2 : Oxygen Flow, liters/minute Oxygen O2 Source Nasal cannula Oxygen Flow Rate 2 - EKG (time done) 0229 EKG releavant findings:: EKG personally interpreted by author of this note. Relevant findings are: Rate: Rate (enter#) (98) Rhythm: NSR [place]: RAD Intervals: Normal ME QRS: LVH Ischemia: Other (SAWYER anteriorly c/w LVH) - Labs Labs: Laboratory Tests 12/01/22 12/01/22 12/01/22 02:25 02:25 02:25 WBC 9.8 RBC 5.43 Hgb 14.7 Hct 48.1 MCV 88.6 MCH 27.1 MCHC 30.6 L RDW 15.6 H Plt Count 247 MPV 9.7 Neut # (Auto) 7.6 H Lymph # (Auto) 0.9 L [place] # (Auto) 0.9 Eos # (Auto) 0.4 Baso # (Auto) 0.0 Absolute Nucleated RBC 0.00 Nucleated RBC % 0.0 D-Dimer 433.5 H VBG pH VBG pCO2 VBG pO2 VBG HCO3 VBG Total CO2 VBG O2 Saturation VBG Base Excess Sodium 138 Potassium 4.5 Chloride 107 Carbon Dioxide 25 Anion Gap 6.0 BUN 20 Creatinine 1.1 Estimated GFR (MDRD) 67 L Glucose 119 H Calcium 8.9 Total Bilirubin 0.4 AST 28 ALT 16 Alkaline Phosphatase 135 H B-Natriuretic Peptide 2210 H Total Protein 6.4 Albumin 3.7 Globulin 2.7 Albumin/Globulin Ratio 1.4 Lipase 9 L Urine Color Urine Clarity Urine pH Ur Specific [place] Urine Protein Urine Glucose (UA) Urine Ketones Urine Occult Blood Urine Nitrite Urine Bilirubin Urine Urobilinogen Ur Leukocyte Esterase Urine RBC Urine WBC Ur Squamous Epith Cells Urine Bacteria Urine Culture Comments 12/01/22 12/01/22 02:25 04:18 WBC RBC Hgb Hct MCV MCH MCHC RDW Plt Count MPV Neut # (Auto) Lymph # (Auto) [place] # (Auto) Eos # (Auto) Baso # (Auto) Absolute Nucleated RBC Nucleated RBC % D-Dimer VBG pH 7.310 VBG pCO2 48.9 VBG pO2 56.2 H VBG HCO3 24.1 VBG Total CO2 25.6 VBG O2 Saturation 86.5 H VBG Base Excess -2.7 L Sodium Potassium Chloride Carbon Dioxide Anion Gap BUN Creatinine Estimated GFR (MDRD) Glucose Calcium Total Bilirubin AST ALT Alkaline Phosphatase B-Natriuretic Peptide Total Protein Albumin Globulin Albumin/Globulin Ratio Lipase Urine Color YELLOW Urine Clarity HAZY Urine pH 6.0 Ur Specific [place] 1.025 Urine Protein 30 H Urine Glucose (UA) NEGATIVE Urine Ketones NEGATIVE Urine Occult Blood NEGATIVE Urine Nitrite NEGATIVE Urine Bilirubin NEGATIVE Urine Urobilinogen 0.2 (NORMAL) Ur Leukocyte Esterase MODERATE H Urine RBC 0-5 Urine WBC 11-25 H Ur Squamous Epith Cells NONE SEEN Urine Bacteria Moderate H Urine Culture Comments INDICATED PD Medical Decision Making - ED course ED course: 67yM presents to the ED bibems with soa, with prior hx of untreated chf and possible lung cancer. well appearing on arrival with o2 sat 92% RA and speaking in full sentences without accessory respiratory muscle use, stating the duoneb en route helped him. He is mildly tachycardic which could be attributed to neb, vs dehydration vs PE or other strain on the heart. doubt ID given no nausea, cp, diaphoresis and he is well appearing. Will obtain dimer given SOA and tachycardia in setting of possible cancer history. CXR ordered to eval for other cardiopulmonary pathology. ekg, cbc, abdominal panel, vbg and bnp ordered as well. 3:20am - patient endorsing increasing soa, RA o2 sat 92%. applied 2L nc with improvement. plan to administer another neb treatment. however his vbg doesn't appear to show significant co2 retention. Will obtain CTA PE study given elevated d-dimer. BMP 2210, which has been c/w prior labwork. patient clinically has minimal LE edema but does have pillow orthopnea. In addition, BP is elevated at 161/126 therefore will benefit from push dose lasix. BP persistently elevated. Patient resting in bed, still with mild subjective respiratory distress. O2 sat 93% on 2L. CTA shows no PE but severe interstitial lung disease and evidence of pulmonary edema. Plan to admit for chf exacerbation. also with uti on u/a. IV rocephin ordered. Departure - Departure Clinical Impression: Shortness of breath, Hypertension, UTI (urinary tract infection) Comments: You have enlarged lymph nodes in your chest wall and should follow up with a school attendance secretary for further testing. This could be cancerous.
[2022-12-01 02:30] LABS: BASOPHILS % (AUTO) 0.3 %; EOSINOPHILS # (AUTO) 0.4 10^3/uL (0.0-0.7); EOSINOPHILS % (AUTO) 3.8 %; HCT - HEMATOCRIT 48.1 % (42.0-52.0); HGB - HEMOGLOBIN 14.7 g/dL (14.0-18.0); LYMPHOCYTES # (AUTO) 0.9 10^3/uL (1.5-3.5); LYMPHOCYTES % (AUTO) 9.2 %; MEAN CORPUSCULAR HEMOGLOBIN 27.1 pg (27.0-31.0); MEAN CORPUSCULAR HGB CONC 30.6 g/dL (32.0-36.0); MEAN CORPUSCULAR VOLUME 88.6 fL (80.0-94.0); MEAN PLATELET VOLUME 9.7 fL (7.4-11.4); MONOCYTES # (AUTO) 0.9 10^3/uL (0.0-1.0); MONOCYTES % (AUTO) 9.1 %; NEUTROPHILS # (AUTO) 7.6 10^3/uL (1.5-6.6); NEUTROPHILS % (AUTO) 77.5 %; PLT - PLATELET COUNT 247 10^3/uL (130-450); RED BLOOD COUNT 5.43 10^6/uL (4.70-6.10); RED CELL DISTRIBUTION WIDTH 15.6 % (12.0-15.0); WHITE BLOOD COUNT 9.8 x10^3/uL (4.8-10.8)
[2022-12-01 02:35] LABS: VBG BASE EXCESS -2.7 mmol/L (-2 - +2); VBG HCO3 24.1 mmol/L (23-28); VBG OXYGEN SATURATION 86.5 % (60-80); VBG PCO2 48.9 mmHg (41-51); VBG PH 7.31 (7.31-7.41); VBG PO2 56.2 mmHg (25-47); VBG TOTAL CO2 25.6 mmol/L (24-29)
[2022-12-01 03:17] LABS: ALBUMIN 3.7 g/dL (3.2-5.5); ALBUMIN/GLOBULIN RATIO 1.4 (1.0-2.2); BILIRUBIN,TOTAL 0.4 mg/dL (0.2-1.0); CALCIUM 8.9 mg/dL (8.5-10.3); CREATININE 1.1 mg/dL (0.6-1.3); POTASSIUM 4.5 mmol/L (3.5-4.5); TOTAL PROTEIN 6.4 g/dL (6.4-8.9)
[2022-12-01] MEDS ORDERED: ALBUTEROL NEB 2.5 MG/3 ML INH STA (03:21)
[2022-12-01] MEDS ORDERED: FUROSEMIDE 40 MG/4 ML VIAL IVP STA ×2 (03:30→05:13)
[2022-12-01] MEDS ORDERED: FUROSEMIDE 20 MG/2 ML VIAL IVP ONE ×2 (03:41→03:50)
[2022-12-01 04:24] LABS: BILIRUBIN,URINE NEGATIVE (NEGATIVE); GLUCOSE, URINE (UA) NEGATIVE (NEGATIVE); KETONES,URINE (UA) NEGATIVE (NEGATIVE); LEUKOCYTE ESTERASE, URINE MODERATE (NEGATIVE); NITRITE,URINE NEGATIVE (NEGATIVE); OCCULT BLOOD,URINE NEGATIVE (NEGATIVE); PROTEIN,URINE 30 mg/dL (NEGATIVE); UROBILINOGEN,URINE 0.2 (NORMAL) E.U./dL (NORMAL)
[2022-12-01 04:34] LABS: CLARITY,URINE HAZY (CLEAR)
[2022-12-01 04:36] LABS: BACTERIA,URINE Moderate /HPF (None Seen); RBC,URINE 0-5 /HPF (0-5); SQUAMOUS EPITHELIAL CELL,UR NONE SEEN (<= Few)
[2022-12-01] MEDS ORDERED: iohexoL-300 100 ML VIAL IVP ONE (05:12)
[2022-12-01] MEDS ORDERED: amLODIPine 5 MG TABLET PO STA (05:20)
[2022-12-01] MEDS ORDERED: cefTRIAXone 1 GM VIAL IVP STA (05:40)
[2022-12-01] MEDS ORDERED: hydrALAZINE INJ 20 MG/ML VIAL IVP PRN (05:58)
[2022-12-01] MEDS ORDERED: PROCHLORPERAZINE 10 MG/2 ML VIAL IVP PRN (06:00)
[2022-12-01] MEDS ORDERED: ONDANSETRON 4 MG/2 ML VIAL IVP PRN (06:00)
[2022-12-01] MEDS ORDERED: SODIUM CHLORIDE FLUSH 0.9% 10 ML SYRINGE IVP PRN (06:00)
--- NOTE | 2022-12-01 06:16 | HISTORY & PHYSICAL EXAMINATION ---
Chief Complaint - Chief Complaint Chief Complaint: Dyspnea with exertion History of Present Illness - Admitted From Admitted From:: ED - History Obtained From Records Reviewed: EMR History obtained from: ED staff and Patient Exam Limitations: Telemedicine - History of Present Illness HPI Comment/Other: 67YOM c known HFrEF 25-30% on echo 2020, hx of ND, HTN, meth abuse, homelessness c medication nonadherence who p/w SOB 2/2 CHF exacerbation. Patient has not been taking any medications. In addition, he is abusing meth. Patient reports for the past 2 wks, he has noticed progress worsening of breathing. He noted worsening sxs with lying flat vs sitting up. Past two days, breathing got worse such that even sitting uper leads to SOB. No fever. No URIs sxs. No chest pain. Positive chest tightness. No palpitation. No n/v/d. No dysuria. No swelling in extremities. Here in the ED, patient has elevated BNP 2210. Trop 34.6. CTA chest prelim showed interstitial lung disease and pulmonary edema. History - Past Medical History Cardiovascular: reports: Hypertension, Coronary artery disease, ND Respiratory: reports: None Neuro: reports: TIA Endocrine/Autoimmune: reports: None GI: reports: None : reports: Other HEENT: reports: Other Psych: reports: Depression Musculoskeletal: reports: Osteoporosis Derm: reports: Psoriasis MRSA Hx?: Yes - Past Surgical History General: reports: Appendectomy HEENT: reports: Tonsil/Adenoidectomy - Family & Social History Family History: Mother: (father from stroke. Mother from Lung cancer), Father: , Other family: Alive and Well (pt state he left his parents when he was very young. He did not know much about his sibles.) Family History Comment/Other: Pt state he is born at [place], and until he finished his high school. Then He moved to [place]. His at 1998 and from cancer. he had four children, but all his children were removed from him by government after his , then he became very depressed. Social History Notes: He reports occasional cigarette smoking, denies alcohol. He reports trying various drugs in the past. - Substance History Use: Uses substance without health or social issues: NONE - POLST Patient has POLST: No POLST Status: DNR Meds/Allgy - Home Medications Home Medications: Ambulatory Orders Medication Instructions Recorded Confirmed No Known Home Medications 12/01/22 12/01/22 - Allergies Allergies/Adverse Reactions: Allergies Allergy/AdvReac Type Severity Reaction Status Date / Time No Known Drug Allergies Allergy Verified 12/01/22 02:23 Review of Systems - Other Findings Other Findings: Negative unless mentioned differently Exam - Vital Signs Reviewed Vital Signs: Yes Vital Signs: Vital Signs x48h Temp Pulse Resp BP Pulse Ox O2 Flow Rate 12/01/22 05:52 37.1 C 103 H 13 171/115 H 96 2 12/01/22 05:30 105 H 22 179/112 H 95 2 12/01/22 05:13 101 H 17 182/121 H 94 3 12/01/22 04:41 36.8 C 96 27 H 176/123 H 97 3 12/01/22 04:01 36.2 C L 100 28 H 169/124 H 99 2 12/01/22 03:42 97 23 173/127 H 98 2 12/01/22 03:30 98 22 12/01/22 03:21 98 33 H 161/126 H 94 12/01/22 02:48 99 22 113/92 H 92 12/01/22 02:26 101 H 27 H 186/141 H 93 12/01/22 02:03 37 C 117 H 22 195/136 H 100 - Physical Exam General Appearance: positive: No acute distress, Alert Eyes Bilateral: positive: Normal inspection ENT: positive: ENT inspection nml Neck: positive: Nml inspection Respiratory: positive: Wheezes. negative: Rales, Rhonchi Cardiovascular: positive: Regular rate & rhythm, No murmur, No gallop Skin: positive: Color nml Extremities: positive: Full ROM, Nml appearance Neurologic/Psychiatric: positive: Oriented x3, CN's nml (2-12), Motor nml Conclusion/Plan - Problem List (1) Acute on chronic HFrEF (heart failure with reduced ejection fraction) Conclusion/Plan: multifactorial cause for decompensation including medication nonadherence, lack of dietary management, and meth abuse will start Lasix. monitor electrolytes c BMP. monitor I &O. fluid restrict. daily weighing. CHF education. monitor trop and BNP. echo in am. advise refrain from meth abuse. manage uncontrolled hypertension. homelessness is a barrier to management. social consulted. (2) HTN (hypertension) Conclusion/Plan: uncontrolled on presentation. likely 2/2 nonadherence with medication and meth abuse will proceed with continue amlodipine start in ED and continue Coreg. prn hydralazine for additional coverage. avoid pure beta rene 2/2 meth abuse. monitor BP c repeat vital checks. (3) COPD (chronic obstructive pulmonary disease) Conclusion/Plan: acute worsening resp status likely 2/2 CHF exacerbation and not COPD. COPD most consistent stable. prn duoneb ordered. (4) Methamphetamine abuse Conclusion/Plan: counseled to stop meth abuse. (5) Homelessness Conclusion/Plan: barrier to medical care. consulted social to assist with managing patient's homelessness and its contribution his decompensation. - Lab Results Lab results reviewed: Yes Fish Bones: 12/01/22 02:25 12/01/22 02:25 - Diagnostic Imaging Results Diagnostic Imaging Results: positive: Prelim report reviewed Core Measures - Anticipated LOS I expect patient to be DC'd or transferred within 96 hours.: No - Issues Hospital Issues and Management Plan: The patient consented to receive this telemedicine service, which I performed via live two-way audiovisual equipment. The patient is at [facility] and I am physically in [facility]. A nurse assisted me in the visit. - DVT/VTE - Prophylaxis VTE/DVT Device ordered at admit?: Yes Telemedicine Consult Details - Provider Location & Consult Time Telemedicine consultation conducted via videoconferencing?: Yes List names and roles of persons who participated in consult:: Patient, RN, and ED staff Telemedicine provider location:: [facility] Time Telemedicine consult began:: 05:44 Time Telemedicine consult completed:: 06:50
[2022-12-01 06:20] LABS: B. PARAPERTUSSIS- RESP PCR PAN NOT DETECTED; B. PERTUSSIS- RESP PCR PANEL NOT DETECTED; C. PNEUMONIAE- RESP PCR PANEL NOT DETECTED; CORONAVIRUS 229E-RESP PCR NOT DETECTED; CORONAVIRUS HKU1-RESP PCR NOT DETECTED; CORONAVIRUS NL63-RESP PCR NOT DETECTED; CORONAVIRUS OC43-RESP PCR NOT DETECTED; HUMAN METAPNEUMOVIRUS NOT DETECTED; INFLUENZA A- RESP PCR PANEL NOT DETECTED; INFLUENZA B - RESP PCR PANEL NOT DETECTED; M. PNEUMONIAE- RESP PCR PANEL NOT DETECTED; PARAINFLUENZA VIRUS 1 NOT DETECTED; PARAINFLUENZA VIRUS 2 NOT DETECTED; PARAINFLUENZA VIRUS 3 NOT DETECTED; PARAINFLUENZA VIRUS 4 NOT DETECTED; RHINOVIRUS/ENTEROVIRUS NOT DETECTED; RSV- RESP PCR PANEL NOT DETECTED; SARS-CoV-2 -RESP PCR PANEL NOT DETECTED
[2022-12-01] MEDS: carvediloL 12.5 MG TABLET PO SCH ×2 (08:02→20:24)
[2022-12-01] MEDS: ASPIRIN EC 81 MG TABLET PO SCH (08:02)
[2022-12-01] MEDS: ACETAMINOPHEN 325 MG TABLET PO PRN ×3 (08:02→17:47)
[2022-12-01] MEDS: HEPARIN 5,000 UNIT/ML VIAL SUBQ SCH ×2 (08:03→20:20)
[2022-12-01] MEDS: SODIUM CHLORIDE FLUSH 0.9% 10 ML SYRINGE IVP SCH ×3 (08:03→23:27)
--- NOTE | 2022-12-01 08:13 | XRAY Report ---
PROCEDURE: Chest 2 View X-Ray INDICATIONS: shortness of breath TECHNIQUE: 2 views of the chest were acquired. COMPARISON: Chest x-ray 02/21/2022. FINDINGS: Surgical changes and devices: None. Lungs and pleura: No pleural effusions or pneumothorax. Progression of bibasilar patchy opacities, g reatest in the right base. Mediastinum: Mediastinal contours appear normal. Heart size is normal. Bones and chest wall: No suspicious bony lesions. Overlying soft tissues appear unremarkable. IMPRESSION: Progression of bibasilar patchy opacities, greatest in the right base and likely infectious in etiolo gy. Findings are concordant with preliminary interpretation provided by [facility]. Reviewed by: Pradip Green MD on 12/01/2022 8:11 AM PDT Approved by: Pradip Green MD on 12/01/2022 8:11 AM PDT Station ID: [id number]
[2022-12-01 08:38] LABS: CALCIUM 9.2 mg/dL (8.5-10.3); CREATININE 1.1 mg/dL (0.6-1.3); POTASSIUM 3.9 mmol/L (3.5-4.5)
[2022-12-01 08:46] LABS: TROPONIN I HIGH SENSITIVITY 50.1 ng/L (2.3-19.7)
--- NOTE | 2022-12-01 10:03 | CT Report ---
PROCEDURE: ANGIO CHEST W/WO INDICATIONS: elevated d-dimer, tachycardia, soa CONTRAST: 80mL Omni 300 TECHNIQUE: After the administration of intravenous contrast, 2 mm axial images were acquired from the pulmonary apices to the posterior costophrenic angles during the arterial phase. In addition, 1 mm lung kernel and 5 mm soft tissue kernel reconstructions were performed. 3-dimensional coronal oblique maximum int ensity projection (MIP) reformats, 8 mm axial MIP, and 5 mm coronal and sagittal MPR reformats were t hen performed through the thorax. For radiation dose reduction, the following was used: automated exp osure control, adjustment of mA and/or kV according to patient size. COMPARISON: CT 02/22/2022, x-ray 12/01/2022, CT 01/10/2021 FINDINGS: Image quality: Excellent. Large vessels: No filling defects within the opacified pulmonary arteries, accounting for motion and contrast timing. No evidence of acute aortic syndrome or aortic aneurysm. Lungs and pleura: No consolidation. No pleural effusions. No pneumothorax. Stable 8 mm solid nodule in the posterior right upper lobe (series 4, image 82) compared with 202, therefore statistically be nign. Confluent centrilobular emphysema and substantial paraseptal emphysema. Right lower lobe bronch ial thickening, smooth interstitial thickening and groundglass. Mediastinum: Heart size is enlarged, with left ventricle hypertrophy. No pericardial effusion. No lar ge vessel abnormality. No mediastinal adenopathy by size criteria. Chest wall and lower neck: Thyroid is unremarkable. No axillary or supraclavicular adenopathy by size . Bones: No aggressive osseous abnormality. Upper Abdomen: Unremarkable. IMPRESSION: No pulmonary embolus. Right lower lobe bronchial thickening, smooth interstitial thickening and groundglass. Findings are c oncerning for mild interstitial pneumonitis. Agree with preliminary report. Reviewed by: Enoc Garcia on 12/01/2022 10:02 AM PDT Approved by: Enoc Garcia on 12/01/2022 10:02 AM PDT Station ID: [id number]
--- NOTE | 2022-12-01 11:52 | PHARMACY PROGRESS NOTE ---
- Best Possible Medication History Admit Date and Time: 12/01/22 0600 Processed by: Nursing As the person ultimately responsible for medication therapy, providers are able to order a medication from an existing home medication list in [facility] via the "Reconcile Routine" prior to Confirmation of that medication by faculty support coordinator. Such practice is discouraged except when the physician, in their clinical judgment, deems that a medical need exists for a medication without regard to previous use.
[2022-12-01] MEDS: FUROSEMIDE 20 MG/2 ML VIAL IVP SCH (13:47)
[2022-12-01] MEDS: LORazepam 2 MG/ML VIAL IVP PRN ×5 (13:47→23:33)
[2022-12-01] MEDS: MULTIVITAMIN W/MINERALS TABLET PO SCH (16:39)
[2022-12-01] MEDS: IPRATROPIUM/ALBUTEROL 3 ML NEB INH PRN (17:15)
[2022-12-01 17:33] LABS: ABG BASE EXCESS 5.3 mmol/L (-2.0-3.0); ABG HCO3 29.6 mmol/L (22.0-26.0); ABG OXYGEN SATURATION 93 % (94-98); ABG PCO2 42 mmHg (34-45); ABG PH 7.47 (7.35-7.45); ABG PO2 63 mmHg (80-100); ABG TCO2 30.9 MMOL/L (21.0-29.0)
[2022-12-01 17:34] LABS: ALLEN TEST POSITIVE
[2022-12-01] MEDS ORDERED: FUROSEMIDE 20 MG/2 ML VIAL IVP SCH (18:00)
--- NOTE | 2022-12-01 18:47 | PROVIDER PROGRESS NOTE ---
Hospitalist Cross-cover Note - Cross-Cover Note Cross-Cover Note: December 01, 2022 6:43 PM Patient was admitted in the arc trimmer hours of today by telemedicine. He is a homeless gentleman who chronically uses methamphetamine and was admitted for acute on chronic congestive heart failure. He has a history of an ejection fraction of 30%. He has been short of breath, and takes no medications for his CHF. Over the course of the day he has just been miserable. He rolls back and forth on the bed. Moans. Says that he just "hurts all over". His bones hurt, his skin hurts, and he feels awful. Has a headache. Feels like he is "jumping out of my skin". I started Ativan 0.5 mg IV push every 2 hours as needed for withdrawal and is not helping. I repeated a troponin. He was 43 on admission. 50 this morning. And 49 this afternoon. BNP is elevated at 2899. I am unable to get a echocardiogram today because the surgical scrub technologist only works Sunday through . The technology sales consultant reported that he has ST depression that was "new" on his telemetry strips. I repeated his EKG and troponin. His EKGs are unchanged going back for several years. He has sinus rhythm. ST depression in the inferior lateral leads that is chronic. Today's EKG is unchanged from those EKGs. This evening he has had a nonsustained run of V. tach. Approximately 5-6 beats that are asymptomatic. He is currently on DuoNeb, Norvasc, Coreg, Lasix 20 IV push twice daily, lorazepam, Zofran. Temperature is 36.2. Heart rate 96. Blood pressure 143/99. Respiration rate is between 16-34. Because he is tachypneic we did a blood gas and his pH is 7.47, PCO2 42, PO2 63 on room air. His base excess is 5.3. He already had a CT pulmonary angiogram done earlier today. He does not have consolidation or pleural effusions. No pneumothorax. He is got a stable nodule in the right upper lobe. Confluent centrilobular emphysema and substantial paraseptal emphysema. Right lower lobe bronchial thickening with smooth interstitial thickening and groundglass. Heart is enlarged with left ventricular hypertrophy. No pericardial effusion. No large vessel abnormality. He is tachypneic with prolonged expiratory phase but I really do not hear wheezing. He lays down, sits up with his agitation. There is no orthopnea. No JVD. Abdomen is soft, hypoactive bowel sounds nontender. Skin is covered with dirt over arms, forearms, knees, legs and feet. But there is no skin breakdown of large ulcers. Assessment/plan Acute on chronic systolic heart failure. Increase Lasix to 40 twice daily temporarily. I do not want to over diurese him. Methamphetamine withdrawal, increase Ativan to 1 mg every 2 hours as needed Nonsustained V. tach in a patient who has an ejection fraction of 30% or less. I am unable to assess whether his ejection fraction is now less than 30% because we have no surgical scrub technologist. His electrolytes this morning were acceptable. Troponins are not rising. He is not hemodynamically unstable. His V. tach is nonsustained so I do not think cardioversion. Because this patient is a full code, I will transfer him to the unit and start amiodarone protocol and continue to observe to see how he does
[2022-12-01] MEDS ORDERED: AMIODARONE 150 MG/100 ML 100 ML IV ONE (18:52)
[2022-12-01] MEDS ORDERED: AMIODARONE 360 MG/200 ML 200 ML IV ONE (18:52)
[2022-12-01] MEDS: MORPHINE 2 MG/ML CARPUJECT IVP PRN ×2 (20:22→22:20)
[2022-12-01 22:45] LABS: CALCIUM, IONIZED 1.07 mmol/L (1.15-1.33); VBG PH 7.419 (7.31-7.41)
[2022-12-01 22:59] LABS: MAGNESIUM 1.7 mg/dL (1.7-2.3); PHOSPHORUS 2.6 mg/dL (2.5-5.0); POTASSIUM 3.8 mmol/L (3.5-4.5)
[2022-12-01] MEDS ORDERED: POTASSIUM CHLORIDE 20 MEQ TABLET PO ONE (23:13)
[2022-12-01] MEDS ORDERED: MAGNESIUM OXIDE 400 MG TABLET PO ONE (23:13)
[2022-12-01] MEDS: CALCIUM CARBONATE CHEW 500 MG TABLET PO SCH (23:27)
[2022-12-02] MEDS: MORPHINE 2 MG/ML CARPUJECT IVP PRN ×2 (00:34→14:08)
[2022-12-02] MEDS ORDERED: AMIODARONE 360 MG/200 ML 200 ML IV SCH (01:00)
[2022-12-02 05:00] LABS: CALCIUM, IONIZED 1.12 mmol/L (1.15-1.33); VBG PH 7.421 (7.31-7.41)
[2022-12-02 05:02] LABS: BASOPHILS # (AUTO) 0.1 10^3/uL (0.0-0.1); BASOPHILS % (AUTO) 0.8 %; EOSINOPHILS # (AUTO) 0.3 10^3/uL (0.0-0.7); EOSINOPHILS % (AUTO) 4.5 %; HCT - HEMATOCRIT 45.8 % (42.0-52.0); HGB - HEMOGLOBIN 14.7 g/dL (14.0-18.0); LYMPHOCYTES # (AUTO) 1.3 10^3/uL (1.5-3.5); LYMPHOCYTES % (AUTO) 16.9 %; MEAN CORPUSCULAR HEMOGLOBIN 27.4 pg (27.0-31.0); MEAN CORPUSCULAR HGB CONC 32.1 g/dL (32.0-36.0); MEAN CORPUSCULAR VOLUME 85.3 fL (80.0-94.0); MONOCYTES # (AUTO) 0.8 10^3/uL (0.0-1.0); MONOCYTES % (AUTO) 10.6 %; NEUTROPHILS # (AUTO) 5.1 10^3/uL (1.5-6.6); NEUTROPHILS % (AUTO) 66.9 %; PLT - PLATELET COUNT 274 10^3/uL (130-450); RED BLOOD COUNT 5.37 10^6/uL (4.70-6.10); RED CELL DISTRIBUTION WIDTH 15.7 % (12.0-15.0); WHITE BLOOD COUNT 7.6 x10^3/uL (4.8-10.8)
[2022-12-02 05:15] LABS: BUN - BLOOD UREA NITROGEN 23 mg/dL (6-20); CALCIUM 9.2 mg/dL (8.5-10.3); CARBON DIOXIDE - CO2 30 mmol/L (21-32); CHLORIDE 101 mmol/L (101-111); CHOL/HDL RATIO 4.1 (<5.0); CHOLESTEROL 180 mg/dL; CREATININE 1.1 mg/dL (0.6-1.3); GFR - MDRD 67 (>89); GLUCOSE 96 mg/dL (74-104); HDL CHOLESTEROL 44 mg/dL; LDL CHOLESTEROL,CALCULATED 117 mg/dL; LDL/HDL RATIO 2.7 (<3.6); MAGNESIUM 1.8 mg/dL (1.7-2.3); PHOSPHORUS 2.9 mg/dL (2.5-5.0); SODIUM 138 mmol/L (135-145); TRIGLYCERIDES 93 mg/dL (48-352); VLDL CHOLESTEROL 19 mg/dL
[2022-12-02] MEDS: CALCIUM CARBONATE CHEW 500 MG TABLET PO SCH (05:52)
[2022-12-02] MEDS: FUROSEMIDE 20 MG/2 ML VIAL IVP SCH ×2 (06:33→13:37)
[2022-12-02] MEDS: MULTIVITAMIN W/MINERALS TABLET PO SCH (08:25)
[2022-12-02] MEDS: ASPIRIN EC 81 MG TABLET PO SCH (08:25)
[2022-12-02] MEDS: amLODIPine 5 MG TABLET PO SCH (08:25)
[2022-12-02] MEDS: carvediloL 12.5 MG TABLET PO SCH ×2 (08:26→21:17)
[2022-12-02] MEDS: HEPARIN 5,000 UNIT/ML VIAL SUBQ SCH ×2 (08:26→21:19)
[2022-12-02] MEDS: oxyCODONE 5 MG TABLET PO PRN (08:26)
[2022-12-02] MEDS: SODIUM CHLORIDE FLUSH 0.9% 10 ML SYRINGE IVP SCH ×2 (08:26→18:20)
[2022-12-02 08:59] LABS: ESTIMATED AVERAGE GLUCOSE 131 mg/dL (70-100); HEMOGLOBIN A1c% 6.2 % (4.27-6.07)
--- NOTE | 2022-12-02 11:14 | PROVIDER PROGRESS NOTE ---
Subjective - Prog Note Date Prog Note Date: 12/02/22 Prog Note Time: 11:12 - Subjective Subjective: His balance is -3120 cc for yesterday. So far as of midnight he is -1055 cc as of this dictation. BNP has come down from 7123-9914. He still measurable. Hurts all over. Lorazepam was increased to 1 mg from half a milligram to control some of the withdrawal symptoms. He received 1 mg at 930 last night, and another at 11:30 PM. I transferred him to ICU last night because of wide-complex tachycardia. Asymptomatic. He has an ejection fraction up to 30% or less and I worry about V. tach and sudden . This morning he is snoring. Quiet. Ate 100% of his breakfast. When you wake him up he is nonstop talking, fast, pressured. Flight of ideas. Current Medications - Current Medications Current Medications: Active Medications Acetaminophen (Acetaminophen 325 Mg Tablet) 650 mg PO Q4HR PRN PRN Reason: Pain 1 to 4, or Fever Last Admin: 12/01/22 17:47 Dose: 650 mg Albuterol/Ipratropium (Ipratropium/Albuterol 3 Ml Neb) 3 ml INH Q4HR PRN PRN Reason: Wheezing Last Admin: 12/01/22 17:15 Dose: 3 ml Amiodarone HCl (Amiodarone 200 Mg Tablet) 200 mg PO DAILY [facility] Amlodipine Besylate (Amlodipine 5 Mg Tablet) 10 mg PO DAILY [facility] Last Admin: 12/02/22 08:25 Dose: 10 mg Aspirin (Aspirin Ec 81 Mg Tablet) 81 mg PO DAILY [facility] Last Admin: 12/02/22 08:25 Dose: 81 mg Carvedilol (Carvedilol 12.5 Mg Tablet) 12.5 mg PO BID [facility] Last Admin: 12/02/22 08:26 Dose: 12.5 mg Furosemide (Furosemide 20 Mg/2 Ml Vial) 20 mg IVP BIDDIURETIC [facility] Last Admin: 12/02/22 06:33 Dose: 20 mg Heparin Sodium (Porcine) (Heparin 5,000 Unit/Ml Vial) 5,000 unit SUBQ BID [facility] Last Admin: 12/02/22 08:26 Dose: 5,000 unit Hydralazine HCl (Hydralazine Inj 20 Mg/Ml Vial) 10 mg IVP Q6HR PRN PRN Reason: SBP>160 or dbp>105 Last Admin: 12/01/22 18:48 Dose: 10 mg Amiodarone HCl/Dextrose (Nexterone 360 Mg/200 Ml) 200 mls @ 16.667 mls/hr IV .Q12H [facility] Stop: 12/02/22 12:59 Last Admin: 12/02/22 01:24 Dose: 0.5 mg/min, 16.667 mls/hr Lorazepam (Lorazepam 2 Mg/Ml Vial) 1 mg IVP Q2H PRN PRN Reason: Anxiety Last Admin: 12/01/22 23:33 Dose: 1 mg Morphine Sulfate (Morphine 2 Mg/Ml Carpuject) 2 mg IVP Q2HR PRN PRN Reason: Pain 8 to 10 Last Admin: 12/02/22 00:34 Dose: 2 mg Multivitamins/Minerals (Multivitamin W/Minerals Tablet) 1 tab PO DAILYWM [facility] Last Admin: 12/02/22 08:25 Dose: 1 tab Ondansetron HCl (Ondansetron 4 Mg/2 Ml Vial) 4 mg IVP Q6HR PRN PRN Reason: Nausea / Vomiting Oxycodone HCl (Oxycodone 5 Mg Tablet) 5 mg PO Q4HR PRN PRN Reason: Pain 5 to 7 Last Admin: 12/02/22 08:26 Dose: 5 mg Prochlorperazine Edisylate (Prochlorperazine 10 Mg/2 Ml Vial) 10 mg IVP Q6HR PRN PRN Reason: Nausea / Vomiting Sodium Chloride (Sodium Chloride Flush 0.9% 10 Ml Syringe) 10 ml IVP PRN PRN PRN Reason: NEEDED PER PROVIDER ORDERS Sodium Chloride (Sodium Chloride Flush 0.9% 10 Ml Syringe) 10 ml IVP 0100,0900,1700 [facility] Last Admin: 12/02/22 08:26 Dose: 10 ml No Known Home Medications 12/01/22 Objective - Vital Signs/Intake & Output Reviewed Vital Signs: Yes Vital Signs: Vital Signs Temp Pulse Resp BP Pulse Ox O2 Flow Rate 12/02/22 10:00 72 16 106/60 96 2 12/02/22 09:00 80 18 125/74 98 2 12/02/22 08:35 3 12/02/22 08:34 89 23 145/87 H 95 2 12/02/22 08:00 36 C L 82 20 167/104 H 97 2 Intake & Output: Intake & Output 11/29/22 11/30/22 12/01/22 12/02/22 23:59 23:59 23:59 23:59 Intake Total 730 320 Output Total 3850 1375 Balance -0645 -8185 - Objective General Appearance: positive: Mild distress (Still hurts all over, but does not feel nearly as "jumping out of his skin" as he did last night), Other (Very disheveled, still covered in dirt. Has not had a shower yet) Eyes Bilateral: positive: PERRL, EOMI ENT: positive: Other (Upper dentures, no teeth on the bottom) Neck: positive: Other (Supple neck, shotty lymphadenopathy, JVD fpc up the neck at 45 degrees) Respiratory: positive: No respiratory distress, Rales (Faint at mid lungs and bases. Improved from yesterday). negative: Wheezes, Rhonchi Cardiovascular: positive: Regular rate & rhythm, Extrasystoles, Systolic murmur, Other (PMI is laterally displaced and broad. Amiodarone fully loaded and now on a maintenance drip) Abdomen: positive: Non-tender, No organomegaly, Nml bowel sounds, No distention Skin: positive: Warm, Dry, Other (Lots of dirt) Extremities: positive: Full ROM, Pedal edema Neurologic/Psychiatric: positive: CN's nml (2-12), Motor nml, Disoriented to place (At times. Tells me he is in [place]), Disoriented to time (Pretty much all the time. Very vague on the date) - Lab Results Fish Bones: 12/02/22 04:48 12/02/22 04:48 Other Labs: Lab Results x24hrs 12/02/22 12/02/22 12/02/22 Range/Units 04:48 04:48 04:48 WBC 7.6 (4.8-10.8) x10^3/uL RBC 5.37 (4.70-6.10) 10^6/uL Hgb 14.7 (14.0-18.0) g/dL Hct 45.8 (42.0-52.0) % MCV 85.3 (80.0-94.0) fL MCH 27.4 (27.0-31.0) pg MCHC 32.1 (32.0-36.0) g/dL RDW 15.7 H (12.0-15.0) % Plt Count 274 (130-450) 10^3/uL MPV 10.0 (7.4-11.4) fL Neut # (Auto) 5.1 (1.5-6.6) 10^3/uL Lymph # (Auto) 1.3 L (1.5-3.5) 10^3/uL Arroyo # (Auto) 0.8 (0.0-1.0) 10^3/uL Eos # (Auto) 0.3 (0.0-0.7) 10^3/uL Baso # (Auto) 0.1 (0.0-0.1) 10^3/uL Absolute Nucleated RBC 0.00 x10^3/uL Nucleated RBC % 0.0 /100WBC Bld Gas Analysis Time Sample Site ABG pH (7.35-7.45) ABG pCO2 (34-45) mmHg ABG pO2 (80-100) mmHg ABG HCO3 (22.0-26.0) mmol/L ABG Total CO2 (21.0-29.0) MMOL/L ABG O2 Saturation (94-98) % ABG Base Excess (-2.0-3.0) mmol/L Miguel Test VBG pH 7.421 H (7.31-7.41) Ionized Calcium 1.12 L (1.15-1.33) mmol/L Room Air Sodium (135-145) mmol/L Potassium (3.5-4.5) mmol/L Chloride (101-111) mmol/L Carbon Dioxide (21-32) mmol/L Anion Gap (6-13) BUN (6-20) mg/dL Creatinine (0.6-1.3) mg/dL Estimated GFR (MDRD) (>89) Glucose (74-104) mg/dL Estimat Average Glucose (70-100) mg/dL Hemoglobin A1c % (4.27-6.07) % Calcium (8.5-10.3) mg/dL Phosphorus (2.5-5.0) mg/dL Magnesium (1.7-2.3) mg/dL Troponin I High Sens (2.3-19.7) ng/L B-Natriuretic Peptide 1602 H (5-100) pg/mL Triglycerides (48-352) mg/dL Cholesterol ( - 200) mg/dL LDL Cholesterol, Calc ( - 129) mg/dL VLDL Cholesterol mg/dL HDL Cholesterol (60 - ) mg/dL LDL/HDL Ratio (<3.6) Cholesterol/HDL Ratio (<5.0) Nasal Screen MRSA (PCR) (NEGATIVE) 12/02/22 12/02/22 12/01/22 Range/Units 04:48 04:48 22:40 WBC (4.8-10.8) x10^3/uL RBC (4.70-6.10) 10^6/uL Hgb (14.0-18.0) g/dL Hct (42.0-52.0) % MCV (80.0-94.0) fL MCH (27.0-31.0) pg MCHC (32.0-36.0) g/dL RDW (12.0-15.0) % Plt Count (130-450) 10^3/uL MPV (7.4-11.4) fL Neut # (Auto) (1.5-6.6) 10^3/uL Lymph # (Auto) (1.5-3.5) 10^3/uL Arroyo # (Auto) (0.0-1.0) 10^3/uL Eos # (Auto) (0.0-0.7) 10^3/uL Baso # (Auto) (0.0-0.1) 10^3/uL Absolute Nucleated RBC x10^3/uL Nucleated RBC % /100WBC Bld Gas Analysis Time Sample Site ABG pH (7.35-7.45) ABG pCO2 (34-45) mmHg ABG pO2 (80-100) mmHg ABG HCO3 (22.0-26.0) mmol/L ABG Total CO2 (21.0-29.0) MMOL/L ABG O2 Saturation (94-98) % ABG Base Excess (-2.0-3.0) mmol/L Miguel Test VBG pH 7.419 H (7.31-7.41) Ionized Calcium 1.07 L (1.15-1.33) mmol/L Room Air Sodium 138 (135-145) mmol/L Potassium 4.0 (3.5-4.5) mmol/L Chloride 101 (101-111) mmol/L Carbon Dioxide 30 (21-32) mmol/L Anion Gap 7.0 (6-13) BUN 23 H (6-20) mg/dL Creatinine 1.1 (0.6-1.3) mg/dL Estimated GFR (MDRD) 67 L (>89) Glucose 96 (74-104) mg/dL Estimat Average Glucose 131 H (70-100) mg/dL Hemoglobin A1c % 6.2 H (4.27-6.07) % Calcium 9.2 (8.5-10.3) mg/dL Phosphorus 2.9 (2.5-5.0) mg/dL Magnesium 1.8 (1.7-2.3) mg/dL Troponin I High Sens (2.3-19.7) ng/L B-Natriuretic Peptide (5-100) pg/mL Triglycerides 93 (48-352) mg/dL Cholesterol 180 ( - 200) mg/dL LDL Cholesterol, Calc 117 ( - 129) mg/dL VLDL Cholesterol 19 mg/dL HDL Cholesterol 44 L (60 - ) mg/dL LDL/HDL Ratio 2.7 (<3.6) Cholesterol/HDL Ratio 4.1 (<5.0) Nasal Screen MRSA (PCR) (NEGATIVE) 12/01/22 12/01/22 12/01/22 Range/Units 22:40 19:45 17:26 WBC (4.8-10.8) x10^3/uL RBC (4.70-6.10) 10^6/uL Hgb (14.0-18.0) g/dL Hct (42.0-52.0) % MCV (80.0-94.0) fL MCH (27.0-31.0) pg MCHC (32.0-36.0) g/dL RDW (12.0-15.0) % Plt Count (130-450) 10^3/uL MPV (7.4-11.4) fL Neut # (Auto) (1.5-6.6) 10^3/uL Lymph # (Auto) (1.5-3.5) 10^3/uL Arroyo # (Auto) (0.0-1.0) 10^3/uL Eos # (Auto) (0.0-0.7) 10^3/uL Baso # (Auto) (0.0-0.1) 10^3/uL Absolute Nucleated RBC x10^3/uL Nucleated RBC % /100WBC Bld Gas Analysis Time 1734 Sample Site RIGHT RADIAL ABG pH 7.47 H (7.35-7.45) ABG pCO2 42 (34-45) mmHg ABG pO2 63 L (80-100) mmHg ABG HCO3 29.6 H (22.0-26.0) mmol/L ABG Total CO2 30.9 H (21.0-29.0) MMOL/L ABG O2 Saturation 93 L (94-98) % ABG Base Excess 5.3 H (-2.0-3.0) mmol/L Miguel Test POSITIVE VBG pH (7.31-7.41) Ionized Calcium (1.15-1.33) mmol/L Room Air YES Sodium (135-145) mmol/L Potassium 3.8 (3.5-4.5) mmol/L Chloride (101-111) mmol/L Carbon Dioxide (21-32) mmol/L Anion Gap (6-13) BUN (6-20) mg/dL Creatinine (0.6-1.3) mg/dL Estimated GFR (MDRD) (>89) Glucose (74-104) mg/dL Estimat Average Glucose (70-100) mg/dL Hemoglobin A1c % (4.27-6.07) % Calcium (8.5-10.3) mg/dL Phosphorus 2.6 (2.5-5.0) mg/dL Magnesium 1.7 (1.7-2.3) mg/dL Troponin I High Sens (2.3-19.7) ng/L B-Natriuretic Peptide (5-100) pg/mL Triglycerides (48-352) mg/dL Cholesterol ( - 200) mg/dL LDL Cholesterol, Calc ( - 129) mg/dL VLDL Cholesterol mg/dL HDL Cholesterol (60 - ) mg/dL LDL/HDL Ratio (<3.6) Cholesterol/HDL Ratio (<5.0) Nasal Screen MRSA (PCR) NEGATIVE (NEGATIVE) 12/01/22 Range/Units 16:25 WBC (4.8-10.8) x10^3/uL RBC (4.70-6.10) 10^6/uL Hgb (14.0-18.0) g/dL Hct (42.0-52.0) % MCV (80.0-94.0) fL MCH (27.0-31.0) pg MCHC (32.0-36.0) g/dL RDW (12.0-15.0) % Plt Count (130-450) 10^3/uL MPV (7.4-11.4) fL Neut # (Auto) (1.5-6.6) 10^3/uL Lymph # (Auto) (1.5-3.5) 10^3/uL Arroyo # (Auto) (0.0-1.0) 10^3/uL Eos # (Auto) (0.0-0.7) 10^3/uL Baso # (Auto) (0.0-0.1) 10^3/uL Absolute Nucleated RBC x10^3/uL Nucleated RBC % /100WBC Bld Gas Analysis Time Sample Site ABG pH (7.35-7.45) ABG pCO2 (34-45) mmHg ABG pO2 (80-100) mmHg ABG HCO3 (22.0-26.0) mmol/L ABG Total CO2 (21.0-29.0) MMOL/L ABG O2 Saturation (94-98) % ABG Base Excess (-2.0-3.0) mmol/L Miguel Test VBG pH (7.31-7.41) Ionized Calcium (1.15-1.33) mmol/L Room Air Sodium (135-145) mmol/L Potassium (3.5-4.5) mmol/L Chloride (101-111) mmol/L Carbon Dioxide (21-32) mmol/L Anion Gap (6-13) BUN (6-20) mg/dL Creatinine (0.6-1.3) mg/dL Estimated GFR (MDRD) (>89) Glucose (74-104) mg/dL Estimat Average Glucose (70-100) mg/dL Hemoglobin A1c % (4.27-6.07) % Calcium (8.5-10.3) mg/dL Phosphorus (2.5-5.0) mg/dL Magnesium (1.7-2.3) mg/dL Troponin I High Sens 49.6 H* (2.3-19.7) ng/L B-Natriuretic Peptide (5-100) pg/mL Triglycerides (48-352) mg/dL Cholesterol ( - 200) mg/dL LDL Cholesterol, Calc ( - 129) mg/dL VLDL Cholesterol mg/dL HDL Cholesterol (60 - ) mg/dL LDL/HDL Ratio (<3.6) Cholesterol/HDL Ratio (<5.0) Nasal Screen MRSA (PCR) (NEGATIVE) Assessment/Plan - Problem List (1) Acute on chronic HFrEF (heart failure with reduced ejection fraction) Impression: In a homeless gentleman who does not take any medications. CHF identified with previous admissions. Echo 2 years ago has ejection fraction of 30%. Since he continues to abuse methamphetamines, I suspect his ejection fraction may be lower. Plan: On Lasix 20 mg IV push twice daily. I did not have to go to 40 mg twice daily as a planned yesterday. He has had excellent urine output with 20 mg. I will continue that. Already on Coreg. Add lisinopril 2.5 mg for the next couple of days and increase to 5 mg if his blood pressure tolerates. I will continue to check his magnesium and potassium every morning. Today's levels are normal. I will supplement as needed. Especially in view of arrhythmia. If he is still here by next Sunday (today is Sunday) I will order an echo when the tech is here. I will also try and establish a POLST on him if he has the wherewithal to be alert, oriented and lucid conversationalist (2) Arrhythmia Impression: Wide-complex tachycardia. Interpreted as SVT by nursing. It happens too fast to get an EKG and only seen on telemetry. Asymptomatic with this. Only a few beats last night since amiodarone. With an ejection fraction of 30% and I suspect it is lower now, I do worry about sudden and V. tach. Plan: Monitor electrolytes. This morning they are stable. Magnesium and potassium specifically. Stop IV amiodarone and change to p.o. amiodarone when this current bag runs out. That would be this evening. Advance care planning discussion will be attempted. I do not know how successful I will be. 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 Minimal benzodiazepine needed. I will continue the benzodiazepine for the next day or 2. (4) Medical non-compliance Impression: And then homeless person. Social work will review his case and see what opportunities we could offer him (5) COPD (chronic obstructive pulmonary disease) Impression: Currently his shortness of breath appears to be strictly related to her cardiac. I am not hearing wheezing. He is short of breath with exertion. Plan: DuoNeb as needed Nicotine patch Qualifiers: COPD type: emphysema (6) Type 2 diabetes mellitus, controlled Impression: He was mildly hyperglycemic on admission. 119. Next one was 124 fasting. A1c is 6.2%. This may explain some of the burning in his legs that he is complaini ng about. But his glucose is not high enough to warrant treatment at this time. I suspect that due to his homeless status he is in an inadvertent calorie restricted diet. At this time I will not order [id number] glucose or sliding scale Qualifiers: Diabetes mellitus custodial insulin use: without predatory animal exterminator use Diabetes mellitus complication status: with neurologic complications Diabetes mellitus complication detail: with polyneuropathy Qualified Code(s): E11.42 - Type 2 diabetes mellitus with diabetic polyneuropathy (7) E. coli UTI Impression: He denies urgency, frequency, dysuria. While he has diabetes I do not think he is got a neurogenic bladder. Cystitis in males is generally classified as a complicated UTI, but I have to take into account that this gentleman will not be compliant with medications if he leaves here. As such I will try fosfomycin as a single dose. If the sensitivities come back with regards to resistance, I will change him to Bactrim or nitrofurantoin
[2022-12-02] MEDS ORDERED: FOSFOMYCIN TROMETHAMINE 3 GM PACKET PO ONE (11:30)
[2022-12-02] MEDS: NICOTINE 14 MG PATCH TOP SCH (12:15)
[2022-12-02] MEDS: lisinopriL 5 MG TABLET PO SCH (12:15)
[2022-12-02] MEDS: LORazepam 2 MG/ML VIAL IVP PRN (13:37)
[2022-12-02] MEDS: IPRATROPIUM/ALBUTEROL 3 ML NEB INH PRN ×2 (14:00→21:30)
[2022-12-02] MEDS: AMIODARONE 200 MG TABLET PO SCH (21:17)
[2022-12-03] MEDS: SODIUM CHLORIDE FLUSH 0.9% 10 ML SYRINGE IVP SCH ×3 (02:05→16:58)
[2022-12-03 05:25] LABS: CALCIUM, IONIZED 1.12 mmol/L (1.15-1.33); VBG PH 7.393 (7.31-7.41)
[2022-12-03 05:47] LABS: PHOSPHORUS 2.8 mg/dL (2.5-5.0); POTASSIUM 3.9 mmol/L (3.5-4.5)
[2022-12-03] MEDS: FUROSEMIDE 20 MG/2 ML VIAL IVP SCH (05:55)
[2022-12-03] MEDS ORDERED: POTASSIUM CHLORIDE 20 MEQ TABLET PO ONE (08:00)
[2022-12-03] MEDS: MULTIVITAMIN W/MINERALS TABLET PO SCH (08:05)
[2022-12-03] MEDS: NICOTINE 14 MG PATCH TOP SCH (08:05)
[2022-12-03] MEDS: carvediloL 12.5 MG TABLET PO SCH ×2 (08:06→21:20)
[2022-12-03] MEDS: AMIODARONE 200 MG TABLET PO SCH (08:06)
[2022-12-03] MEDS: amLODIPine 5 MG TABLET PO SCH (08:06)
[2022-12-03] MEDS: ASPIRIN EC 81 MG TABLET PO SCH (08:06)
[2022-12-03] MEDS: lisinopriL 5 MG TABLET PO SCH (08:06)
[2022-12-03] MEDS: HEPARIN 5,000 UNIT/ML VIAL SUBQ SCH ×2 (08:08→21:23)
[2022-12-03] MEDS: IPRATROPIUM/ALBUTEROL 3 ML NEB INH PRN (09:16)
[2022-12-03 09:26] LABS: CALCIUM 8.8 mg/dL (8.5-10.3); CREATININE 1.3 mg/dL (0.6-1.3); POTASSIUM 3.6 mmol/L (3.5-4.5)
--- NOTE | 2022-12-03 12:49 | PROVIDER PROGRESS NOTE ---
Progress Note December 03, 2022 12:45 PM He tells me that he is miserable. He just hurts all over. He is short of breath from wheezing but denies orthopnea. Says that he is better laying down then he is sitting up. Denies chest pain, cough, phlegm production. Moans as he speaks to me. Rolled back and forth in bed because of discomfort. In reviewing his vital signs, he is remained afebrile. Heart rate is in the 70s and 80s and no tachycardia. Blood pressure is normal. He gets occasionally tachypneic at 27. Needing 2 to 3 L nasal cannula to maintain O2 sats at 100%. Active Medications Acetaminophen (Acetaminophen 325 Mg Tablet) 650 mg PO Q4HR PRN PRN Reason: Pain 1 to 4, or Fever Last Admin: 12/01/22 17:47 Dose: 650 mg Albuterol/Ipratropium (Ipratropium/Albuterol 3 Ml Neb) 3 ml INH Q4HR PRN PRN Reason: Wheezing Last Admin: 12/03/22 09:16 Dose: 3 ml Amiodarone HCl (Amiodarone 200 Mg Tablet) 200 mg PO DAILY [facility] Last Admin: 12/03/22 08:06 Dose: 200 mg Amlodipine Besylate (Amlodipine 5 Mg Tablet) 10 mg PO DAILY [facility] Last Admin: 12/03/22 08:06 Dose: 10 mg Aspirin (Aspirin Ec 81 Mg Tablet) 81 mg PO DAILY [facility] Last Admin: 12/03/22 08:06 Dose: 81 mg Carvedilol (Carvedilol 12.5 Mg Tablet) 12.5 mg PO BID [facility] Last Admin: 12/03/22 08:06 Dose: 12.5 mg Furosemide (Furosemide 20 Mg Tablet) 20 mg PO BIDDIURETIC [facility] Heparin Sodium (Porcine) (Heparin 5,000 Unit/Ml Vial) 5,000 unit SUBQ BID [facility] Last Admin: 12/03/22 08:08 Dose: 5,000 unit Hydralazine HCl (Hydralazine Inj 20 Mg/Ml Vial) 10 mg IVP Q6HR PRN PRN Reason: SBP>160 or dbp>105 Last Admin: 12/01/22 18:48 Dose: 10 mg Lisinopril (Lisinopril 5 Mg Tablet) 2.5 mg PO DAILY [facility] Last Admin: 12/03/22 08:06 Dose: 2.5 mg Lorazepam (Lorazepam 2 Mg/Ml Vial) 1 mg IVP Q2H PRN PRN Reason: Anxiety Last Admin: 12/02/22 13:37 Dose: 1 mg Morphine Sulfate (Morphine 2 Mg/Ml Carpuject) 2 mg IVP Q2HR PRN PRN Reason: Pain 8 to 10 Last Admin: 12/02/22 14:08 Dose: 2 mg Multivitamins/Minerals (Multivitamin W/Minerals Tablet) 1 tab PO DAILYWM [facility] Last Admin: 12/03/22 08:05 Dose: 1 tab Nicotine (Nicotine 14 Mg Patch) 1 patch TOP DAILY [facility] Last Admin: 12/03/22 08:05 Dose: 1 patch Ondansetron HCl (Ondansetron 4 Mg/2 Ml Vial) 4 mg IVP Q6HR PRN PRN Reason: Nausea / Vomiting Oxycodone HCl (Oxycodone 5 Mg Tablet) 5 mg PO Q4HR PRN PRN Reason: Pain 5 to 7 Last Admin: 12/02/22 08:26 Dose: 5 mg Prochlorperazine Edisylate (Prochlorperazine 10 Mg/2 Ml Vial) 10 mg IVP Q6HR PRN PRN Reason: Nausea / Vomiting Sodium Chloride (Sodium Chloride Flush 0.9% 10 Ml Syringe) 10 ml IVP PRN PRN PRN Reason: NEEDED PER PROVIDER ORDERS Sodium Chloride (Sodium Chloride Flush 0.9% 10 Ml Syringe) 10 ml IVP 0100,090 0,1700 [facility] Last Admin: 12/03/22 08:07 Dose: 10 ml No Known Home Medications 12/01/22 Exam: Temperature is 36.6. Heart rate 79. Blood pressure 118/81. Respirations are 27. But an hour ago he was 13. 2 L nasal cannula is resulting in 100% O2 sat. Disheveled elderly gentleman. computer lab assistant promises me that he is in a get a bath today because he has been consistently disheveled and having dirt on hands, feet, parts of his body. Neck has shotty adenopathy but no JVD. He is supple. AP diameter increased, with diffuse wheezing. Regular rate and rhythm. Systolic flow murmur. Abdomen is hypoactive bowel sounds, no tenderness. Last bowel movement on the . Marin catheter is draining clear yellow urine. Marin was placed because of urinary retention and a large amount of urine in his bladder. Skin exam has rubor discoloration of his hands and feet. Not cyanotic. His ear skin area also has quite a bit of rubor. He has 1+ edema of his feet and legs below the knee. Neurologically he is oriented to person, place, time, situation. He can be forgetful. He has no focal deficits. He is able to pull up blankets, roll over on either side on his own, sit up on his own. He just appears slightly agitated because of his diffuse pain. Laboratory Tests 12/01/22 12/01/22 12/02/22 02:25 08:11 04:48 Sodium Potassium Chloride Carbon Dioxide Anion Gap BUN Creatinine Estimated GFR (MDRD) Glucose Calcium B-Natriuretic Peptide 2210 H 2899 H 1602 H 12/03/22 12/03/22 12/03/22 08:50 08:50 12:00 Sodium 140 Potassium 3.6 4.2 Chloride 100 L Carbon Dioxide 34 H Anion Gap 6.0 BUN 25 H Creatinine 1.3 Estimated GFR (MDRD) 55 L Glucose 124 H Calcium 8.8 B-Natriuretic Peptide 411 H Assessment/Plan - Problem List (1) Acute on chronic HFrEF (heart failure with reduced ejection fraction) Impression: In a homeless gentleman who does not take any medications. CHF identified with previous admissions. Echo 2 years ago has ejection fraction of 30%. Since he continues to abuse methamphetamines, I suspect his ejection fraction may be lower. I started him on Lasix 20 mg IV push and he has responded very well to that. BNP has come down on a daily basis. He is complaining of thirst and wants to eat or drink more food. Potassium and magnesium are normal with this. Plan: Transfer to [facility] status Discontinue IV Lasix. I will give him 1 p.o. dose of 20 mg this afternoon. None this morning. Tomorrow we will resume Lasix 20 mg p.o. twice daily. Already on Coreg and I added lisinopril. Blood pressure is tolerating this. Potassium is normal with the Lasix. Echo next week if he is still here. (2) Arrhythmia Impression: He was initially placed on MedSurg. But then he developed a wide-complex tachycardia Interpreted as SVT by nursing. It happens too fast to get an EKG and only seen on telemetry. Asymptomatic with this.Transferred to ICU and started on amiodarone drip. Only a few beats since amiodarone. With an ejection fraction of 30% and I suspect it is lower now, I do worry about sudden and V. tach. Loaded him with IV amiodarone. Last night I stopped IV amiodarone since he is fully loaded and put him on p.o. amiodarone. I have been monitoring his electrolytes and potassium, magnesium are normal. Advance care planning discussion will be attempted. I tried yesterday, but he was so miserable with diffuse myalgias I am going to try and attempt it today. Qualifiers: Arrhythmia type: paroxysmal tachycardia, unspecified Qualified Code(s): I47.9 - Paroxysmal tachycardia, unspecified; I47 - Paroxysmal tachycardia (3) Withdrawal from methamphetamine Impression: Went from moaning, agitated, complaining of jumping out of his skin with diffuse pain in muscle and joints To sleeping yesterday. But then the diffuse pain is g etting the best of him again and is back to being slightly agitated. I ordered Ativan Minimal benzodiazepine needed. I had already ordered Ativan 1 mg every 2 hours as needed. On the he only needed 2 doses. Yesterday he only needed 1 dose. I may asked nursing to give it to him on a more regular basis. (4) Medical non-compliance Impression: And then homeless person. Social work will review his case and see what opportunities we could offer him (5) COPD (chronic obstructive pulmonary disease) Impression: Over the last few days, I felt that his shortness of breath appears to be strictly related to cardiac dz. Today he is wheezing. Short of breath at rest. Plan: DuoNeb as needed Will be used. Nicotine patch Qualifiers: COPD type: emphysema (6) Type 2 diabetes mellitus, controlled Impression: He was mildly hyperglycemic on admission. 119. Next one was 124 fasting. A1c is 6.2%. This may explain some of the burning in his legs that he is complaining about. But his glucose is not high enough to warrant treatment at this time. I suspect that due to his homeless status he is in an inadvertent calorie restricted diet. At this time I will not order [id number] glucose or sliding scale Qualifiers: Diabetes mellitus alf insulin use: without alf use Diabetes mellitus complication status: with neurologic complications Diabetes mellitus complication detail: with polyneuropathy Qualified Code(s): E11.42 - Type 2 diabetes mellitus with diabetic polyneuropathy (7) E. coli UTI Impression: He denies urgency, frequency, dysuria. While he has diabetes I do not think he is got a neurogenic bladder. Cystitis in males is generally classified as a complicated UTI, but I have to take into account that this gentleman will not be compliant with medications if he leaves here. I used fosfomycin on December 02.
[2022-12-03] MEDS: oxyCODONE 5 MG TABLET PO PRN (13:09)
[2022-12-03] MEDS: FUROSEMIDE 20 MG TABLET PO SCH (13:09)
[2022-12-03] MEDS: GABAPENTIN 100 MG CAPSULE PO SCH ×2 (13:50→21:20)
[2022-12-04] MEDS: ACETAMINOPHEN 325 MG TABLET PO PRN (00:30)
[2022-12-04] MEDS: SODIUM CHLORIDE FLUSH 0.9% 10 ML SYRINGE IVP SCH ×2 (00:32→10:08)
[2022-12-04 05:50] LABS: CALCIUM 9.1 mg/dL (8.5-10.3); CREATININE 1.2 mg/dL (0.6-1.3); POTASSIUM 3.9 mmol/L (3.5-4.5)
[2022-12-04] MEDS: FUROSEMIDE 20 MG TABLET PO SCH ×2 (06:25→14:14)
[2022-12-04] MEDS: GABAPENTIN 100 MG CAPSULE PO SCH ×3 (06:25→21:25)
[2022-12-04] MEDS: MULTIVITAMIN W/MINERALS TABLET PO SCH (10:06)
[2022-12-04] MEDS: lisinopriL 5 MG TABLET PO SCH (10:07)
[2022-12-04] MEDS: carvediloL 12.5 MG TABLET PO SCH ×2 (10:07→21:25)
[2022-12-04] MEDS: AMIODARONE 200 MG TABLET PO SCH (10:07)
[2022-12-04] MEDS: amLODIPine 5 MG TABLET PO SCH (10:07)
[2022-12-04] MEDS: ASPIRIN EC 81 MG TABLET PO SCH (10:07)
[2022-12-04] MEDS: NICOTINE 14 MG PATCH TOP SCH (10:08)
[2022-12-04] MEDS: HEPARIN 5,000 UNIT/ML VIAL SUBQ SCH ×2 (10:10→21:25)
[2022-12-04] MEDS: oxyCODONE 5 MG TABLET PO PRN (15:53)
--- NOTE | 2022-12-04 16:51 | PROVIDER PROGRESS NOTE ---
Subjective - Prog Note Date Prog Note Date: 12/04/22 Prog Note Time: 16:12 - Subjective Pt reports feeling: Improved (Pt states breathing is improved, no longer on supplemental oxygen.) Subjective: Subjective Mr. Robb reports feeling improved from his initial admission, though he still endorses headache, bilateral lower extremity neuropathy, and generalized pain in his body "hurting all over." He reports feeling weak due to less activity while in the hospital. Patient lying supine and offered repositioning to alleviate gravitational effect on his breathing, which he declined. He also notes diarrhea w/ abdominal pain, believes it to be related to something he ate, and denies melena or hematochezia. He is aware of his overall condition and concerned how his health will impact caring for his dog at home. Current Medications - Current Medications Current Medications: Pt denies taking home meds Objective - Vital Signs/Intake & Output Reviewed Vital Signs: Yes Vital Signs: Vital Signs x48h Temp Pulse Resp BP Pulse Ox O2 Flow Rate 12/04/22 15:44 36.8 C 74 18 146/96 H 94 1 Intake & Output: Intake & Output 12/01/22 12/02/22 12/03/22 12/04/22 23:59 23:59 23:59 23:59 Intake Total 730 1120 1160 320 Output Total 3850 2835 1875 1525 [id number] [phone] - Objective General Appearance: positive: No acute distress Eyes Bilateral: positive: Normal inspection ENT: positive: ENT inspection nml Neck: positive: Thyroid nml, Trachea midline Respiratory: positive: Chest non-tender, Wheezes (Right upper lobe) Cardiovascular: positive: JVD present, Decreased pulse(s) Peripheral Pulses: 1+ Dorsalis pedis (R), 1+ Dorsalis pedis (L), 2+ Radial (R), 2+ Radial (L) Abdomen: positive: Non-tender, Nml bowel sounds, No distention Back: positive: Nml inspection Skin: positive: Color nml, Puncture wound (Bilateral track freedman, no associated erythema or swelling) Extremities: positive: Non-tender, Pedal edema Neurologic/Psychiatric: positive: Oriented x3, Motor nml, Sensory loss (Bilateral foot numbness) - Lab Results Fish Bones: 12/02/22 04:48 12/04/22 04:38 Other Labs: Lab Results x24hrs 12/04/22 12/04/22 12/04/22 Range/Units 08:58 07:41 04:38 Sodium 138 (135-145) mmol/L Potassium 3.9 (3.5-4.5) mmol/L Chloride 101 (101-111) mmol/L Carbon Dioxide 32 (21-32) mmol/L Anion Gap 5.0 L (6-13) BUN 29 H (6-20) mg/dL Creatinine 1.2 (0.6-1.3) mg/dL Estimated GFR (MDRD) 61 L (>89) Glucose 115 H (74-104) mg/dL POC Whole Bld Glucose 93 (70 - 100) mg/dL Calcium 9.1 (8.5-10.3) mg/dL Troponin I High Sens (2.3-19.7) ng/L B-Natriuretic Peptide 444 H (5-100) pg/mL 12/03/22 Range/Units 16:56 Sodium (135-145) mmol/L Potassium (3.5-4.5) mmol/L Chloride (101-111) mmol/L Carbon Dioxide (21-32) mmol/L Anion Gap (6-13) BUN (6-20) mg/dL Creatinine (0.6-1.3) mg/dL Estimated GFR (MDRD) (>89) Glucose (74-104) mg/dL POC Whole Bld Glucose (70 - 100) mg/dL Calcium (8.5-10.3) mg/dL Troponin I High Sens 31.5 H* (2.3-19.7) ng/L B-Natriuretic Peptide (5-100) pg/mL ABX Reporting Has patient been on IV antibiotics over the past 48 hours?: No Assessment/Plan - Problem List (1) Acute on chronic HFrEF (heart failure with reduced ejection fraction) Impression: Homeless gentleman who does not take any medications. CHF identified with previous admissions. Echo 2 years ago has ejection fraction of 30%. Since he continues to abuse methamphetamines, I suspect his ejection fraction may be lower. I started him on Lasix 20 mg IV push and he has responded very well to that. BNP has come down on a daily basis. He is complaining of thirst and wants to eat or drink more food. Potassium and magnesium are normal with this. Plan: CHF is stable w/ current ejection fraction. Plan to discharge w/ hospice f/u care, they are also willing to treat him in his van. Will send patient w/ prescription of 100 mg of gabapentin, for pain in his legs and arms, likely related to decreased blood flow. Echo will be performed on 12/05 if patient is still here. (2) Arrhythmia Impression: Was having 7 out of 10 chest pain, sharp and stabbing, has now all resolved. No significant EKG changes when compared to previous readings. (3) Withdrawal from methamphetamine Impression: Aside from non-specific pain all over, it appears his withdrawal has resolved as patient has not received a dose of lorazepam since 12/02. (4) Medical non-compliance Impression: Social work has reviewed his case and has set him up with hospice services to f/u w/ patient at this van. (5) COPD (chronic obstructive pulmonary disease) Impression: Today he has shown overall improvement, some residual R upper lobe wheezing noted on exam. He has graduated to room air with stable vitals and improved presentation. (6) Type 2 diabetes mellitus, controlled Impression: He was mildly hyperglycemic on admission. 119. Next one was 124 fasting. A1c is 6.2%. This may explain some of the burning in his legs that he is complaining about. But his glucose is not high enough to warrant treatment at this time. I suspect that due to his homeless status he is in an inadvertent calorie restricted diet. At this time I will not order [id number] glucose or sliding scale. Qualifiers: Diabetes mellitus vermin exterminator insulin use: without vermin exterminator use Diabetes mellitus complication status: with neurologic complications Diabetes mellitus complication detail: with polyneuropathy Qualified Code(s): E11.42 - Type 2 diabetes mellitus with diabetic polyneuropathy (7) E. coli UTI Impression: He denies urgency, frequency, dysuria. While he has diabetes I do not think he has a neurogenic bladder. Cystitis in males is generally classified as a complicated UTI, but I have to take into account that this gentleman will not be compliant with medications if he leaves here. I used fosfomycin on December 02. Plan: Patient has an indwelling Marin catheter, however with no urinary symptoms and his increased ability to ambulate for ADLs, will discontinue catheter and monitor symptoms.
[2022-12-04] MEDS ORDERED: ONDANSETRON ODT 4 MG TABLET TL PRN (19:37)
[2022-12-04] MEDS: BACITRACIN ZINC OINT 1 PACKET TOP PRN (21:25)
[2022-12-05 05:55] LABS: CREATININE 1.1 mg/dL (0.6-1.3); POTASSIUM 3.9 mmol/L (3.5-4.5)
[2022-12-05] MEDS: GABAPENTIN 100 MG CAPSULE PO SCH ×3 (06:04→21:48)
[2022-12-05] MEDS: FUROSEMIDE 20 MG TABLET PO SCH ×2 (06:04→13:25)
[2022-12-05] MEDS: MULTIVITAMIN W/MINERALS TABLET PO SCH (07:46)
[2022-12-05] MEDS: NICOTINE 14 MG PATCH TOP SCH (08:11)
[2022-12-05] MEDS: AMIODARONE 200 MG TABLET PO SCH (08:12)
[2022-12-05] MEDS: lisinopriL 5 MG TABLET PO SCH (08:12)
[2022-12-05] MEDS: amLODIPine 5 MG TABLET PO SCH (08:12)
[2022-12-05] MEDS: carvediloL 12.5 MG TABLET PO SCH ×2 (08:12→21:47)
[2022-12-05] MEDS: ASPIRIN EC 81 MG TABLET PO SCH (08:12)
[2022-12-05] MEDS: HEPARIN 5,000 UNIT/ML VIAL SUBQ SCH ×2 (08:14→21:48)
--- NOTE | 2022-12-05 11:19 | PROVIDER PROGRESS NOTE ---
Subjective - Prog Note Date Prog Note Date: 12/05/22 Prog Note Time: 13:00 - Subjective Pt reports feeling: Improved Subjective: Mr. Robb reports his breathing and overall pain levels are approximately at his baseline prior to admission. He notes his headache, diarrhea, and urinary symptoms have all resolved. He reports no change in his bilateral peripheral neuropathy of his distal upper and lower extremities post gabapentin administration. He denies any chest pain, palpitations, and increased shortness of breathing. When reviewing the plan to discharge him to [facility] for hospice f/u, he now states he would like to return to his previous living arrangement of his van to care for his elderly canine box toe stitcher. When offered, he expressed interest for home prescriptions including supplemental oxygen, furosemide, and gabapentin. Objective - Vital Signs/Intake & Output Reviewed Vital Signs: Yes Vital Signs: Vital Signs x48h Temp Pulse Resp BP Pulse Ox 12/05/22 07:35 36.6 C 72 20 130/100 H 94 Intake & Output: Intake & Output 12/02/22 12/03/22 12/04/22 12/05/22 23:59 23:59 23:59 23:59 Intake Total 1120 1160 620 490 Output Total 2835 1875 2425 400 Balance -1562 -731 -3886 90 - Objective General Appearance: positive: No acute distress, Alert, Other (Disheveled) Eyes Bilateral: positive: Normal inspection ENT: positive: ENT inspection nml, No signs of dehydration Neck: positive: Nml inspection, Thyroid nml Respiratory: positive: Wheezes (R upper field expiratory wheezing present) Cardiovascular: positive: JVD present Abdomen: positive: Non-tender, Nml bowel sounds, No distention Back: positive: Nml inspection Skin: positive: Color nml, No rash Neurologic/Psychiatric: positive: Oriented x3, Motor nml, Mood/affect nml - Lab Results Fish Bones: 12/02/22 04:48 12/05/22 04:28 Other Labs: Lab Results x24hrs 12/05/22 12/05/22 Range/Units 09:33 04:28 Sodium 137 (135-145) mmol/L Potassium 3.9 (3.5-4.5) mmol/L Chloride 99 L (101-111) mmol/L Carbon Dioxide 34 H (21-32) mmol/L Anion Gap 4.0 L (6-13) BUN 24 H (6-20) mg/dL Creatinine 1.1 (0.6-1.3) mg/dL Estimated GFR (MDRD) 67 L (>89) Glucose 114 H (74-104) mg/dL Calcium 9.0 (8.5-10.3) mg/dL B-Natriuretic Peptide 427 H (5-100) pg/mL ABX Reporting Has patient been on IV antibiotics over the past 48 hours?: No Assessment/Plan - Problem List (1) Acute on chronic HFrEF (heart failure with reduced ejection fraction) Impression: Homeless gentleman with history of untreated CHF. Echo 2 years ago shows ejection fraction of 30%. His IV has been removed and has been receiving Lasix 20 mg PO BID and he has continued to improve. BNP seems to have stabilized at 427, which is considerably improved from his initial presentation. Potassium and magnesium continue to be unremarkable. Plan: CHF is stable w/ current ejection fraction with the goal of maintaining this quality of life for the remainder of life. Echo was performed today however results are still pending, which may slightly impact his discharge orders. He has expressed desire to eat and drink more; dietary fluid restrictions of 1,500 mL have been increased to 2,000 mL as he has been fluid negative for the past several days with diuretic on board. While his room air sats remain stable in the hospital, he will have his ambulatory O2 saturation checked tomorrow prior to planned discharge. I think it would be prudent to set the patient up with home oxygen as exertion is likely to exacerbate his frail heart along with his residual CHF/COPD. Plan to discharge patient tomorrow w/ both supplemental home oxygen, along with daily carvedilol (12.5 mg PO), lisinopril (2.5 mg PO), sprinolactone (25 mg), and PRN furosemide (20 mg PO). (2) V-Tach Impression: Patient denies chest pains or palpitations. Vitals continue to be WNL, no tachycardia. No significant EKG changes compared to previous readings. (3) Type 2 diabetes mellitus, borderline Impression: His glucose is still mildly elevated while fasting at 114, however it is still not within range to initiate insulin or terminal clerk glucose management. His previous A1c labs have been within range of 6.2%. He still endorses burning neuropathy in his distal extremities; he was given 100 mg dose of gabapentin today and reports no improvement. I suspect that d/t chronic nature of this burning pain, that dose will not be sufficient to provide any relief and a hig her dose of 200 mg will be trialed prior to discharge. Plan: Will recommend diabetic diet however d/t food insecurity, he will likely be unable to comply with this. Patient is agreeable with gabapentin prescription to take home. Plan to prescribe 200 mg of gabapentin to alleviate neuropathy in his feet/hands. (4) Medical non-compliance Impression: Social work has reviewed his case and initially planned to d/c him to [facility] in [place]. However, after speaking with him today it sounds like the patient is no longer interested in nursing facility placement, and he is strongly motivated to return to his previous living arrangements and care for his dog. Discussed with patient his anticipated life expectancy; he expressed unde rstanding of the severity of his cardiac condition and is remains receptive to hospice f/u care remotely at his van. The barrier to this plan is he does not currently have reliable access to a phone to coordinate care, which has complicated his care in the past. He reports he will make efforts to have phone access to coordinate with hospice services. (5) COPD (chronic obstructive pulmonary disease) Impression: He continues to feel improved, some residual R upper lobe wheezing still noted on exam. He has been lying in his position of comfort, left lateral recumbent, and is breathing and speaking well. No change in his room air status with stable vitals and presentation. (6) Withdrawal from methamphetamine Impression: Aside from generalized pain, his withdrawal symptoms have resolved. Patient has not received lorazepam since 12/02. (7) E. coli UTI Impression: He denies urgency, frequency, dysuria. Fosfomycin was given December 02. While he has borderline diabetes I do not think he has a neurogenic bladder. Cystitis in males is generally classified as a complicated UTI, but I have to take into account that this gentleman may not be compliant with medications unrelated to his CHF upon discharge.
[2022-12-05] MEDS: SPIRONOLACTONE 25 MG TABLET PO SCH (13:25)
[2022-12-05] MEDS: IPRATROPIUM/ALBUTEROL 3 ML NEB INH PRN (19:05)
[2022-12-05] MEDS: oxyCODONE 5 MG TABLET PO PRN (20:46)
[2022-12-05] MEDS: BACITRACIN ZINC OINT 1 PACKET TOP PRN (21:48)
[2022-12-06 00:28] VITALS: BP 121/85
[2022-12-06] MEDS: FUROSEMIDE 20 MG TABLET PO SCH (05:49)
[2022-12-06] MEDS: GABAPENTIN 100 MG CAPSULE PO SCH (05:49)
[2022-12-06 06:45] LABS: CALCIUM 9.3 mg/dL (8.5-10.3); CREATININE 1.3 mg/dL (0.6-1.3); POTASSIUM 5.1 mmol/L (3.5-4.5)
[2022-12-06] MEDS: MULTIVITAMIN W/MINERALS TABLET PO SCH (08:13)
[2022-12-06] MEDS: ASPIRIN EC 81 MG TABLET PO SCH (08:13)
[2022-12-06] MEDS: carvediloL 12.5 MG TABLET PO SCH (08:13)
[2022-12-06] MEDS: NICOTINE 14 MG PATCH TOP SCH (08:13)
[2022-12-06] MEDS: SPIRONOLACTONE 25 MG TABLET PO SCH (08:13)
[2022-12-06] MEDS: amLODIPine 5 MG TABLET PO SCH (08:13)
[2022-12-06] MEDS: lisinopriL 5 MG TABLET PO SCH (08:13)
[2022-12-06] MEDS: AMIODARONE 200 MG TABLET PO SCH (08:13)
[2022-12-06] MEDS: HEPARIN 5,000 UNIT/ML VIAL SUBQ SCH (08:49)
[2022-12-06 10:39] VITALS: O2SAT 92
--- NOTE | 2022-12-06 11:12 | Discharge Plan ---
Discharge Plan Problem Reviewed?: Yes Disposition: Home, Self Care Condition: Fair Prescriptions: Spironolactone [Aldactone] 25 mg PO DAILY #30 tab carvediloL [Coreg] 12.5 mg PO BID #60 tab Furosemide [Lasix] 20 mg PO DAILY PRN #15 tab PRN Reason: As Needed Per Provider Orders Gabapentin [Neurontin] 200 mg PO TID #180 cap Amiodarone [Pacerone] 200 mg PO DAILY #30 tab oxyCODONE [Roxicodone] 5 mg PO Q6H PRN #6 tab PRN Reason: Severe Pain (Level 7-10) lisinopriL [Zestril] 10 mg PO DAILY #60 tab Diet: Low Sodium Activity Restrictions: Activity as Tolerated Shower Restrictions: No Driving Restrictions: No Instruction Topics: Heart Failure Meds Control, Heart Failure Warning Signs, Heart Failure Tracking Weight, Heart Failure Diet Changes, Heart Failure Helpful Meds Health Concerns: You were hospitalized with congestive heart failure, which means you have a weak heart muscle, which caused you to retain water in your lungs and in your legs. You were started on medicines to treat that, which gave improvement. You were tested to see if you qualify to get home oxygen and you do not qualify at this time, since your oxygen level was stable at >92%. You are being discharged home with new prescriptions to take for your heart. Please be compliant and take these medicines. I can prescribe a 1 month supply of these medicines, but you will need refills, which would need to come from your Primary Care Provider or Hospice doctor. Our Tacking Machine Operator will help coordinate for you to be under the care of the Hospice doctor going forward. You and I completed a POLST form indicating your wish to be a DO NOT RESUSCITATE. The original POLST form goes home with you and should be displayed prominently in your home or your van, so that if an ambulance arrives they know your wishes. Plan of Treatment: As above. Please eat a low salt diet, to help prevent fluid retention. Please stop using Meth. Care Goals: Improvement in symptoms and stabilization are the goals. Assessment: The patient understands and is agreeable with the plan. Additional Instructions or Follow Up instructions: You have enlarged lymph nodes in your chest wall and should follow up with a client technical support associate for further testing. Follow-Up Care: Hospice No Smoking: If you smoke, Please STOP! Call for help. Follow-up with: Sharda Ridley MD [Provider Admit Priv/Credential] -
--- NOTE | 2022-12-06 11:15 | DISCHARGE SUMMARY ---
Discharge Summary Admit Date: 12/01/22 Discharge Date: 12/06/22 Discharging Provider: Candace Peralta MD Code Status: Do Not Attempt Resuscitation Condition at Discharge: Fair Discharge Disposition: 01 Home, Self Care - HPI History of Present Illness: Patient was admitted 12/01/22 by telemedicine. He is a homeless gentleman who chronically uses methamphetamine and was admitted for acute on chronic congestive heart failure. He has a history of an ejection fraction of 30%. He was short of breath and takes no medications for his CHF. He reports being miserable. He rolls back and forth on the bed, moaning. Says that he "hurts all over." His bones hurt, his skin hurts, feels awful. Has a headache. Feels like he is "jumping out of my skin". Given Ativan IV push every 2 hours for withdrawal and not helping. Troponin was 43 on admission; BNP 2899. The windows deployment technician reported he has ST depression that was "new" on his telemetry strips, repeated EKG and troponin. His EKGs are unchanged compared to last several years. He has sinus rhythm. ST depression in the inferior lateral leads that is chronic. Evening of 12/01 he had a nonsustained run of V. tach. Approximately 5-6 beats that are asymptomatic. Temperature is 36.2. Heart rate 96. Blood pressure 143/99. Respiration rate is between 16-34. Because he is tachypneic we did a blood gas and his pH is 7.47, PCO2 42, PO2 63 on room air. His base excess is 5.3. CT pulmonary angiogram done earlier today, shows no consolidation or pleural effusions. No pneumothorax. Has a stable nodule in the right upper lobe. Confluent centrilobular emphysema and substantial paraseptal emphysema. Right lower lobe bronchial thickening with smooth interstitial thickening and groundglass. Heart enlarged, left ventricular hypertrophy. No pericardial effusion. No large vessel abnormality. He is tachypneic with prolonged expiratory phase but no wheezing. Restless w/ his agitation. No orthopnea, no JVD. Abdomen is soft, hypoactive bowel sounds, nontender. Skin is covered with dirt over arms, forearms, knees, legs and feet. No skin breakdown or large ulcers. Assessment/plan Acute on chronic systolic heart failure. Methamphetamine withdrawal. Nonsustained V. tach in a patient who has an ejection fraction of 30% or less. - HOSPITAL COURSE Hospital Course: (1) Acute on chronic HFrEF (heart failure with reduced ejection fraction) Homeless gentleman with history of untreated CHF. Echo 2 years ago shows ejection fraction of 30%. Initially receiving IV furosemide, but improved to take PO. BNP dropped from 2899 to 300, along with presenting SOB resolution. He is able to lay on his side and breathe without pain or guarding his speech. Echo performed 12/05 shows no change in his EF. Patient expressed understanding that there is no cure for this condition and end of life discussion was initiated. CHF is stable w/ current ejection fraction with the goal of maintaining this quality of life for the remainder of life. On day of discharge, ambulatory oxygen saturation performed and O2 sats remained WNL with activity. Patient does not meet criteria for home O2. Patient will discharge with carvedilol (12.5 mg PO, BID), lisinopril (10 mg PO, daily), spirinolactone (25 mg PO, daily), and furosemide (20 mg PO, PRN). He states he will comply with this regimen. (2) Ventricular Tachycardia, nonsustained Patient had a nonsustained run of V-tach just prior to inpatient admit, prompting a change to ICU d/t decompensated CHF and risk of V-fib/sudden . Started on amiodarone protocol in ICU. After arrhythmia resolved, he stepped down to MedSurg status. Amiodarone continued daily, no recurrence of arrhythmia. Patient to discharge with prescription for amiodarone (200 mg PO, daily). Educated patient on the risks of arrythmia his CHF carries along with the goal of amiodarone keeping his heart out of dangerous rhythms. He again states he will comply with this medication. (3) Type 2 diabetes mellitus, borderline He was mildly hyperglycemic on admission at 119. Next one was 124, fasting. But his glucose is not high enough to warrant treatment. As of 12/06, patient's glucose readings remain slightly elevated, however still not in range to initiate insulin or exterminator helper termite glucose management. His previous A1c labs have been within range of 6.2%. He still endorses burning neuropathy in his distal extremities, more pronounced in his feet. Today he was given 200 mg dose of gabapentin and reports little improvement. As this is a new medication for him, he may not see any improvement on gabapentin for up to two months, especially due to the chronic and untreated nature of his neuropathy. However I still think it would be valuable to prescribe as he is seeking alternative and dangerous methods for pain control, such as meth. Will recommend diabetic diet however d/t food insecurity (living in [place], unknown financial status), he will likely be unable to comply with this. Patient is agreeable with gabapentin (200 mg PO, TID) prescription to alleviate neuropathy predominantly in his feet. (4) Medical non-compliance Upon first review of his case, social work planned to d/c him to [facility] in [place], to which Mr. Robb was on board with. However, he changed his mind during his stay at the hospital and wanted to d/c home with outpatient hospice service. The barrier to this plan is he does not currently have reliable access to a phone to coordinate care, which has previously complicated care. Discussed with patient his anticipated life expectancy; he expressed understanding of the severity of his cardiac condition and is remains receptive to hospice f/u care remotely at his van. Upon discharge, his plan remains to start taking medications prescribed today and obtain phone access to coordinate with hospice services. (5) COPD (chronic obstructive pulmonary disease) With his smoking history and lapses in seeking medical care, this was initially believed to be a COPD exacerbation, secondary to SOB, however it became evident he was fluid overloaded d/t chronic untreated CHF. He was on supplemental oxygen, which has since been discontinued, and throughout his admission his breathing and guarding of speech have progressively improved. On day of discharge, ambulatory oxygen saturation performed and O2 sats remained WNL with activity. Patient does not meet criteria for home O2. Upon discharge, he is on room air, no dyspnea, has stable vitals, and good presentation. (6) Withdrawal from methamphetamine Patient initially presented agitated, tachycardic, and with pressured speech. He admits to only using meth "occasionally" in a "medicinal" fashion, which translates to the patient self-medicating for both decreased cardiac output (he feels it helps his heart pump better, if only temporarily) and also to treat bilateral pain in his feet which sounds more like neuropathy, as he describes it as burning w/ a loss of sensation. In the hospital, he was given lorazepam to alleviate these symptoms and he responded well to this treatment. His withdrawal has resolved and lorazepam last dose was on 12/02. Encouraged patient to stop using meth and begin taking the medications we are prescribing for CHF and neuropathy, as they will manage his symptoms safely and more effectively as long he remains medication compliant. Discussed the dimin ishing returns and negative effects that come along meth use; patient expresses understanding. As he is returning to his living space, a van on a friend's property, there is a high likelihood of him using again and resources were provided to further encourage his cessation of methamphetamines. (7) Unspecified Escherichia coli [E. coli] as the cause of diseases classified elsewhere Pt was found to have a UTI w/ E. Coli as the causative organism. A complete course of Fosfomycin was given, x1 dose. He denies urgency, frequency, dysuria. - ALLERGIES Allergies/Adverse Reactions: Allergies Allergy/AdvReac Type Severity Reaction Status Date / Time No Known Drug Allergies Allergy Verified 12/01/22 02:23 - MEDICATIONS Home Medications: Ambulatory Orders Medication Instructions Recorded Confirmed Amiodarone [Pacerone] 200 mg PO DAILY #30 tab 12/06/22 Furosemide [Lasix] 20 mg PO DAILY PRN #15 tab 12/06/22 Gabapentin [Neurontin] 200 mg PO TID #180 cap 12/06/22 Spironolactone [Aldactone] 25 mg PO DAILY #30 tab 12/06/22 carvediloL [Coreg] 12.5 mg PO BID #60 tab 12/06/22 lisinopriL [Zestril] 10 mg PO DAILY #60 tab 12/06/22 oxyCODONE [Roxicodone] 5 mg PO Q6H PRN #6 tab 12/06/22 - PHYSICAL EXAM AT DISCHARGE General Appearance: positive: No acute distress, Alert Eyes Bilateral: positive: Normal inspection, Conjunctivae nml, No scleral icterus ENT: positive: ENT inspection nml (Pt has upper denture in place, baseline.) Neck: positive: Thyroid nml, Trachea midline Respiratory: positive: Chest non-tender, No respiratory distress Cardiovascular: positive: JVD present Abdomen: positive: Non-tender, No organomegaly, No distention Back: positive: Nml inspection Skin: positive: Color nml, No rash, Warm, Dry Extremities: positive: Non-tender, No pedal edema Neurologic/Psychiatric: positive: Oriented x3, Motor nml, Mood/affect nml, Sensory loss (Bilateral foot neuropathy) - LABS Result Diagrams: 12/02/22 04:48 12/06/22 05:58 - DIAGNOSTIC IMAGING Diagnostic Imaging Results: Final report reviewed (Reviewed CXR, CT Angiogram, and Echocardiogram) - FOLLOW UP Follow Up: Mr. Robb will have hospice arrangements from [facility] social work upon discharge and will have them follow his care for the foreseeable future. His discharge medications will be refilled by a hospice provider. His plan is to obtain phone access to coordinate all further care with the hospice service. - TIME SPENT Time Spent in Discharge (Minutes): 45
== END 2022-12-06 13:28 | disposition home or self-care (01) | DRG 291 ==
LOC: EDUNIT# → ED 02:03 → MS2 06:00 → ICU 19:19 → MS2 12-03 20:11
PROVIDERS: ADMIT Internal Medicine; ATTEND Internal Medicine
DX: I11.0 Hypertensive heart disease with heart failure (principal); I50.9 Heart failure, unspecified; I50.23 Acute on chronic systolic (congestive) heart failure; I47.20 Ventricular tachycardia, unspecified; Z59.02 Unsheltered homelessness; F17.200 Nicotine dependence, unspecified, uncomplicated; Z59.00 Homelessness unspecified; R00.0 Tachycardia, unspecified; R59.0 Localized enlarged lymph nodes; F15.13 Other stimulant abuse with withdrawal; N39.0 Urinary tract infection, site not specified; E11.65 Type 2 diabetes mellitus with hyperglycemia; E11.42 Type 2 diabetes mellitus with diabetic polyneuropathy; F17.210 Nicotine dependence, cigarettes, uncomplicated; B96.20 Unspecified Escherichia coli [E. coli] as the cause of diseases classified elsewhere; I25.10 Atherosclerotic heart disease of native coronary artery without angina pectoris; I25.2 Old myocardial infarction; Z66 Do not resuscitate; R91.1 Solitary pulmonary nodule; J43.2 Centrilobular emphysema; Z91.148 Patient's other noncompliance with medication regimen for other reason; J44.9 Chronic obstructive pulmonary disease, unspecified
CPT/HCPCS: 36415; 36600; 71046; 71275; 80048; 80053; 80061; 81001; 82330; 82803; 83036; 83690; 83735; 83880; 84100; 84132; 84484; 85025; 85379; 87086; 87150; 87181; 87633; 93005; 93306; 94640; 94761; 96374; 96375; 97162; 99285; A9270; J0282; J2060; J8499; Q9967; 83721